=== PATIENT | male | born 1945 | race Caucasian/White ===

== ENCOUNTER → 2017-11-28 10:30 | Outpatient (CLI) | payer MEDICARE, SELFPAY ==
--- NOTE | 2017-11-28 08:43 | ECHOD_ITS ---
Reason For Study: SOB Procedure This was a 2D Doppler, Color Flow transthoracic echocardiogram. Exam performed in department. Left Ventricle Mild concentric left ventricular hypertrophy. Moderately dilated left ventricle. The estimated ejection fraction is 15 %. There is severe global hypokinesis of the left ventricle. Right Ventricle Normal RV size. Normal systolic function. Atria The left atrium is moderately enlarged. Normal right atrium. Mitral Valve Mild diffuse mitral valve thickening. Mild (1+) eccentric mitral valve insufficiency. Tricuspid Valve Normal tricuspid valve. Mild (1+) tricuspid valve insufficiency. Pulmonary artery systolic pressure is 40 mmHg. Aortic Valve Trisinus/trileaflet aortic valve. Mild focal aortic valve calcification. Pulmonic Valve Normal pulmonic valve. Great Vessels Normal aortic root. The pulmonary artery is normal size. Normal inferior vena cava. Pericardium/Pleural No pericardial effusion. MMode/2D Measurements & Calculations LVIDd: 6.2 cm IVSd: 1.4 cm LVOT diam: 2.0 cm LVIDs: 5.5 cm LVPWd: 1.4 cm LVOT area: 3.2 cm2 RVDd: 3.3 cm FS: 11.9 % Ao root diam: 3.7 cm LAV(MOD-bp): 84.0 ml LA A4 area: 24.7 cm2 LA dimension: 4.9 cm LAV(MOD-bp) Indexed: 38.2 ml/m2 LAV(MOD-sp2): 76.7 ml LAV(MOD-sp4): 83.0 ml RA A4 area: 13.5 cm2 Doppler Measurements & Calculations MV E max amos: 44.2 cm/sec Lat Peak E' Amos: 6.5 cm/sec Med Peak E' Amos: 5.0 cm/sec MV A max amos: 83.5 cm/sec E/E' lat: 6.8 E/E' med: 8.8 MV E/A: 0.53 Ao V2 max: 137.3 cm/sec AI max amos: 291.7 cm/sec LV V1 max: 70.0 cm/sec Ao max P.5 mmHg AI max P.0 mmHg LV V1 max P.0 mmHg Ao V2 mean: 100.8 cm/sec AI dec slope: 225.4 cm/sec2 LV V1 mean P.1 mmHg Ao mean P.5 mmHg AI P1/2t: 379.0 msec LV V1 mean: 50.2 cm/sec Ao V2 VTI: 25.8 cm LV V1 VTI: 13.8 cm SAMUEL(I,D): 1.7 cm2 SAMUEL(V,D): 1.6 cm2 SV(LVOT): 44.3 ml PA V2 max: 65.4 cm/sec TR max amos: 297.4 cm/sec TR max P.6 mmHg Interpretation Summary Mild concentric left ventricular hypertrophy. Moderately dilated left ventricle. The estimated ejection fraction is 15 %. There is severe global hypokinesis of the left ventricle. Mild (1+) tricuspid valve insufficiency. Pulmonary artery systolic pressure is 40 mmHg. Compared to the prveious the LV function has declined significantly Compared to prior study, changes are noted. Ordering Physician: Jose Miguel Angel/Sean Dubose Referring Physician: Norris Valenzuela Performed By: Jennifer Dai, JAZMINE, RVT
--- NOTE | 2017-11-28 10:30 | DT_ITS ---
This patient was seen during an EMR downtime November 25, 2017 - December 02, 2017. This patient may have a combination of paper and electronic documentation or all paper documentation. All documentation is viewable within the e-chart portion of [facility] for each patient visit.
== END ==
PROVIDERS: Family Provider Family Medicine; PCP Family Medicine; Visit Provider Internal Medicine Cardiovascular Disease
DX: R06.02 Shortness of breath (principal); I25.10 Atherosclerotic heart disease of native coronary artery without angina pectoris
CPT/HCPCS: 93306; Q9957; A4216

== ENCOUNTER → 2017-12-05 09:03 | Outpatient (CLI) | payer MEDICARE, SELFPAY ==
--- NOTE | 2017-12-05 09:30 | RAD_ITS ---
STUDY: X-RAY CHEST REASON FOR EXAM: Male, 72 years old. Congestive heart failure. TECHNIQUE: PA and lateral views of the chest. No focal consolidation COMPARISON: None. FINDINGS: There is no focal consolidation. There are rounded calcified density at the lung bases that likely reflect granulomas. There is no demonstrated pleural abnormality. There is borderline cardiomegaly. Normal mediastinum and nicole. Normal visualized pulmonary arteries. There is atherosclerotic calcification of the aortic arch with tortuosity. There are diffuse degenerative changes of the visualized thoracic spine. Normal visualized ribs, clavicles, and shoulders. There is no demonstrated abnormality of the visualized soft tissue structures of the upper abdomen. RAD/Chest PA and Lateral IMPRESSION: Cardiomegaly. Electronically Signed: Carlota Santiago MD at 10:08 EDT Tel , Service support ,
[2017-12-05 09:42] LABS: Absolute Lymphocyte Count 1.76 X10^3/ul (0.83-4.51); Absolute Neutrophil Count 3.6 X10^3/uL (2.0-7.7); Basophil# 0.03 X10^3/uL; Basophil% 0.5 % (0-1); Eosinophil# 0.14 X10^3/uL; Eosinophils% 2.2 % (0-5); Hematocrit 45.5 % (40-54); Hemoglobin 14.7 g/dl (13.0-16.5); Lymphocyte # 1.76 X10^3/ul (4.0); Lymphocyte % 28.2 % (19-41); Mean Corp Hgb Conc 32.3 g/gl (32-36); Mean Corpuscular Hgb 29.1 pg (27.0-32.0); Mean Corpuscular Volume 90.1 fL (80-94); Mean Platelet Vol. 10.5 fl (6.2-12.0); Monocyte% 11.2 % (0-10); Neutrophil # 3.61 X10^3/uL (2.7-7.7); Neutrophil % 57.7 % (47-70); Platelet Count 219 K/mm3 (150-450); RBC Distribution Width CV 14.4 % (11.6-14.6); RBC Distribution Width SD 46.6 fl (35.1-43.9); Red Blood Count 5.05 M/mm3 (4.6-6.2); White Blood Count 6.3 K/mm3 (4.4-11.0)
[2017-12-05 09:43] LABS: POSITIVE COUNT NO; POSITIVE DIFFERENTIAL NO; POSITIVE MORPHOLOGY NO
[2017-12-05 09:51] LABS: Anion Gap 8 (5-15); BUN 28 mg/dL (7-18); BUN/Creat Ratio 17.3 RATIO (10-20); Calcium,Total 9.7 mg/dL (8.5-10.1); Chloride 105 mmol/L (98-107); Creatinine, Serum 1.62 mg/dL (0.70-1.30); EST Glomerular Filtration Rate 45 mL/min (>60); Est Glom Filt Rate - Afr Amer 54 mL/min (>60); Glucose 149 mg/dL (74-106); Potassium 4.2 mmol/L (3.5-5.1); Sodium Level 138 mmol/L (136-145)
== END ==
PROVIDERS: Family Provider Family Medicine; PCP Family Medicine; Visit Provider Internal Medicine Cardiovascular Disease
DX: I42.0 Dilated cardiomyopathy (principal)
CPT/HCPCS: 36415; 71046; 80048; 85025

== ENCOUNTER 2017-12-09 08:43 | Day surgery (SDC) | payer MEDICARE, SELFPAY ==
[2017-12-06 13:28] VITALS: BMI 36.0
--- NOTE | 2017-12-09 10:36 | CL.D_ITS ---
Patient Name: BOBBY PUGA Study Date: 12/09/2017 Performing: Sean Dubose MD Ht: 68.11 inches 173 cm : 1945 Wt: 238.1 lbs 108 kg Age: 72 Gender: male BSA: 2.2 PROCEDURE(S) PERFORMED [id number] CLINICAL PROFILE AND INDICATIONS Indications: Cardiomyopathy Heart Failure: None Stress/Imaging Stress/Image Study Performed: No CAD Presentations: No Sxs, no angina. CONCLUSIONS Non obstructive coronary arteries Cardiomyopathy: Dilated idiopathic RECOMMENDATIONS Medical therapy DESCRIPTION OF PROCEDURE The patient arrived to the procedure lab. The risks and benefits of the procedure as well as a full d escription of our services here and current unavailability of surgical backup were fully explained to the patient and/or their significant other prior to the catheterization. The Timeout was completed, verifying the correct patient and procedure. The patient's procedural site was prepped and draped in the usual fashion. Local anesthetic was given subcutaneously to right groin region with Lidocaine 2%. Using a modified Seldinger technique, arterial access was obtained via the right femoral artery, a 5 Fr sheath was inserted. Left Coronary Artery selective angiography was performed in multiple views u sing a 5 Fr. JL4 catheter. Right Coronary Artery selective angiography was then performed in multiple views using a 5 Fr. 3DRC (Ruddy) catheter.The arterial sheath was pulled and a Mynx closure devic e was deployed for hemostasis CORONARY ANGIOGRAPHY DOMINANCE: Right Dominant LEFT HEART ASSESSMENT Left Ventricular Ejection Fraction: by Echo 15 % Global Hypokinesis - Severe Depressed Left Ventricular systolic function LEFT MAIN: Angiographically normal LEFT ANTERIOR DECENDING ARTERY: Mild luminal irregularities CIRCUMFLEX ARTERY: Mild luminal irregularities RIGHT CORONARY ARTERY: No significant disease noted COMPLICATIONS No Complications PROCEDURE MEDICATIONS Versed 1 mg IV Oxygen: 2 L/min via nasal cannula SUMMARY OF HEMODYNAMIC DATA Time AIR REST ECG 09:12:18 AO 103/65 (82) SA 10:06:45 Signed By Sean Dubose MD On 12/09/2017 10:34:55 Sean Dubose MD
== END 2017-12-09 13:30 | disposition home or self-care (01) ==
LOC: CLSP 08:45
PROVIDERS: Family Provider Family Medicine; PCP Family Medicine; Visit Provider Internal Medicine Cardiovascular Disease
DX: I42.0 Dilated cardiomyopathy (principal); I44.7 Left bundle-branch block, unspecified; I25.10 Atherosclerotic heart disease of native coronary artery without angina pectoris; I11.0 Hypertensive heart disease with heart failure; I50.23 Acute on chronic systolic (congestive) heart failure; I73.9 Peripheral vascular disease, unspecified; I27.21 Secondary pulmonary arterial hypertension; E78.5 Hyperlipidemia, unspecified; E11.9 Type 2 diabetes mellitus without complications; Z79.4 Long term (current) use of insulin; Z79.84 Long term (current) use of oral hypoglycemic drugs; Z79.82 Long term (current) use of aspirin; Z79.899 Other long term (current) drug therapy
CPT/HCPCS: 93454; 99152; 99153; C1760; J7040; C1769; Q9967

== ENCOUNTER → 2018-03-17 08:20 | Outpatient (CLI) | payer MEDICARE, SELFPAY ==
--- NOTE | 2018-03-17 08:22 | ECHOCS_ITS ---
Reason For Study: CHF Procedure This was a 2D Doppler, Color Flow transthoracic echocardiogram. Contrast injection was performed. Exam performed in department. Left Ventricle Mildly dilated left ventricle. The estimated ejection fraction is 15 %. Severe global left ventricular systolic dysfunction. Stage 1 diastolic dysfunction. There is severe global hypokinesis of the left ventricle. Right Ventricle Normal RV size. Normal systolic function. Atria The left atrium is moderately enlarged. Normal right atrium. Mitral Valve Bileaflet diffuse mitral valve thickening. Mild-Moderate (1-2+) eccentric mitral valve insufficiency. Tricuspid Valve Normal tricuspid valve. Mild to moderate (1-2+) tricuspid valve insufficiency. Pulmonary artery systolic pressure is 43 mmHg. Mild pulmonary hypertension. Aortic Valve Trisinus/trileaflet aortic valve. Mild focal aortic valve calcification. Pulmonic Valve Normal pulmonic valve. Great Vessels Normal aortic root. The pulmonary artery is normal size. Normal inferior vena cava. Pericardium/Pleural No pericardial effusion. Medication 22 gauge I.V. with prn adaptor inserted into left arm. Diluted definity 3.5ml given slow IV push to enhance endocardial definition. MMode/2D Measurements & Calculations LVIDd: 5.7 cm IVSd: 1.6 cm Ao root diam: 3.6 cm LVIDs: 5.2 cm LVPWd: 1.2 cm LA dimension: 4.4 cm RVDd: 4.1 cm FS: 8.8 % LAV(MOD-bp): 92.5 ml LVAd ap4: 60.5 cm2 SV(MOD-sp4): 48.5 ml LAV(MOD-bp) Indexed: 41.5 ml/m2 EDV(MOD-sp4): 284.5 ml LAV(MOD-sp2): 86.2 ml EDV(sp4-el): 293.0 ml LAV(MOD-sp4): 84.5 ml LVAs ap4: 54.6 cm2 ESV(MOD-sp4): 236.0 ml ESV(sp4-el): 247.3 ml EF(MOD-sp4): 17.1 % EF(sp4-el): 15.6 % SV(sp4-el): 45.8 ml LA A4 area: 25.8 cm2 RA A4 area: 17.2 cm2 Time Measurements MV dec time: 0.18 sec Doppler Measurements & Calculations MV E max traci: 55.3 cm/sec MV V2 max: 110.0 cm/sec MV P1/2t max traci: 66.0 cm/sec MV A max traci: 80.0 cm/sec MV max P.8 mmHg MV P1/2t: 70.9 msec MV E/A: 0.69 MV V2 mean: 60.0 cm/sec MV dec slope: 272.8 cm/sec2 MV mean P.7 mmHg MVA(P1/2t): 3.1 cm2 MV V2 VTI: 20.2 cm Ao V2 max: 123.6 cm/sec LV V1 max: 70.2 cm/sec PA V2 max: 84.7 cm/sec Ao max P.1 mmHg LV V1 max P.0 mmHg Ao V2 mean: 86.6 cm/sec LV V1 mean P.87 mmHg Ao mean P.3 mmHg LV V1 mean: 42.3 cm/sec Ao V2 VTI: 23.8 cm LV V1 VTI: 14.1 cm TR max traci: 316.0 cm/sec TR max P.9 mmHg Interpretation Summary Mildly dilated left ventricle. The estimated ejection fraction is 15 %. Severe global left ventricular systolic dysfunction. There is severe global hypokinesis of the left ventricle. Stage 1 diastolic dysfunction. The left atrium is moderately enlarged. Pulmonary artery systolic pressure is 43 mmHg. Mild pulmonary hypertension. Compared to prior study, there is no significant change. Contrast injection was performed. Ordering Physician: Sean Dubose Referring Physician: [facility] Performed By: Moris Owen RCS
== END ==
PROVIDERS: Family Provider Family Medicine; PCP Family Medicine; Visit Provider Internal Medicine Cardiovascular Disease
DX: I42.0 Dilated cardiomyopathy (principal); I50.9 Heart failure, unspecified
CPT/HCPCS: 93306; Q9957; A4216; C8929

== ENCOUNTER → 2018-04-23 08:59 | Outpatient (CLI) | payer MEDICARE, SELFPAY ==
[2018-04-23 09:11] LABS: Bacteria 0 SEEN /hpf (None Seen); Mucous, Urine 0 SEEN /hpf (<or=2+); Red Blood Cells-Urine 0 SEEN /hpf (0-5)
--- NOTE | 2018-04-23 09:30 | RAD_ITS ---
STUDY: X-RAY CHEST REASON FOR EXAM: Male, 73 years old. Shortness of breath TECHNIQUE: PA and lateral views of the chest. COMPARISON: 12/05/2017 FINDINGS: The lungs are clear and expanded. There is no demonstrated pleural abnormality. There is mild cardiac enlargement. Normal mediastinum and nicole. Normal visualized pulmonary arteries. Normal visualized aortic arch and descending thoracic aorta. Normal visualized thoracic spine. Normal visualized ribs, clavicles, and shoulders. There is no demonstrated abnormality of the visualized soft tissue structures of the upper abdomen. RAD/Chest PA and Lateral IMPRESSION: Normal x-ray examination of the chest. Electronically Signed: Vimal Zuniga DO at 9:27 EDT Tel , Service support ,
[2018-04-23 09:36] LABS: Absolute Lymphocyte Count 1.38 X10^3/ul (0.83-4.51); Basophil# 0.03 X10^3/uL; Basophil% 0.5 % (0-1); Eosinophil# 0.08 X10^3/uL; Eosinophils% 1.3 % (0-5); Hematocrit 40.2 % (40-54); Lymphocyte # 1.38 X10^3/ul (4.0); Lymphocyte % 22.5 % (19-41); Mean Corp Hgb Conc 32.3 g/gl (32-36); Mean Corpuscular Volume 92.6 fL (80-94); Mean Platelet Vol. 10.3 fl (6.2-12.0); Monocyte# 0.61 X10^3/uL; Neutrophil # 4.01 X10^3/uL (2.7-7.7); Neutrophil % 65.5 % (47-70); POSITIVE COUNT NO; POSITIVE DIFFERENTIAL NO; POSITIVE MORPHOLOGY NO; Platelet Count 220 K/mm3 (150-450); RBC Distribution Width CV 13.1 % (11.6-14.6); RBC Distribution Width SD 43.2 fl (35.1-43.9); Red Blood Count 4.34 M/mm3 (4.6-6.2); White Blood Count 6.1 K/mm3 (4.4-11.0)
[2018-04-23 09:39] LABS: Color, Urine Yellow (Yellow); Glucose, Dipstick Normal (Normal); Ketone-Dipstick Negative (Negative); Leukocyte Esterase-Dipstick 25 /ul (Negative); Nitrite-Dipstick Negative (Negative); Occult Blood-Urine Negative /ul (Negative); Protein-Dipstick Negative (Negative); Specific Gravity, Urine 1.015 (1.002-1.030); Urine Bilirubin Dipstick Negative (Negative); Urine Clarity Clear (Clear); Urine Urobilinogen 4 mg/dl (Normal)
[2018-04-23 09:41] LABS: International Normalized Ratio 1.1
[2018-04-23 09:42] LABS: Partial Thromboplast Time 26.9 Seconds (24.1-36.2)
[2018-04-23 09:45] LABS: Squamous Epithelial Cells - UA 0-5 SEEN /hpf (0-5); White Blood Cells 0-5 SEEN /hpf (0-5)
[2018-04-23 09:52] LABS: Anion Gap 5 (5-15); BUN 27 mg/dL (7-18); BUN/Creat Ratio 17.4 RATIO (10-20); Calcium,Total 9.8 mg/dL (8.5-10.1); Chloride 105 mmol/L (98-107); Creatinine, Serum 1.55 mg/dL (0.70-1.30); EST Glomerular Filtration Rate 47 mL/min (>60); Est Glom Filt Rate - Afr Amer 57 mL/min (>60); Glucose 189 mg/dL (74-106); Potassium 4.3 mmol/L (3.5-5.1); Sodium Level 140 mmol/L (136-145)
== END ==
PROVIDERS: Referring Provider Internal Medicine Cardiovascular Disease; Visit Provider Internal Medicine Cardiovascular Disease
DX: I25.10 Atherosclerotic heart disease of native coronary artery without angina pectoris (principal); I11.0 Hypertensive heart disease with heart failure; I50.23 Acute on chronic systolic (congestive) heart failure; I44.7 Left bundle-branch block, unspecified; I27.21 Secondary pulmonary arterial hypertension; E11.9 Type 2 diabetes mellitus without complications; E78.5 Hyperlipidemia, unspecified; E66.9 Obesity, unspecified; R06.02 Shortness of breath; Z98.890 Other specified postprocedural states
CPT/HCPCS: 36415; 71046; 80048; 81001; 85025; 85610; 85730

== ENCOUNTER → 2018-11-27 08:34 | Outpatient (CLI) | payer MEDICARE, SELFPAY ==
[2018-10-07 09:45] VITALS: BMI 36.3
--- NOTE | 2018-11-27 08:37 | ECHOCS_ITS ---
Reason For Study: CHF Procedure This was a 2D Doppler, Color Flow transthoracic echocardiogram. Contrast injection was performed. The study was technically difficult. Exam performed in department. Left Ventricle Normal LV size. Mild concentric left ventricular hypertrophy. The estimated ejection fraction is 20 %. Unable to assess diastolic dysfunction due to arrhythmia. No regional wall motion abnormalities noted. Right Ventricle Normal RV size. ICD or pacer leads identified within the right ventricle. Normal systolic function. Atria The left atrium is moderately enlarged. Normal right atrium. Mitral Valve Normal mitral valve. Mild-Moderate (1-2+) eccentric mitral valve insufficiency. Aortic Valve Trisinus/trileaflet aortic valve. Mild focal aortic valve calcification. Pulmonic Valve Normal pulmonic valve. Great Vessels Mildly dilated aortic root. The pulmonary artery is normal size. Normal inferior vena cava. Pericardium/Pleural No pericardial effusion. Medication 22 gauge I.V. with prn adaptor inserted into right arm. Diluted definity 4ml given slow IV push to enhance endocardial definition. MMode/2D Measurements & Calculations LVIDd: 5.3 cm IVSd: 1.3 cm Ao root diam: 4.0 cm LVIDs: 5.1 cm LVPWd: 1.3 cm RVDd: 4.1 cm FS: 4.4 % LAV(MOD-bp): 94.8 ml EDV(MOD-sp4): 252.3 ml EDV(MOD-sp2): 261.4 ml LAV(MOD-bp) Indexed: 42.5 ml/m2 ESV(MOD-sp4): 199.2 ml EF(MOD-sp2): 22.2 % LAV(MOD-sp2): 77.3 ml EF(MOD-sp4): 21.0 % LAV(MOD-sp4): 101.8 ml SV(MOD-sp4): 53.1 ml SV(MOD-sp2): 58.1 ml LA A4 area: 27.7 cm2 LA dimension(2D): 4.5 cm RA A4 area: 13.7 cm2 Doppler Measurements & Calculations Ao V2 max: 110.8 cm/sec LV V1 max: 60.2 cm/sec TR max traci: 260.0 cm/sec Ao max P.9 mmHg LV V1 max P.4 mmHg TR max P.4 mmHg Interpretation Summary Normal LV size. Mild concentric left ventricular hypertrophy. The estimated ejection fraction is 20 %. ICD or pacer leads identified within the right ventricle. Unable to assess diastolic dysfunction due to arrhythmia. Compared to previous study, the left ventricular systolic function is the same.. Ordering Physician: Conchis Fletcher/Sean Dubose Performed By: Jennifer Dai, JAZMINE, RVT
== END ==
PROVIDERS: Referring Provider Physician Assistant Medical; Visit Provider Physician Assistant Medical
DX: I50.22 Chronic systolic (congestive) heart failure (principal)
CPT/HCPCS: 93306; Q9957; A4216; C8929

== ENCOUNTER 2019-05-01 10:45 | Day surgery (SDC) | payer MEDICARE, SELFPAY ==
[2019-04-23 09:38] VITALS: BMI 34.9
[2019-05-01] VITALS (9 sets, daily range): BP systolic 79–114; BP diastolic 46–70; PULSE 71–82; RESP 16–18; TEMP 36.4–36.6; O2SAT 96–98; BMI 33.7
[2019-05-01 11:40] LABS: Bedside Glucose 97 mg/dL (70-110)
[2019-05-01] MEDS: Lactated Ringers 1,000 ML 100 ML IV (12:13)
--- NOTE | 2019-05-01 12:14 | HP.PCM_ITS ---
History and Physical Date of Admission: 05/01/19 Alex Gabriel 1945 ? ? REFERRING PHYSICIAN: MD Garrett ? CHIEF COMPLAINT: Consult ? HPI: The patient is a 74 year old male presents with complaint of diarrhea. Has noted up to 5-7 loose watery bowel movement per day, if he eats nothing then it goes down to 1-2 episodes. Also with fecal urgency. Denies noting blood in stools. Some crampy abdominal pain associated with this. Denies fevers. Has been on antibiotics for right index finger infections - sounds like tenosynovitis. He denies family history of colon cancer. Last colonoscopy about 10 years ago. ? ? PAST MEDICAL HISTORY ? Diabetes (HCC) ? ? Heart disease ? ? Prostate cancer (HCC) ? ? PAST SURGICAL HISTORY ? APPENDECTOMY ? ? ? PAST SURGICAL HISTORY OF Left ? ? 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 PAST SURGICAL HISTORY OF ? ? ? placement of defibrillator ? ? Current Outpatient Medications: aspirin 81 mg chewable tablet Take 81 mg by mouth once daily. lisinopril (ZESTRIL, PRINIVIL) 10 mg tablet Take 10 mg by mouth once daily. furosemide (LASIX) 40 mg tablet Take 40 mg by mouth once daily. atorvastatin (LIPITOR) 40 mg tablet Take 40 mg by mouth once daily. carvedilol (COREG) 12.5 mg tablet Take 12.5 mg by mouth twice daily with meals. TRULICITY 1.5 mg/0.5 mL pnij INJECT 0.5 ML SUBCUTANEOUS ON SATURDAY loperamide HCl (LOPERAMIDE ORAL) Take by mouth as needed. insulin glargine (LANTUS) 100 unit/mL injection Inject 65 Units subcutaneously. peg 3350-electrolytes (COLYTE) 240-22.72-6.72 -5.84 gram solution Take 4,000 m L by mouth one time only for 1 dose. ? ? ALLERGIES: Patient has no known allergies. ? PERSONAL HISTORY: Social History Socioeconomic History Marital status: Spouse name: Not on file Number of children: Not on file Years of education: Not on file Highest education level: Not on file Occupational History Not on file Social Needs Financial resource strain: Not on file Food insecurity: Worry: Not on file Inability: Not on file Transportation needs: Medical: Not on file Non-medical: Not on file Tobacco Use Smoking status: Never Smoker Smokeless tobacco: Never Used Substance and Sexual Activity Alcohol use: Yes Comment: rarely Drug use: Never Sexual activity: Not on file Lifestyle Physical activity: Days per week: Not on file Minutes per session: Not on file Stress: Not on file Relationships Social connections: Talks on phone: Not on file Gets together: Not on file Attends faith service: Not on file Active member of club or organization: Not on file Attends meetings of clubs or organizations: Not on file Relationship status: Not on file Intimate partner violence: Fear of current or ex partner: Not on file Emotionally abused: Not on file Physically abused: Not on file Forced sexual activity: Not on file Other Topics Concerns: Not on file Social History Narrative Not on file ? FAMILY HISTORY ? Diabetes Mother ? ? Diabetes Father ? ? Hypertension Father ? ? Diabetes Sister ? ? Heart disease Sister ? ? Diabetes Brother ? ? ? REVIEW OF SYSTEMS: General: The patient NOTES fatigue, denies weight loss, denies weight gain, denies feeling hot, and denies feelings of cold. Eyes: The patient denies glaucoma, denies eye injury/surgery, does not wear glasses or contacts. Ear/Nose/Throat: The patient denies allergies, denies hayfever, denies ear infections, and denies bloody noses. Cardiovascular: The patient denies chest pain, NOTES heart disease, denies high blood pressure,denies cardiac stent, denies prior heart attack, denies irregular heart beat, denies high cholesterol, denies poor circulation, denies heart failure, other cardiac issues, denies claudication, denies cold feet, denies peripheral arterial stent. Respiratory: The patient denies tuberculosis, denies pneumonia, denies frequent cough, denies pulmonary embolism, NOTES shortness of breath, and denies coughing up blood. Gastrointestinal: The patient denies difficulty swallowing, denies acid reflux, denies ulcers, denies vomiting, denies jaundice/hepatitis, denies gallbladder problems, denies black or tarry stools, denies hemorrhoids, denies bleeding from rectum, denies diverticulitis, denies constipation, NOTES diarrhea, denies loss of stool control, and denies hernias. Kidney/Bladder: The patient denies kidney stones, denies urine infections, and denies bloody urine. Skin: The patient denies a history of skin cancer, denies bleeding/changing moles, and denies a history of skin rash. Neurologic: The patient denies a history of epilepsy/convulsions, denies headaches, denies head/spinal injuries, and denies stroke/TIA. Psychiatric: The patient denies psychiatric medications, NOTES depression, and denies voices, denies substance abuse. Endocrine: The patient denies thyroid disorders, NOTES diabetes, and denies hormonal problems. Hematologic: The patient denies a history of bruising, denies bleeding, and denies anemia, denies blood clots. Infections: The patient denies a history of measles and mumps, denies rheumatic fever, and denies sexually transmitted diseases. Musculoskeletal: The patient denies back pain/injury, denies back problems, denies sciatica, NOTES knee/foot trouble, NOTES arthritis, or denies gout. ? PHYSICAL EXAMINATION: General: The patient is 74 year old male, well nourished, well hydrated in no acute distress. The patient is oriented to time, place, and person. VITALS: Blood pressure 94/60, pulse 84, temperature 36.8 ?C (98.2 ?F), temperature source Temporal Artery, height 172.7 cm (5' 8), weight 101.6 kg (224 lb), SpO2 98 %. Body mass index is 34.06 kg/m?. Head ? Normocephalic. EOM intact with sclera clear and no icterus noted. Mouth with mucus membranes moist. Neck - supple with no jugular venous distention noted. Trachea is midline. No carotid bruits noted. . Lungs ? clear to auscultation. Normal breath sounds. No rales/rhonchi/wheezing noted. No labored breathing noted, such as retractions. No cough heard. Heart ? normal S1 and S2 auscultated. No rubs/clicks/murmurs noted. Regular rate. Abdomen ? soft and benign. Normal bowel sounds. Difficult to determine if any masses or organomegaly due to body habitus. Extremities ? no calf tenderness noted. No pitting edema noted. Skin ? normal skin integrity. Neurological ? cranial nerves II-XII intact. Normal motor strength in arms and legs. No localized numbness detected. Psych ? calm and appropriate ?? IMPRESSION: diarrhea ? PLAN: I have discussed the above with the patient. No one has obtained stool cultures on patient, I will order this. The patient states that his insurance [facility] wants him to have colonoscopy. I have offered colonoscopy, possible biopsies I have explained the procedure to the patient. I have counseled the patient as to the risks of the procedure, including but not limited to: infection, bleeding, perforation of the GI tract, injury to any intraabdominal organs such as the liver/spleen, inability to complete the procedure, complications of anesthesia, etc. ? the patient understands. The patient wishes to proceed. I have answered all questions to the patient?s satisfaction and the patient has no further questions. . Diagnoses: (R19.7) Diarrhea, unspecified type (primary encounter diagnosis) Return to Clinic: The patient is instructed to follow-up with me after the procedure as per needed.
--- NOTE | 2019-05-01 13:16 | OP.COLON_ITS ---
Patient Name: Alex Gabriel Procedure Date: 05/01/2019 12:29 PM Date of : 1945 Age: 74 Procedure: Colonoscopy Indications: Infectious diarrhea Providers: Thea Chisholm MD Referring MD: Jeny Carcamo Medicines: See the Anesthesia note for documentation of the administered medications Patient Profile: Refer to note in patient chart for documentation of history and physical. Last Colonoscopy: 10 years ago. Complications: No immediate complications. Procedure: Pre-Anesthesia Assessment: - Prior to the procedure, a History and Physical was performed, and patient medications and allergies were reviewed. The patient is competent. The risks and benefits of the procedure and the sedation options and risks were discussed with the patient. All questions were answered and informed consent was obtained. Patient identification and proposed procedure were verified by the physician in the pre-procedure area. Mental Status Examination: alert and oriented. Airway Examination: normal oropharyngeal airway and neck mobility. Respiratory Examination: clear to auscultation. CV Examination: normal. Prophylactic Antibiotics: The patient does not require prophylactic antibiotics. Prior Anticoagulants: The patient has taken no previous anticoagulant or antiplatelet agents. ASA Grade Assessment: II - A patient with mild systemic disease. After reviewing the risks and benefits, the patient was deemed in satisfactory condition to undergo the procedure. The anesthesia plan was to use moderate sedation / analgesia (conscious sedation). Immediately prior to administration of medications, the patient was re-assessed for adequacy to receive sedatives. The heart rate, respiratory rate, oxygen saturations, blood pressure, adequacy of pulmonary ventilation, and response to care were monitored throughout the procedure. The physical status of the patient was re-assessed after the procedure. After I obtained informed consent, the scope was passed under direct vision. Throughout the procedure, the patient's blood pressure, pulse, and oxygen saturations were monitored continuously. The pediatric colonoscope was introduced through the anus and advanced to the cecum, identified by the appendiceal orifice, IC valve and transillumination. The colonoscopy was performed without difficulty. The patient tolerated the procedure well. The quality of the bowel preparation was adequate to identify polyps 6 mm and larger in size. Scope In: 12:39:59 PM Scope Withdrawal Time 0 hours 14 minutes 19 seconds Scope Out: 12:59:37 PM Total Procedure Duration Time 0 hours 19 minutes 38 seconds Findings: The perianal and digital rectal examinations were normal. Pertinent negatives include normal sphincter tone. Non-bleeding internal hemorrhoids were found. A diffuse pseudomembrane was found in the entire colon. Impression: - Non-bleeding internal hemorrhoids. - Pseudomembranous enterocolitis. - No specimens collected. Recommendation: - Discharge patient to home (ambulatory). - Resume previous diet. - Continue present medications. - Return to primary care physician PRN. colonoscopy within 3 years due to difficulty with adequate evaluation due to pseudomembranous colitis - prescription for antibiotics for c diff colitis is awaiting patient at patient's pharmacy. - Repeat colonoscopy within 3 years for surveillance - see above. Procedure Code(s): --- Professional --- 74417, Colonoscopy, flexible; diagnostic, including collection of specimen(s) by brushing or washing, when performed (separate procedure) Diagnosis Code(s): --- Professional --- K64.8, Other hemorrhoids A04.72, Enterocolitis due to Clostridium difficile, not specified as recurrent A09, Infectious gastroenteritis and colitis, unspecified CPT copyright 2017 [employer]. All rights reserved. The codes documented in this report are preliminary and upon bag adjuster review may be revised to meet current compliance requirements. MD Thea Kim MD 05/01/2019 1:16:10 PM This report has been signed electronically. Number of Addenda: 0 Note Initiated On: 05/01/2019 12:29 PM
== END 2019-05-01 14:15 | disposition home or self-care (01) ==
LOC: EN 10:47 → AC 10:52
PROVIDERS: Visit Provider Surgery
PROC: 0DJD8ZZ Inspection of Lower Intestinal Tract, Via Natural or Artificial Opening Endoscopic (ICD-10-PCS; CPT 45378; principal; 2019-05-01 11:55)
DX: A04.72 Enterocolitis due to Clostridium difficile, not specified as recurrent (principal); A09 Infectious gastroenteritis and colitis, unspecified; K64.8 Other hemorrhoids; I44.7 Left bundle-branch block, unspecified; I10 Essential (primary) hypertension; E78.00 Pure hypercholesterolemia, unspecified; E11.9 Type 2 diabetes mellitus without complications; C61 Malignant neoplasm of prostate; Z79.4 Long term (current) use of insulin; Z79.82 Long term (current) use of aspirin; Z79.899 Other long term (current) drug therapy
CPT/HCPCS: 45378; 82962; J7050; J7120

== ENCOUNTER → 2019-09-07 14:02 | Outpatient (CLI) | payer MEDICARE, SELFPAY ==
[2019-05-01 11:20] VITALS: BMI 33.7
[2019-08-31 10:17] VITALS: BMI 33.9
--- NOTE | 2019-09-07 14:03 | ECHOCS_ITS ---
Reason For Study: LV optimization Procedure This was a 2D Doppler, Color Flow transthoracic echocardiogram. The study was technically difficult. Exam performed in department. Left Ventricle Severely dilated left ventricle. The estimated ejection fraction is 20 %. There is severe global hypokinesis of the left ventricle. Right Ventricle Normal RV size. ICD or pacer leads identified within the right ventricle. Normal systolic function. Mitral Valve Normal mitral valve. Mild (1+) eccentric mitral valve insufficiency. Tricuspid Valve Normal tricuspid valve. Mild tricuspid valve insufficiency. Pulmonary artery systolic pressure is 25 mmHg. Aortic Valve Trisinus/trileaflet aortic valve. Mild focal aortic valve calcification. Pulmonic Valve Normal pulmonic valve. Great Vessels Normal aortic root. The pulmonary artery is normal size. Inferior vena cava collapse with respiration. Pericardium/Pleural No pericardial effusion. Medication 22 gauge I.V. with prn adaptor inserted into right arm. Diluted definity 3ml given slow IV push to enhance endocardial definition. MMode/2D Measurements & Calculations LVIDd: 6.8 cm IVSd: 1.2 cm Ao root diam: 4.0 cm LVIDs: 6.3 cm LVPWd: 1.1 cm RVDd: 3.3 cm FS: 7.4 % LAV(MOD-bp): 53.9 ml EDV(MOD-sp4): 236.8 ml EDV(MOD-sp2): 222.3 ml LAV(MOD-bp) Indexed: 25.2 ml/m2 ESV(MOD-sp4): 226.7 ml EF(MOD-sp2): 34.8 % LAV(MOD-sp2): 50.2 ml EF(MOD-sp4): 4.3 % LAV(MOD-sp4): 53.4 ml SV(MOD-sp4): 10.1 ml SV(MOD-sp2): 77.5 ml LA A4 area: 18.5 cm2 LA dimension(2D): 3.4 cm RA A4 area: 12.0 cm2 Doppler Measurements & Calculations MV E max amos: 43.9 cm/sec Lat Peak E' Amos: 2.6 cm/sec Med Peak E' Amos: 4.3 cm/sec MV A max amos: 96.3 cm/sec E/E' lat: 17.0 E/E' med: 10.3 MV E/A: 0.46 Ao V2 max: 140.3 cm/sec LV V1 max: 73.5 cm/sec PA V2 max: 74.3 cm/sec Ao max P.9 mmHg LV V1 max P.2 mmHg Ao V2 mean: 95.9 cm/sec Ao mean P.3 mmHg Ao V2 VTI: 22.7 cm TR max amos: 230.5 cm/sec TR max P.6 mmHg Interpretation Summary Severely dilated left ventricle. The estimated ejection fraction is 20 %. There is severe global hypokinesis of the left ventricle. Mild (1+) eccentric mitral valve insufficiency. Mild focal aortic valve calcification. Mild tricuspid valve insufficiency. RV and LV lead interrogations were performed and optimized with predominant LV pacing at -60 and a PA V of 130. There was definite improvement of the basal and mid septum in terms of contractility. Would recommend repeating echocardiogram in 2 to 3 months to see whether there is been any improvement. This was performed in conjunction with the [employer] rep Ordering Physician: Conchis Fletcher/Sean Dubose Referring Physician: Sean Dubose Performed By: Tessie Patton RDCS
== END ==
PROVIDERS: Referring Provider Internal Medicine Cardiovascular Disease; Visit Provider Internal Medicine Cardiovascular Disease
DX: I42.8 Other cardiomyopathies (principal); I50.22 Chronic systolic (congestive) heart failure; I27.21 Secondary pulmonary arterial hypertension; I44.7 Left bundle-branch block, unspecified; I25.10 Atherosclerotic heart disease of native coronary artery without angina pectoris; I50.814 Right heart failure due to left heart failure; I25.2 Old myocardial infarction; Z95.810 Presence of automatic (implantable) cardiac defibrillator
CPT/HCPCS: 93306; Q9957; A4216; C8929

== ENCOUNTER → 2020-03-22 08:55 | Outpatient (CLI) | payer MEDICARE, SELFPAY ==
[2019-08-31 10:17] VITALS: BMI 33.9
[2020-03-18 08:35] VITALS: BMI 37.9
== END ==
PROVIDERS: PCP Family Medicine; Referring Provider Internal Medicine Cardiovascular Disease; Visit Provider Internal Medicine Cardiovascular Disease
DX: I50.814 Right heart failure due to left heart failure (principal); I25.2 Old myocardial infarction; Z95.810 Presence of automatic (implantable) cardiac defibrillator; I42.8 Other cardiomyopathies; I11.0 Hypertensive heart disease with heart failure; I50.22 Chronic systolic (congestive) heart failure; I27.21 Secondary pulmonary arterial hypertension; I44.7 Left bundle-branch block, unspecified; I25.10 Atherosclerotic heart disease of native coronary artery without angina pectoris; E78.5 Hyperlipidemia, unspecified
CPT/HCPCS: 93308; Q9957; A4216; C8924

== ENCOUNTER → 2020-04-04 14:44 | Outpatient (CLI) | payer MEDICARE, SELFPAY ==
[2020-03-18 08:35] VITALS: BMI 37.9
[2020-04-04 17:34] LABS: Anion Gap 7 (5-15); BUN 18 mg/dL (7-18); BUN/Creat Ratio 10.5 RATIO (10-20); Calcium,Total 9.2 mg/dL (8.5-10.1); Chloride 103 mmol/L (98-107); Creatinine, Serum 1.71 mg/dL (0.70-1.30); EST Glomerular Filtration Rate 42 mL/min (>60); Est Glom Filt Rate - Afr Amer 50 mL/min (>60); Glucose 200 mg/dL (74-106); Potassium 3.4 mmol/L (3.5-5.1); Sodium Level 138 mmol/L (136-145)
== END ==
PROVIDERS: PCP Family Medicine; Referring Provider Physician Assistant Medical; Visit Provider Physician Assistant Medical
DX: I42.8 Other cardiomyopathies (principal); I11.0 Hypertensive heart disease with heart failure; I50.22 Chronic systolic (congestive) heart failure; E78.00 Pure hypercholesterolemia, unspecified; Z95.810 Presence of automatic (implantable) cardiac defibrillator
CPT/HCPCS: 36415; 80048

== ENCOUNTER → 2020-04-07 08:51 | Outpatient (CLI) | payer MEDICARE, SELFPAY ==
[2020-03-18 08:35] VITALS: BMI 37.9
[2020-04-07 10:47] LABS: BNP,B-Type NATRIURETIC PEPTIDE 262.6 pg/mL (0-100)
== END ==
PROVIDERS: Internal Medicine Cardiovascular Disease; PCP Family Medicine; Referring Provider Physician Assistant Medical; Visit Provider Physician Assistant Medical
DX: I11.0 Hypertensive heart disease with heart failure (principal); I50.22 Chronic systolic (congestive) heart failure; I50.814 Right heart failure due to left heart failure; I25.10 Atherosclerotic heart disease of native coronary artery without angina pectoris; I27.21 Secondary pulmonary arterial hypertension; I44.7 Left bundle-branch block, unspecified; I42.8 Other cardiomyopathies; I25.2 Old myocardial infarction; Z95.810 Presence of automatic (implantable) cardiac defibrillator
CPT/HCPCS: 36415; 83880; C9803

== ENCOUNTER → 2020-04-07 09:00 | Outpatient (CLI) | payer MEDICARE, SELFPAY ==
[2020-03-18 08:35] VITALS: BMI 37.9
== END ==
PROVIDERS: PCP Family Medicine; Referring Provider Internal Medicine Cardiovascular Disease; Visit Provider Internal Medicine Cardiovascular Disease
DX: I11.0 Hypertensive heart disease with heart failure (principal); I50.22 Chronic systolic (congestive) heart failure; I50.814 Right heart failure due to left heart failure; I25.10 Atherosclerotic heart disease of native coronary artery without angina pectoris; I27.21 Secondary pulmonary arterial hypertension; I42.8 Other cardiomyopathies; I44.7 Left bundle-branch block, unspecified; I25.2 Old myocardial infarction; E78.5 Hyperlipidemia, unspecified; Z95.810 Presence of automatic (implantable) cardiac defibrillator
CPT/HCPCS: 36415; 83880; 87635; C9803; U0003

== ENCOUNTER → 2020-04-20 09:18 | Outpatient (CLI) | payer MEDICARE, SELFPAY ==
[2020-04-20 08:43] VITALS: BMI 37.4
[2020-04-20 10:46] LABS: Anion Gap 5 (5-15); BUN 31 mg/dL (7-18); BUN/Creat Ratio 16.1 RATIO (10-20); Calcium,Total 9.6 mg/dL (8.5-10.1); Chloride 106 mmol/L (98-107); Creatinine, Serum 1.92 mg/dL (0.70-1.30); EST Glomerular Filtration Rate 36 mL/min (>60); Est Glom Filt Rate - Afr Amer 44 mL/min (>60); Glucose 124 mg/dL (74-106); Sodium Level 139 mmol/L (136-145)
== END ==
PROVIDERS: PCP Family Medicine; Referring Provider Physician Assistant Medical; Visit Provider Physician Assistant Medical
DX: I50.22 Chronic systolic (congestive) heart failure (principal)
CPT/HCPCS: 36415; 80048

== ENCOUNTER 2020-08-25 14:17 | Outpatient (RCR) | payer MEDICARE, SELFPAY ==
[2020-04-20 08:43] VITALS: BMI 37.4
[2020-08-25] MEDS: COVID-19 VACC, MRNA(PFIZER)/PF 30 MCG/0.3 ML SYRINGE IM (07:18)
[2020-09-15] MEDS: COVID-19 VACC, MRNA(PFIZER)/PF 30 MCG/0.3 ML SYRINGE IM (07:13)
== END 2020-08-25 23:59 ==
LOC: IMMUN 14:17
PROVIDERS: PCP Family Medicine; Visit Provider Family Medicine
DX: Z23 Encounter for immunization (principal)
CPT/HCPCS: 0001A; 0002A

== ENCOUNTER 2020-11-17 08:00 | Outpatient (RCR) | payer MEDICARE, SELFPAY ==
[2020-09-20 10:56] VITALS: BMI 37.8
[2020-11-04 08:25] VITALS: BP 102/54; PULSE 72; RESP 18; TEMP 36.1; BMI 37.8
[2020-11-04 11:14] LABS: Erythrocyte Sedimentation Rate 37 mm/hr (0-20)
[2020-11-04 11:17] LABS: Absolute Lymphocyte Count 1.55 X10^3/uL (0.83-4.51); Absolute Neutrophil Count 4.8 X10^3/uL (2.0-7.7); Basophil# 0.05 X10^3/uL; Basophil% 0.7 % (0-1); Eosinophil# 0.05 X10^3/uL; Eosinophils% 0.7 % (0-5); Hematocrit 42.4 % (40-54); Hemoglobin 12.8 g/dL (13.0-16.5); Lymphocyte # 1.55 X10^3/ul (0.83-4.51); Lymphocyte % 21.4 % (19-41); Mean Corp Hgb Conc 30.2 g/dL (32-36); Mean Corpuscular Hgb 28.6 pg (27.0-32.0); Mean Corpuscular Volume 94.6 fL (80-94); Mean Platelet Vol. 9.6 fl (6.2-12.0); Monocyte# 0.71 X10^3/uL; Monocyte% 9.8 % (0-10); NRBC Flagged by Analyzer 0 % (0-5); Neutrophil # 4.84 X10^3/uL (2.7-7.7); Neutrophil % 66.8 % (47-70); Platelet Count 235 K/mm3 (150-450); RBC Distribution Width CV 13.2 % (11.6-14.6); RBC Distribution Width SD 46.1 fl (35.1-43.9); Red Blood Count 4.48 M/mm3 (4.6-6.2); White Blood Count 7.2 K/mm3 (4.4-11.0)
[2020-11-04 11:39] LABS: Hemoglobin A1c 6.7 % (3.8-5.6)
[2020-11-04 11:40] LABS: ALB/GLOB Ratio 0.7 RATIO (0.9-2.4); AST(SGOT) 13 U/L (15-37); Alanine Aminotransfer ALT/SGPT 14 U/L (16-61); Albumin, Serum 3.3 g/dL (3.2-5.0); Alkaline Phosphatase 141 U/L (45-117); Anion Gap 4 (5-15); BUN 33 mg/dL (7-18); BUN/Creat Ratio 16.5 RATIO (10-20); Calcium,Total 9.6 mg/dL (8.5-10.1); Chloride 108 mmol/L (98-107); EST Glomerular Filtration Rate 35 mL/min (>60); Est Glom Filt Rate - Afr Amer 42 mL/min (>60); Glucose 152 mg/dL (74-106); Potassium 4.6 mmol/L (3.5-5.1); Protein, Total 8.3 g/dL (6.4-8.2); Sodium Level 142 mmol/L (136-145)
--- NOTE | 2020-11-04 14:17 | HP.PCM_ITS ---
History of Present Illness Date of Service: 11/04/20 Chief Complaint: bilateral foot brady History of Wound: The patient is a pleasant 75-year-old white male who presents to the wound healing center today (11/04/2020) for an initial evaluation of bilateral medial foot brady. He has a past medical history significant for Alzheimer's disease, dilated cardiomyopathy, congestive heart failure, implanted pacemaker, CAD, hypertension, hyperlipidemia, and insulin-dependent type 2 diabetes. He reports that his brady occurred approximately 2 weeks ago. 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 The next day, he was back on his tractor performing the same type of work. In the following days, the developed blackening of the areas. He has been using silver dressings to his feet daily, and cleansing them with a chlorhexidine?type solution. He denies any pain in his feet. He denies any fever or chills. He denies any general malaise or poor appetite. He has mild redness surrounding the wounds of his bilateral feet. They do not feel hot to touch. He has not been on any antibiotics in the last several weeks. He does not typically use compression to his lower extremities. He denies frequent swelling of the lower extremities, but does report that in the past 2 weeks his distal feet have appeared slightly swollen. 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 Erectile dysfunction Essential (primary) hypertension History of non-ST elevation myocardial infarction (NSTEMI) (05/18/19) Hyperlipidemia Left bundle branch block Nonischemic cardiomyopathy Nonobstructive atherosclerosis of coronary artery Obesity Peripheral vascular disease Secondary pulmonary arterial hypertension Type 2 diabetes mellitus Type 2 diabetes mellitus with diabetic neuropathy, with long-term current use of insulin Home Medications aspirin 81 mg tablet,delayed release 81 mg PO QDAY 11/05/17 [History Last Taken 12/09/17] insulin glargine 100 unit/mL subcutaneous solution 65 unit SC DAILY ml 11/05/17 [History Last Taken Unknown] turmeric root extract 500 mg capsule 500 mg PO DAILY 03/18/20 [History Last Taken Unknown] carvedilol 25 mg tablet 25 mg PO BID #180 tab 04/05/20 [Rx Last Taken Unknown] potassium chloride 20 mEq tablet,extended release 20 meq PO DAILY #30 tab 04/07/20 [Rx Last Taken Unknown] furosemide 40 mg tablet 40 mg PO DAILY tab 04/20/20 [History Last Taken Unknown] Lactobacillus acidophilus 100 mmu cells PO DAILY 09/20/20 [History Last Taken Unknown] donepezil 10 mg tablet 10 mg PO QHS tablet 09/20/20 [History Last Taken Unknown] lipozene 1,500 mg PO DAILY 09/20/20 [History Last Taken Unknown] sacubitril-valsartan [Entresto] 1 tab PO BID 11/04/20 [History Last Taken Unknown] Allergy/AdvReac Type Severity Reaction Status Date / Time No Known Allergies Allergy Verified 09/20/20 10:56 Family History Sister Heart disease Hyperlipidemia Sister Diabetes Heart disease Hypertension Father , Age 79 Diabetes Aortic aneurysm Mother Alzheimers disease Surgical History Amputation finger Biventricular ICD (implantable cardioverter-defibrillator) in place (04/30/18) finger surgery (01/2018) History of appendectomy History of left heart catheterization (05/19/19) History of surgical amputation of finger of left hand Hx of appendectomy Social History (Updated 09/20/20 @ 11:[address] Sean Dubose MD) Smoking Status: Never smoker alcohol intake: current alcohol intake frequency: a few times a month Alcohol type: beer substance use type: does not use caffeine: Yes Type: carbonated beverages Number of servings: 1 and coffee Number of servings: 1 what type of physical activity do you participate in: none ROS Constitutional Constitutional: Denies chills, fever(s) or night sweats Eyes Eyes: Denies change in vision or double vision ENT HEENT: Denies lip swelling or tongue swelling Cardiovascular Cardiovascular: Denies chest pain, leg edema or palpitations Respiratory/Chest Respiratory/Chest: Denies cough, shortness of breath at rest, shortness of breath with exertion or wheezing Gastrointestinal Gastrointestinal: Denies diarrhea, nausea or vomiting Genitourinary Genitourinary: Denies dysuria or hematuria Musculoskeletal Musculoskeletal: Denies abnormal gait, extremity pain, muscle weakness, numbness or tingling Integumentary Integumentary: Reports wounds; Denies rash Neurologic Neurologic: Denies abnormal gait, abnormal speech or focal weakness Endocrine Endocrinology: Denies cold intolerance, heat intolerance, polydipsia or polyuria Hematologic/Lymphatic Hematologic/Lymphatic: Denies easy bleeding or easy bruising Vital Signs Vital Signs Vital Signs: 11/04/20 08:25 Temperature 96.9 F L Temperature Source Temporal Pulse Rate 72 Respiratory Rate 18 Blood Pressure 102/54 L Blood Pressure Mean 70 Blood Pressure Source Monitor Physical Exam Const alert, no apparent distress and healthy appearing General Appearance: cooperative, comfortable and well kempt HEENT Head and Scalp: normocephalic and atraumatic Eyes EOMs intact bilaterally Neck supple and no JVD Resp normal respiratory effort, normal air movement and no use of accessory muscles Auscultation: clear to auscultation bilaterally; Negative for crackles, rales, rhonchi or wheezes Cardio regular rate and regular rhythm GI normal to inspection, nondistended, normoactive bowel sounds Extremity normal capillary refill, no joint enlargement, no clubbing, cyanosis or edema, no calf tenderness and no pedal edema Peripheral Pulses: Yes dorsalis pedis pulses present bilateral 2+ Skin Wounds: wounds noted No malodorous Wound Narrative: Ulcers of bilateral medial feet with large amounts of adherent slough and devitalized tissue present. There is no noted tunneling, undermining, or probing to bone, though slough and devitalized tissue does impair full visualization of the wound bed. There is moderate periulcer erythema of both feet. There is no warmth to the periulcer area. There is no tenderness to the periulcer area. Neuro oriented x3, moves all extremities and no focal motor deficits Psych mental status grossly normal, cooperative and affect normal Debridement Note Debridement Note Post-Debridement Measurements and Additional Note: Post-Debridement Measurements/Treatment RAZIA - Nurse 1 - General Ulcer Assessment Start: 11/04/20 08:04 Freq: Status: Active Protocol: ASHEREXT Activity Type Activity Date Activity User E-Sign Co-Sign Detail Recorded Client Recorded Date Recorded By Document 11/04/20 08:25 DL [id number] 11/04/20 08:49 DL 11/04/20 08:25 WC - Today's Visit Information Type of service Initial Visit Arrival Mode Ambulatory Transfer Assistance None Patient Identification Verified (Name & Yes ) Patient Requires Transmission-Based No Precautions Finger Stick Blood Sugar(mg/dl) (if doesnt check indicated): Blood Sugar Stated by Patient Height and Weight Body Mass Index (BMI) 37.8 BMI Classification Obese Vital Signs Temperature (97.8 F-99.1 F) 96.9 F L Temperature Source Temporal Pulse Rate (60-100) 72 Pulse Location Monitor Respiratory Rate (12-18) 18 Respiratory rate source Observation Blood Pressure (90/60-120/80) 102/54 L Blood Pressure Mean 70 Source Monitor History Since Last Visit- (Skip if this is Patient's initial visit) Left Footwear Regular Shoe Right Footwear Regular Shoe Pain Scale: 0-10 Numeric Is Patient Pain Free? Yes Lower Extremity Assessment/ Foot Assessment/ Toe Nail Assessment Left -Posterior Tibial Palpable Yes -Posterior Tibial Doppler Multiphasic -Dorsalis Pedis Palpable Yes -Dorsalis Pedis Doppler Multiphasic -Extremity Color Normal -Hair Growth on Legs Yes -Hair Growth on Toes Yes -Temperature of Extremity Warm -Capillary Refill Less than 3 Seconds -Dependent Rubor No -Blanched when Elevated No -Lipodermatosclerosis No -Other Deformity No -Prior Foot Ulcer No -Charcot Joint No -Prior Amputation No -Thick No -Discolored No -Deformed No -Improper Length & Hygeine No Right -Posterior Tibial Palpable Yes -Posterior Tibial Doppler Multiphasic -Dorsalis Pedis Palpable Yes -Dorsalis Pedis Doppler Multiphasic -Extremity Color Normal -Hair Growth on Legs Yes -Hair Growth on Toes Yes -Temperature of Extremity Warm -Capillary Refill Less than 3 Seconds -Dependent Rubor No -Blanched when Elevated No -Lipodermatosclerosis No -Other Deformity No -Prior Foot Ulcer No -Charcot Joint No -Prior Amputation No -Thick No -Discolored No -Deformed No -Improper Length & Hygeine No Neuropathy Assessment Feet - Top Side and Bottom <Entered> (a) Communication Assessment Preferred language Danish Able to Read Yes Able to Write No Communication Tools None Right Hearing Abillity Hard of Hearing Left Hearing Abillity Hard of Hearing Visual Assistive Devices Glasses Teaching Assessment Preferences Verbal,Written Barriers to Learning None Readiness To Learn Fair Willingness to Engage in Self Management Med Activies Readiness to Engage in Self Management Med Activities Perception Coherent Interest in Health Problem Asks Questions Education Importance Acknowledges Need Does Patient Smoke tobacco or other No substances Smoking Status Never smoker Is Patient Diabetic Yes Functional Assessment Recent Decline in Ability to Perform Denies Any Declines Culture/Rastafarian/Route Vending Machine Servicer Would you allow our hospital cattle dipper to No meet you for the purpose of spiritual/ emotional support? Route Vending Machine Servicer to contact place of mandaeism No Teaching: Wound Center *Neuropathy -Person Taught Patient Discharge Instructions -Person Taught Patient Diagnostic Tests Ordered -Person Taught Patient Dressing Your Wound -Person Taught Patient *Welcome to the Wound Center -Person Taught Patient (a) 1 - + WC - Nurse 1 - General Ulcer Measurement Start: 11/04/20 08:04 Freq: Status: Active Protocol: Activity Type Activity Date Activity User E-Sign Co-Sign Detail Recorded Client Recorded Date Recorded By Document 11/04/20 08:25 DL [id number] 11/04/20 08:49 DL 11/04/20 08:25 Wound Center Nurse 1 #2 L Med Heel -Current Size (cm) - Length 3.2 -Current Size (cm) - Width 3.8 -Current Size (cm) - Depth 0.1 -Total Square Cm 12.16 -Photo Taken Yes -Exudate Amt Small -Wound Margin Distinct, Outline Attached -Granulation Amt None Present (0 %) -Necrosis Amt Large (67-100%) -Necrotic Tissue Type Adherent Slough -Structure Exposed N/A -Texture (Vera-wound Skin Appearance) Localized Edema ,Scarring -Moisture (Vera-wound Skin Appearance) No Abnormality -Color (Vera-wound Skin Appearance) Erythema -Temperature (Vera-wound Skin No Abnormality Appearance) (Pt Warm) -Tenderness on Palpation (Vera-wound No Skin Appearance) -Ulcer Cleansing Wound Cleanser -Foul Odor after Cleansing Yes, Due to Product Use -Anesthetic Used 4% Lidocaine Solution #1 R Med Heel -Current Size (cm) - Length 3.3 -Current Size (cm) - Width 4 -Current Size (cm) - Depth 0.1 -Total Square Cm 13.2 -Photo Taken Yes -Classification - Thickness Unclassifiable (Eschar Covered ) -Exudate Amt Small -Exudate Type Serosanguineous -Wound Margin Distinct, Outline Attached -Granulation Amt None Present (0 %) -Necrosis Amt Large (67-100%) -Necrotic Tissue Type Adherent Slough -Structure Exposed N/A -Texture (Vera-wound Skin Appearance) Localized Edema ,Scarring -Moisture (Vera-wound Skin Appearance) Weeping -Color (Vera-wound Skin Appearance) Erythema -Temperature (Vera-wound Skin No Abnormality Appearance) (Pt Warm) -Tenderness on Palpation (Vera-wound No Skin Appearance) -Ulcer Cleansing Wound Cleanser -Foul Odor after Cleansing No -Anesthetic Used 4% Lidocaine Solution WC - Nurse 2 - General Ulcer CM Notes Start: 11/04/20 08:04 Freq: Status: Active Protocol: Activity Type Activity Date Activity User E-Sign Co-Sign Detail Recorded Client Recorded Date Recorded By Document 11/04/20 09:09 BI [id number] 11/04/20 09:39 BI 11/04/20 09:09 Wound Center Nurse 2 #2 L Med Heel -Time 09:30 -Correct Patient Yes -Correct Side, Site, Position Yes -Correct Procedure Yes -Procedure Performed Yes -Type of Procedure Debridement -Clinical Debridement Subcutaneous -Tissue Removed Subcutaneous -Post Debridement (cm) - Length 4.2 -Post Debridement (cm) - Width 3.4 -Post Debridement (cm) - Depth 0.1 -Total Square (Post) (cm) 14.28 -Area of Debridement (cm) - Length 4.2 -Area of Debridement (cm) - Width 3.4 -Total Square (Area) (cm) 14.28 -Tunneling No -Undermining/Tunneling No -Circular Undermining No -Wound/Ulcer Outcome Not Healed -Ulcer Cleansing Rinsed/ Irrigated with Saline -Foul Odor after Cleansing No -Bioengineered Tissue No -Bleeding Controlled with Pressure -Offloading No -Treatment Response Procedure Tolerated Well -Debridement - Subq, 1st 20sq cm Yes -Debridement, SubQ, ea addt'l 20sq cm 1 or part thereof #1 R Med Heel -Time 09:30 -Correct Patient Yes -Correct Side, Site, Position Yes -Correct Procedure Yes -Procedure Performed Yes -Type of Procedure Debridement -Clinical Debridement Subcutaneous -Tissue Removed Subcutaneous -Post Debridement (cm) - Length 4.2 -Post Debridement (cm) - Width 3.3 -Post Debridement (cm) - Depth 0.1 -Total Square (Post) (cm) 13.86 -Area of Debridement (cm) - Length 4.2 -Area of Debridement (cm) - Width 3.3 -Total Square (Area) (cm) 13.86 -Tunneling No -Undermining/Tunneling No -Circular Undermining No -Wound/Ulcer Outcome Not Healed -Ulcer Cleansing Wound Cleanser -Foul Odor after Cleansing No -Bioengineered Tissue No -Bleeding Controlled with Pressure -Offloading No -Treatment Response Procedure Tolerated Well -Debridement - Subq, 1st 20sq cm No Pain Scale: 0-10 Numeric Is Patient Pain Free? Yes - Nurse 3 - General Ulcer D/C NN Start: 11/04/20 08:04 Freq: Status: Active Protocol: Activity Type Activity Date Activity User E-Sign Co-Sign Detail Recorded Client Recorded Date Recorded By Document 11/04/20 09:50 ROBBI [id number] 11/04/20 09:50 ROBBI 11/04/20 09:50 Wound Care Nurse 3 #2 L Med Heel -Primary Dressing Applied C Hydrogel ($) -Primary Dressing Covered/Secured with Dry Gauze, Secured with Tape #1 R Med Heel -Primary Dressing Applied C Hydrogel ($) -Primary Dressing Covered/Secured with Dry Gauze,Dry Gauze & Roll Gauze,Secured with Tape Pain Scale: 0-10 Numeric Is Patient Pain Free? Yes WC - Visit Discharge Discharge Condition Stable Ambulatory Status Ambulatory Transportation Private Auto Accompanied by Wound debrided: Right medial heel Laterality: Right Wound Grade/Stage: Suspected Driver I Type of Debridement: Excisional debridement Anesthesia Used: 4% Lidocaine Solution Depth: in the subcutaneous layer Percentage of wound debrided: 100 Instrument Used: 7mm curette and #15 blade Tissue Removed: Slough and devitalized tissue Severity: Fat Layer Exposed Amount of bleeding with debridement: Mild Bleeding Controlled with: Pressure Patient tolerated procedure: Patient tolerated procedure well Additional Wound Wound debrided: Left medial heel ulcer Laterality: Left Wound Grade/Stage: Suspected Driver I Type of Debridement: Excisional debridement Anesthesia Used: 4% Lidocaine Solution Depth: in the subcutaneous layer Percentage of wound debrided: 100 Instrument Used: 7mm curette and #15 blade Tissue Removed: Slough and devitalized tissue Severity: Fat Layer Exposed Amount of bleeding with debridement: Mild Bleeding Controlled with: Pressure Patient tolerated procedure: Patient tolerated procedure well Lab / Micro Data Result Diagrams: 11/04/20 10:02 11/04/20 10:02 Labs: Laboratory Results - last 24 hr 11/04/20 11/04/20 11/04/20 10:02 10:02 10:02 WBC 7.2 RBC 4.48 L Hgb 12.8 L Hct 42.4 MCV 94.6 H MCH 28.6 MCHC 30.2 L RDW Std Deviation 46.1 H RDW Coeff of Bobbi 13.2 Plt Count 235 MPV 9.6 Immature Gran % (Auto) 0.600 Neut % (Auto) 66.8 Lymph % (Auto) 21.4 [place] % (Auto) 9.8 Eos % (Auto) 0.7 Baso % (Auto) 0.7 Absolute Neuts (auto) 4.8 Absolute Lymphs (auto) 1.55 Nucleated RBC % 0 ESR 37 H Sodium 142 Potassium 4.6 Chloride 108 H Carbon Dioxide 30.0 Anion Gap 4 L BUN 33 H Creatinine 2.00 H Est GFR (MDRD) Af Amer 42 L Est GFR (MDRD) Non-Af 35 L BUN/Creatinine Ratio 16.5 Glucose 152 H Hemoglobin A1c 6.7 H Calcium 9.6 Total Bilirubin 0.70 AST 13 L ALT 14 L Alkaline Phosphatase 141 H C-React Prot Ext Range 15.90 H Total Protein 8.3 H Albumin 3.3 Globulin 5.0 H Albumin/Globulin Ratio 0.7 L Prealbumin 20.0 Assessment & Plan Assessment/Plan (1) 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: QUALIFIERS: Diabetic foot ulcer location: heel Diabetes mellitus type: type 2 Qualified Code(s): E11.621 - Type 2 diabetes mellitus with foot ulcer; L97.412 - Non-pressure chronic ulcer of right heel and midfoot with fat layer exposed (2) 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: QUALIFIERS: Diabetic foot ulcer location: heel Diabetes mellitus type: type 2 Qualified Code(s): E11.621 - Type 2 diabetes mellitus with foot ulcer; L97.422 - Non-pressure chronic ulcer of left heel and midfoot with fat l zabrina exposed (3) Type 2 diabetes mellitus with diabetic neuropathy, with long-term current use of insulin: (4) Chronic systolic (congestive) heart failure: (5) Essential (primary) hypertension: PLAN: Debridement performed today in clinic as annotated above. Hydrogel and gauze applied. Santyl prescribed. Given the significant bioburden of the patient's ulcers, an order for Puraply will be submitted for insurance approval. At home wound-care instructions: Change Santyl dressing once daily or more frequently as needed due to contamination. Wash wounds daily with antibacterial soap and water, rinse and dry thoroughly before each dressing change. Compression: Double Tubigrip's were given today and patient was instructed to wear these daily. Off-loading: The patient was instructed to avoid pressure and friction on the affected areas. Reposition every 2 hours at minimum. Avoid prolonged standing and/or dangling of legs. When seated, feet should be elevated at chest level. Frequent ambulation is encouraged. Diet: Patient encouraged to increase protein intake while taking caution to avoid high carbohydrate and/or sugar intake. Labs/cultures/imaging: Cultures deferred today, as there remains a large amount of slough and devitalized tissue present over the wound bed despite significant debridement. Vascular studies deferred for the time being, but will remain a consideration as patient's progress is monitored. Routine baseline lab work ordered, results as listed below: CBCD: RBC 4.48 (L), hemoglobin 12.8 (L) ESR: 37 (H) CMP: Creatinine 2.00 (H), BUN 33 (H) estimated GFR 35 (L), glucose 152 (H) Hemoglobin A1c: 6.7% (H) CRP: 15.9 (H) Prealbumin: 20.0 Follow-up: Return to clinic in 1 week for re-evaluation. Return sooner or report to the emergency room should symptoms worsen, or new symptoms arise. Charges/Coding Visit Charges Office Visits / Consults: [id number] OV L4 Est Procedures Integumentary [id number]: [id number] Aminta subq tissue 20 sq cm/< Add On Codes: 01425 Aminta subq tissue add-on
[2020-11-11 08:19] VITALS: BP 119/75; PULSE 73; RESP 16; TEMP 36.6; BMI 37.8
--- NOTE | 2020-11-11 10:17 | PCM.WC.PN ---
History of Present Illness Date of Service: 11/11/20 Chief Complaint: bilateral foot brady History of Wound: The patient is a pleasant 75-year-old white male who presents to the wound healing center today (11/04/2020) for an initial evaluation of bilateral medial foot brady. He has a past medical history significant for Alzheimer's disease, dilated cardiomyopathy, congestive heart failure, implanted pacemaker, CAD, hypertension, hyperlipidemia, and insulin-dependent type 2 diabetes. He reports that his brady occurred approximately 2 weeks ago. 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 The next day, he was back on his tractor performing the same type of work. In the following days, the developed blackening of the areas. He has been using silver dressings to his feet daily, and cleansing them with a chlorhexidine?type solution. He denies any pain in his feet. He denies any fever or chills. He denies any general malaise or poor appetite. He has mild redness surrounding the wounds of his bilateral feet. They do not feel hot to touch. He has not been on any antibiotics in the last several weeks. He does not typically use compression to his lower extremities. He denies frequent swelling of the lower extremities, but does report that in the past 2 weeks his distal feet have appeared slightly swollen. Progress of Wound: Alex returns for a follow-up visit today. He has been compliant with instructions on wound care. He is tolerating Santyl well to the bilateral foot ulcers. He does note that Santyl has been costly for him due to poor insurance coverage. He has approximately half a tube of Santyl remaining. He is tolerating doxycycline 100 mg p.o. twice daily well. He has been compliant with the use of double Tubigrip's. His wounds have decreased in size and improved in appearance within the last week. The patient denies fever, chills, nausea, vomiting, or diarrhea. The patient has not had increased redness, swelling, or purulent/malodorous drainage from affected area. Objective Data Objective Data Vital Signs: Vital Signs Temp Pulse Resp BP 97.9 F 73 16 119/75 11/11/20 08:19 11/11/20 08:19 11/11/20 08:19 11/11/20 08:19 Oxygen Delivery Method Room Air Body Mass Index (BMI) 37.8 Lab / Micro Data Result Diagrams: 11/04/20 10:02 11/04/20 10:02 Charges/Coding Procedures Integumentary 111xxx-113xx: 04002 Aminta subq tissue 20 sq cm/< Add On Codes: 27193 Aminta subq tissue add-on (x1) Physical Exam Const alert, no apparent distress and healthy appearing General Appearance: cooperative, comfortable and well kempt Neck supple and no JVD Resp normal respiratory effort Extremity normal capillary refill, no joint enlargement, no clubbing, cyanosis or edema and no pedal edema Skin Wounds: wounds noted No malodorous Wound Narrative: Ulcers of bilateral medial feet with moderate to large amounts of adherent slough and devitalized tissue present. There is no noted tunneling, undermining, or probing to bone, though slough and devitalized tissue does impair full visualization of the wound bed. There is no periulcer erythema of either foot today. There is no warmth to the periulcer area. There is no tenderness to the periulcer area. Neuro moves all extremities and no focal motor deficits Psych mental status grossly normal, cooperative and affect normal Debridement Note Debridement Note Post-Debridement Measurements and Additional Note: Post-Debridement Measurements/Treatment WC - Nurse 1 - General Ulcer Assessment Start: 11/04/20 08:04 Freq: Status: Active Protocol: WC.LOWYARELIS Activity Type Activity Date Activity User E-Sign Co-Sign Detail Recorded Client Recorded Date Recorded By Document 11/04/20 08:25 DL [id number] 11/04/20 08:49 DL Document 11/11/20 08:19 [facility] [id number] 11/11/20 08:30 BMF 11/04/20 11/11/20 08:25 08:19 - Today's Visit Information Type of service Initial Visit Follow-up Visit (Physician/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 ) Arrival Mode Ambulatory Ambulatory Transfer Assistance None None Accompanied by daughter Patient Identification Verified (Name & Yes Yes ) Patient Requires Transmission-Based No No Precautions Finger Stick Blood Sugar(mg/dl) (if doesnt check indicated): Blood Sugar Stated by Patient Height and Weight Body Mass Index (BMI) 37.8 37.8 BMI Classification Obese Obese Vital Signs Temperature (97.8 F-99.1 F) 96.9 F L 97.9 F Temperature Source Temporal Temporal Pulse Rate (60-100) 72 73 Pulse Location Monitor Monitor Respiratory Rate (12-18) 18 16 Respiratory rate source Observation Observation Oxygen Delivery Method Room Air Blood Pressure (90/60-120/80) 102/54 L 119/75 Blood Pressure Mean (mm Hg) 70 89 Source Monitor Monitor Position Sitting Blood Pressure Location Left Forearm Have you changed medications since your No last visit? Any new allergies or adverse reactions No Had a fall/change in ADL's that may No increase risk of falls Signs or symptoms of abuse and/or No neglect since last visit Have you been in the hospital since your No last visit? Has dressing in place as prescribed Yes Has compression in place as prescribed N/A Has offloadiing in place as prescribed N/A Experienced any changes in pain level or No management History Since Last Visit- (Skip if this is Patient's initial visit) Left Footwear Regular Shoe Regular Shoe Right Footwear Regular Shoe Regular Shoe Pain Scale: 0-10 Numeric Is Patient Pain Free? Yes Yes Lower Extremity Assessment/ Foot Assessment/ Toe Nail Assessment Left -Posterior Tibial Palpable Yes -Posterior Tibial Doppler Multiphasic -Dorsalis Pedis Palpable Yes -Dorsalis Pedis Doppler Multiphasic -Extremity Color Normal -Hair Growth on Legs Yes -Hair Growth on Toes Yes -Temperature of Extremity Warm -Capillary Refill Less than 3 Seconds -Dependent Rubor No -Blanched when Elevated No -Lipodermatosclerosis No -Other Deformity No -Prior Foot Ulcer No -Charcot Joint No -Prior Amputation No -Thick No -Discolored No -Deformed No -Improper Length & Hygeine No Right -Posterior Tibial Palpable Yes -Posterior Tibial Doppler Multiphasic -Dorsalis Pedis Palpable Yes -Dorsalis Pedis Doppler Multiphasic -Extremity Color Normal -Hair Growth on Legs Yes -Hair Growth on Toes Yes -Temperature of Extremity Warm -Capillary Refill Less than 3 Seconds -Dependent Rubor No -Blanched when Elevated No -Lipodermatosclerosis No -Other Deformity No -Prior Foot Ulcer No -Charcot Joint No -Prior Amputation No -Thick No -Discolored No -Deformed No -Improper Length & Hygeine No Neuropathy Assessment Feet - Top Side and Bottom <Entered> (a) Communication Assessment Preferred language French Able to Read Yes Able to Write No Communication Tools None Right Hearing Abillity Hard of Hearing Left Hearing Abillity Hard of Hearing Visual Assistive Devices Glasses Teaching Assessment Preferences Verbal,Written Barriers to Learning None Readiness To Learn Fair Willingness to Engage in Self Management Med Activies Readiness to Engage in Self Management Med Activities Perception Coherent Interest in Health Problem Asks Questions Education Importance Acknowledges Need Does Patient Smoke tobacco or other No substances Smoking Status Never smoker Is Patient Diabetic Yes Functional Assessment Recent Decline in Ability to Perform Denies Any Declines Culture/Yazidism/Spike Machine Heater Would you allow our hospital staff trainer to No meet you for the purpose of spiritual/ emotional support? Spike Machine Heater to contact place of religion No Teaching: Wound Center *Neuropathy -Person Taught Patient Discharge Instructions -Person Taught Patient Diagnostic Tests Ordered -Person Taught Patient Dressing Your Wound -Person Taught Patient *Welcome to the Wound Center -Person Taught Patient (a) 1 - + WC - Nurse 1 - General Ulcer Measurement Start: 11/04/20 08:04 Freq: Status: Active Protocol: Activity Type Activity Date Activity User E-Sign Co-Sign Detail Recorded Client Recorded Date Recorded By Document 11/04/20 08:25 DL [id number] 11/04/20 08:49 DL Document 11/11/20 08:19 BMF [id number] 11/11/20 08:30 BMF 11/04/20 11/11/20 08:25 08:19 Wound Center Nurse 1 #2 L Med Heel -Combined with other wound No -Current Size (cm) - Length 3.2 3.5 -Current Size (cm) - Width 3.8 3.9 -Current Size (cm) - Depth 0.1 0.1 -Total Square Cm 12.16 13.65 -Photo Taken Yes No -Epithelialization None Present -Tunneling No -Undermining/Tunneling No -Circular Undermining No -Exudate Amt Small Medium -Exudate Type Serosanguineous -Wound Margin Distinct, Distinct, Outline Outline Attached Attached -Granulation Amt None Present (0 Small (1-33%) %) -Granulation Quality Red -Necrosis Amt Large (67-100%) Large (67-100%) -Necrotic Tissue Type Adherent Slough Adherent Slough -Structure Exposed N/A -Texture (Vera-wound Skin Appearance) Localized Edema Assessed, ,Scarring Scarring -Moisture (Vera-wound Skin Appearance) No Abnormality Assessed -Color (Vera-wound Skin Appearance) Erythema Assessed -Temperature (Vera-wound Skin No Abnormality No Abnormality Appearance) (Pt Warm) (Pt Warm) -Tenderness on Palpation (Vera-wound No No Skin Appearance) -Ulcer Cleansing Wound Cleanser Rinsed/ Irrigated with Saline -Foul Odor after Cleansing Yes, Due to No Product Use -Anesthetic Used 4% Lidocaine 5% Lidocaine Solution Gel #1 R Med Heel -Combined with other wound No -Current Size (cm) - Length 3.3 4.1 -Current Size (cm) - Width 4 3 -Current Size (cm) - Depth 0.1 0.1 -Total Square Cm 13.2 12.3 -Photo Taken Yes No -Epithelialization None Present -Tunneling No -Undermining/Tunneling No -Circular Undermining No -Classification - Thickness Unclassifiable (Eschar Covered ) -Exudate Amt Small Medium -Exudate Type Serosanguineous Serosanguineous -Wound Margin Distinct, Distinct, Outline Outline Attached Attached -Granulation Amt None Present (0 Small (1-33%) %) -Granulation Quality Red -Slough/Fibrin Yes -Necrosis Amt Large (67-100%) Large (67-100%) -Necrotic Tissue Type Adherent Slough Adherent Slough -Structure Exposed N/A -Texture (Vera-wound Skin Appearance) Localized Edema Assessed, ,Scarring Scarring -Moisture (Vera-wound Skin Appearance) Weeping Assessed -Color (Vera-wound Skin Appearance) Erythema Assessed -Temperature (Vera-wound Skin No Abnormality No Abnormality Appearance) (Pt Warm) (Pt Warm) -Tenderness on Palpation (Vera-wound No No Skin Appearance) -Ulcer Cleansing Wound Cleanser Rinsed/ Irrigated with Saline -Foul Odor after Cleansing No No -Anesthetic Used 4% Lidocaine 5% Lidocaine Solution Gel WC - Nurse 2 - General Ulcer CM Notes Start: 11/04/20 08:04 Freq: Status: Active Protocol: Activity Type Activity Date Activity User E-Sign Co-Sign Detail Recorded Client Recorded Date Recorded By Document 11/04/20 09:09 BI [id number] 11/04/20 09:39 BI 11/04/20 09:09 Wound Center Nurse 2 #2 L Med Heel -Time 09:30 -Correct Patient Yes -Correct Side, Site, Position Yes -Correct Procedure Yes -Procedure Performed Yes -Type of Procedure Debridement -Clinical Debridement Subcutaneous -Tissue Removed Subcutaneous -Post Debridement (cm) - Length 4.2 -Post Debridement (cm) - Width 3.4 -Post Debridement (cm) - Depth 0.1 -Total Square (Post) (cm) 14.28 -Area of Debridement (cm) - Length 4.2 -Area of Debridement (cm) - Width 3.4 -Total Square (Area) (cm) 14.28 -Tunneling No -Undermining/Tunneling No -Circular Undermining No -Wound/Ulcer Outcome Not Healed -Ulcer Cleansing Rinsed/ Irrigated with Saline -Foul Odor after Cleansing No -Bioengineered Tissue No -Bleeding Controlled with Pressure -Offloading No -Treatment Response Procedure Tolerated Well -Debridement - Subq, 1st 20sq cm Yes -Debridement, SubQ, ea addt'l 20sq cm 1 or part thereof #1 R Med Heel -Time 09:30 -Correct Patient Yes -Correct Side, Site, Position Yes -Correct Procedure Yes -Procedure Performed Yes -Type of Procedure Debridement -Clinical Debridement Subcutaneous -Tissue Removed Subcutaneous -Post Debridement (cm) - Length 4.2 -Post Debridement (cm) - Width 3.3 -Post Debridement (cm) - Depth 0.1 -Total Square (Post) (cm) 13.86 -Area of Debridement (cm) - Length 4.2 -Area of Debridement (cm) - Width 3.3 -Total Square (Area) (cm) 13.86 -Tunneling No -Undermining/Tunneling No -Circular Undermining No -Wound/Ulcer Outcome Not Healed -Ulcer Cleansing Wound Cleanser -Foul Odor after Cleansing No -Bioengineered Tissue No -Bleeding Controlled with Pressure -Offloading No -Treatment Response Procedure Tolerated Well -Debridement - Subq, 1st 20sq cm No Pain Scale: 0-10 Numeric Is Patient Pain Free? Yes WC - Nurse 3 - General Ulcer D/C NN Start: 11/04/20 08:04 Freq: Status: Active Protocol: Activity Type Activity Date Activity User E-Sign Co-Sign Detail Recorded Client Recorded Date Recorded By Document 11/04/20 09:50 KR [id number] 11/04/20 09:50 KR Document 11/11/20 09:46 DL [id number] 11/11/20 09:48 DL 11/04/20 11/11/20 09:50 09:46 Wound Care Nurse 3 #2 L Med Heel -Ulcer Cleansing Rinsed/ Irrigated with Saline -Foul Odor after Cleansing No -Primary Dressing Applied C Hydrogel ($) -Other Dressing hydrogel -Primary Dressing Covered/Secured with Dry Gauze, Dry Gauze & Secured with Roll Gauze, Tape Secured with Tape #1 R Med Heel -Ulcer Cleansing Rinsed/ Irrigated with Saline -Foul Odor after Cleansing No -Primary Dressing Applied C Hydrogel ($) -Other Dressing hydrogel -Primary Dressing Covered/Secured with Dry Gauze,Dry Dry Gauze & Gauze & Roll Roll Gauze, Gauze,Secured Secured with with Tape Tape Treatment Response Procedure Tolerated Well Pain Scale: 0-10 Numeric Is Patient Pain Free? Yes Yes WC - Visit Discharge Discharge Condition Stable Stable Ambulatory Status Ambulatory Ambulatory Transportation Private Auto Private Auto Accompanied by family Notes: Pt to resume Santyl at home Wound debrided: Right medial heel Laterality: Right Wound Grade/Stage: Driver 1 Type of Debridement: Excisional debridement Anesthesia Used: 4% Lidocaine Solution Depth: in the subcutaneous layer Percentage of wound debrided: 100 Instrument Used: 7mm curette, #15 blade and Forceps Tissue Removed: Slough and devitalized tissue Severity: Fat Layer Exposed Amount of bleeding with debridement: Mild Bleeding Controlled with: Pressure Patient tolerated procedure: Patient tolerated procedure well Additional Wound Wound debrided: Left medial heel Laterality: Left Wound Grade/Stage: Driver 1 Type of Debridement: Excisional debridement Anesthesia Used: 4% Lidocaine Solution Depth: in the subcutaneous layer Percentage of wound debrided: 100 Instrument Used: 7mm curette Tissue Removed: Slough and devitalized tissue Severity: Fat Layer Exposed Amount of bleeding with debridement: Mild Bleeding Controlled with: Pressure Patient tolerated procedure: Patient tolerated procedure well Assessment/Plan Assessment/Plan (1) 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: CODE(S): Code(s): E11.621 - Type 2 diabetes mellitus with foot ulcer; L97.512 - Non-pressure chronic ulcer of other part of right foot with fat layer exposed QUALIFIERS: Diabetic foot ulcer location: heel Diabetes mellitus type: type 2 Qualified Code(s): E11.621 - Type 2 diabetes mellitus with foot ulcer; L97.412 - Non-pressure chronic ulcer of right heel and midfoot with fat layer exposed (2) 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: CODE(S): Code(s): E11.621 - Type 2 diabetes mellitus with foot ulcer; L97.522 - Non-pressure chronic ulcer of other part of left foot with fat layer exposed QUALIFIERS: Diabetic foot ulcer location: heel Diabetes mellitus type: type 2 Qualified Code(s): E11.621 - Type 2 diabetes mellitus with foot ulcer; L97.422 - Non-pressure chronic ulcer of left heel and midfoot with fat layer exposed (3) Type 2 diabetes mellitus with diabetic neuropathy, with long-term current use of insulin: CODE(S): Code(s): E11.40 - Type 2 diabetes mellitus with diabetic neuropathy, unspecified; Z79.4 - jail (current) use of insulin (4) Chronic systolic (congestive) heart failure: CODE(S): Code(s): I50.22 - Chronic systolic (congestive) heart failure (5) Essential (primary) hypertension: CODE(S): Code(s): I10 - Essential (primary) hypertension PLAN: Debridement performed today in clinic as annotated above. Hydrogel and gauze applied. Given the significant bioburden of the patient's ulcers, an order for Puraply was submitted for insurance approval; this is currently pending. At home wound-care instructions: Continue Santyl dressing changes once daily or more frequently as needed due to contamination. Wash wounds daily with antibacterial soap and water, rinse and dry thoroughly before each dressing change. If/when Santyl runs out, begin Aquacel Ag dressing changes once daily (or more frequently as needed). Compression: Continue double Tubigrip's daily. Off-loading: The patient was instructed to avoid pressure and friction on the affected areas. Reposition every 2 hours at minimum. Avoid prolonged standing and/or dangling of legs. When seated, feet should be elevated at chest level. Frequent ambulation is encouraged. Diet: Patient encouraged to increase protein intake while taking caution to avoid high carbohydrate and/or sugar intake. Labs/cultures/imaging: Cultures deferred today, as there remains a large amount of slough and devitalized tissue present over the wound bed despite significant debridement. Patient instructed to finish his course of doxycycline 100 mg p.o. twice daily x10 days. Vascular studies deferred for the time being, but will remain a consideration as patient's progress is monitored. Routine baseline lab results as listed below: CBCD: RBC 4.48 (L), hemoglobin 12.8 (L) ESR: 37 (H) CMP: Creatinine 2.00 (H), BUN 33 (H) estimated GFR 35 (L), glucose 152 (H) Hemoglobin A1c: 6.7% (H) CRP: 15.9 (H) Prealbumin: 20.0 Follow-up: Return to clinic in 1 week for re-evaluation. Return sooner or report to the emergency room should symptoms worsen, or new symptoms arise.
[2020-11-17 08:01] VITALS: BP 129/48; PULSE 82; RESP 18; TEMP 36.8; BMI 37.8
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
== END 2020-11-21 23:59 ==
LOC: WC 08:00
PROVIDERS: PCP Family Medicine; Referring Provider Nurse Practitioner Family; Visit Provider Nurse Practitioner Family
DX: E11.621 Type 2 diabetes mellitus with foot ulcer (principal); I11.0 Hypertensive heart disease with heart failure; L97.412 Non-pressure chronic ulcer of right heel and midfoot with fat layer exposed; L97.422 Non-pressure chronic ulcer of left heel and midfoot with fat layer exposed; E78.5 Hyperlipidemia, unspecified; I42.0 Dilated cardiomyopathy; Z79.4 Long term (current) use of insulin; F02.80 Dementia in other diseases classified elsewhere, unspecified severity, without behavioral disturbance, psychotic disturbance, mood disturbance, and anxiety; G30.9 Alzheimer's disease, unspecified; I25.10 Atherosclerotic heart disease of native coronary artery without angina pectoris; N40.0 Benign prostatic hyperplasia without lower urinary tract symptoms; I25.2 Old myocardial infarction; I50.22 Chronic systolic (congestive) heart failure; E66.9 Obesity, unspecified; E11.51 Type 2 diabetes mellitus with diabetic peripheral angiopathy without gangrene; I27.21 Secondary pulmonary arterial hypertension; E11.42 Type 2 diabetes mellitus with diabetic polyneuropathy; Z79.899 Other long term (current) drug therapy; Z79.82 Long term (current) use of aspirin; Z95.810 Presence of automatic (implantable) cardiac defibrillator; T25.321D Burn of third degree of right foot, subsequent encounter; T25.322D Burn of third degree of left foot, subsequent encounter; X08.8XXD Exposure to other specified smoke, fire and flames, subsequent encounter
CPT/HCPCS: 11042; 11045; 36415; 80053; 83036; 84134; 85025; 85652; 86140; 99213; G0463

== ENCOUNTER 2020-12-16 08:30 | Outpatient (RCR) | payer MEDICARE, SELFPAY ==
[2020-11-22 00:41] VITALS: BP 129/48; PULSE 82; RESP 18; TEMP 36.8
[2020-11-25 07:58] VITALS: BP 117/69; PULSE 81; RESP 16; TEMP 36.6; BMI 37.8
--- NOTE | 2020-11-25 13:54 | PCM.WC.PN ---
History of Present Illness Date of Service: 11/25/20 Chief Complaint: Bilateral foot brady History of Wound: The patient is a pleasant 75-year-old white male who presents to the wound healing center today (11/04/2020) for an initial evaluation of bilateral medial foot brady. He has a past medical history significant for Alzheimer's disease, dilated cardiomyopathy, congestive heart failure, implanted pacemaker, CAD, hypertension, hyperlipidemia, and insulin-dependent type 2 diabetes. He reports that his brady occurred approximately 2 weeks ago. 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 The next day, he was back on his tractor performing the same type of work. In the following days, the developed blackening of the areas. He has been using silver dressings to his feet daily, and cleansing them with a chlorhexidine?type solution. He denies any pain in his feet. He denies any fever or chills. He denies any general malaise or poor appetite. He has mild redness surrounding the wounds of his bilateral feet. They do not feel hot to touch. He has not been on any antibiotics in the last several weeks. He does not typically use compression to his lower extremities. He denies frequent swelling of the lower extremities, but does report that in the past 2 weeks his distal feet have appeared slightly swollen. Progress of Wound: Alex returns for a follow-up visit today. He has been compliant with instructions on wound care. He is tolerating Santyl well to the bilateral foot ulcers, and significant improvement has been seen in his ulcer size and appearance. He notes that Santyl has been costly for him, but is willing to continue treatment with Santyl for the next week. He completed his course of doxycycline. He has been compliant with the use of double Tubigrip's. He has arterial studies scheduled for 11/30/20. The patient denies fever, chills, nausea, vomiting, or diarrhea. The patient has not had increased redness, swelling, or purulent/malodorous drainage from affected area. Objective Data Objective Data Vital Signs: Vital Signs Temp Pulse Resp BP 97.9 F 81 16 117/69 11/25/20 07:58 11/25/20 07:58 11/25/20 07:58 11/25/20 07:58 Body Mass Index (BMI) 37.8 Charges/Coding Procedures Integumentary [id number]: [id number] Aminta subq tissue 20 sq cm/< Physical Exam Const alert, no apparent distress and healthy appearing General Appearance: cooperative, comfortable and well kempt Neck supple and no JVD Resp normal respiratory effort Extremity normal capillary refill, no joint enlargement, no clubbing, cyanosis or edema and no pedal edema Skin Wounds: wounds noted No malodorous Wound Narrative: Ulcers of bilateral medial feet with moderate to large amounts of adherent slough and devitalized tissue present. There is no noted tunneling, undermining, or probing to bone, though slough and devitalized tissue does impair full visualization of the wound bed. There is no periulcer erythema of either foot today. There is no warmth to the periulcer area. There is no tenderness to the periulcer area. Neuro moves all extremities and no focal motor deficits Sensory Exam: extremities Sensory loss observed in both feet Psych mental status grossly normal, cooperative and affect normal Debridement Note Debridement Note Post-Debridement Measurements and Additional Note: Post-Debridement Measurements/Treatment WC - Nurse 1 - General Ulcer Assessment Start: 11/25/20 07:58 Freq: Status: Active Protocol: BERNIE Activity Type Activity Date Activity User E-Sign Co-Sign Detail Recorded Client Recorded Date Recorded By Document 11/25/20 07:58 MS [id number] 11/25/20 08:08 MS 11/25/20 07:58 - Today's Visit Information 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 of service 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 ) Arrival Mode Ambulatory Transfer Assistance None Patient Identification Verified (Name & Yes ) Patient Requires Transmission-Based No Precautions Safety Precautions NA Height and Weight Body Mass Index (BMI) 37.8 BMI Classification Obese Vital Signs Temperature (97.8 F-99.1 F) 97.9 F Temperature Source Temporal Pulse Rate (60-100) 81 Pulse Location Monitor Respiratory Rate (12-18) 16 Respiratory rate source Observation Blood Pressure (90/60-120/80) 117/69 Blood Pressure Mean (mm Hg) 85 Source Monitor Position Sitting Blood Pressure Location Left Arm History Since Last Visit- (Skip if this is Patient's initial visit) Have you changed medications since your No last visit? Any new allergies or adverse reactions No Had a fall/change in ADL's that may No increase risk of falls Signs or symptoms of abuse and/or No neglect since last visit Have you been in the hospital since your No last visit? Has dressing in place as prescribed Yes Has compression in place as prescribed N/A Has offloadiing in place as prescribed N/A Experienced any changes in pain level or Yes management Left Footwear Regular Shoe Right Footwear Regular Shoe Pain Scale: 0-10 Numeric Is Patient Pain Free? No WC - Nurse 1 - General Ulcer Measurement Start: 11/25/20 07:58 Freq: Status: Active Protocol: Activity Type Activity Date Activity User E-Sign Co-Sign Detail Recorded Client Recorded Date Recorded By Document 11/25/20 07:58 MS [id number] 11/25/20 08:08 MS 11/25/20 07:58 Wound Center Nurse 1 #2 L Med Heel -Current Size (cm) - Length 2 -Current Size (cm) - Width 2.5 -Current Size (cm) - Depth 0.2 -Total Square Cm 5.0 -Exudate Amt Medium -Exudate Type Serosanguineous -Wound Margin Distinct, Outline Attached -Granulation Amt Medium (34-66%) -Slough/Fibrin Yes -Necrosis Amt Medium (34-66%) -Necrotic Tissue Type Adherent Slough -Texture (Vera-wound Skin Appearance) No Abnormality -Moisture (Vera-wound Skin Appearance) No Abnormality -Color (Vera-wound Skin Appearance) No Abnormality -Ulcer Cleansing Wound Cleanser -Foul Odor after Cleansing No -Anesthetic Used 4% Lidocaine Solution #1 R Med Heel -Current Size (cm) - Length 3 -Current Size (cm) - Width 2 -Current Size (cm) - Depth 0.1 -Total Square Cm 6 -Exudate Amt Medium -Exudate Type Serosanguineous -Wound Margin Distinct, Outline Attached -Granulation Amt Medium (34-66%) -Slough/Fibrin Yes -Necrosis Amt Medium (34-66%) -Necrotic Tissue Type Adherent Slough -Texture (Vera-wound Skin Appearance) No Abnormality -Moisture (Vera-wound Skin Appearance) No Abnormality -Temperature (Vera-wound Skin No Abnormality Appearance) (Pt Warm) -Ulcer Cleansing Wound Cleanser -Foul Odor after Cleansing No -Anesthetic Used 4% Lidocaine Solution RAZIA - Nurse 2 - General Ulcer CM Notes Start: 11/25/20 07:58 Freq: Status: Active Protocol: Activity Type Activity Date Activity User E-Sign Co-Sign Detail Recorded Client Recorded Date Recorded By Document 11/25/20 09:52 PL [id number] 11/25/20 09:54 PL 11/25/20 09:52 Wound Center Nurse 2 #2 L Med Heel -Time 08:42 -Correct Patient Yes -Correct Side, Site, Position Yes -Correct Procedure Yes -Procedure Performed Yes -Type of Procedure Debridement -Clinical Debridement Subcutaneous -Tissue Removed Subcutaneous -Post Debridement (cm) - Length 2.6 -Post Debridement (cm) - Width 3.5 -Post Debridement (cm) - Depth 0.1 -Total Square (Post) (cm) 9.10 -Area of Debridement (cm) - Length 2.6 -Area of Debridement (cm) - Width 3.5 -Total Square (Area) (cm) 9.10 -Tunneling No -Undermining/Tunneling No -Circular Undermining No -Wound/Ulcer Outcome Not Healed -Ulcer Cleansing Rinsed/ Irrigated with Saline -Foul Odor after Cleansing No -Bioengineered Tissue No -Bleeding Controlled with Pressure -Treatment Response Procedure Tolerated Well -Debridement - Subq, 1st 20sq cm Yes #1 R Med Heel -Time 08:42 -Correct Patient Yes -Correct Side, Site, Position Yes -Correct Procedure Yes -Procedure Performed Yes -Type of Procedure Debridement -Clinical Debridement Subcutaneous -Tissue Removed Subcutaneous -Post Debridement (cm) - Length 2.5 -Post Debridement (cm) - Width 3.6 -Post Debridement (cm) - Depth 0.1 -Total Square (Post) (cm) 9.00 -Area of Debridement (cm) - Length 2.5 -Area of Debridement (cm) - Width 3.6 -Total Square (Area) (cm) 9.00 -Tunneling No -Undermining/Tunneling No -Circular Undermining No -Wound/Ulcer Outcome Not Healed -Ulcer Cleansing Rinsed/ Irrigated with Saline -Foul Odor after Cleansing No -Bioengineered Tissue No -Debridement - Subq, 1st 20sq cm No Pain Scale: 0-10 Numeric Is Patient Pain Free? No RAZIA - Nurse 3 - General Ulcer D/C NN Start: 11/25/20 07:58 Freq: Status: Active Protocol: Activity Type Activity Date Activity User E-Sign Co-Sign Detail Recorded Client Recorded Date Recorded By Document 11/25/20 09:07 [id number] 11/25/20 09:08 MS 11/25/20 09:07 Wound Care Nurse 3 #2 L Med Heel -Ulcer Cleansing Rinsed/ Irrigated with Saline -Other Dressing hydrogel -Primary Dressing Covered/Secured with Dry Gauze & Roll Gauze, Secured with Tape #1 R Med Heel -Ulcer Cleansing Rinsed/ Irrigated with Saline -Other Dressing hydrogel -Primary Dressing Covered/Secured with Dry Gauze & Roll Gauze, Secured with Tape WC - Visit Discharge Discharge Condition Stable Ambulatory Status Ambulatory Transportation Private Auto Medication Reconcilliation completed & No provided to patient/care provider Clinical Summary of Care Provided Yes Wound debrided: Right medial heel Laterality: Right Wound Grade/Stage: Driver 1 Type of Debridement: Excisional debridement Anesthesia Used: 4% Lidocaine Solution Depth: in the subcutaneous layer Percentage of wound debrided: 100 Instrument Used: 7mm curette and - (Tissue nippers) Tissue Removed: Slough and devitalized tissue Severity: Fat Layer Exposed Amount of bleeding with debridement: Mild Bleeding Controlled with: Pressure Patient tolerated procedure: Patient tolerated procedure well Additional Wound Wound debrided: Left medial heel Laterality: Left Wound Grade/Stage: Driver 1 Type of Debridement: Excisional debridement Anesthesia Used: 4% Lidocaine Solution Depth: in the subcutaneous layer Percentage of wound debrided: 100 Instrument Used: 7mm curette and - (Tissue nippers) Tissue Removed: Slough and devitalized tissue Severity: Fat Layer Exposed Amount of bleeding with debridement: Mild Bleeding Controlled with: Pressure Patient tolerated procedure: Patient tolerated procedure well Assessment/Plan Assessment/Plan (1) 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: CODE(S): E11.621 - Type 2 diabetes mellitus with foot ulcer; L97.512 - Non-pressure chronic ulcer of other part of right foot with fat layer exposed QUALIFIERS: Diabetic foot ulcer location: heel Diabetes mellitus type: type 2 Qualified Code(s): E11.621 - Type 2 diabetes mellitus with foot ulcer; L97.412 - Non-pressure chronic ulcer of right heel and midfoot with fat layer exposed (2) 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: CODE(S): E11.621 - Type 2 diabetes mellitus with foot ulcer; L97.522 - Non-pressure chronic ulcer of other part of left foot with fat layer exposed QUALIFIERS: Diabetic foot ulcer location: heel Diabetes mellitus type: type 2 Qualified Code(s): E11.621 - Type 2 diabetes mellitus with foot ulcer; L97.422 - Non-pressure chronic ulcer of left heel and midfoot with fat layer exposed (3) Type 2 diabetes mellitus with diabetic neuropathy, with long-term current use of insulin: CODE(S): E11.40 - Type 2 diabetes mellitus with diabetic neuropathy, unspecified; 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 Hydrogel and gauze applied. Given the significant bioburden of the patient's ulcers, an order for Puraply was submitted for insurance approval; this is currently pending. At home wound-care instructions: Continue Santyl dressing changes once daily or more frequently as needed due to contamination. Wash wounds daily with antibacterial soap and water, rinse and dry thoroughly before each dressing change. If/when Santyl runs out, begin Aquacel Ag dressing changes once daily (or more frequently as needed). Compression: Continue double Tubigrip's daily. Off-loading: The patient was instructed to avoid pressure and friction on the affected areas. Reposition every 2 hours at minimum. Avoid prolonged standing and/or dangling of legs. When seated, feet should be elevated at chest level. Frequent ambulation is encouraged. Diet: Patient encouraged to increase protein intake while taking caution to avoid high carbohydrate and/or sugar intake. Labs/cultures/imaging: Cultures deferred today; there are no clinical signs of infection. Patient has completed his course of doxycycline 100 mg p.o. twice daily x10 days. Vascular studies are scheduled for 11/30/20. Routine baseline lab results as listed below: CBCD: RBC 4.48 (L), hemoglobin 12.8 (L) ESR: 37 (H) CMP: Creatinine 2.00 (H), BUN 33 (H) estimated GFR 35 (L), glucose 152 (H) Hemoglobin A1c: 6.7% (H) CRP: 15.9 (H) Prealbumin: 20.0 Follow-up: Return to clinic in 1 week for re-evaluation. Return sooner or report to the emergency room should symptoms worsen, or new symptoms arise. Note: [employer] speech recognition washroom cleaner software was used to create portions of this document. Sound-alike and misspelled words, as well as other washroom cleaner errors may be contained in the documentation.
--- NOTE | 2020-11-30 09:55 | ART_ITS ---
Reason For Study: NON HEALING WOUND (BILATERAL HEELS) Left Segmental Pressures Left brachial= 70mmHg. Left posterior tibial artery = 77mmHg. Left dorsalis pedis artery = 75mmHg. Left digit = 69 mmHg. The left posterior tibial artery waveforms are triphasic. The left dorsalis pedis waveforms are triphasic. Right Segmental Pressures Right brachial= 70mmHg. Right posterior tibial artery = 89mmHg. Right dorsalis pedis artery = 87mmHg. Right digit = 113 mmHg. The right posterior tibial artery waveforms are triphasic. The right dorsalis pedis waveforms are triphasic. Indices The right ankle brachial index by the posterior tibial artery is 1.27. The right ankle brachial index by the dorsalis pedis is 1.24. The right digital-brachial index is 1.61. The left ankle brachial index by the posterior tibial artery is 1.1. The left ankle brachial index by the dorsalis pedis is 1.07. The left digital-brachial index is 0.99. VL/Lower Ext Art Exam w/o Exercis Interpretation Summary Triphasic Doppler waveforms are noted at ankle level bilaterally. Pulse-volume recording waveform amplitudes are diminished at digital level on the left, but satisfactory at all other levels bilaterally. Resting ankle-brachial indices are normal bilaterally. The right d igital-brachial index is supra-normal. The left digital-brachial index is normal. There is evidence of arterial calcification at digital level on the right. Ther e is no evidence of significant arterial occlusive disease in the lower extremities bilaterally. Ordering Physician: Chapis Salinas Referring Physician: Shaheed Royal Performed By: Susan Sanchez RVT, RDCS
[2020-12-02 08:12] VITALS: BP 107/61; PULSE 78; RESP 20; TEMP 35.9; BMI 37.8
--- NOTE | 2020-12-02 10:09 | PCM.WC.PN ---
History of Present Illness Date of Service: 12/02/20 Chief Complaint: Bilateral foot brady History of Wound: The patient is a pleasant 75-year-old white male who presents to the wound healing center today (11/04/2020) for an initial evaluation of bilateral medial foot brady. He has a past medical history significant for Alzheimer's disease, dilated cardiomyopathy, congestive heart failure, implanted pacemaker, CAD, hypertension, hyperlipidemia, and insulin-dependent type 2 diabetes. He reports that his brady occurred approximately 2 weeks ago. 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 The next day, he was back on his tractor performing the same type of work. In the following days, the developed blackening of the areas. He has been using silver dressings to his feet daily, and cleansing them with a chlorhexidine?type solution. He denies any pain in his feet. He denies any fever or chills. He denies any general malaise or poor appetite. He has mild redness surrounding the wounds of his bilateral feet. They do not feel hot to touch. He has not been on any antibiotics in the last several weeks. He does not typically use compression to his lower extremities. He denies frequent swelling of the lower extremities, but does report that in the past 2 weeks his distal feet have appeared slightly swollen. Progress of Wound: Alex returns for a follow-up visit today. He has been compliant with instructions on wound care. He is tolerating Santyl well to the bilateral foot ulcers, and improvement has been seen in his ulcer size and appearance. He notes that Santyl has been costly for him, but is willing to continue treatment with Santyl for the next week. He completed his course of doxycycline. He has been compliant with the use of double Tubigrip's. His arterial studies from 11/30/20 revealed no evidence of arterial occlusive disease. The patient denies fever, chills, malaise, or poor appetite. The patient has not had increased redness, swelling, or purulent drainage from affected area. He has malodor of his foot ulcers today. Objective Data Objective Data Vital Signs: Vital Signs Temp Pulse Resp BP 96.6 F L 78 20 H 107/61 06/11/21 08:12 12/02/20 08:12 12/02/20 08:12 12/02/20 08:12 Body Mass Index (BMI) 37.8 Charges/Coding Procedures Integumentary 111xxx-113xx: [id number] Aminta subq tissue 20 sq cm/< Debridement Note Debridement Note Post-Debridement Measurements and Additional Note: Post-Debridement Measurements/Treatment WC - Nurse 1 - General Ulcer Assessment Start: 11/25/20 07:58 Freq: Status: Active Protocol: [email or web address] Activity Type Activity Date Activity User E-Sign Co-Sign Detail Recorded Client Recorded Date Recorded By Document 11/25/20 07:58 MS [id number] 11/25/20 08:08 MS Document 12/02/20 08:12 DL [id number] 12/02/20 08:18 DL 11/25/20 12/02/20 07:58 08:12 WC - Today's Visit Information Type of service Follow-up Visit Follow-up Visit (Physician/BRICK PAVER (Physician/BRICK PAVER ) ) Arrival Mode Ambulatory Ambulatory Transfer Assistance None None Patient Identification Verified (Name & Yes Yes ) Patient Requires Transmission-Based No No Precautions Safety Precautions NA Height and Weight Body Mass Index (BMI) 37.8 37.8 BMI Classification Obese Obese Vital Signs Temperature (97.8 F-99.1 F) 97.9 F 96.6 F L Temperature Source Temporal Temporal Pulse Rate (60-100) 81 78 Pulse Location Monitor Monitor Respiratory Rate (12-18) 16 20 H Respiratory rate source Observation Observation Blood Pressure (90/60-120/80) 117/69 107/61 Blood Pressure Mean (mm Hg) 85 76 Source Monitor Position Sitting Blood Pressure Location Left Arm History Since Last Visit- (Skip if this is Patient's initial visit) Have you changed medications since your No No last visit? Any new allergies or adverse reactions No No Had a fall/change in ADL's that may No No increase risk of falls Signs or symptoms of abuse and/or No No neglect since last visit Have you been in the hospital since your No No last visit? Has dressing in place as prescribed Yes Yes Has compression in place as prescribed N/A Yes Has offloadiing in place as prescribed N/A Yes Experienced any changes in pain level or Yes No management Left Footwear Regular Shoe Regular Shoe Right Footwear Regular Shoe Regular Shoe Pain Scale: 0-10 Numeric Is Patient Pain Free? No WC - Nurse 1 - General Ulcer Measurement Start: 11/25/20 07:58 Freq: Status: Active Protocol: Activity Type Activity Date Activity User E-Sign Co-Sign Detail Recorded Client Recorded Date Recorded By Document 11/25/20 07:58 MS [id number] 11/25/20 08:08 MS Document 12/02/20 08:12 DL [id number] 12/02/20 08:18 DL 11/25/20 12/02/20 07:58 08:12 Wound Center Nurse 1 #2 L Med Heel -Current Size (cm) - Length 2 2.5 -Current Size (cm) - Width 2.5 3.1 -Current Size (cm) - Depth 0.2 0.1 -Total Square Cm 5.0 7.75 -Photo Taken No -Exudate Amt Medium Medium -Exudate Type Serosanguineous Serosanguineous -Wound Margin Distinct, Distinct, Outline Outline Attached Attached -Granulation Amt Medium (34-66%) Medium (34-66%) -Granulation Quality Red -Slough/Fibrin Yes -Necrosis Amt Medium (34-66%) Large (67-100%) -Necrotic Tissue Type Adherent Slough Adherent Slough -Structure Exposed N/A -Texture (Vera-wound Skin Appearance) No Abnormality Scarring -Moisture (Vera-wound Skin Appearance) No Abnormality Dry/Scaly -Color (Vera-wound Skin Appearance) No Abnormality No Abnormality -Temperature (Vera-wound Skin No Abnormality Appearance) (Pt Warm) -Tenderness on Palpation (Vera-wound No Skin Appearance) -Ulcer Cleansing Wound Cleanser Wound Cleanser -Foul Odor after Cleansing No No -Anesthetic Used 4% Lidocaine 4% Lidocaine Solution Solution #1 R Med Heel -Current Size (cm) - Length 3 2.1 -Current Size (cm) - Width 2 3.5 -Current Size (cm) - Depth 0.1 0.1 -Total Square Cm 6 7.35 -Photo Taken No -Exudate Amt Medium Medium -Exudate Type Serosanguineous Serosanguineous -Wound Margin Distinct, Distinct, Outline Outline Attached Attached -Granulation Amt Medium (34-66%) Medium (34-66%) -Granulation Quality Red -Slough/Fibrin Yes -Necrosis Amt Medium (34-66%) Medium (34-66%) -Necrotic Tissue Type Adherent Slough Adherent Slough -Structure Exposed N/A -Texture (Vera-wound Skin Appearance) No Abnormality Scarring -Moisture (Vera-wound Skin Appearance) No Abnormality No Abnormality -Color (Vera-wound Skin Appearance) No Abnormality -Temperature (Vera-wound Skin No Abnormality No Abnormality Appearance) (Pt Warm) (Pt Warm) -Tenderness on Palpation (Vera-wound No Skin Appearance) -Ulcer Cleansing Wound Cleanser Wound Cleanser -Foul Odor after Cleansing No Yes -Anesthetic Used 4% Lidocaine 4% Lidocaine Solution Solution Right Calf (cm) 35 Right Ankle (cm) 21.4 Left Calf (cm) 38 Left Ankle (cm) 22 WC - Nurse 2 - General Ulcer CM Notes Start: 11/25/20 07:58 Freq: Status: Active Protocol: Activity Type Activity Date Activity User E-Sign Co-Sign Detail Recorded Client Recorded Date Recorded By Document 11/25/20 09:52 PL [id number] 11/25/20 09:54 PL 11/25/20 09:52 Wound Center Nurse 2 #2 L Med Heel -Time 08:42 -Correct Patient Yes -Correct Side, Site, Position Yes -Correct Procedure Yes -Procedure Performed Yes -Type of Procedure Debridement -Clinical Debridement Subcutaneous -Tissue Removed Subcutaneous -Post Debridement (cm) - Length 2.6 -Post Debridement (cm) - Width 3.5 -Post Debridement (cm) - Depth 0.1 -Total Square (Post) (cm) 9.10 -Area of Debridement (cm) - Length 2.6 -Area of Debridement (cm) - Width 3.5 -Total Square (Area) (cm) 9.10 -Tunneling No -Undermining/Tunneling No -Circular Undermining No -Wound/Ulcer Outcome Not Healed -Ulcer Cleansing Rinsed/ Irrigated with Saline -Foul Odor after Cleansing No -Bioengineered Tissue No -Bleeding Controlled with Pressure -Treatment Response Procedure Tolerated Well -Debridement - Subq, 1st 20sq cm Yes #1 R Med Heel -Time 08:42 -Correct Patient Yes -Correct Side, Site, Position Yes -Correct Procedure Yes -Procedure Performed Yes -Type of Procedure Debridement -Clinical Debridement Subcutaneous -Tissue Removed Subcutaneous -Post Debridement (cm) - Length 2.5 -Post Debridement (cm) - Width 3.6 -Post Debridement (cm) - Depth 0.1 -Total Square (Post) (cm) 9.00 -Area of Debridement (cm) - Length 2.5 -Area of Debridement (cm) - Width 3.6 -Total Square (Area) (cm) 9.00 -Tunneling No -Undermining/Tunneling No -Circular Undermining No -Wound/Ulcer Outcome Not Healed -Ulcer Cleansing Rinsed/ Irrigated with Saline -Foul Odor after Cleansing No -Bioengineered Tissue No -Debridement - Subq, 1st 20sq cm No Pain Scale: 0-10 Numeric Is Patient Pain Free? No WC - Nurse 3 - General Ulcer D/C NN Start: 11/25/20 07:58 Freq: Status: Active Protocol: Activity Type Activity Date Activity User E-Sign Co-Sign Detail Recorded Client Recorded Date Recorded By Document 11/25/20 09:07 MS [id number] 11/25/20 09:08 MS Document 12/02/20 09:09 DL [id number] 12/02/20 09:10 DL 11/25/20 12/02/20 09:07 09:09 Wound Care Nurse 3 #2 L Med Heel -Ulcer Cleansing Rinsed/ Wound Cleanser Irrigated with Saline -Foul Odor after Cleansing No -Other Dressing hydrogel hydrogel -Primary Dressing Covered/Secured with Dry Gauze & Secured with Roll Gauze, Tape Secured with Tape #1 R Med Heel -Ulcer Cleansing Rinsed/ Wound Cleanser Irrigated with Saline -Foul Odor after Cleansing No -Other Dressing hydrogel hydrogel -Primary Dressing Covered/Secured with Dry Gauze & Dry Gauze & Roll Gauze, Roll Gauze, Secured with Secured with Tape Tape -Other Covering tubigrip toma LE Treatment Response Procedure Tolerated Well Pain Scale: 0-10 Numeric Is Patient Pain Free? Yes WC - Visit Discharge Discharge Condition Stable Stable Ambulatory Status Ambulatory Ambulatory Transportation Private Auto Private Auto Accompanied by family Medication Reconcilliation completed & No provided to patient/care provider Clinical Summary of Care Provided Yes Notes: Pt to resume Santyl at home Additional Wound Wound debrided: Right medial heel ulcer Laterality: Right Wound Grade/Stage: Driver 1 Type of Debridement: Excisional debridement Anesthesia Used: 4% Lidocaine Solution Depth: in the subcutaneous layer Percentage of wound debrided: 100 Instrument Used: 7mm curette and #15 blade Tissue Removed: Callus, slough, and devitalized tissue Severity: Fat Layer Exposed Amount of bleeding with debridement: Mild Bleeding Controlled with: Pressure Patient tolerated procedure: Patient tolerated procedure well Additional Wound Wound debrided: Left medial heel ulcer Laterality: Left Type of Debridement: Excisional debridement Anesthesia Used: 4% Lidocaine Solution Depth: in the subcutaneous layer Percentage of wound debrided: 100 Instrument Used: 7mm curette and #15 blade Tissue Removed: Callus, slough, and devitalized tissue Severity: Fat Layer Exposed Amount of bleeding with debridement: Mild Bleeding Controlled with: Pressure Patient tolerated procedure: Patient tolerated procedure well Assessment/Plan Assessment/Plan (1) 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: CODE(S): E11.621 - Type 2 diabetes mellitus with foot ulcer; L97.512 - Non-pressure chronic ulcer of other part of right foot with fat layer exposed QUALIFIERS: Diabetic foot ulcer location: heel Diabetes mellitus type: type 2 Qualified Code(s): E11.621 - Type 2 diabetes mellitus with foot ulcer; L97.412 - Non-pressure chronic ulcer of right heel and midfoot with fat layer exposed (2) 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: CODE(S): E11.621 - Type 2 diabetes mellitus with foot ulcer; L97.522 - Non-pressure chronic ulcer of other part of left foot with fat layer exposed QUALIFIERS: Diabetic foot ulcer location: heel Diabetes mellitus type: type 2 Qualified Code(s): E11.621 - Type 2 diabetes mellitus with foot ulcer; L97.422 - Non-pressure chronic ulcer of left heel and midfoot with fat layer exposed (3) Type 2 diabetes mellitus with diabetic neuropathy, with long-term current use of insulin: CODE(S): E11.40 - Type 2 diabetes mellitus with diabetic neuropathy, unspecified; Z79.4 - senior care (current) use of insulin (4) Chronic systolic (congestive) heart failure: CODE(S): I50.22 - Chronic systolic (congestive) heart failure (5) Essential (primary) hypertension: CODE(S): I10 - Essential (primary) hypertension PLAN: Debridement performed today in clinic as annotated above. Hydrogel and gauze applied. Given the significant bioburden of the patient's ulcers, an order for Puraply was submitted for insurance approval. Per trimming caser, the patient is only eligible for Apligraf through his insurance. At home wound-care instructions: Continue Santyl dressing changes once daily or more frequently as needed due to contamination. Wash wounds daily with antibacterial soap and water, rinse and dry thoroughly before each dressing change. Compression: Continue double Tubigrip's daily. Off-loading: The patient was instructed to avoid pressure and friction on the affected areas. Reposition every 2 hours at minimum. Avoid prolonged standing and/or dangling of legs. When seated, feet should be elevated at chest level. Frequent ambulation is encouraged. Diet: Patient encouraged to increase protein intake while taking caution to avoid high carbohydrate and/or sugar intake. Labs/cultures/imaging: Cultures collected today due to malodorous drainage from the bilateral heel ulcers. Antibiotics will be determined based upon culture results. Patient had completed a course of doxycycline 100 mg p.o. twice daily x10 days around the end of October 2020. Vascular studies on 11/30/20 revealed no evidence of arterial occlusive disease. Routine baseline lab results as listed below: CBCD: RBC 4.48 (L), hemoglobin 12.8 (L) ESR: 37 (H) CMP: Creatinine 2.00 (H), BUN 33 (H) estimated GFR 35 (L), glucose 152 (H) Hemoglobin A1c: 6.7% (H) CRP: 15.9 (H) Prealbumin: 20.0 Follow-up: Return to clinic in 1 week for re-evaluation. Return sooner or report to the emergency room should symptoms worsen, or new symptoms arise. Note: [employer] speech recognition landscape and yardwork laborer software was used to create portions of this document. Sound-alike and misspelled words, as well as other landscape and yardwork laborer errors may be contained in the documentation.
[2020-12-08 13:04] VITALS: BP 94/52; PULSE 78; RESP 16; TEMP 36.4; BMI 37.8
--- NOTE | 2020-12-12 20:46 | PN.PCM_ITS ---
History of Present Illness Date of Service: 12/08/20 Chief Complaint: Bilateral foot brady History of Wound: The patient is a pleasant 75-year-old white male who presents to the wound healing center today (11/04/2020) for an initial evaluation of bilateral medial foot brady. He has a past medical history significant for Alzheimer's disease, dilated cardiomyopathy, congestive heart failure, implanted pacemaker, CAD, hypertension, hyperlipidemia, and insulin-dependent type 2 diabetes. He reports that his brady occurred approximately 2 weeks ago. 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 The next day, he was back on his tractor performing the same type of work. In the following days, the developed blackening of the areas. He has been using silver dressings to his feet daily, and cleansing them with a chlorhexidine?type solution. He denies any pain in his feet. He denies any fever or chills. He denies any general malaise or poor appetite. He has mild redness surrounding the wounds of his bilateral feet. They do not feel hot to touch. He has not been on any antibiotics in the last several weeks. He does not typically use compression to his lower extremities. He denies frequent swelling of the lower extremities, but does report that in the past 2 weeks his distal feet have appeared slightly swollen. Progress of Wound: courtesy visit for misty Whiting returns for a follow-up visit today. He has been compliant with instructions on wound care. He is tolerating Santyl well to the bilateral foot ulcers, and improvement has been seen in his ulcer size and appearance. He notes that Santyl has been costly for him, but is willing to continue treatment with Santyl for the next week. He completed his course of doxycycline And currently is started on Flagyl and Levaquin after review of his most recent wound cultures Showing Proteus, staph aureus, and anaerobic cocci. He has been compliant with the use of double Tubigrip's. His arterial studies from 11/30/20 revealed no evidence of arterial occlusive dise ase. The patient denies fever, chills, malaise, or poor appetite. The patient has not had increased redness, swelling, or purulent drainage from affected area. He has malodor of his foot ulcers today. Objective Data Objective Data Vital Signs: Vital Signs Temp Pulse Resp BP 97.6 F L 78 16 94/52 L 12/08/20 13:04 12/08/20 13:04 12/08/20 13:04 12/08/20 13:04 Oxygen Delivery Method Room Air Body Mass Index (BMI) 37.8 Lab / Micro Data Micro: Microbiology 12/02/20 08:46 Wound Abcess - Heel Right Gram Stain - Final 12/02/20 08:46 Wound Abcess - Heel Right Wound Culture - Final Proteus mirabilis Staphylococcus aureus 12/02/20 08:46 Wound Abcess - Heel Right Anaerobic Culture - Final Anaerobic cocci Charges/Coding Procedures Integumentary [id number]: [id number] Aminta subq tissue 20 sq cm/< Physical Exam Const alert, no apparent distress and healthy appearing General Appearance: cooperative, comfortable and well kempt Neck supple and no JVD Resp normal respiratory effort Extremity normal capillary refill, no joint enlargement, no clubbing, cyanosis or edema and no pedal edema Skin Wounds: wounds noted No malodorous Wound Narrative: Ulcers of bilateral medial feet with moderate to large amounts of adherent slough and devitalized tissue present. There is no noted tunneling, undermining, or probing to bone, though slough and devitalized tissue does impair full visualization of the wound bed. There is no periulcer erythema of either foot today. There is no warmth to the periulcer area. There is no tenderness to the periulcer area. Neuro moves all extremities and no focal motor deficits Sensory Exam: extremities Sensory loss observed in both feet Psych mental status grossly normal, cooperative and affect normal Debridement Note Debridement Note Post-Debridement Measurements and Additional Note: Post-Debridement Measurements/Treatment RAZIA - Nurse 1 - General Ulcer Assessment Start: 11/25/20 07:58 Freq: Status: Active Protocol: BERNIE Activity Type Activity Date Activity User E-Sign Co-Sign Detail Recorded Client Recorded Date Recorded By Document 11/25/20 07:58 ML [id number] 11/25/20 08:08 ML Document 12/02/20 08:12 DL [id number] 12/02/20 08:18 DL Document 12/08/20 13:04 MW Desktop 12/08/20 13:10 MW 11/25/20 12/02/20 12/08/20 07:58 08:12 13:04 WC - Today's Visit Information Type of service Follow-up Visit Follow-up Visit Follow-up Visit (Physician/DISTRIBUTOR SALES CONSULTANT (Physician/DISTRIBUTOR SALES CONSULTANT (Physician/DISTRIBUTOR SALES CONSULTANT ) ) ) Arrival Mode Ambulatory Ambulatory Ambulatory Transfer Assistance None None None Accompanied by son Patient Identification Verified (Name & Yes Yes Yes ) Patient Requires Transmission-Based No No No Precautions Safety Precautions NA NA Height and Weight Body Mass Index (BMI) 37.8 37.8 37.8 BMI Classification Obese Obese Obese Vital Signs Temperature (97.8 F-99.1 F) 97.9 F 96.6 F L 97.6 F L Temperature Source Temporal Temporal Temporal Pulse Rate (60-100) 81 78 78 Pulse Location Monitor Monitor Monitor Respiratory Rate (12-18) 16 20 H 16 Respiratory rate source Observation Observation Observation Oxygen Delivery Method Room Air Blood Pressure (90/60-120/80) 117/69 107/61 94/52 L Blood Pressure Mean (mm Hg) 85 76 66 Source Monitor Monitor Position Sitting Sitting Blood Pressure Location Left Arm Left Arm History Since Last Visit- (Skip if this is Patient's initial visit) Have you changed medications since your No No No last visit? Any new allergies or adverse reactions No No No Had a fall/change in ADL's that may No No No increase risk of falls Signs or symptoms of abuse and/or No No No neglect since last visit Have you been in the hospital since your No No No last visit? Has dressing in place as prescribed Yes Yes Yes Has compression in place as prescribed N/A Yes N/A Has offloadiing in place as prescribed N/A Yes N/A Experienced any changes in pain level or Yes No No management Left Footwear Regular Shoe Regular Shoe Regular Shoe Right Footwear Regular Shoe Regular Shoe Regular Shoe Pain Scale: 0-10 Numeric Is Patient Pain Free? No Yes - Nurse 1 - General Ulcer Measurement Start: 11/25/20 07:58 Freq: Status: Active Protocol: Activity Type Activity Date Activity User E-Sign Co-Sign Detail Recorded Client Recorded Date Recorded By Document 11/25/20 07:58 ML [id number] 11/25/20 08:08 ML Document 12/02/20 08:12 DL [id number] 12/02/20 08:18 DL Document 12/08/20 13:04 MW Desktop 12/08/20 13:10 MW 11/25/20 12/02/20 12/08/20 07:58 08:12 13:04 Wound Center Nurse 1 #2 L Med Heel -Combined with other wound No -Current Size (cm) - Length 2 2.5 2.0 -Current Size (cm) - Width 2.5 3.1 1.8 -Current Size (cm) - Depth 0.2 0.1 0.2 -Total Square Cm 5.0 7.75 3.60 -Photo Taken No No -Epithelialization None Present -Tunneling No -Undermining/Tunneling No -Circular Undermining No -Exudate Amt Medium Medium Medium -Exudate Type Serosanguineous Serosanguineous Serosanguineous -Wound Margin Distinct, Distinct, Flat & Intact Outline Outline Attached Attached -Granulation Amt Medium (34-66%) Medium (34-66%) Small (1-33%) -Granulation Quality [place] -Slough/Fibrin Yes Yes -Necrosis Amt Medium (34-66%) Large (67-100%) Large (67-100%) -Necrotic Tissue Type Adherent Slough Adherent Slough Adherent Slough -Structure Exposed N/A N/A -Texture (Vera-wound Skin Appearance) No Abnormality Scarring Assessed, Scarring -Moisture (Vera-wound Skin Appearance) No Abnormality Dry/Scaly No Abnormality, Assessed -Color (Vera-wound Skin Appearance) No Abnormality No Abnormality No Abnormality, Assessed -Temperature (Vera-wound Skin No Abnormality No Abnormality Appearance) (Pt Warm) (Pt Warm) -Tenderness on Palpation (Vera-wound No No Skin Appearance) -Ulcer Cleansing Wound Cleanser Wound Cleanser soap and water -Foul Odor after Cleansing No No No -Anesthetic Used 4% Lidocaine 4% Lidocaine 4% Lidocaine Solution Solution Solution #1 R Med Heel -Combined with other wound No -Current Size (cm) - Length 3 2.1 2.0 -Current Size (cm) - Width 2 3.5 3.1 -Current Size (cm) - Depth 0.1 0.1 0.1 -Total Square Cm 6 7.35 6.20 -Photo Taken No No -Tunneling No -Undermining/Tunneling No -Circular Undermining No -Exudate Amt Medium Medium Medium -Exudate Type Serosanguineous Serosanguineous Serosanguineous -Wound Margin Distinct, Distinct, Flat & Intact Outline Outline Attached Attached -Granulation Amt Medium (34-66%) Medium (34-66%) Small (1-33%) -Granulation Quality [place] -Slough/Fibrin Yes Yes -Necrosis Amt Medium (34-66%) Medium (34-66%) Large (67-100%) -Necrotic Tissue Type Adherent Slough Adherent Slough Adherent Slough -Structure Exposed N/A N/A -Texture (Vera-wound Skin Appearance) No Abnormality Scarring Assessed, Scarring -Moisture (Vera-wound Skin Appearance) No Abnormality No Abnormality No A bnormality, Assessed -Color (Vera-wound Skin Appearance) No Abnormality No Abnormality, Assessed -Temperature (Vera-wound Skin No Abnormality No Abnormality No Abnormality Appearance) (Pt Warm) (Pt Warm) (Pt Warm) -Tenderness on Palpation (Vera-wound No No Skin Appearance) -Ulcer Cleansing Wound Cleanser Wound Cleanser soap and water -Foul Odor after Cleansing No Yes Yes, Due to Product Use -Anesthetic Used 4% Lidocaine 4% Lidocaine Solution Solution Lower Limb Edema Present No Right Calf (cm) 35 Right Ankle (cm) 21.4 Left Calf (cm) 38 Left Ankle (cm) 22 WC - Nurse 2 - General Ulcer CM Notes Start: 11/25/20 07:58 Freq: Status: Active Protocol: Activity Type Activity Date Activity User E-Sign Co-Sign Detail Recorded Client Recorded Date Recorded By Document 11/25/20 09:52 PL [id number] 11/25/20 09:54 PL Document 12/02/20 12:38 PL [id number] 12/02/20 12:40 PL Document 12/08/20 16:06 PL [id number] 12/08/20 16:08 PL 11/25/20 12/02/20 12/08/20 09:52 12:38 16:06 Wound Center Nurse 2 #2 L Med Heel -Time 08:42 08:35 13:28 -Correct Patient Yes Yes Yes -Correct Side, Site, Position Yes Yes Yes -Correct Procedure Yes Yes Yes -Procedure Performed Yes Yes Yes -Type of Procedure Debridement Debridement Debridement -Clinical Debridement Subcutaneous Subcutaneous Subcutaneous -Tissue Removed Subcutaneous Subcutaneous Subcutaneous -Post Debridement (cm) - Length 2.6 2.5 2.3 -Post Debridement (cm) - Width 3.5 3.5 3.2 -Post Debridement (cm) - Depth 0.1 0.1 0.2 -Total Square (Post) (cm) 9.10 8.75 7.36 -Area of Debridement (cm) - Length 2.6 2.5 2.3 -Area of Debridement (cm) - Width 3.5 3.5 3.2 -Total Square (Area) (cm) 9.10 8.75 7.36 -Tunneling No No No -Undermining/Tunneling No No No -Circular Undermining No No No -Wound/Ulcer Outcome Not Healed Not Healed Not Healed -Ulcer Cleansing Rinsed/ Rinsed/ Rinsed/ Irrigated with Irrigated with Irrigated with Saline Saline Saline -Foul Odor after Cleansing No No No -Bioengineered Tissue No No No -Bleeding Controlled with Pressure Pressure -Treatment Response Procedure Procedure Tolerated Well Tolerated Well -Debridement - Subq, 1st 20sq cm Yes Yes Yes #1 R Med Heel -Time 08:42 08:35 13:20 -Correct Patient Yes Yes Yes -Correct Side, Site, Position Yes Yes Yes -Correct Procedure Yes Yes Yes -Procedure Performed Yes Yes Yes -Type of Procedure Debridement Debridement Debridement -Clinical Debridement Subcutaneous Subcutaneous Subcutaneous -Tissue Removed Subcutaneous Subcutaneous Subcutaneous -Post Debridement (cm) - Length 2.5 2.3 2.0 -Post Debridement (cm) - Width 3.6 3.5 3.1 -Post Debridement (cm) - Depth 0.1 0.1 0.2 -Total Square (Post) (cm) 9.00 8.05 6.20 -Area of Debridement (cm) - Length 2.5 2.3 2.0 -Area of Debridement (cm) - Width 3.6 3.5 3.1 -Total Square (Area) (cm) 9.00 8.05 6.20 -Tunneling No No No -Undermining/Tunneling No No No -Circular Undermining No No No -Wound/Ulcer Outcome Not Healed Not Healed Not Healed -Ulcer Cleansing Rinsed/ Rinsed/ Rinsed/ Irrigated with Irrigated with Irrigated with Saline Saline Saline -Foul Odor after Cleansing No No No -Bioengineered Tissue No No No -Bleeding Controlled with Pressure -Treatment Response Procedure Tolerated Well -Debridement - Subq, 1st 20sq cm No No No Pain Scale: 0-10 Numeric Is Patient Pain Free? No Yes Yes WC - Nurse 3 - General Ulcer D/C NN Start: 11/25/20 07:58 Freq: Status: Active Protocol: Activity Type Activity Date Activity User E-Sign Co-Sign Detail Recorded Client Recorded Date Recorded By Document 11/25/20 09:07 ML [id number] 11/25/20 09:08 ML Document 12/02/20 09:09 DL [id number] 12/02/20 09:10 DL Document 12/08/20 13:39 MW [id number] 12/08/20 13:40 MW 11/25/20 12/02/20 12/08/20 09:07 09:09 13:39 Wound Care Nurse 3 #2 L Med Heel -Ulcer Cleansing Rinsed/ Wound Cleanser Rinsed/ Irrigated with Irrigated with Saline Saline -Foul Odor after Cleansing No No -Negative Pressure Wound Therapy N/A -Other Dressing hydrogel hydrogel hydrogel -Primary Dressing Covered/Secured with Dry Gauze & Secured with Dry Gauze & Roll Gauze, Tape Roll Gauze, Secured with Secured with Tape Tape #1 R Med Heel -Ulcer Cleansing Rinsed/ Wound Cleanser Irrigated with Saline -Foul Odor after Cleansing No -Other Dressing hydrogel hydrogel -Primary Dressing Covered/Secured with Dry Gauze & Dry Gauze & Roll Gauze, Roll Gauze, Secured with Secured with Tape Tape -Other Covering tubigrip toma LE Right -Lotion applied to leg before No compression wrap -Other double layer tubigrip Left -Lotion applied to leg before No compression wrap -Other double layer tubigrip Treatment Response Procedure Procedure Tolerated Well Tolerated Well Pain Scale: 0-10 Numeric Is Patient Pain Free? Yes Yes Teaching: Wound Center Dressing Your Wound -Person Taught Patient,Family -Teaching Method Discussion, Demonstration -Response to teaching Verbalize understanding WC - Visit Discharge Discharge Condition Stable Stable Stable Ambulatory Status Ambulatory Ambulatory Ambulatory Transportation Private Auto Private Auto Private Auto Accompanied by family son Medication Reconcilliation completed & No No provided to patient/care provider Clinical Summary of Care Provided Yes Yes Notes: Pt to resume Santyl at home Wound debrided: left and right medial heal ulcer Wound Grade/Stage: carreno 2 Type of Debridement: Excisional debridement Anesthesia Used: 5% Lidocaine Gel Depth: Down to and including healthy tissue and in the subcutaneous layer Percentage of wound debrided: 100 Instrument Used: 5mm curette Tissue Removed: slough and devitalized tissue Severity: Fat Layer Exposed Bleeding Controlled with: Pressure Patient tolerated procedure: Patient tolerated procedure well Assessment/Plan Assessment/Plan (1) 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: CODE(S): E11.621 - Type 2 diabetes mellitus with foot ulcer; L97.512 - Non-pressure chronic ulcer of other part of right foot with fat layer exposed QUALIFIERS: Diabetic foot ulcer location: heel Diabetes mellitus type: type 2 Qualified Code(s): E11.621 - Type 2 diabetes mellitus with foot ulcer; L97.412 - Non-pressure chronic ulcer of right heel and midfoot with fat layer exposed (2) 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: CODE(S): E11.621 - Type 2 diabetes mellitus with foot ulcer; L97.522 - Non-pressure chronic ulcer of other part of left foot with fat layer exposed QUALIFIERS: Diabetic foot ulcer location: heel Diabetes mellitus type: type 2 Qualified Code(s): E11.621 - Type 2 diabetes mellitus with foot ulcer; L97.422 - Non-pressure chronic ulcer of left heel and midfoot with fat layer exposed (3) Type 2 diabetes mellitus with diabetic neuropathy, with long-term current use of insulin: CODE(S): E11.40 - Type 2 diabetes mellitus with diabetic neuropathy, unspecified; Z79.4 - halfway (current) use of insulin (4) Chronic systolic (congestive) heart failure: CODE(S): I50.22 - Chronic systolic (congestive) heart failure (5) Essential (primary) hypertension: CODE(S): I10 - Essential (primary) hypertension PLAN: Debridement performed today in clinic as annotated above. Hydrogel and gauze applied. Given the significant bioburden of the patient's ulcers, an order for Puraply was submitted for insurance approval. Per adult protective caseworker, the patient is only eligible for Apligraf through his insurance. At home wound-care instructions: Continue Santyl dressing changes once daily or more frequently as needed due to contamination. Wash wounds daily with dakins and or antibacterial soap and water, rinse and dry thoroughly before each dressing change. Compression: Continue double Tubigrip's daily. Off-loading: The patient was instructed to avoid pressure and friction on the affected areas. Reposition every 2 hours at minimum. Avoid prolonged standing and/or dangling of legs. When seated, feet should be elevated at chest level. Frequent ambulation is encouraged. Diet: Patient encouraged to increase protein intake while taking caution to avoid high carbohydrate and/or sugar intake. Labs/cultures/imaging: Cultures collected Prior and showed Proteus, staph, and anaerobic cocci, patient currently placed on Flagyl and Levaquin based on the sensitivities. Patient had completed a course of doxycycline 100 mg p.o. twice daily x10 days around the end of October 2020. Vascular studies on 11/30/20 revealed no evidence of arterial occlusive disease. Routine baseline lab results as listed below: CBCD: RBC 4.48 (L), hemoglobin 12.8 (L) ESR: 37 (H) CMP: Creatinine 2.00 (H), BUN 33 (H) estimated GFR 35 (L), glucose 152 (H) Hemoglobin A1c: 6.7% (H) CRP: 15.9 (H) Prealbumin: 20.0 Follow-up: Return to clinic in 1 week for re-evaluation. Return sooner or report to the emergency room should symptoms worsen, or new symptoms arise. Note: [employer] speech recognition welding technician software was used to create portions of this document. Sound-alike and misspelled words, as well as other welding technician errors may be contained in the documentation.
[2020-12-16 08:44] VITALS: BP 102/66; PULSE 94; RESP 16; TEMP 36.4; BMI 37.8
--- NOTE | 2020-12-16 12:00 | PCM.WC.PN ---
History of Present Illness Date of Service: 12/16/20 Chief Complaint: Bilateral foot brady History of Wound: The patient is a pleasant 75-year-old white male who presents to the wound healing center today (11/04/2020) for an initial evaluation of bilateral medial foot brady. He has a past medical history significant for Alzheimer's disease, dilated cardiomyopathy, congestive heart failure, implanted pacemaker, CAD, hypertension, hyperlipidemia, and insulin-dependent type 2 diabetes. He reports that his brady occurred approximately 2 weeks ago. 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 The next day, he was back on his tractor performing the same type of work. In the following days, the developed blackening of the areas. He has been using silver dressings to his feet daily, and cleansing them with a chlorhexidine?type solution. He denies any pain in his feet. He denies any fever or chills. He denies any general malaise or poor appetite. He has mild redness surrounding the wounds of his bilateral feet. They do not feel hot to touch. He has not been on any antibiotics in the last several weeks. He does not typically use compression to his lower extremities. He denies frequent swelling of the lower extremities, but does report that in the past 2 weeks his distal feet have appeared slightly swollen. Progress of Wound: Alex returns for a follow-up visit today. He has been compliant with instructions on wound care. He is tolerating Santyl well to the bilateral foot ulcers, and improvement has been seen in his ulcer size and appearance. The amount of slough and bioburden present on his wounds continues to improve. He notes that Santyl has been costly for him, but is willing to continue treatment with Santyl for the upcoming weeks. He completed a course of doxycycline. He is currently finishing courses of Flagyl and Levaquin for his most recent wound cultures showing Proteus, staph aureus, and anaerobic cocci. His wound malodor has resolved. He has been compliant with the use of double Tubigrip's. His arterial studies from 11/30/20 revealed no evidence of arterial occlusive disease. The patient denies fever, chills, malaise, or poor appetite. The patient has not had increased redness, swelling, or purulent drainage from affected area. Objective Data Objective Data Vital Signs: Vital Signs Temp Pulse Resp BP 97.5 F L 94 16 102/66 12/16/20 08:44 12/16/20 08:44 12/16/20 08:44 12/16/20 08:44 Oxygen Delivery Method Room Air Body Mass Index (BMI) 37.8 Lab / Micro Data Micro: Microbiology 12/02/20 08:46 Wound Abcess - Heel Right Gram Stain - Final 12/02/20 08:46 Wound Abcess - Heel Right Wound Culture - Final Proteus mirabilis Staphylococcus aureus 12/02/20 08:46 Wound Abcess - Heel Right Anaerobic Culture - Final Anaerobic cocci Charges/Coding Procedures Integumentary [id number]: [id number] Aminta subq tissue 20 sq cm/< Physical Exam Const alert, no apparent distress and healthy appearing General Appearance: cooperative, comfortable and well kempt Neck supple Resp normal respiratory effort Extremity normal capillary refill, no joint enlargement, no clubbing, cyanosis or edema and no pedal edema Skin Wounds: wounds noted no odor Wound Narrative: Ulcers of bilateral medial feet with moderate amounts of slough and devitalized tissue present. There is no noted tunneling, undermining, or probing to bone, though slough and devitalized tissue does impair full visualization of the wound bed. There is no periulcer erythema of either foot today. There is no warmth to the periulcer area. There is no tenderness to the periulcer area. Neuro moves all extremities and no focal motor deficits Sensory Exam: extremities Sensory loss observed in both feet Psych mental status grossly normal, cooperative and affect normal Debridement Note Debridement Note Post-Debridement Measurements and Additional Note: Post-Debridement Measurements/Treatment WC - Nurse 1 - General Ulcer Assessment Start: 11/25/20 07:58 Freq: Status: Active Protocol: BERNIE Activity Type Activity Date Activity User E-Sign Co-Sign Detail Recorded Client Recorded Date Recorded By Document 11/25/20 07:58 ML [id number] 11/25/20 08:08 ML Document 12/02/20 08:12 DL [id number] 12/02/20 08:18 DL Document 12/08/20 13:04 MW Desktop 12/08/20 13:10 MW Document 12/16/20 08:44 [id number] 12/16/20 08:50 JF 11/25/20 12/02/20 12/08/20 07:58 08:12 13:04 WC - Today's Visit Information Type of service Follow-up Visit Follow-up Visit Follow-up Visit (Physician/SUPERVIS[employer] (Physician/SUPERVIS[employer] (Physician/SUPERVISOR [employer] ) ) ) Arrival Mode Ambulatory Ambulatory Ambulatory Transfer Assistance None None None Accompanied by son Patient Identification Verified (Name & Yes Yes Yes ) Patient Requires Transmission-Based No No No Precautions Safety Precautions NA NA Height and Weight Body Mass Index (BMI) 37.8 37.8 37.8 BMI Classification Obese Obese Obese Vital Signs Temperature (97.8 F-99.1 F) 97.9 F 96.6 F L 97.6 F L Temperature Source Temporal Temporal Temporal Pulse Rate (60-100) 81 78 78 Pulse Location Monitor Monitor Monitor Respiratory Rate (12-18) 16 20 H 16 Respiratory rate source Observation Observation Observation Oxygen Delivery Method Room Air Blood Pressure (90/60-120/80) 117/69 107/61 94/52 L Blood Pressure Mean (mm Hg) 85 76 66 Source Monitor Monitor Position Sitting Sitting Blood Pressure Location Left Arm Left Arm History Since Last Visit- (Skip if this is Patient's initial visit) Have you changed medications since your No No No last visit? Any new allergies or adverse reactions No No No Had a fall/change in ADL's that may No No No increase risk of falls Signs or symptoms of abuse and/or No No No neglect since last visit Have you been in the hospital since your No No No last visit? Has dressing in place as prescribed Yes Yes Yes Has compression in place as prescribed N/A Yes N/A Has offloadiing in place as prescribed N/A Yes N/A Experienced any changes in pain level or Yes No No management Left Footwear Regular Shoe Regular Shoe Regular Shoe Right Footwear Regular Shoe Regular Shoe Regular Shoe Pain Scale: 0-10 Numeric Is Patient Pain Free? No Yes 12/16/20 08:44 WC - Today's Visit Information Type of service Follow-up Visit (Physician/SUPERVIS[employer] ) Arrival Mode Ambulatory Transfer Assistance Accompanied by son Patient Identification Verified (Name & No ) Patient Requires Transmission-Based Precautions Safety Precautions Height and Weight Body Mass Index (BMI) 37.8 BMI Classification Obese Vital Signs Temperature (97.8 F-99.1 F) 97.5 F L Temperature Source Temporal Pulse Rate (60-100) 94 Pulse Location Monitor Respiratory Rate (12-18) 16 Respiratory rate source Observation Oxygen Delivery Method Blood Pressure (90/60-120/80) 102/66 Blood Pressure Mean (mm Hg) 78 Source Monitor Position Semi-Fowlers Blood Pressure Location Right Arm History Since Last Visit- (Skip if this is Patient's initial visit) Have you changed medications since your No last visit? Any new allergies or adverse reactions No Had a fall/change in ADL's that may No increase risk of falls Signs or symptoms of abuse and/or No neglect since last visit Have you been in the hospital since your No last visit? Has dressing in place as prescribed Yes Has compression in place as prescribed Yes Has offloadiing in place as prescribed No Experienced any changes in pain level or No management Left Footwear Regular Shoe Right Footwear Regular Shoe Pain Scale: 0-10 Numeric Is Patient Pain Free? Yes WC - Nurse 1 - General Ulcer Measurement Start: 11/25/20 07:58 Freq: Status: Active Protocol: Activity Type Activity Date Activity User E-Sign Co-Sign Detail Recorded Client Recorded Date Recorded By Document 11/25/20 07:58 ML [id number] 11/25/20 08:08 ML Document 12/02/20 08:12 DL [id number] 12/02/20 08:18 DL Document 12/08/20 13:04 MW Desktop 12/08/20 13:10 MW Document 12/16/20 08:44 [id number] 12/16/20 08:50 11/25/20 12/02/20 12/08/20 07:58 08:12 13:04 Wound Center Nurse 1 #2 L Med Heel -Combined with other wound No -Current Size (cm) - Length 2 2.5 2.0 -Current Size (cm) - Width 2.5 3.1 1.8 -Current Size (cm) - Depth 0.2 0.1 0.2 -Total Square Cm 5.0 7.75 3.60 -Photo Taken No No -Epithelialization None Present -Tunneling No -Undermining/Tunneling No -Circular Undermining No -Exudate Amt Medium Medium Medium -Exudate Type Serosanguineous Serosanguineous Serosanguineous -Wound Margin Distinct, Distinct, Flat & Intact Outline Outline Attached Attached -Granulation Amt Medium (34-66%) Medium (34-66%) Small (1-33%) -Granulation Quality [place] -Slough/Fibrin Yes Yes -Necrosis Amt Medium (34-66%) Large (67-100%) Large (67-100%) -Necrotic Tissue Type Adherent Slough Adherent Slough Adherent Slough -Structure Exposed N/A N/A -Texture (Vera-wound Skin Appearance) No Abnormality Scarring Assessed, Scarring -Moisture (Vera-wound Skin Appearance) No Abnormality Dry/Scaly No Abnormality, Assessed -Color (Vera-wound Skin Appearance) No Abnormality No Abnormality No Abnormality, Assessed -Temperature (Vera-wound Skin No Abnormality No Abnormality Appearance) (Pt Warm) (Pt Warm) -Tenderness on Palpation (Vera-wound No No Skin Appearance) -Ulcer Cleansing Wound Cleanser Wound Cleanser soap and water -Foul Odor after Cleansing No No No -Anesthetic Used 4% Lidocaine 4% Lidocaine 4% Lidocaine Solution Solution Solution #1 R Med Heel -Combined with other wound No -Current Size (cm) - Length 3 2.1 2.0 -Current Size (cm) - Width 2 3.5 3.1 -Current Size (cm) - Depth 0.1 0.1 0.1 -Total Square Cm 6 7.35 6.20 -Photo Taken No No -Epithelialization -Tunneling No -Undermining/Tunneling No -Circular Undermining No -Exudate Amt Medium Medium Medium -Exudate Type Serosanguineous Serosanguineous Serosanguineous -Wound Margin Distinct, Distinct, Flat & Intact Outline Outline Attached Attached -Granulation Amt Medium (34-66%) Medium (34-66%) Small (1-33%) -Granulation Quality [place] -Slough/Fibrin Yes Yes -Necrosis Amt Medium (34-66%) Medium (34-66%) Large (67-100%) -Necrotic Tissue Type Adherent Slough Adherent Slough Adherent Slough -Structure Exposed N/A N/A -Texture (Vera-wound Skin Appearance) No Abnormality Scarring Assessed, Scarring -Moisture (Vera-wound Skin Appearance) No Abnormality No Abnormality No Abnormality, Assessed -Color (Vera-wound Skin Appearance) No Abnormality No Abnormality, Assessed -Temperature (Vera-wound Skin No Abnormality No Abnormality No Abnormality Appearance) (Pt Warm) (Pt Warm) (Pt Warm) -Tenderness on Palpation (Vera-wound No No Skin Appearance) -Ulcer Cleansing Wound Cleanser Wound Cleanser soap and water -Foul Odor after Cleansing No Yes Yes, Due to Product Use -Anesthetic Used 4% Lidocaine 4% Lidocaine Solution Solution Lower Limb Edema Present No Right Calf (cm) 35 Right Ankle (cm) 21.4 Left Calf (cm) 38 Left Ankle (cm) 22 12/16/ 08:44 Wound Center Nurse 1 #2 L Med Heel -Combined with other wound No -Current Size (cm) - Length 2.0 -Current Size (cm) - Width 3.0 -Current Size (cm) - Depth 0.2 -Total Square Cm 6.00 -Photo Taken No -Epithelialization None Present -Tunneling No -Undermining/Tunneling No -Circular Undermining No -Exudate Amt Small -Exudate Type Serosanguineous -Wound Margin Flat & Intact -Granulation Amt Medium (34-66%) -Granulation Quality Red -Slough/Fibrin Yes -Necrosis Amt Medium (34-66%) -Necrotic Tissue Type Adherent Slough -Structure Exposed N/A -Texture (Vera-wound Skin Appearance) Assessed,Callus -Moisture (Vera-wound Skin Appearance) Assessed,Dry/ Scaly -Color (Vera-wound Skin Appearance) Assessed -Temperature (Vera-wound Skin No Abnormality Appearance) (Pt Warm) -Tenderness on Palpation (Vera-wound No Skin Appearance) -Ulcer Cleansing Rinsed/ Irrigated with Saline -Foul Odor after Cleansing No -Anesthetic Used 4% Lidocaine Solution #1 R Med Heel -Combined with other wound No -Current Size (cm) - Length 1.2 -Current Size (cm) - Width 2.8 -Current Size (cm) - Depth 0.2 -Total Square Cm 3.36 -Photo Taken No -Epithelialization Small 1-33% -Tunneling No -Undermining/Tunneling No -Circular Undermining No -Exudate Amt Small -Exudate Type Serosanguineous -Wound Margin Flat & Intact -Granulation Amt Medium (34-66%) -Granulation Quality Red -Slough/Fibrin Yes -Necrosis Amt Medium (34-66%) -Necrotic Tissue Type Adherent Slough -Structure Exposed N/A -Texture (Vera-wound Skin Appearance) Assessed,Callus -Moisture (Vera-wound Skin Appearance) Assessed,Dry/ Scaly -Color (Vera-wound Skin Appearance) Assessed -Temperature (Vera-wound Skin No Abnormality Appearance) (Pt Warm) -Tenderness on Palpation (Vera-wound No Skin Appearance) -Ulcer Cleansing Rinsed/ Irrigated with Saline -Foul Odor after Cleansing No -Anesthetic Used 4% Lidocaine Solution Lower Limb Edema Present No Right Calf (cm) Right Ankle (cm) Left Calf (cm) Left Ankle (cm) WC - Nurse 2 - General Ulcer CM Notes Start: 11/25/20 07:58 Freq: Status: Active Protocol: Activity Type Activity Date Activity User E-Sign Co-Sign Detail Recorded Client Recorded Date Recorded By Document 11/25/20 09:52 PL [id number] 11/25/20 09:54 PL Document 12/02/20 12:38 PL [id number] 12/02/20 12:40 PL Document 12/08/20 16:06 PL [id number] 12/08/20 16:08 PL 11/25/20 12/02/20 12/08/20 09:52 12:38 16:06 Wound Center Nurse 2 #2 L Med Heel -Time 08:42 08:35 13:28 -Correct Patient Yes Yes Yes -Correct Side, Site, Position Yes Yes Yes -Correct Procedure Yes Yes Yes -Procedure Performed Yes Yes Yes -Type of Procedure Debridement Debridement Debridement -Clinical Debridement Subcutaneous Subcutaneous Subcutaneous -Tissue Removed Subcutaneous Subcutaneous Subcutaneous -Post Debridement (cm) - Length 2.6 2.5 2.3 -Post Debridement (cm) - Width 3.5 3.5 3.2 -Post Debridement (cm) - Depth 0.1 0.1 0.2 -Total Square (Post) (cm) 9.10 8.75 7.36 -Area of Debridement (cm) - Length 2.6 2.5 2.3 -Area of Debridement (cm) - Width 3.5 3.5 3.2 -Total Square (Area) (cm) 9.10 8.75 7.36 -Tunneling No No No -Undermining/Tunneling No No No -Circular Undermining No No No -Wound/Ulcer Outcome Not Healed Not Healed Not Healed -Ulcer Cleansing Rinsed/ Rinsed/ Rinsed/ Irrigated with Irrigated with Irrigated with Saline Saline Saline -Foul Odor after Cleansing No No No -Bioengineered Tissue No No No -Bleeding Controlled with Pressure Pressure -Treatment Response Procedure Procedure Tolerated Well Tolerated Well -Debridement - Subq, 1st 20sq cm Yes Yes Yes #1 R Med Heel -Time 08:42 08:35 13:20 -Correct Patient Yes Yes Yes -Correct Side, Site, Position Yes Yes Yes -Correct Procedure Yes Yes Yes -Procedure Performed Yes Yes Yes -Type of Procedure Debridement Debridement Debridement -Clinical Debridement Subcutaneous Subcutaneous Subcutaneous -Tissue Removed Subcutaneous Subcutaneous Subcutaneous -Post Debridement (cm) - Length 2.5 2.3 2.0 -Post Debridement (cm) - Width 3.6 3.5 3.1 -Post Debridement (cm) - Depth 0.1 0.1 0.2 -Total Square (Post) (cm) 9.00 8.05 6.20 -Area of Debridement (cm) - Length 2.5 2.3 2.0 -Area of Debridement (cm) - Width 3.6 3.5 3.1 -Total Square (Area) (cm) 9.00 8.05 6.20 -Tunneling No No No -Undermining/Tunneling No No No -Circular Undermining No No No -Wound/Ulcer Outcome Not Healed Not Healed Not Healed -Ulcer Cleansing Rinsed/ Rinsed/ Rinsed/ Irrigated with Irrigated with Irrigated with Saline Saline Saline -Foul Odor after Cleansing No No No -Bioengineered Tissue No No No -Bleeding Controlled with Pressure -Treatment Response Procedure Tolerated Well -Debridement - Subq, 1st 20sq cm No No No Pain Scale: 0-10 Numeric Is Patient Pain Free? No Yes Yes - Nurse 3 - General Ulcer D/C NN Start: 11/25/20 07:58 Freq: Status: Active Protocol: Activity Type Activity Date Activity User E-Sign Co-Sign Detail Recorded Client Recorded Date Recorded By Document 11/25/20 09:07 ML [id number] 11/25/20 09:08 ML Document 12/02/20 09:09 DL [id number] 12/02/20 09:10 DL Document 12/08/20 13:39 MW [id number] 12/08/20 13:40 MW 11/25/20 12/02/20 12/08/20 09:07 09:09 13:39 Wound Care Nurse 3 #2 L Med Heel -Ulcer Cleansing Rinsed/ Wound Cleanser Rinsed/ Irrigated with Irrigated with Saline Saline -Foul Odor after Cleansing No No -Negative Pressure Wound Therapy N/A -Other Dressing hydrogel hydrogel hydrogel -Primary Dressing Covered/Secured with Dry Gauze & Secured with Dry Gauze & Roll Gauze, Tape Roll Gauze, Secured with Secured with Tape Tape #1 R Med Heel -Ulcer Cleansing Rinsed/ Wound Cleanser Irrigated with Saline -Foul Odor after Cleansing No -Other Dressing hydrogel hydrogel -Primary Dressing Covered/Secured with Dry Gauze & Dry Gauze & Roll Gauze, Roll Gauze, Secured with Secured with Tape Tape -Other Covering tubigrip toma LE Right -Lotion applied to leg before No compression wrap -Other double layer tubigrip Left -Lotion applied to leg before No compression wrap -Other double layer tubigrip Treatment Response Procedure Procedure Tolerated Well Tolerated Well Pain Scale: 0-10 Numeric Is Patient Pain Free? Yes Yes Teaching: Wound Center Dressing Your Wound -Person Taught Patient,Family -Teaching Method Discussion, Demonstration -Response to teaching Verbalize understanding WC - Visit Discharge Discharge Condition Stable Stable Stable Ambulatory Status Ambulatory Ambulatory Ambulatory Transportation Private Auto Private Auto Private Auto Accompanied by family son Medication Reconcilliation completed & No No provided to patient/care provider Clinical Summary of Care Provided Yes Yes Notes: Pt to resume Santyl at home Wound debrided: Right medial heel ulcer Laterality: Right Wound Grade/Stage: Driver 2 Type of Debridement: Excisional debridement Anesthesia Used: 4% Lidocaine Solution Depth: in the subcutaneous layer Percentage of wound debrided: 100 Instrument Used: 5mm curette and #15 blade Tissue Removed: Slough and devitalized tissue Severity: Fat Layer Exposed Amount of bleeding with debridement: Moderate Bleeding Controlled with: Compression and gauze Patient tolerated procedure: Patient tolerated procedure well Additional Wound Wound debrided: Left medial heel ulcer Laterality: Left Wound Grade/Stage: suspected Driver 2 Type of Debridement: Excisional debridement Anesthesia Used: 4% Lidocaine Solution Depth: in the subcutaneous layer Percentage of wound debrided: 100 Instrument Used: 5mm curette and #15 blade Tissue Removed: Slough and devitalized tissue Severity: Fat Layer Exposed Amount of bleeding with debridement: Moderate Bleeding Controlled with: Compression and gauze Patient tolerated procedure: Patient tolerated procedure well Assessment/Plan Assessment/Plan (1) 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: CODE(S): E11.621 - Type 2 diabetes mellitus with foot ulcer; L97.512 - Non-pressure chronic ulcer of other part of right foot with fat layer exposed QUALIFIERS: Diabetic foot ulcer location: heel Diabetes mellitus type: type 2 Qualified Code(s): E11.621 - Type 2 diabetes mellitus with foot ulcer; L97.412 - Non-pressure chronic ulcer of right heel and midfoot with fat layer exposed (2) 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: CODE(S): E11.621 - Type 2 diabetes mellitus with foot ulcer; L97.522 - Non-pressure chronic ulcer of other part of left foot with fat layer exposed QUALIFIERS: Diabetic foot ulcer location: heel Diabetes mellitus type: type 2 Qualified Code(s): E11.621 - Type 2 diabetes mellitus with foot ulcer; L97.422 - Non-pressure chronic ulcer of left heel and midfoot with fat layer exposed (3) Type 2 diabetes mellitus with diabetic neuropathy, with long-term current use of insulin: CODE(S): E11.40 - Type 2 diabetes mellitus with diabetic neuropathy, unspecified; Z79.4 - exterminator helper termite (current) use of insulin (4) Chronic systolic (congestive) heart failure: CODE(S): I50.22 - Chronic systolic (congestive) heart failure (5) Essential (primary) hypertension: CODE(S): I10 - Essential (primary) hypertension PLAN: Debridement performed today in clinic as annotated above. Hydrogel and gauze applied. Given the significant bioburden of the patient's ulcers, an order for Puraply AM was submitted for insurance approval. Per case finisher, the patient is only eligible for Apligraf through his insurance. At home wound-care instructions: Continue Santyl dressing changes once daily or more frequently as needed due to contamination. Wash wounds daily with Dakin's solution, rinse and dry thoroughly before each dressing change. Compression: Continue double Tubigrip's daily. Off-loading: The patient was instructed to avoid pressure and friction on the affected areas. Reposition every 2 hours at minimum. Avoid prolonged standing and/or dangling of legs. When seated, feet should be elevated at chest level. Frequent ambulation is encouraged. Diet: Patient encouraged to increase protein intake while taking caution to avoid high carbohydrate and/or sugar intake. Labs/cultures/imaging: Patient has completed a course of doxycycline x10 days. He was instructed to finish his courses of Levaquin and Flagyl As prescribed. Vascular studies on 11/30/20 revealed no evidence of arterial occlusive disease. Routine baseline lab results as listed below: CBCD: RBC 4.48 (L), hemoglobin 12.8 (L) ESR: 37 (H) CMP: Creatinine 2.00 (H), BUN 33 (H) estimated GFR 35 (L), glucose 152 (H) Hemoglobin A1c: 6.7% (H) CRP: 15.9 (H) Prealbumin: 20.0 Follow-up: Return to clinic in 1 week for re-evaluation with Johnathon Mcneill NP?C. Return sooner or report to the emergency room should symptoms worsen, or new symptoms arise. Note: [facility] speech recognition fig bar machine operator software was used to create portions of this document. Sound-alike and misspelled words, as well as other fig bar machine operator errors may be contained in the documentation.
== END 2020-12-21 23:59 ==
LOC: WC 08:30
PROVIDERS: PCP Family Medicine; Referring Provider Nurse Practitioner Family; Visit Provider Nurse Practitioner Family
DX: E11.621 Type 2 diabetes mellitus with foot ulcer (principal); T25.021D Burn of unspecified degree of right foot, subsequent encounter; X08.8XXD Exposure to other specified smoke, fire and flames, subsequent encounter; I11.0 Hypertensive heart disease with heart failure; L97.412 Non-pressure chronic ulcer of right heel and midfoot with fat layer exposed; L97.422 Non-pressure chronic ulcer of left heel and midfoot with fat layer exposed; E78.5 Hyperlipidemia, unspecified; I25.10 Atherosclerotic heart disease of native coronary artery without angina pectoris; I42.0 Dilated cardiomyopathy; Z79.4 Long term (current) use of insulin; F02.80 Dementia in other diseases classified elsewhere, unspecified severity, without behavioral disturbance, psychotic disturbance, mood disturbance, and anxiety; G30.9 Alzheimer's disease, unspecified; I50.22 Chronic systolic (congestive) heart failure
CPT/HCPCS: 11042; 87070; 87075; 87077; 87186; 87205; 93923

== ENCOUNTER 2021-01-19 08:45 | Outpatient (RCR) | payer MEDICARE, SELFPAY ==
[2020-12-22 00:28] VITALS: BP 102/66; PULSE 94; RESP 16; TEMP 36.4
[2020-12-22 15:15] VITALS: BP 102/61; PULSE 80; RESP 20; TEMP 36.9; BMI 37.8
--- NOTE | 2020-12-22 15:42 | PCM.WC.PN ---
History of Present Illness Date of Service: 12/22/20 Chief Complaint: Bilateral foot brady History of Wound: The patient is a pleasant 75-year-old white male who presents to the wound healing center today (11/04/2020) for an initial evaluation of bilateral medial foot brady. He has a past medical history significant for Alzheimer's disease, dilated cardiomyopathy, congestive heart failure, implanted pacemaker, CAD, hypertension, hyperlipidemia, and insulin-dependent type 2 diabetes. He reports that his brady occurred approximately 2 weeks ago. 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 The next day, he was back on his tractor performing the same type of work. In the following days, the developed blackening of the areas. He has been using silver dressings to his feet daily, and cleansing them with a chlorhexidine?type solution. He denies any pain in his feet. He denies any fever or chills. He denies any general malaise or poor appetite. He has mild redness surrounding the wounds of his bilateral feet. They do not feel hot to touch. He has not been on any antibiotics in the last several weeks. He does not typically use compression to his lower extremities. He denies frequent swelling of the lower extremities, but does report that in the past 2 weeks his distal feet have appeared slightly swollen. Progress of Wound: stable, no new concerns Objective Data Objective Data Vital Signs: Vital Signs Temp Pulse Resp BP 98.4 F 80 20 H 102/61 12/22/20 15:15 12/22/20 15:15 12/22/20 15:15 12/22/20 15:15 Body Mass Index (BMI) 37.8 Charges/Coding Procedures Integumentary [id number]: [id number] Aminta subq tissue 20 sq cm/< Physical Exam Const alert, no apparent distress and healthy appearing General Appearance: cooperative, comfortable and well kempt Neck supple Resp normal respiratory effort Extremity normal capillary refill, no joint enlargement, no clubbing, cyanosis or edema and no pedal edema Skin Wounds: wounds noted no odor Wound Narrative: Ulcers of bilateral medial feet with moderate amounts of slough and devitalized tissue present. There is no noted tunneling, undermining, or probing to bone, though slough and devitalized tissue does impair full visualization of the wound bed. There is no periulcer erythema of either foot today. There is no warmth to the periulcer area. There is no tenderness to the periulcer area. Neuro moves all extremities and no focal motor deficits Sensory Exam: extremities Sensory loss observed in both feet Psych mental status grossly normal, cooperative and affect normal Debridement Note Debridement Note Post-Debridement Measurements and Additional Note: Post-Debridement Measurements/Treatment WC - Nurse 1 - General Ulcer Assessment Start: 12/22/20 15:15 Freq: Status: Active Protocol: BERNIE Activity Type Activity Date Activity User E-Sign Co-Sign Detail Recorded Client Recorded Date Recorded By Document 12/22/20 15:15 DL [id number] 12/22/20 15:23 DL 12/22/20 15:15 WC - Today's Visit Information Type of service Follow-up Visit (Physician/PROJECT COORDINATOR ) Arrival Mode Ambulatory Transfer Assistance None Patient Identification Verified (Name & Yes ) Patient Requires Transmission-Based No Precautions Height and Weight Body Mass Index (BMI) 37.8 BMI Classification Obese Vital Signs Temperature (97.8 F-99.1 F) 98.4 F Temperature Source Temporal Pulse Rate (60-100) 80 Pulse Location Monitor Respiratory Rate (12-18) 20 H Respiratory rate source Observation Blood Pressure (90/60-120/80) 102/61 Blood Pressure Mean (mm Hg) 74 Source Monitor History Since Last Visit- (Skip if this is Patient's initial visit) Have you changed medications since your No last visit? Any new allergies or adverse reactions No Had a fall/change in ADL's that may No increase risk of falls Signs or symptoms of abuse and/or No neglect since last visit Have you been in the hospital since your No last visit? Has dressing in place as prescribed Yes Has compression in place as prescribed N/A Experienced any changes in pain level or No management Pain Scale: 0-10 Numeric Is Patient Pain Free? Yes RAZIA - Nurse 1 - General Ulcer Measurement Start: 12/22/20 15:15 Freq: Status: Active Protocol: Activity Type Activity Date Activity User E-Sign Co-Sign Detail Recorded Client Recorded Date Recorded By Document 12/22/20 15:15 DL [id number] 12/22/20 15:23 DL 12/22/20 15:15 Wound Center Nurse 1 #2 L Med Heel -Current Size (cm) - Length 1.9 -Current Size (cm) - Width 2.9 -Current Size (cm) - Depth 0.1 -Total Square Cm 5.51 -Photo Taken No -Exudate Amt Medium -Exudate Type Serosanguineous -Wound Margin Distinct, Outline Attached -Granulation Amt Large (67-100%) -Granulation Quality Red -Necrosis Amt Medium (34-66%) -Necrotic Tissue Type Adherent Slough -Structure Exposed N/A -Texture (Vera-wound Skin Appearance) Callus,Scarring -Moisture (Vera-wound Skin Appearance) No Abnormality -Color (Vera-wound Skin Appearance) No Abnormality -Temperature (Vera-wound Skin No Abnormality Appearance) (Pt Warm) -Tenderness on Palpation (Vera-wound No Skin Appearance) -Ulcer Cleansing Wound Cleanser -Foul Odor after Cleansing No -Anesthetic Used 4% Lidocaine Solution #1 R Med Heel -Current Size (cm) - Length 1.5 -Current Size (cm) - Width 2.6 -Current Size (cm) - Depth 0.1 -Total Square Cm 3.90 -Photo Taken No -Exudate Amt Medium -Exudate Type Serosanguineous -Wound Margin Distinct, Outline Attached -Granulation Amt Medium (34-66%) -Granulation Quality Red -Necrosis Amt Medium (34-66%) -Necrotic Tissue Type Eschar -Structure Exposed N/A -Texture (Vera-wound Skin Appearance) Callus,Scarring -Moisture (Vera-wound Skin Appearance) Dry/Scaly -Color (Vera-wound Skin Appearance) Assessed -Temperature (Vera-wound Skin No Abnormality Appearance) (Pt Warm) -Tenderness on Palpation (Vera-wound No Skin Appearance) -Ulcer Cleansing Rinsed/ Irrigated with Saline -Foul Odor after Cleansing No -Anesthetic Used 4% Lidocaine Solution WC - Nurse 2 - General Ulcer CM Notes Start: 12/22/20 15:15 Freq: Status: Active Protocol: Activity Type Activity Date Activity User E-Sign Co-Sign Detail Recorded Client Recorded Date Recorded By Document 12/22/20 16:42 PL [id number] 12/22/20 16:44 PL 12/22/20 16:42 Wound Center Nurse 2 #2 L Med Heel -Time 15:54 -Correct Patient Yes -Correct Side, Site, Position Yes -Correct Procedure Yes -Procedure Performed Yes -Type of Procedure Debridement -Clinical Debridement Subcutaneous -Tissue Removed Subcutaneous -Post Debridement (cm) - Length 1.7 -Post Debridement (cm) - Width 3.1 -Post Debridement (cm) - Depth 0.2 -Total Square (Post) (cm) 5.27 -Area of Debridement (cm) - Length 1.7 -Area of Debridement (cm) - Width 3.1 -Total Square (Area) (cm) 5.27 -Tunneling No -Undermining/Tunneling No -Circular Undermining No -Wound/Ulcer Outcome Not Healed -Ulcer Cleansing Rinsed/ Irrigated with Saline -Foul Odor after Cleansing No -Bioengineered Tissue No -Debridement - Subq, 1st 20sq cm Yes #1 R Med Heel -Time 15:54 -Correct Patient Yes -Correct Side, Site, Position Yes -Correct Procedure Yes -Type of Procedure Debridement -Clinical Debridement Subcutaneous -Tissue Removed Subcutaneous -Post Debridement (cm) - Length 1.5 -Post Debridement (cm) - Width 2.6 -Post Debridement (cm) - Depth 0.1 -Total Square (Post) (cm) 3.90 -Area of Debridement (cm) - Length 1.5 -Area of Debridement (cm) - Width 2.6 -Total Square (Area) (cm) 3.90 -Tunneling No -Undermining/Tunneling No -Circular Undermining No -Wound/Ulcer Outcome Not Healed -Ulcer Cleansing Rinsed/ Irrigated with Saline -Foul Odor after Cleansing No -Bioengineered Tissue No -Debridement - Subq, 1st 20sq cm No Pain Scale: 0-10 Numeric Is Patient Pain Free? Yes WC - Nurse 3 - General Ulcer D/C NN Start: 12/22/20 15:15 Freq: Status: Active Protocol: Activity Type Activity Date Activity User E-Sign Co-Sign Detail Recorded Client Recorded Date Recorded By Document 12/22/20 16:19 ML [id number] 12/22/20 16:20 ML 12/22/20 16:19 Wound Care Nurse 3 #2 L Med Heel -Ulcer Cleansing Rinsed/ Irrigated with Saline -Other Dressing santyl -Primary Dressing Covered/Secured with Dry Gauze, Secured with Tape #1 R Med Heel -Ulcer Cleansing Rinsed/ Irrigated with Saline -Other Dressing santyl -Primary Dressing Covered/Secured with Dry Gauze, Secured with Tape Right -Tubular Bandage Double Layer -Size of Tubigrip Used Size D -Size D ($) 2 Left -Tubular Bandage Double Layer -Size of Tubigrip Used Size D -Size D ($) 2 Additional Wound Wound debrided: bilateral foot ulcers Type of Debridement: Excisional debridement Anesthesia Used: 5% Lidocaine Gel Depth: Down to and including healthy tissue and in the subcutaneous layer Percentage of wound debrided: 100 Instrument Used: 5mm curette Tissue Removed: slough and devitalized tissue Severity: Fat Layer Exposed Amount of bleeding with debridement: Mild Bleeding Controlled with: Pressure Patient tolerated procedure: Patient tolerated procedure well Assessment/Plan Assessment/Plan (1) 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: CODE(S): E11.621 - Type 2 diabetes mellitus with foot ulcer; L97.512 - Non-pressure chronic ulcer of other part of right foot with fat layer exposed QUALIFIERS: Diabetic foot ulcer location: heel Diabetes mellitus type: type 2 Qualified Code(s): E11.621 - Type 2 diabetes mellitus with foot ulcer; L97.412 - Non-pressure chronic ulcer of right heel and midfoot with fat layer exposed (2) 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: CODE(S): E11.621 - Type 2 diabetes mellitus with foot ulcer; L97.522 - Non-pressure chronic ulcer of other part of left foot with fat layer exposed QUALIFIERS: Diabetic foot ulcer location: heel Diabetes mellitus type: type 2 Qualified Code(s): E11.621 - Type 2 diabetes mellitus with foot ulcer; L97.422 - Non-pressure chronic ulcer of left heel and midfoot with fat layer exposed (3) Type 2 diabetes mellitus with diabetic neuropathy, with long-term current use of insulin: CODE(S): E11.40 - Type 2 diabetes mellitus with diabetic neuropathy, unspecified; Z79.4 - small parts assembler (current) use of insulin (4) Chronic systolic (congestive) heart failure: CODE(S): I50.22 - Chronic systolic (congestive) heart failure (5) Essential (primary) hypertension: CODE(S): I10 - Essential (primary) hypertension PLAN: Debridement performed today in clinic as annotated above. Hydrogel and gauze applied. Given the significant bioburden of the patient's ulcers, an order for Puraply AM was submitted for insurance approval. Per showcase maker, the patient is only eligible for Apligraf through his insurance. At home wound-care instructions: Continue Santyl dressing changes once daily or more frequently as needed due to contamination. Wash wounds daily with Dakin's solution, rinse and dry thoroughly before each dressing change. Compression: Continue double Tubigrip's daily. Off-loading: The patient was instructed to avoid pressure and friction on the affected areas. Reposition every 2 hours at minimum. Avoid prolonged standing and/or dangling of legs. When seated, feet should be elevated at chest level. Frequent ambulation is encouraged. Diet: Patient encouraged to increase protein intake while taking caution to avoid high carbohydrate and/or sugar intake. Labs/cultures/imaging: Patient has completed a course of doxycycline x10 days. He was instructed to finish his courses of Levaquin and Flagyl As prescribed. Vascular studies on 11/30/20 revealed no evidence of arterial occlusive disease. Routine baseline lab results as listed below: CBCD: RBC 4.48 (L), hemoglobin 12.8 (L) ESR: 37 (H) CMP: Creatinine 2.00 (H), BUN 33 (H) estimated GFR 35 (L), glucose 152 (H) Hemoglobin A1c: 6.7% (H) CRP: 15.9 (H) Prealbumin: 20.0 Follow-up: Return to clinic in 1 week for re-evaluation with Johnathon Mcneill NP?C. Return sooner or report to the emergency room should symptoms worsen, or new symptoms arise. Note: [employer] speech recognition asbestos siding mechanic software was used to create portions of this document. Sound-alike and misspelled words, as well as other asbestos siding mechanic errors may be contained in the documentation.
[2020-12-29 15:01] VITALS: BP 112/73; PULSE 77; RESP 16; TEMP 36.1; BMI 37.8
--- NOTE | 2020-12-29 20:28 | PCM.WC.PN ---
History of Present Illness Date of Service: 12/29/20 Chief Complaint: Bilateral foot brady History of Wound: The patient is a pleasant 75-year-old white male who presents to the wound healing center today (11/04/2020) for an initial evaluation of bilateral medial foot brady. He has a past medical history significant for Alzheimer's disease, dilated cardiomyopathy, congestive heart failure, implanted pacemaker, CAD, hypertension, hyperlipidemia, and insulin-dependent type 2 diabetes. He reports that his brady occurred approximately 2 weeks ago. 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 The next day, he was back on his tractor performing the same type of work. In the following days, the developed blackening of the areas. He has been using silver dressings to his feet daily, and cleansing them with a chlorhexidine?type solution. He denies any pain in his feet. He denies any fever or chills. He denies any general malaise or poor appetite. He has mild redness surrounding the wounds of his bilateral feet. They do not feel hot to touch. He has not been on any antibiotics in the last several weeks. He does not typically use compression to his lower extremities. He denies frequent swelling of the lower extremities, but does report that in the past 2 weeks his distal feet have appeared slightly swollen. Progress of Wound: stable, no new concerns Objective Data Objective Data Vital Signs: Vital Signs Temp Pulse Resp BP 97 F L 77 16 112/73 12/29/20 15:01 12/29/20 15:01 12/29/20 15:01 12/29/20 15:01 Body Mass Index (BMI) 37.8 Physical Exam Const alert, no apparent distress and healthy appearing General Appearance: cooperative, comfortable and well kempt Neck supple Resp normal respiratory effort Extremity normal capillary refill, no joint enlargement, no clubbing, cyanosis or edema and no pedal edema Skin Wounds: wounds noted no odor Wound Narrative: Ulcers of bilateral medial feet with moderate amounts of slough and devitalized tissue present. There is no noted tunneling, undermining, or probing to bone, though slough and devitalized tissue does impair full visualization of the wound bed. There is no periulcer erythema of either foot today. There is no warmth to the periulcer area. There is no tenderness to the periulcer area. Neuro moves all extremities and no focal motor deficits Sensory Exam: extremities Sensory loss observed in both feet Psych mental status grossly normal, cooperative and affect normal Debridement Note Debridement Note Post-Debridement Measurements and Additional Note: Post-Debridement Measurements/Treatment WC - Nurse 1 - General Ulcer Assessment Start: 12/22/20 15:15 Freq: Status: Active Protocol: BERNIE Activity Type Activity Date Activity User E-Sign Co-Sign Detail Recorded Client Recorded Date Recorded By Document 12/22/20 15:15 DL [id number] 12/22/20 15:23 DL Document 12/29/20 15:01 ML [id number] 12/29/20 15:04 ML 12/22/20 12/29/20 15:15 15:01 - Today's Visit Information Type of service Follow-up Visit Follow-up Visit (Physician/MANAGER INSPECTION (Physician/MANAGER INSPECTION ) ) Arrival Mode Ambulatory Ambulatory Transfer Assistance None Patient Identification Verified (Name & Yes Yes ) Patient Requires Transmission-Based No No Precautions Safety Precautions NA Height and Weight Body Mass Index (BMI) 37.8 37.8 BMI Classification Obese Obese Vital Signs Temperature (97.8 F-99.1 F) 98.4 F 97 F L Temperature Source Temporal Temporal Pulse Rate (60-100) 80 77 Pulse Location Monitor Respiratory Rate (12-18) 20 H 16 Respiratory rate source Observation Observation Blood Pressure (90/60-120/80) 102/61 112/73 Blood Pressure Mean (mm Hg) 74 86 Source Monitor Monitor Position Sitting Blood Pressure Location Left Arm History Since Last Visit- (Skip if this is Patient's initial visit) Have you changed medications since your No No last visit? Any new allergies or adverse reactions No No Had a fall/change in ADL's that may No No increase risk of falls Signs or symptoms of abuse and/or No No neglect since last visit Have you been in the hospital since your No No last visit? Has dressing in place as prescribed Yes Yes Has compression in place as prescribed N/A N/A Has offloadiing in place as prescribed N/A Experienced any changes in pain level or No No management Left Footwear Regular Shoe Right Footwear Regular Shoe Pain Scale: 0-10 Numeric Is Patient Pain Free? Yes Yes WC - Nurse 1 - General Ulcer Measurement Start: 12/22/20 15:15 Freq: Status: Active Protocol: Activity Type Activity Date Activity User E-Sign Co-Sign Detail Recorded Client Recorded Date Recorded By Document 12/22/20 15:15 DL [id number] 12/22/20 15:23 DL Document 12/29/20 15:01 ML [id number] 12/29/20 15:04 ML 12/22/20 12/29/20 15:15 15:01 Wound Center Nurse 1 #2 L Med Heel -Current Size (cm) - Length 1.9 2 -Current Size (cm) - Width 2.9 2.5 -Current Size (cm) - Depth 0.1 0.1 -Total Square Cm 5.51 5.0 -Photo Taken No -Exudate Amt Medium Small -Exudate Type Serosanguineous Serosanguineous -Wound Margin Distinct, Distinct, Outline Outline Attached Attached -Granulation Amt Large (67-100%) Medium (34-66%) -Granulation Quality Red [place] -Slough/Fibrin Yes -Necrosis Amt Medium (34-66%) Medium (34-66%) -Necrotic Tissue Type Adherent Slough Adherent Slough -Structure Exposed N/A -Texture (Vera-wound Skin Appearance) Callus,Scarring Assessed -Moisture (Vera-wound Skin Appearance) No Abnormality Assessed -Color (Vera-wound Skin Appearance) No Abnormality Assessed -Temperature (Vera-wound Skin No Abnormality No Abnormality Appearance) (Pt Warm) (Pt Warm) -Tenderness on Palpation (Vera-wound No No Skin Appearance) -Ulcer Cleansing Wound Cleanser Rinsed/ Irrigated with Saline -Foul Odor after Cleansing No No -Anesthetic Used 4% Lidocaine 4% Lidocaine Solution Solution #1 R Med Heel -Current Size (cm) - Length 1.5 3 -Current Size (cm) - Width 2.6 2.8 -Current Size (cm) - Depth 0.1 0.1 -Total Square Cm 3.90 8.4 -Photo Taken No -Exudate Amt Medium Small -Exudate Type Serosanguineous Serosanguineous -Wound Margin Distinct, Distinct, Outline Outline Attached Attached -Granulation Amt Medium (34-66%) Medium (34-66%) -Granulation Quality Red Pale -Slough/Fibrin Yes -Necrosis Amt Medium (34-66%) Medium (34-66%) -Necrotic Tissue Type Eschar Adherent Slough -Structure Exposed N/A -Texture (Vera-wound Skin Appearance) Callus,Scarring Assessed -Moisture (Vera-wound Skin Appearance) Dry/Scaly Assessed -Color (Vera-wound Skin Appearance) Assessed Assessed -Temperature (Vera-wound Skin No Abnormality No Abnormality Appearance) (Pt Warm) (Pt Warm) -Tenderness on Palpation (Vera-wound No No Skin Appearance) -Ulcer Cleansing Rinsed/ Rinsed/ Irrigated with Irrigated with Saline Saline -Foul Odor after Cleansing No No -Anesthetic Used 4% Lidocaine 4% Lidocaine Solution Solution WC - Nurse 2 - General Ulcer CM Notes Start: 12/22/20 15:15 Freq: Status: Active Protocol: Activity Type Activity Date Activity User E-Sign Co-Sign Detail Recorded Client Recorded Date Recorded By Document 12/22/20 16:42 PL [id number] 12/22/20 16:44 PL Document 12/29/20 16:14 PL [id number] 12/29/20 16:16 PL 12/22/20 12/29/20 16:42 16:14 Wound Center Nurse 2 #2 L Med Heel -Time 15:54 15:18 -Correct Patient Yes Yes -Correct Side, Site, Position Yes Yes -Correct Procedure Yes Yes -Procedure Performed Yes Yes -Type of Procedure Debridement Debridement -Clinical Debridement Subcutaneous Subcutaneous -Tissue Removed Subcutaneous Subcutaneous -Post Debridement (cm) - Length 1.7 1.8 -Post Debridement (cm) - Width 3.1 3.0 -Post Debridement (cm) - Depth 0.2 0.1 -Total Square (Post) (cm) 5.27 5.40 -Area of Debridement (cm) - Length 1.7 1.8 -Area of Debridement (cm) - Width 3.1 3.0 -Total Square (Area) (cm) 5.27 5.40 -Tunneling No No -Undermining/Tunneling No No -Circular Undermining No No -Wound/Ulcer Outcome Not Healed Not Healed -Ulcer Cleansing Rinsed/ Rinsed/ Irrigated with Irrigated with Saline Saline -Foul Odor after Cleansing No No -Bioengineered Tissue No No -Bleeding Controlled with Pressure -Treatment Response Procedure Tolerated Well -Debridement - Subq, 1st 20sq cm Yes Yes #1 R Med Heel -Time 15:54 15:18 -Correct Patient Yes Yes -Correct Side, Site, Position Yes Yes -Correct Procedure Yes Yes -Procedure Performed Yes -Type of Procedure Debridement Debridement -Clinical Debridement Subcutaneous Subcutaneous -Tissue Removed Subcutaneous Subcutaneous -Post Debridement (cm) - Length 1.5 1.6 -Post Debridement (cm) - Width 2.6 3.0 -Post Debridement (cm) - Depth 0.1 0.1 -Total Square (Post) (cm) 3.90 4.80 -Area of Debridement (cm) - Length 1.5 1.6 -Area of Debridement (cm) - Width 2.6 3.0 -Total Square (Area) (cm) 3.90 4.80 -Tunneling No No -Undermining/Tunneling No No -Circular Undermining No No -Wound/Ulcer Outcome Not Healed Not Healed -Ulcer Cleansing Rinsed/ Rinsed/ Irrigated with Irrigated with Saline Saline -Foul Odor after Cleansing No No -Bioengineered Tissue No No -Debridement - Subq, 1st 20sq cm No No Pain Scale: 0-10 Numeric Is Patient Pain Free? Yes Yes - Nurse 3 - General Ulcer D/C NN Start: 12/22/20 15:15 Freq: Status: Active Protocol: Activity Type Activity Date Activity User E-Sign Co-Sign Detail Recorded Client Recorded Date Recorded By Document 12/22/20 16:19 ML [id number] 12/22/20 16:20 ML Document 12/29/20 15:41 ML [id number] 12/29/20 15:44 ML 12/22/20 12/29/20 16:19 15:41 Wound Care Nurse 3 #2 L Med Heel -Ulcer Cleansing Rinsed/ Rinsed/ Irrigated with Irrigated with Saline Saline -Foul Odor after Cleansing No -Primary Dressing Applied Promogran Tomás Matter -Other Dressing santyl -Primary Dressing Covered/Secured with Dry Gauze, Dry Gauze & Secured with Roll Gauze, Tape Secured with Tape -Promogran Tomás Matter 2 #1 R Med Heel -Ulcer Cleansing Rinsed/ Rinsed/ Irrigated with Irrigated with Saline Saline -Foul Odor after Cleansing No -Primary Dressing Applied Promogran Tomás Matter -Other Dressing santyl -Primary Dressing Covered/Secured with Dry Gauze, Dry Gauze & Secured with Roll Gauze, Tape Secured with Tape -Promogran Tomás Matter 0 Right -Lotion applied to leg before No compression wrap -Tubular Bandage Double Layer Double Layer -Size of Tubigrip Used Size D Size E -Size D ($) 2 -Size E ($) 2 Left -Lotion applied to leg before No compression wrap -Tubular Bandage Double Layer Double Layer -Size of Tubigrip Used Size D Size E -Size D ($) 2 -Size E ($) 2 Additional Wound Wound debrided: Bilateral medial foot ulcers Type of Debridement: Excisional debridement Anesthesia Used: 5% Lidocaine Gel Depth: Down to and including healthy tissue and in the subcutaneous layer Percentage of wound debrided: 100 Instrument Used: 5mm curette Tissue Removed: slough and devitalized tissue Severity: Fat Layer Exposed Amount of bleeding with debridement: Mild Bleeding Controlled with: Pressure Patient tolerated procedure: Patient tolerated procedure well Assessment/Plan Assessment/Plan (1) 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: CODE(S): E11.621 - Type 2 diabetes mellitus with foot ulcer; L97.512 - Non-pressure chronic ulcer of other part of right foot with fat layer exposed QUALIFIERS: Diabetic foot ulcer location: heel Diabetes mellitus type: type 2 Qualified Code(s): E11.621 - Type 2 diabetes mellitus with foot ulcer; L97.412 - Non-pressure chronic ulcer of right heel and midfoot with fat layer exposed (2) 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: CODE(S): E11.621 - Type 2 diabetes mellitus with foot ulcer; L97.522 - Non-pressure chronic ulcer of other part of left foot with fat layer exposed QUALIFIERS: Diabetic foot ulcer location: heel Diabetes mellitus type: type 2 Qualified Code(s): E11.621 - Type 2 diabetes mellitus with foot ulcer; L97.422 - Non-pressure chronic ulcer of left heel and midfoot with fat layer exposed (3) Type 2 diabetes mellitus with diabetic neuropathy, with long-term current use of insulin: CODE(S): E11.40 - Type 2 diabetes mellitus with diabetic neuropathy, unspecified; Z79.4 - director long term care (current) use of insulin (4) Chronic systolic (congestive) heart failure: CODE(S): I50.22 - Chronic systolic (congestive) heart failure (5) Essential (primary) hypertension: CODE(S): I10 - Essential (primary) hypertension PLAN: Debridement performed today in clinic as annotated above. Tomás applied. Given the significant bioburden of the patient's ulcers, an order for Puraply AM was submitted for insurance approval. Per lining caser, the patient is only eligible for Apligraf through his insurance, which we will consider apligraf next week. At home wound-care instructions: moistened tomás dressing changes once daily or more frequently as needed due to contamination. Wash wounds daily with Dakin's solution, rinse and dry thoroughly before each dressing change. Compression: Continue double Tubigrip's daily. Off-loading: The patient was instructed to avoid pressure and friction on the affected areas. Reposition every 2 hours at minimum. Avoid prolonged standing and/or dangling of legs. When seated, feet should be elevated at chest level. Frequent ambulation is encouraged. Diet: Patient encouraged to increase protein intake while taking caution to avoid high carbohydrate and/or sugar intake. Labs/cultures/imaging: Patient has completed a course of doxycycline x10 days. He was instructed to finish his courses of Levaquin and Flagyl As prescribed. Vascular studies on 11/30/20 revealed no evidence of arterial occlusive disease. Routine baseline lab results as listed below: CBCD: RBC 4.48 (L), hemoglobin 12.8 (L) ESR: 37 (H) CMP: Creatinine 2.00 (H), BUN 33 (H) estimated GFR 35 (L), glucose 152 (H) Hemoglobin A1c: 6.7% (H) CRP: 15.9 (H) Prealbumin: 20.0 Follow-up: Return to clinic in 1 week for re-evaluation with Johnathon Mcneill FINISHER DENTURE?C. Return sooner or report to the emergency room should symptoms worsen, or new symptoms arise. Note: [employer] speech recognition table inspector software was used to create portions of this document. Sound-alike and misspelled words, as well as other table inspector errors may be contained in the documentation.
[2021-01-06 10:01] VITALS: BP 112/67; PULSE 72; RESP 16; TEMP 36.1; BMI 37.8
--- NOTE | 2021-01-06 14:06 | PN.PCM_ITS ---
History of Present Illness Date of Service: 01/06/21 Chief Complaint: Bilateral foot brady History of Wound: The patient is a pleasant 75-year-old white male who presents to the wound healing center today (11/04/2020) for an initial evaluation of bilateral medial foot brady. He has a past medical history significant for Alzheimer's disease, dilated cardiomyopathy, congestive heart failure, implanted pacemaker, CAD, hypertension, hyperlipidemia, and insulin-dependent type 2 diabetes. He reports that his brady occurred approximately 2 weeks ago. 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 The next day, he was back on his tractor performing the same type of work. In the following days, the developed blackening of the areas. He has been using silver dressings to his feet daily, and cleansing them with a chlorhexidine?type solution. He denies any pain in his feet. He denies any fever or chills. He denies any general malaise or poor appetite. He has mild redness surrounding the wounds of his bilateral feet. They do not feel hot to touch. He has not been on any antibiotics in the last several weeks. He does not typically use compression to his lower extremities. He denies frequent swelling of the lower extremities, but does report that in the past 2 weeks his distal feet have appeared slightly swollen. Progress of Wound: The patient has been compliant with the use of Alysa dressing changes daily. He has had significant improvement in the appearance and size of his bilateral heel ulcers. No new concerns today. The patient denies fever, chills. The patient has not had increased redness, swelling, or purulent/malodorous drainage from affected area. Objective Data Objective Data Vital Signs: Vital Signs Temp Pulse Resp BP 97.0 F L 72 16 112/67 01/06/21 10:01/06/21 10:01 01/06/21 10:01 01/06/21 10:01 Body Mass Index (BMI) 37.8 Charges/Coding Procedures Integumentary 111xxx-113xx: [id number] Aminta subq tissue 20 sq cm/< Physical Exam Const alert, no apparent distress and healthy appearing General Appearance: cooperative, comfortable and well kempt Neck supple Resp normal respiratory effort Extremity normal capillary refill, no joint enlargement, no clubbing, cyanosis or edema and no pedal edema Skin Wounds: wounds noted no odor Wound Narrative: Ulcers of bilateral medial heels with small amounts of slough and devitalized tissue present. There is no noted tunneling, undermining, or probing to bone. Good granulation tissue is present. There is no periulcer erythema of either foot today. There is no warmth to the periulcer area. There is no tenderness to the periulcer area. Neuro moves all extremities and no focal motor deficits Sensory Exam: extremities Sensory loss observed in both feet Psych mental status grossly normal, cooperative and affect normal Debridement Note Debridement Note Post-Debridement Measurements and Additional Note: Post-Debridement Measurements/Treatment - Nurse 1 - General Ulcer Assessment Start: 12/22/20 15:15 Freq: Status: Active Protocol: WC.LOWEXT Activity Type Activity Date Activity User E-Sign Co-Sign Detail Recorded Client Recorded Date Recorded By Document 12/22/20 15:15 DL [id number] 12/22/20 15:23 DL Document 12/29/20 15:01 ML [id number] 12/29/20 15:04 ML Document 01/06/21 10:01 ML Desktop 01/06/21 10:15 ML 12/22/20 12/29/20 01/06/21 15:15 15:01 10:01 - Today's Visit Information Type of service Follow-up Visit Follow-up Visit Follow-up Visit (Physician/MINING TEACHER (Physician/MINING TEACHER (Physician/MINING TEACHER ) ) ) Arrival Mode Ambulatory Ambulatory Ambulatory Transfer Assistance None Patient Identification Verified (Name & Yes Yes Yes ) Patient Requires Transmission-Based No No No Precautions Safety Precautions NA NA Height and Weight Body Mass Index (BMI) 37.8 37.8 37.8 BMI Classification Obese Obese Obese Vital Signs Temperature (97.8 F-99.1 F) 98.4 F 97 F L 97.0 F L Temperature Source Temporal Temporal Temporal Pulse Rate (60-100) 80 77 72 Pulse Location Monitor Monitor Respiratory Rate (12-18) 20 H 16 16 Respiratory rate source Observation Observation Observation Blood Pressure (90/60-120/80) 102/61 112/73 112/67 Blood Pressure Mean (mm Hg) 74 86 82 Source Monitor Monitor Monitor Position Sitting Sitting Blood Pressure Location Left Arm Left Arm History Since Last Visit- (Skip if this is Patient's initial visit) Have you changed medications since your No No No last visit? Any new allergies or adverse reactions No No No Had a fall/change in ADL's that may No No No increase risk of falls Signs or symptoms of abuse and/or No No No neglect since last visit Have you been in the hospital since your No No No last visit? Has dressing in place as prescribed Yes Yes Yes Has compression in place as prescribed N/A N/A N/A Has offloadiing in place as prescribed N/A N/A Experienced any changes in pain level or No No No management Left Footwear Regular Shoe Other Footwear (Comment) Right Footwear Regular Shoe Other Footwear (Comment) Pain Scale: 0-10 Numeric Is Patient Pain Free? Yes Yes No WC - Nurse 1 - General Ulcer Measurement Start: 12/22/20 15:15 Freq: Status: Active Protocol: Activity Type Activity Date Activity User E-Sign Co-Sign Detail Recorded Client Recorded Date Recorded By Document 12/22/20 15:15 DL [id number] 12/22/20 15:23 DL Document 12/29/20 15:01 ML [id number] 12/29/20 15:04 ML Document 01/06/21 10:01 ML Desktop 01/06/21 10:15 ML 12/22/20 12/29/20 01/06/21 15:15 15:01 10:01 Wound Center Nurse 1 #2 L Med Heel -Current Size (cm) - Length 1.9 2 2.9 -Current Size (cm) - Width 2.9 2.5 1.8 -Current Size (cm) - Depth 0.1 0.1 0.1 -Total Square Cm 5.51 5.0 5.22 -Photo Taken No -Exudate Amt Medium Small Medium -Exudate Type Serosanguineous Serosanguineous Serosanguineous -Wound Margin Distinct, Distinct, Distinct, Outline Outline Outline Attached Attached Attached -Granulation Amt Large (67-100%) Medium (34-66%) Medium (34-66%) -Granulation Quality Red [place] -Slough/Fibrin Yes Yes -Necrosis Amt Medium (34-66%) Medium (34-66%) Medium (34-66%) -Necrotic Tissue Type Adherent Slough Adherent Slough Adherent Slough -Structure Exposed N/A -Texture (Vera-wound Skin Appearance) Callus,Scarring Assessed Assessed -Moisture (Vera-wound Skin Appearance) No Abnormality Assessed Assessed -Color (Vera-wound Skin Appearance) No Abnormality Assessed Assessed -Temperature (Vera-wound Skin No Abnormality No Abnormality No Abnormality Appearance) (Pt Warm) (Pt Warm) (Pt Warm) -Tenderness on Palpation (Vera-wound No No No Skin Appearance) -Ulcer Cleansing Wound Cleanser Rinsed/ Wound Cleanser Irrigated with Saline -Foul Odor after Cleansing No No No -Anesthetic Used 4% Lidocaine 4% Lidocaine 4% Lidocaine Solution Solution Solution #1 R Med Heel -Current Size (cm) - Length 1.5 3 1.5 -Current Size (cm) - Width 2.6 2.8 1.8 -Current Size (cm) - Depth 0.1 0.1 0.1 -Total Square Cm 3.90 8.4 2.70 -Photo Taken No -Exudate Amt Medium Small Medium -Exudate Type Serosanguineous Serosanguineous Serous -Wound Margin Distinct, Distinct, Distinct, Outline Outline Outline Attached Attached Attached -Granulation Amt Medium (34-66%) Medium (34-66%) Medium (34-66%) -Granulation Quality Red Pale -Slough/Fibrin Yes Yes -Necrosis Amt Medium (34-66%) Medium (34-66%) Medium (34-66%) -Necrotic Tissue Type Eschar Adherent Slough Adherent Slough -Structure Exposed N/A -Texture (Vera-wound Skin Appearance) Callus,Scarring Assessed Assessed -Moisture (Vera-wound Skin Appearance) Dry/Scaly Assessed Assessed -Color (Vera-wound Skin Appearance) Assessed Assessed Assessed -Temperature (Vera-wound Skin No Abnormality No Abnormality No Abnormality Appearance) (Pt Warm) (Pt Warm) (Pt Warm) -Tenderness on Palpation (Vera-wound No No No Skin Appearance) -Ulcer Cleansing Rinsed/ Rinsed/ Wound Cleanser Irrigated with Irrigated with Saline Saline -Foul Odor after Cleansing No No No -Anesthetic Used 4% Lidocaine 4% Lidocaine 4% Lidocaine Solution Solution Solution WC - Nurse 2 - General Ulcer CM Notes Start: 12/22/20 15:15 Freq: Status: Active Protocol: Activity Type Activity Date Activity User E-Sign Co-Sign Detail Recorded Client Recorded Date Recorded By Document 12/22/20 16:42 PL [id number] 12/22/20 16:44 PL Document 12/29/20 16:14 PL [id number] 12/29/20 16:16 PL Document 01/06/21 12:51 PL [id number] 01/06/21 12:53 PL 12/22/20 12/29/20 01/06/21 16:42 16:14 12:51 Wound Center Nurse 2 #2 L Med Heel -Time 15:54 15:18 10:35 -Correct Patient Yes Yes Yes -Correct Side, Site, Position Yes Yes Yes -Correct Procedure Yes Yes Yes -Procedure Performed Yes Yes Yes -Type of Procedure Debridement Debridement Debridement -Clinical Debridement Subcutaneous Subcutaneous Subcutaneous -Tissue Removed Subcutaneous Subcutaneous Subcutaneous -Post Debridement (cm) - Length 1.7 1.8 1.5 -Post Debridement (cm) - Width 3.1 3.0 2.7 -Post Debridement (cm) - Depth 0.2 0.1 0.1 -Total Square (Post) (cm) 5.27 5.40 4.05 -Area of Debridement (cm) - Length 1.7 1.8 1.5 -Area of Debridement (cm) - Width 3.1 3.0 2.7 -Total Square (Area) (cm) 5.27 5.40 4.05 -Tunneling No No No -Undermining/Tunneling No No No -Circular Undermining No No No -Wound/Ulcer Outcome Not Healed Not Healed Not Healed -Ulcer Cleansing Rinsed/ Rinsed/ Rinsed/ Irrigated with Irrigated with Irrigated with Saline Saline Saline -Foul Odor after Cleansing No No No -Bioengineered Tissue No No No -Bleeding Controlled with Pressure Pressure -Treatment Response Procedure Procedure Tolerated Well Tolerated Well -Debridement - Subq, 1st 20sq cm Yes Yes Yes #1 R Med Heel -Time 15:54 15:18 10:35 -Correct Patient Yes Yes Yes -Correct Side, Site, Position Yes Yes Yes -Correct Procedure Yes Yes Yes -Procedure Performed Yes Yes -Type of Procedure Debridement Debridement Debridement -Clinical Debridement Subcutaneous Subcutaneous Subcutaneous -Tissue Removed Subcutaneous Subcutaneous Subcutaneous -Post Debridement (cm) - Length 1.5 1.6 1.3 -Post Debridement (cm) - Width 2.6 3.0 2.1 -Post Debridement (cm) - Depth 0.1 0.1 0.1 -Total Square (Post) (cm) 3.90 4.80 2.73 -Area of Debridement (cm) - Length 1.5 1.6 1.3 -Area of Debridement (cm) - Width 2.6 3.0 2.1 -Total Square (Area) (cm) 3.90 4.80 2.73 -Tunneling No No No -Undermining/Tunneling No No No -Circular Undermining No No No -Wound/Ulcer Outcome Not Healed Not Healed Not Healed -Ulcer Cleansing Rinsed/ Rinsed/ Rinsed/ Irrigated with Irrigated with Irrigated with Saline Saline Saline -Foul Odor after Cleansing No No No -Bioengineered Tissue No No No -Bleeding Controlled with Pressure -Treatment Response Procedure Tolerated Well -Debridement - Subq, 1st 20sq cm No No No Pain Scale: 0-10 Numeric Is Patient Pain Free? Yes Yes Yes WC - Nurse 3 - General Ulcer D/C NN Start: 12/22/20 15:15 Freq: Status: Active Protocol: Activity Type Activity Date Activity User E-Sign Co-Sign Detail Recorded Client Recorded Date Recorded By Document 12/22/20 16:19 ML [id number] 12/22/20 16:20 ML Document 12/29/20 15:41 ML [id number] 12/29/20 15:44 ML Document 01/06/21 11:02 ML [id number] 01/06/21 11:04 ML 12/22/20 12/29/20 01/06/21 16:19 15:41 11:02 Wound Care Nurse 3 #2 L Med Heel -Ulcer Cleansing Rinsed/ Rinsed/ Rinsed/ Irrigated with Irrigated with Irrigated with Saline Saline Saline -Foul Odor after Cleansing No No -Primary Dressing Applied Promogran Promogran Alysa Matter Alysa Matter -Other Dressing santyl -Primary Dressing Covered/Secured with Dry Gauze, Dry Gauze & Dry Gauze & Secured with Roll Gauze, Roll Gauze, Tape Secured with Secured with Tape Tape -Promogran Alysa Matter 2 2 #1 R Med Heel -Ulcer Cleansing Rinsed/ Rinsed/ Rinsed/ Irrigated with Irrigated with Irrigated with Saline Saline Saline -Foul Odor after Cleansing No -Primary Dressing Applied Promogran Promogran Alysa Matter Alysa Matter -Other Dressing santyl -Primary Dressing Covered/Secured with Dry Gauze, Dry Gauze & Dry Gauze & Secured with Roll Gauze, Roll Gauze, Tape Secured with Secured with Tape Tape -Promogran Alysa Matter 0 0 Right -Lotion applied to leg before No compression wrap -Tubular Bandage Double Layer Double Layer -Size of Tubigrip Used Size D Size E -Size D ($) 2 -Size E ($) 2 Left -Lotion applied to leg before No compression wrap -Tubular Bandage Double Layer Double Layer -Size of Tubigrip Used Size D Size E -Size D ($) 2 -Size E ($) 2 Wound debrided: Right heel ulcer Laterality: Right Wound Grade/Stage: Driver 2 Type of Debridement: Excisional debridement Anesthesia Used: 5% Lidocaine Gel Depth: Down to and including healthy tissue and in the subcutaneous layer Percentage of wound debrided: 100 Instrument Used: 5mm curette Tissue Removed: Slough and devitalized tissue Severity: Fat Layer Exposed Amount of bleeding with debridement: Mild Bleeding Controlled with: Pressure Patient tolerated procedure: Patient tolerated procedure well Additional Wound Wound debrided: Left heel ulcer Laterality: Left Wound Grade/Stage: Driver 2 Type of Debridement: Excisional debridement Anesthesia Used: 5% Lidocaine Gel Depth: Down to and including healthy tissue and in the subcutaneous layer Percentage of wound debrided: 100 Instrument Used: 5mm curette Tissue Removed: Slough and devitalized tissue Severity: Fat Layer Exposed Amount of bleeding with debridement: Mild Bleeding Controlled with: Pressure Patient tolerated procedure: Patient tolerated procedure well Assessment/Plan Assessment/Plan (1) 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: CODE(S): E11.621 - Type 2 diabetes mellitus with foot ulcer; L97.512 - Non-pressure chronic ulcer of other part of right foot with fat layer exposed QUALIFIERS: Diabetic foot ulcer location: heel Diabetes mellitus type: type 2 Qualified Code(s): E11.621 - Type 2 diabetes mellitus with foot ulcer; L97.412 - Non-pressure chronic ulcer of right heel and midfoot with fat layer exposed (2) 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: CODE(S): E11.621 - Type 2 diabetes mellitus with foot ulcer; L97.522 - Non-pressure chronic ulcer of other part of left foot with fat layer exposed QUALIFIERS: Diabetic foot ulcer location: heel Diabetes mellitus type: type 2 Qualified Code(s): E11.621 - Type 2 diabetes mellitus with foot ulcer; L97.422 - Non-pressure chronic ulcer of left heel and midfoot with fat layer exposed (3) Type 2 diabetes mellitus with diabetic neuropathy, with long-term current use of insulin: CODE(S): E11.40 - Type 2 diabetes mellitus with diabetic neuropathy, unspecified; Z79.4 - snf (current) use of insulin (4) Chronic systolic (congestive) heart failure: CODE(S): I50.22 - Chronic systolic (congestive) heart failure (5) Essential (primary) hypertension: CODE(S): I10 - Essential (primary) hypertension PLAN: Debridement performed today in clinic as annotated above. Alysa applied. Given the significant bioburden of the patient's ulcers, an order for Puraply AM was submitted for insurance approval. 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 At home wound-care instructions: Moistened Alysa dressing changes once daily or more frequently as needed due to contamination. Wash wounds daily with Dakin's solution, rinse and dry thoroughly before each dressing change. Compression: Continue double Tubigrip's daily. Off-loading: The patient was instructed to avoid pressure and friction on the affected areas. Reposition every 2 hours at minimum. Avoid prolonged standing and/or dangling of legs. When seated, feet should be elevated at chest level. Frequent ambulation is encouraged. Diet: Patient encouraged to increase protein intake while taking caution to avoid high carbohydrate and/or sugar intake. Labs/cultures/imaging: Patient has completed a course of doxycycline x10 days. He finished his courses of Levaquin and Flagyl as prescribed. Vascular studies on 11/30/20 revealed no evidence of arterial occlusive disease. Routine baseline lab results as listed below: CBCD: RBC 4.48 (L), hemoglobin 12.8 (L) ESR: 37 (H) CMP: Creatinine 2.00 (H), BUN 33 (H) estimated GFR 35 (L), glucose 152 (H) Hemoglobin A1c: 6.7% (H) CRP: 15.9 (H) Prealbumin: 20.0 Follow-up: Return to clinic in 1 week for re-evaluation. Return sooner or report to the emergency room should symptoms worsen, or new symptoms arise. Note: [employer] speech recognition medical laboratory technical officer software was used to create portions of this document. Sound-alike and misspelled words, as well as other medical laboratory technical officer errors may be contained in the documentation.
[2021-01-13 09:58] VITALS: BP 123/84; PULSE 80; TEMP 36.4; BMI 37.8
--- NOTE | 2021-01-13 14:51 | PN.PCM_ITS ---
History of Present Illness Date of Service: 01/13/21 Chief Complaint: Bilateral foot brady History of Wound: The patient is a pleasant 75-year-old white male who presents to the wound healing center today (11/04/2020) for an initial evaluation of bilateral medial foot brady. He has a past medical history significant for Alzheimer's disease, dilated cardiomyopathy, congestive heart failure, implanted pacemaker, CAD, hypertension, hyperlipidemia, and insulin-dependent type 2 diabetes. He reports that his brady occurred approximately 2 weeks ago. 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 The next day, he was back on his tractor performing the same type of work. In the following days, the developed blackening of the areas. He has been using silver dressings to his feet daily, and cleansing them with a chlorhexidine?type solution. He denies any pain in his feet. He denies any fever or chills. He denies any general malaise or poor appetite. He has mild redness surrounding the wounds of his bilateral feet. They do not feel hot to touch. He has not been on any antibiotics in the last several weeks. He does not typically use compression to his lower extremities. He denies frequent swelling of the lower extremities, but does report that in the past 2 weeks his distal feet have appeared slightly swollen. Progress of Wound: The patient has been compliant with the use of Alysa dressing changes daily. He has had significant improvement in the appearance and size of his bilateral heel ulcers. No new concerns today. The patient denies fever, chills. The patient has not had increased redness, swelling, or purulent/malodorous drainage from affected area. Objective Data Objective Data Vital Signs: Vital Signs Temp Pulse Resp BP 97.6 F L 80 16 123/84 H 01/13/21 09:58 01/13/21 09:58 01/06/21 10:01 01/13/21 09:58 Body Mass Index (BMI) 37.8 Charges/Coding Procedures Integumentary [id number]: [id number] Aminta subq tissue 20 sq cm/< Physical Exam Const alert, no apparent distress and healthy appearing General Appearance: cooperative, comfortable and well kempt Neck supple Resp normal respiratory effort Extremity normal capillary refill, no joint enlargement, no clubbing, cyanosis or edema and no pedal edema Skin Wounds: wounds noted no odor Wound Narrative: Ulcers of bilateral medial heels with small amounts of slough and devitalized tissue present. There is no noted tunneling, undermining, or probing to bone. Good granulation tissue is present. There is no periulcer erythema of either foot today. There is no warmth to the periulcer area. There is no tenderness to the periulcer area. Neuro moves all extremities and no focal motor deficits Sensory Exam: extremities Sensory loss observed in both feet Psych mental status grossly normal, cooperative and affect normal Debridement Note Debridement Note Post-Debridement Measurements and Additional Note: Post-Debridement Measurements/Treatment - Nurse 1 - General Ulcer Assessment Start: 12/22/20 15:15 Freq: Status: Active Protocol: WC.LOWYARELIS Activity Type Activity Date Activity User E-Sign Co-Sign Detail Recorded Client Recorded Date Recorded By Document 12/22/20 15:15 DL [id number] 12/22/20 15:23 DL Document 12/29/20 15:01 ML [id number] 12/29/20 15:04 ML Document 01/06/21 10:01 ML Desktop 01/06/21 10:15 ML Document 01/13/21 09:58 KR [id number] 01/13/21 10:03 KR 12/22/20 12/29/20 01/06/21 15:15 15:01 10:01 - Today's Visit Information Type of service Follow-up Visit Follow-up Visit Follow-up Visit (Physician/DIAMOND CLEANER (Physician/DIAMOND CLEANER (Physician/DIAMOND CLEANER ) ) ) Arrival Mode Ambulatory Ambulatory Ambulatory Transfer Assistance None Patient Identification Verified (Name & Yes Yes Yes ) Patient Requires Transmission-Based No No No Precautions Safety Precautions NA NA Height and Weight Body Mass Index (BMI) 37.8 37.8 37.8 BMI Classification Obese Obese Obese Vital Signs Temperature (97.8 F-99.1 F) 98.4 F 97 F L 97.0 F L Temperature Source Temporal Temporal Temporal Pulse Rate (60-100) 80 77 72 Pulse Location Monitor Monitor Respiratory Rate (12-18) 20 H 16 16 Respiratory rate source Observation Observation Observation Blood Pressure (90/60-120/80) 102/61 112/73 112/67 Blood Pressure Mean (mm Hg) 74 86 82 Source Monitor Monitor Monitor Position Sitting Sitting Blood Pressure Location Left Arm Left Arm History Since Last Visit- (Skip if this is Patient's initial visit) Have you changed medications since your No No No last visit? Any new allergies or adverse reactions No No No Had a fall/change in ADL's that may No No No increase risk of falls Signs or symptoms of abuse and/or No No No neglect since last visit Have you been in the hospital since your No No No last visit? Has dressing in place as prescribed Yes Yes Yes Has compression in place as prescribed N/A N/A N/A Has offloadiing in place as prescribed N/A N/A Experienced any changes in pain level or No No No management Left Footwear Regular Shoe Other Footwear (Comment) Right Footwear Regular Shoe Other Footwear (Comment) Pain Scale: 0-10 Numeric Is Patient Pain Free? Yes Yes No 01/13/21 09:58 WC - Today's Visit Information Type of service Follow-up Visit (Physician/DIAMOND CLEANER ) Arrival Mode Ambulatory Transfer Assistance Patient Identification Verified (Name & Yes ) Patient Requires Transmission-Based Precautions Safety Precautions Height and Weight Body Mass Index (BMI) 37.8 BMI Classification Obese Vital Signs Temperature (97.8 F-99.1 F) 97.6 F L Temperature Source Temporal Pulse Rate (60-100) 80 Pulse Location Monitor Respiratory Rate (12-18) Respiratory rate source Blood Pressure (90/60-120/80) 123/84 H Blood Pressure Mean (mm Hg) 97 Source Monitor Position Semi-Fowlers Blood Pressure Location Right Arm History Since Last Visit- (Skip if this is Patient's initial visit) Have you changed medications since your No last visit? Any new allergies or adverse reactions No Had a fall/change in ADL's that may No increase risk of falls Signs or symptoms of abuse and/or No neglect since last visit Have you been in the hospital since your No last visit? Has dressing in place as prescribed Yes Has compression in place as prescribed N/A Has offloadiing in place as prescribed N/A Experienced any changes in pain level or No management Left Footwear Regular Shoe Right Footwear Regular Shoe Pain Scale: 0-10 Numeric Is Patient Pain Free? Yes - Nurse 1 - General Ulcer Measurement Start: 12/22/20 15:15 Freq: Status: Active Protocol: Activity Type Activity Date Activity User E-Sign Co-Sign Detail Recorded Client Recorded Date Recorded By Document 12/22/20 15:15 DL [id number] 12/22/20 15:23 DL Document 12/29/20 15:01 ML [id number] 12/29/20 15:04 ML Document 01/06/21 10:01 ML Desktop 01/06/21 10:15 ML Document 01/13/21 09:58 KR [id number] 01/13/21 10:03 KR 12/22/20 12/29/20 01/06/21 15:15 15:01 10:01 Wound Center Nurse 1 #2 L Med Heel -Current Size (cm) - Length 1.9 2 2.9 -Current Size (cm) - Width 2.9 2.5 1.8 -Current Size (cm) - Depth 0.1 0.1 0.1 -Total Square Cm 5.51 5.0 5.22 -Photo Taken No -Exudate Amt Medium Small Medium -Exudate Type Serosanguineous Serosanguineous Serosanguineous -Wound Margin Distinct, Distinct, Distinct, Outline Outline Outline Attached Attached Attached -Granulation Amt Large (67-100%) Medium (34-66%) Medium (34-66%) -Granulation Quality Red [place] -Slough/Fibrin Yes Yes -Necrosis Amt Medium (34-66%) Medium (34-66%) Medium (34-66%) -Necrotic Tissue Type Adherent Slough Adherent Slough Adherent Slough -Structure Exposed N/A -Texture (Vera-wound Skin Appearance) Callus,Scarring Assessed Assessed -Moisture (Vera-wound Skin Appearance) No Abnormality Assessed Assessed -Color (Vera-wound Skin Appearance) No Abnormality Assessed Assessed -Temperature (Vera-wound Skin No Abnormality No Abnormality No Abnormality Appearance) (Pt Warm) (Pt Warm) (Pt Warm) -Tenderness on Palpation (Vera-wound No No No Skin Appearance) -Ulcer Cleansing Wound Cleanser Rinsed/ Wound Cleanser Irrigated with Saline -Foul Odor after Cleansing No No No -Anesthetic Used 4% Lidocaine 4% Lidocaine 4% Lidocaine Solution Solution Solution #1 R Med Heel -Current Size (cm) - Length 1.5 3 1.5 -Current Size (cm) - Width 2.6 2.8 1.8 -Current Size (cm) - Depth 0.1 0.1 0.1 -Total Square Cm 3.90 8.4 2.70 -Photo Taken No -Exudate Amt Medium Small Medium -Exudate Type Serosanguineous Serosanguineous Serous -Wound Margin Distinct, Distinct, Distinct, Outline Outline Outline Attached Attached Attached -Granulation Amt Medium (34-66%) Medium (34-66%) Medium (34-66%) -Granulation Quality Red Pale -Slough/Fibrin Yes Yes -Necrosis Amt Medium (34-66%) Medium (34-66%) Medium (34-66%) -Necrotic Tissue Type Eschar Adherent Slough Adherent Slough -Structure Exposed N/A -Texture (Vera-wound Skin Appearance) Callus,Scarring Assessed Assessed -Moisture (Vera-wound Skin Appearance) Dry/Scaly Assessed Assessed -Color (Vera-wound Skin Appearance) Assessed Assessed Assessed -Temperature (Vera-wound Skin No Abnormality No Abnormality No Abnormality Appearance) (Pt Warm) (Pt Warm) (Pt Warm) -Tenderness on Palpation (Vera-wound No No No Skin Appearance) -Ulcer Cleansing Rinsed/ Rinsed/ Wound Cleanser Irrigated with Irrigated with Saline Saline -Foul Odor after Cleansing No No No -Anesthetic Used 4% Lidocaine 4% Lidocaine 4% Lidocaine Solution Solution Solution 01/13/21 09:58 Wound Center Nurse 1 #2 L Med Heel -Current Size (cm) - Length 2.5 -Current Size (cm) - Width 1.3 -Current Size (cm) - Depth 0.2 -Total Square Cm 3.25 -Photo Taken -Exudate Amt Small -Exudate Type Serosanguineous -Wound Margin Distinct, Outline Attached -Granulation Amt Medium (34-66%) -Granulation Quality Red -Slough/Fibrin -Necrosis Amt Medium (34-66%) -Necrotic Tissue Type Adherent Slough -Structure Exposed -Texture (Vera-wound Skin Appearance) Assessed, Scarring -Moisture (Vera-wound Skin Appearance) No Abnormality, Assessed -Color (Vera-wound Skin Appearance) No Abnormality, Assessed -Temperature (Vera-wound Skin No Abnormality Appearance) (Pt Warm) -Tenderness on Palpation (Vera-wound No Skin Appearance) -Ulcer Cleansing Rinsed/ Irrigated with Saline -Foul Odor after Cleansing No -Anesthetic Used 5% Lidocaine Gel #1 R Med Heel -Current Size (cm) - Length 1.4 -Current Size (cm) - Width 1.4 -Current Size (cm) - Depth 0.2 -Total Square Cm 1.96 -Photo Taken -Exudate Amt Small -Exudate Type Serosanguineous -Wound Margin Distinct, Outline Attached -Granulation Amt Medium (34-66%) -Granulation Quality Red -Slough/Fibrin -Necrosis Amt Medium (34-66%) -Necrotic Tissue Type Adherent Slough -Structure Exposed -Texture (Vera-wound Skin Appearance) Assessed, Scarring -Moisture (Vera-wound Skin Appearance) No Abnormality, Assessed -Color (Vera-wound Skin Appearance) No Abnormality, Assessed -Temperature (Vera-wound Skin No Abnormality Appearance) (Pt Warm) -Tenderness on Palpation (Vera-wound No Skin Appearance) -Ulcer Cleansing Rinsed/ Irrigated with Saline -Foul Odor after Cleansing No -Anesthetic Used 5% Lidocaine Gel WC - Nurse 2 - General Ulcer CM Notes Start: 12/22/20 15:15 Freq: Status: Active Protocol: Activity Type Activity Date Activity User E-Sign Co-Sign Detail Recorded Client Recorded Date Recorded By Document 12/22/20 16:42 PL [id number] 12/22/20 16:44 PL Document 12/29/20 16:14 PL [id number] 12/29/20 16:16 PL Document 01/06/21 12:51 PL [id number] 01/06/21 12:53 PL Document 01/13/21 13:31 PL [id number] 01/13/21 13:45 PL 12/22/20 12/29/20 01/06/21 16:42 16:14 12:51 Wound Center Nurse 2 #2 L Med Heel -Time 15:54 15:18 10:35 -Correct Patient Yes Yes Yes -Correct Side, Site, Position Yes Yes Yes -Correct Procedure Yes Yes Yes -Procedure Performed Yes Yes Yes -Type of Procedure Debridement Debridement Debridement -Clinical Debridement Subcutaneous Subcutaneous Subcutaneous -Tissue Removed Subcutaneous Subcutaneous Subcutaneous -Post Debridement (cm) - Length 1.7 1.8 1.5 -Post Debridement (cm) - Width 3.1 3.0 2.7 -Post Debridement (cm) - Depth 0.2 0.1 0.1 -Total Square (Post) (cm) 5.27 5.40 4.05 -Area of Debridement (cm) - Length 1.7 1.8 1.5 -Area of Debridement (cm) - Width 3.1 3.0 2.7 -Total Square (Area) (cm) 5.27 5.40 4.05 -Tunneling No No No -Undermining/Tunneling No No No -Circular Undermining No No No -Wound/Ulcer Outcome Not Healed Not Healed Not Healed -Ulcer Cleansing Rinsed/ Rinsed/ Rinsed/ Irrigated with Irrigated with Irrigated with Saline Saline Saline -Foul Odor after Cleansing No No No -Bioengineered Tissue No No No -Bleeding Controlled with Pressure Pressure -Treatment Response Procedure Procedure Tolerated Well Tolerated Well -Debridement - Subq, 1st 20sq cm Yes Yes Yes #1 R Med Heel -Time 15:54 15:18 10:35 -Correct Patient Yes Yes Yes -Correct Side, Site, Position Yes Yes Yes -Correct Procedure Yes Yes Yes -Procedure Performed Yes Yes -Type of Procedure Debridement Debridement Debridement -Clinical Debridement Subcutaneous Subcutaneous Subcutaneous -Tissue Removed Subcutaneous Subcutaneous Subcutaneous -Post Debridement (cm) - Length 1.5 1.6 1.3 -Post Debridement (cm) - Width 2.6 3.0 2.1 -Post Debridement (cm) - Depth 0.1 0.1 0.1 -Total Square (Post) (cm) 3.90 4.80 2.73 -Area of Debridement (cm) - Length 1.5 1.6 1.3 -Area of Debridement (cm) - Width 2.6 3.0 2.1 -Total Square (Area) (cm) 3.90 4.80 2.73 -Tunneling No No No -Undermining/Tunneling No No No -Circular Undermining No No No -Wound/Ulcer Outcome Not Healed Not Healed Not Healed -Ulcer Cleansing Rinsed/ Rinsed/ Rinsed/ Irrigated with Irrigated with Irrigated with Saline Saline Saline -Foul Odor after Cleansing No No No -Bioengineered Tissue No No No -Bleeding Controlled with Pressure -Treatment Response Procedure Tolerated Well -Debridement - Subq, 1st 20sq cm No No No Pain Scale: 0-10 Numeric Is Patient Pain Free? Yes Yes Yes 01/13/21 13:31 Wound Center Nurse 2 #2 L Med Heel -Time 10:18 -Correct Patient Yes -Correct Side, Site, Position Yes -Correct Procedure Yes -Procedure Performed Yes -Type of Procedure Debridement -Clinical Debridement Subcutaneous -Tissue Removed Subcutaneous -Post Debridement (cm) - Length 1.5 -Post Debridement (cm) - Width 2.6 -Post Debridement (cm) - Depth 0.1 -Total Square (Post) (cm) 3.90 -Area of Debridement (cm) - Length 1.5 -Area of Debridement (cm) - Width 2.6 -Total Square (Area) (cm) 3.90 -Tunneling No -Undermining/Tunneling No -Circular Undermining No -Wound/Ulcer Outcome Not Healed -Ulcer Cleansing Rinsed/ Irrigated with Saline -Foul Odor after Cleansing No -Bioengineered Tissue No -Bleeding Controlled with Pressure -Treatment Response Procedure Tolerated Well -Debridement - Subq, 1st 20sq cm Yes #1 R Med Heel -Time 10:18 -Correct Patient Yes -Correct Side, Site, Position Yes -Correct Procedure Yes -Procedure Performed Yes -Type of Procedure Debridement -Clinical Debridement Subcutaneous -Tissue Removed Subcutaneous -Post Debridement (cm) - Length 1.2 -Post Debridement (cm) - Width 1.9 -Post Debridement (cm) - Depth 0.1 -Total Square (Post) (cm) 2.28 -Area of Debridement (cm) - Length 1.2 -Area of Debridement (cm) - Width 1.9 -Total Square (Area) (cm) 2.28 -Tunneling No -Undermining/Tunneling No -Circular Undermining No -Wound/Ulcer Outcome Not Healed -Ulcer Cleansing Rinsed/ Irrigated with Saline -Foul Odor after Cleansing No -Bioengineered Tissue No -Bleeding Controlled with Pressure -Treatment Response Procedure Tolerated Well -Debridement - Subq, 1st 20sq cm No Pain Scale: 0-10 Numeric Is Patient Pain Free? Yes WC - Nurse 3 - General Ulcer D/C NN Start: 12/22/20 15:15 Freq: Status: Active Protocol: Activity Type Activity Date Activity User E-Sign Co-Sign Detail Recorded Client Recorded Date Recorded By Document 12/22/20 16:19 ML [id number] 12/22/20 16:20 ML Document 12/29/20 15:41 ML [id number] 12/29/20 15:44 ML Document 01/06/21 11:02 ML [id number] 01/06/21 11:04 ML Document 01/13/21 10:47 JF [id number] 01/13/21 10:48 JF Document 01/13/21 11:03 KR [id number] 01/13/21 11:04 KR 12/22/20 12/29/20 01/06/21 16:19 15:41 11:02 Wound Care Nurse 3 #2 L Med Heel -Ulcer Cleansing Rinsed/ Rinsed/ Rinsed/ Irrigated with Irrigated with Irrigated with Saline Saline Saline -Foul Odor after Cleansing No No -Primary Dressing Applied Promogran Promogran Alysa Matter Alysa Matter -Other Dressing santyl -Primary Dressing Covered/Secured with Dry Gauze, Dry Gauze & Dry Gauze & Secured with Roll Gauze, Roll Gauze, Tape Secured with Secured with Tape Tape -Promogran Alysa Matter 2 2 #1 R Med Heel -Ulcer Cleansing Rinsed/ Rinsed/ Rinsed/ Irrigated with Irrigated with Irrigated with Saline Saline Saline -Foul Odor after Cleansing No -Primary Dressing Applied Promogran Promogran Alysa Matter Alysa Matter -Other Dressing santyl -Primary Dressing Covered/Secured with Dry Gauze, Dry Gauze & Dry Gauze & Secured with Roll Gauze, Roll Gauze, Tape Secured with Secured with Tape Tape -Promogran Alysa Matter 0 0 Right -Lotion applied to leg before No compression wrap -Tubular Bandage Double Layer Double Layer -Size of Tubigrip Used Size D Size E -Size D ($) 2 -Size E ($) 2 Left -Lotion applied to leg before No compression wrap -Tubular Bandage Double Layer Double Layer -Size of Tubigrip Used Size D Size E -Size D ($) 2 -Size E ($) 2 Pain Scale: 0-10 Numeric Is Patient Pain Free? WC - Visit Discharge Discharge Condition Ambulatory Status Transportation Accompanied by Medication Reconcilliation completed & provided to patient/care provider Clinical Summary of Care Provided 01/13/21 01/13/21 10:47 11:03 Wound Care Nurse 3 #2 L Med Heel -Ulcer Cleansing Rinsed/ Rinsed/ Irrigated with Irrigated with Saline Saline -Foul Odor after Cleansing No -Primary Dressing Applied Promogran Promogran Alysa Matter Alysa Matter -Other Dressing -Primary Dressing Covered/Secured with Dry Gauze, Dry Gauze, Secured with Secured with Tape Tape -Promogran Alysa Matter 1 1 #1 R Med Heel -Ulcer Cleansing Rinsed/ Irrigated with Saline -Foul Odor after Cleansing No -Primary Dressing Applied Promogran Alysa Matter -Other Dressing -Primary Dressing Covered/Secured with Dry Gauze, Dry Gauze, Secured with Secured with Tape Tape -Promogran Alysa Matter 0 Right -Lotion applied to leg before compression wrap -Tubular Bandage Single Layer -Size of Tubigrip Used Size D Size D -Size D ($) 1 -Size E ($) Left -Lotion applied to leg before compression wrap -Tubular Bandage Single Layer -Size of Tubigrip Used Size D Size D -Size D ($) 1 -Size E ($) Pain Scale: 0-10 Numeric Is Patient Pain Free? Yes Yes WC - Visit Discharge Discharge Condition Stable Stable Ambulatory Status Ambulatory Ambulatory Transportation Private Auto Private Auto Accompanied by son son Medication Reconcilliation completed & Yes provided to patient/care provider Clinical Summary of Care Provided Yes Wound debrided: Right heel ulcer Laterality: Right Wound Grade/Stage: Driver 2 Type of Debridement: Excisional debridement Anesthesia Used: 5% Lidocaine Gel Depth: in the subcutaneous layer Percentage of wound debrided: 100 Instrument Used: 7mm curette Tissue Removed: Slough and devitalized tissue Severity: Fat Layer Exposed Amount of bleeding with debridement: Moderate Bleeding Controlled with: Pressure Patient tolerated procedure: Patient tolerated procedure well Additional Wound Wound debrided: Left heel ulcer Laterality: Left Wound Grade/Stage: Driver 2 Type of Debridement: Excisional debridement Anesthesia Used: 5% Lidocaine Gel Depth: in the subcutaneous layer Percentage of wound debrided: 100 Instrument Used: 7mm curette Tissue Removed: Slough and devitalized tissue Severity: Fat Layer Exposed Amount of bleeding with debridement: Moderate Bleeding Controlled with: Pressure Patient tolerated procedure: Patient tolerated procedure well Assessment/Plan Assessment/Plan (1) 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: CODE(S): E11.621 - Type 2 diabetes mellitus with foot ulcer; L97.512 - Non-pressure chronic ulcer of other part of right foot with fat layer exposed QUALIFIERS: Diabetic foot ulcer location: heel Diabetes mellitus type: type 2 Qualified Code(s): E11.621 - Type 2 diabetes mellitus with foot ulcer; L97.412 - Non-pressure chronic ulcer of right heel and midfoot with fat layer exposed (2) 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: CODE(S): E11.621 - Type 2 diabetes mellitus with foot ulcer; L97.522 - Non-pressure chronic ulcer of other part of left foot with fat layer exposed QUALIFIERS: Diabetic foot ulcer location: heel Diabetes mellitus type: type 2 Qualified Code(s): E11.621 - Type 2 diabetes mellitus with foot ulcer; L97.422 - Non-pressure chronic ulcer of left heel and midfoot with fat layer exposed (3) Type 2 diabetes mellitus with diabetic neuropathy, with long-term current use of insulin: CODE(S): E11.40 - Type 2 diabetes mellitus with diabetic neuropathy, u nspecified; Z79.4 - computer terminal operator (current) use of insulin (4) Chronic systolic (congestive) heart failure: CODE(S): I50.22 - Chronic systolic (congestive) heart failure (5) Essential (primary) hypertension: CODE(S): I10 - Essential (primary) hypertension PLAN: Debridement performed today in clinic as annotated above. Alysa applied. Given the significant bioburden of the patient's ulcers, an order for Puraply AM was submitted for insurance approval. Per case fitter, the patient is only eligible for Apligraf through his insurance. Discussed with patient and son the option of implementing Apligraf to promote wound healing. They will discuss this option and let us know their decision. At home wound-care instructions: Moistened Alysa dressing changes once daily or more frequently as needed due to contamination. Wash wounds daily with Dakin's solution, rinse and dry thoroughly before each dressing change. Compression: Continue double Tubigrip's daily. Off-loading: The patient was instructed to avoid pressure and friction on the affected areas. Reposition every 2 hours at minimum. Avoid prolonged standing and/or dangling of legs. When seated, feet should be elevated at chest level. Frequent ambulation is encouraged. Diet: Patient encouraged to increase protein intake while taking caution to avoid high carbohydrate and/or sugar intake. Labs/cultures/imaging: Patient has completed a course of doxycycline x10 days. He finished his courses of Levaquin and Flagyl as prescribed. Vascular studies on 11/30/20 revealed no evidence of arterial occlusive disease. Routine baseline lab results as listed below: CBCD: RBC 4.48 (L), hemoglobin 12.8 (L) ESR: 37 (H) CMP: Creatinine 2.00 (H), BUN 33 (H) estimated GFR 35 (L), glucose 152 (H) Hemoglobin A1c: 6.7% (H) CRP: 15.9 (H) Prealbumin: 20.0 Follow-up: Return to clinic in 1 week for re-evaluation with Dr. Connell. Return sooner or report to the emergency room should symptoms worsen, or new symptoms arise. Note: [employer] speech recognition business solution analyst software was used to create portions of this document. Sound-alike and misspelled words, as well as other business solution analyst errors may be contained in the documentation.
[2021-01-19 08:37] VITALS: BP 98/57; PULSE 80; RESP 20; TEMP 36.9; BMI 37.8
--- NOTE | 2021-01-19 10:58 | PN.PCM_ITS ---
History of Present Illness Date of Service: 01/19/21 Chief Complaint: Bilateral foot brady History of Wound: The patient is a pleasant 75-year-old white male who presents to the wound healing center today (11/04/2020) for an initial evaluation of bilateral medial foot brady. He has a past medical history significant for Alzheimer's disease, dilated cardiomyopathy, congestive heart failure, implanted pacemaker, CAD, hypertension, hyperlipidemia, and insulin-dependent type 2 diabetes. He reports that his brady occurred approximately 2 weeks ago. 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 The next day, he was back on his tractor performing the same type of work. In the following days, the developed blackening of the areas. He has been using silver dressings to his feet daily, and cleansing them with a chlorhexidine?type solution. He denies any pain in his feet. He denies any fever or chills. He denies any general malaise or poor appetite. He has mild redness surrounding the wounds of his bilateral feet. They do not feel hot to touch. He has not been on any antibiotics in the last several weeks. He does not typically use compression to his lower extremities. He denies frequent swelling of the lower extremities, but does report that in the past 2 weeks his distal feet have appeared slightly swollen. Progress of Wound: Courtesy Visit for Janet Salinas NP. Has been applying dressings as recommended. He denies any new concerns at this time. He believes it is improving. Objective Data Objective Data Vital Signs: Vital Signs Temp Pulse Resp BP 98.4 F 80 20 H 98/57 L 01/19/21 08:37 01/19/21 08:37 01/19/21 08:37 01/19/21 08:37 Body Mass Index (BMI) 37.8 Charges/Coding Procedures Integumentary [id number]: [id number] Aminta subq tissue 20 sq cm/< Physical Exam Const Negative for alert, oriented x3 or no apparent distress Orientation / Consciousness: Negative for awake or oriented to person HEENT Face and Sinus: Negative for normal facial exam Nose: Negative for external nose normal Neck No full ROM General: Negative for normal visual inspection Resp normal respiratory effort Effort and Inspection: able to speak in complete sentences Skin Wounds: wounds noted Neuro oriented x3, CN's II-XII intact bilaterally, moves all extremities and no focal motor deficits Psych mental status grossly normal Appearance: grossly normal Attitude: calm Activity / Motor Behavior: appropriate eye contact Speech: normal speech Debridement Note Debridement Note Post-Debridement Measurements and Additional Note: Post-Debridement Measurements/Treatment - Nurse 1 - General Ulcer Assessment Start: 12/22/20 15:15 Freq: Status: Active Protocol: BERNIE Activity Type Activity Date Activity User E-Sign Co-Sign Detail Recorded Client Recorded Date Recorded By Document 12/22/20 15:15 DL [id number] 12/22/20 15:23 DL Document 12/29/20 15:01 ML [id number] 12/29/20 15:04 ML Document 01/06/21 10:01 ML Desktop 01/06/21 10:15 ML Document 01/13/21 09:58 KR [id number] 01/13/21 10:03 KR Document 01/19/21 08:37 DL [id number] 01/19/21 08:46 DL 12/22/20 12/29/20 01/06/21 15:15 15:01 10:01 - Today's Visit Information Type of service Follow-up Visit Follow-up Visit Follow-up Visit (Physician/AIR DEFENSE CONTROL OFFICER (Physician/AIR DEFENSE CONTROL OFFICER (Physician/AIR DEFENSE CONTROL OFFICER ) ) ) Arrival Mode Ambulatory Ambulatory Ambulatory Transfer Assistance None Patient Identification Verified (Name & Yes Yes Yes ) Patient Requires Transmission-Based No No No Precautions Safety Precautions NA NA Height and Weight Body Mass Index (BMI) 37.8 37.8 37.8 BMI Classification Obese Obese Obese Vital Signs Temperature (97.8 F-99.1 F) 98.4 F 97 F L 97.0 F L Temperature Source Temporal Temporal Temporal Pulse Rate (60-100) 80 77 72 Pulse Location Monitor Monitor Respiratory Rate (12-18) 20 H 16 16 Respiratory rate source Observation Observation Observation Blood Pressure (90/60-120/80) 102/61 112/73 112/67 Blood Pressure Mean (mm Hg) 74 86 82 Source Monitor Monitor Monitor Position Sitting Sitting Blood Pressure Location Left Arm Left Arm History Since Last Visit- (Skip if this is Patient's initial visit) Have you changed medications since your No No No last visit? Any new allergies or adverse reactions No No No Had a fall/change in ADL's that may No No No increase risk of falls Signs or symptoms of abuse and/or No No No neglect since last visit Have you been in the hospital since your No No No last visit? Has dressing in place as prescribed Yes Yes Yes Has compression in place as prescribed N/A N/A N/A Has offloadiing in place as prescribed N/A N/A Experienced any changes in pain level or No No No management Left Footwear Regular Shoe Other Footwear (Comment) Right Footwear Regular Shoe Other Footwear (Comment) Pain Scale: 0-10 Numeric Is Patient Pain Free? Yes Yes No 01/13/21 01/19/21 09:58 08:37 WC - Today's Visit Information Type of service Follow-up Visit Follow-up Visit (Physician/AIR DEFENSE CONTROL OFFICER (Physician/AIR DEFENSE CONTROL OFFICER ) ) Arrival Mode Ambulatory Ambulatory Transfer Assistance None Patient Identification Verified (Name & Yes Yes ) Patient Requires Transmission-Based No Precautions Safety Precautions Height and Weight Body Mass Index (BMI) 37.8 37.8 BMI Classification Obese Obese Vital Signs Temperature (97.8 F-99.1 F) 97.6 F L 98.4 F Temperature Source Temporal Temporal Pulse Rate (60-100) 80 80 Pulse Location Monitor Monitor Respiratory Rate (12-18) 20 H Respiratory rate source Blood Pressure (90/60-120/80) 123/84 H 98/57 L Blood Pressure Mean (mm Hg) 97 70 Source Monitor Monitor Position Semi-Fowlers Blood Pressure Location Right Arm History Since Last Visit- (Skip if this is Patient's initial visit) Have you changed medications since your No No last visit? Any new allergies or adverse reactions No No Had a fall/change in ADL's that may No No increase risk of falls Signs or symptoms of abuse and/or No No neglect since last visit Have you been in the hospital since your No No last visit? Has dressing in place as prescribed Yes Yes Has compression in place as prescribed N/A Yes Has offloadiing in place as prescribed N/A N/A Experienced any changes in pain level or No No management Left Footwear Regular Shoe Right Footwear Regular Shoe Pain Scale: 0-10 Numeric Is Patient Pain Free? Yes Yes - Nurse 1 - General Ulcer Measurement Start: 12/22/20 15:15 Freq: Status: Active Protocol: Activity Type Activity Date Activity User E-Sign Co-Sign Detail Recorded Client Recorded Date Recorded By Document 12/22/20 15:15 DL [id number] 12/22/20 15:23 DL Document 12/29/20 15:01 ML [id number] 12/29/20 15:04 ML Document 01/06/21 10:01 ML Desktop 01/06/21 10:15 ML Document 01/13/21 09:58 KR [id number] 01/13/21 10:03 KR Document 01/19/21 08:37 DL [id number] 01/19/21 08:46 DL 12/22/20 12/29/20 01/06/21 15:15 15:01 10:01 Wound Center Nurse 1 #2 L Med Heel -Current Size (cm) - Length 1.9 2 2.9 -Current Size (cm) - Width 2.9 2.5 1.8 -Current Size (cm) - Depth 0.1 0.1 0.1 -Total Square Cm 5.51 5.0 5.22 -Photo Taken No -Exudate Amt Medium Small Medium -Exudate Type Serosanguineous Serosanguineous Serosanguineous -Wound Margin Distinct, Distinct, Distinct, Outline Outline Outline Attached Attached Attached -Granulation Amt Large (67-100%) Medium (34-66%) Medium (34-66%) -Granulation Quality [place] -Slough/Fibrin Yes Yes -Necrosis Amt Medium (34-66%) Medium (34-66%) Medium (34-66%) -Necrotic Tissue Type Adherent Slough Adherent Slough Adherent Slough -Structure Exposed N/A -Texture (Vera-wound Skin Appearance) Callus,Scarring Assessed Assessed -Moisture (Vera-wound Skin Appearance) No Abnormality Assessed Assessed -Color (Vera-wound Skin Appearance) No Abnormality Assessed Assessed -Temperature (Vera-wound Skin No Abnormality No Abnormality No Abnormality Appearance) (Pt Warm) (Pt Warm) (Pt Warm) -Tenderness on Palpation (Vera-wound No No No Skin Appearance) -Ulcer Cleansing Wound Cleanser Rinsed/ Wound Cleanser Irrigated with Saline -Foul Odor after Cleansing No No No -Anesthetic Used 4% Lidocaine 4% Lidocaine 4% Lidocaine Solution Solution Solution #1 R Med Heel -Current Size (cm) - Length 1.5 3 1.5 -Current Size (cm) - Width 2.6 2.8 1.8 -Current Size (cm) - Depth 0.1 0.1 0.1 -Total Square Cm 3.90 8.4 2.70 -Photo Taken No -Exudate Amt Medium Small Medium -Exudate Type Serosanguineous Serosanguineous Serous -Wound Margin Distinct, Distinct, Distinct, Outline Outline Outline Attached Attached Attached -Granulation Amt Medium (34-66%) Medium (34-66%) Medium (34-66%) -Granulation Quality Red Pale -Slough/Fibrin Yes Yes -Necrosis Amt Medium (34-66%) Medium (34-66%) Medium (34-66%) -Necrotic Tissue Type Eschar Adherent Slough Adherent Slough -Structure Exposed N/A -Texture (Vera-wound Skin Appearance) Callus,Scarring Assessed Assessed -Moisture (Vera-wound Skin Appearance) Dry/Scaly Assessed Assessed -Color (Vera-wound Skin Appearance) Assessed Assessed Assessed -Temperature (Vera-wound Skin No Abnormality No Abnormality No Abnormality Appearance) (Pt Warm) (Pt Warm) (Pt Warm) -Tenderness on Palpation (Vera-wound No No No Skin Appearance) -Ulcer Cleansing Rinsed/ Rinsed/ Wound Cleanser Irrigated with Irrigated with Saline Saline -Foul Odor after Cleansing No No No -Anesthetic Used 4% Lidocaine 4% Lidocaine 4% Lidocaine Solution Solution Solution Right Calf (cm) Right Ankle (cm) Left Calf (cm) Left Ankle (cm) 01/13/21 01/19/21 09:58 08:37 Wound Center Nurse 1 #2 L Med Heel -Current Size (cm) - Length 2.5 1.4 -Current Size (cm) - Width 1.3 2.5 -Current Size (cm) - Depth 0.2 0.2 -Total Square Cm 3.25 3.50 -Photo Taken No -Exudate Amt Small Medium -Exudate Type Serosanguineous -Wound Margin Distinct, Distinct, Outline Outline Attached Attached -Granulation Amt Medium (34-66%) Large (67-100%) -Granulation Quality Red Red -Slough/Fibrin -Necrosis Amt Medium (34-66%) Medium (34-66%) -Necrotic Tissue Type Adherent Slough Adherent Slough -Structure Exposed N/A -Texture (Vera-wound Skin Appearance) Assessed, Callus,Scarring Scarring -Moisture (Vera-wound Skin Appearance) No Abnormality, No Abnormality Assessed -Color (Vera-wound Skin Appearance) No Abnormality, No Abnormality Assessed -Temperature (Vera-wound Skin No Abnormality No Abnormality Appearance) (Pt Warm) (Pt Warm) -Tenderness on Palpation (Vera-wound No No Skin Appearance) -Ulcer Cleansing Rinsed/ Wound Cleanser Irrigated with Saline -Foul Odor after Cleansing No No -Anesthetic Used 5% Lidocaine 5% Lidocaine Gel Gel #1 R Med Heel -Current Size (cm) - Length 1.4 1.1 -Current Size (cm) - Width 1.4 1.7 -Current Size (cm) - Depth 0.2 2 -Total Square Cm 1.96 1.87 -Photo Taken No -Exudate Amt Small Medium -Exudate Type Serosanguineous Serosanguineous -Wound Margin Distinct, Distinct, Outline Outline Attached Attached -Granulation Amt Medium (34-66%) Large (67-100%) -Granulation Quality Red Red -Slough/Fibrin -Necrosis Amt Medium (34-66%) Small (1-33%) -Necrotic Tissue Type Adherent Slough Adherent Slough -Structure Exposed N/A -Texture (Vera-wound Skin Appearance) Assessed, Callus,Scarring Scarring -Moisture (Vera-wound Skin Appearance) No Abnormality, No Abnormality Assessed -Color (Vera-wound Skin Appearance) No Abnormality, No Abnormality Assessed -Temperature (Vera-wound Skin No Abnormality No Abnormality Appearance) (Pt Warm) (Pt Warm) -Tenderness on Palpation (Vera-wound No Skin Appearance) -Ulcer Cleansing Rinsed/ Wound Cleanser Irrigated with Saline -Foul Odor after Cleansing No -Anesthetic Used 5% Lidocaine 5% Lidocaine Gel Gel,Cetacaine Right Calf (cm) 38.5 Right Ankle (cm) 22.2 Left Calf (cm) 36 Left Ankle (cm) 21.6 WC - Nurse 2 - General Ulcer CM Notes Start: 12/22/20 15:15 Freq: Status: Active Protocol: Activity Type Activity Date Activity User E-Sign Co-Sign Detail Recorded Client Recorded Date Recorded By Document 12/22/20 16:42 PL [id number] 12/22/20 16:44 PL Document 12/29/20 16:14 PL [id number] 12/29/20 16:16 PL Document 01/06/21 12:51 PL [id number] 01/06/21 12:53 PL Document 01/13/21 13:31 PL [id number] 01/13/21 13:45 PL Document 01/19/21 09:12 MW [id number] 01/19/21 09:17 MW 12/22/20 12/29/20 01/06/21 16:42 16:14 12:51 Wound Center Nurse 2 #2 L Med Heel -Time 15:54 15:18 10:35 -Correct Patient Yes Yes Yes -Correct Side, Site, Position Yes Yes Yes -Correct Procedure Yes Yes Yes -Procedure Performed Yes Yes Yes -Type of Procedure Debridement Debridement Debridement -Clinical Debridement Subcutaneous Subcutaneous Subcutaneous -Tissue Removed Subcutaneous Subcutaneous Subcutaneous -Post Debridement (cm) - Length 1.7 1.8 1.5 -Post Debridement (cm) - Width 3.1 3.0 2.7 -Post Debridement (cm) - Depth 0.2 0.1 0.1 -Total Square (Post) (cm) 5.27 5.40 4.05 -Area of Debridement (cm) - Length 1.7 1.8 1.5 -Area of Debridement (cm) - Width 3.1 3.0 2.7 -Total Square (Area) (cm) 5.27 5.40 4.05 -Tunneling No No No -Undermining/Tunneling No No No -Circular Undermining No No No -Wound/Ulcer Outcome Not Healed Not Healed Not Healed -Ulcer Cleansing Rinsed/ Rinsed/ Rinsed/ Irrigated with Irrigated with Irrigated with Saline Saline Saline -Foul Odor after Cleansing No No No -Bioengineered Tissue No No No -Bleeding Controlled with Pressure Pressure -Offloading -Treatment Response Procedure Procedure Tolerated Well Tolerated Well -Debridement - Subq, 1st 20sq cm Yes Yes Yes #1 R Med Heel -Time 15:54 15:18 10:35 -Correct Patient Yes Yes Yes -Correct Side, Site, Position Yes Yes Yes -Correct Procedure Yes Yes Yes -Procedure Performed Yes Yes -Type of Procedure Debridement Debridement Debridement -Clinical Debridement Subcutaneous Subcutaneous Subcutaneous -Tissue Removed Subcutaneous Subcutaneous Subcutaneous -Post Debridement (cm) - Length 1.5 1.6 1.3 -Post Debridement (cm) - Width 2.6 3.0 2.1 -Post Debridement (cm) - Depth 0.1 0.1 0.1 -Total Square (Post) (cm) 3.90 4.80 2.73 -Area of Debridement (cm) - Length 1.5 1.6 1.3 -Area of Debridement (cm) - Width 2.6 3.0 2.1 -Total Square (Area) (cm) 3.90 4.80 2.73 -Tunneling No No No -Undermining/Tunneling No No No -Circular Undermining No No No -Wound/Ulcer Outcome Not Healed Not Healed Not Healed -Ulcer Cleansing Rinsed/ Rinsed/ Rinsed/ Irrigated with Irrigated with Irrigated with Saline Saline Saline -Foul Odor after Cleansing No No No -Bioengineered Tissue No No No -Bleeding Controlled with Pressure -Offloading -Treatment Response Procedure Tolerated Well -Debridement - Subq, 1st 20sq cm No No No Pain Scale: 0-10 Numeric Is Patient Pain Free? Yes Yes Yes 01/13/21 01/19/21 13:31 09:12 Wound Center Nurse 2 #2 L Med Heel -Time 10:18 09:12 -Correct Patient Yes Yes -Correct Side, Site, Position Yes Yes -Correct Procedure Yes Yes -Procedure Performed Yes Yes -Type of Procedure Debridement Debridement -Clinical Debridement Subcutaneous Subcutaneous -Tissue Removed Subcutaneous Subcutaneous -Post Debridement (cm) - Length 1.5 1.5 -Post Debridement (cm) - Width 2.6 2.5 -Post Debridement (cm) - Depth 0.1 0.1 -Total Square (Post) (cm) 3.90 3.75 -Area of Debridement (cm) - Length 1.5 1.5 -Area of Debridement (cm) - Width 2.6 2.5 -Total Square (Area) (cm) 3.90 3.75 -Tunneling No No -Undermining/Tunneling No No -Circular Undermining No No -Wound/Ulcer Outcome Not Healed Not Healed -Ulcer Cleansing Rinsed/ Rinsed/ Irrigated with Irrigated with Saline Saline -Foul Odor after Cleansing No No -Bioengineered Tissue No No -Bleeding Controlled with Pressure Pressure -Offloading No -Treatment Response Procedure Procedure Tolerated Well Tolerated Well -Debridement - Subq, 1st 20sq cm Yes Yes #1 R Med Heel -Time 10:18 09:12 -Correct Patient Yes Yes -Correct Side, Site, Position Yes Yes -Correct Procedure Yes Yes -Procedure Performed Yes Yes -Type of Procedure Debridement Debridement -Clinical Debridement Subcutaneous Subcutaneous -Tissue Removed Subcutaneous Subcutaneous -Post Debridement (cm) - Length 1.2 1.2 -Post Debridement (cm) - Width 1.9 1.8 -Post Debridement (cm) - Depth 0.1 0.1 -Total Square (Post) (cm) 2.28 2.16 -Area of Debridement (cm) - Length 1.2 1.2 -Area of Debridement (cm) - Width 1.9 1.8 -Total Square (Area) (cm) 2.28 2.16 -Tunneling No No -Undermining/Tunneling No No -Circular Undermining No No -Wound/Ulcer Outcome Not Healed Not Healed -Ulcer Cleansing Rinsed/ Rinsed/ Irrigated with Irrigated with Saline Saline -Foul Odor after Cleansing No No -Bioengineered Tissue No No -Bleeding Controlled with Pressure Pressure -Offloading No -Treatment Response Procedure Procedure Tolerated Well Tolerated Well -Debridement - Subq, 1st 20sq cm No No Pain Scale: 0-10 Numeric Is Patient Pain Free? Yes Yes - Nurse 3 - General Ulcer D/C NN Start: 12/22/20 15:15 Freq: Status: Active Protocol: Activity Type Activity Date Activity User E-Sign Co-Sign Detail Recorded Client Recorded Date Recorded By Document 12/22/20 16:19 ML [id number] 12/22/20 16:20 ML Document 12/29/20 15:41 ML [id number] 12/29/20 15:44 ML Document 01/06/21 11:02 ML [id number] 01/06/21 11:04 ML Document 01/13/21 10:47 [id number] 01/13/21 10:48 Document 01/13/21 11:03 KR [id number] 01/13/21 11:04 KR Document 01/19/21 09:44 AK [id number] 01/19/21 09:48 AK 12/22/20 12/29/20 01/06/21 16:19 15:41 11:02 Wound Care Nurse 3 #2 L Med Heel -Ulcer Cleansing Rinsed/ Rinsed/ Rinsed/ Irrigated with Irrigated with Irrigated with Saline Saline Saline -Foul Odor after Cleansing No No -Primary Dressing Applied Promogran Promogran Alysa Matter Alysa Matter -Other Dressing santyl -Primary Dressing Covered/Secured with Dry Gauze, Dry Gauze & Dry Gauze & Secured with Roll Gauze, Roll Gauze, Tape Secured with Secured with Tape Tape -Promogran -Promogran Alysa Matter 2 2 #1 R Med Heel -Ulcer Cleansing Rinsed/ Rinsed/ Rinsed/ Irrigated with Irrigated with Irrigated with Saline Saline Saline -Foul Odor after Cleansing No -Primary Dressing Applied Promogran Promogran Alysa Matter Alysa Matter -Other Dressing santyl -Primary Dressing Covered/Secured with Dry Gauze, Dry Gauze & Dry Gauze & Secured with Roll Gauze, Roll Gauze, Tape Secured with Secured with Tape Tape -Promogran Alysa Matter 0 0 Right -Lotion applied to leg before No compression wrap -Tubular Bandage Double Layer Double Layer -Size of Tubigrip Used Size D Size E -Size D ($) 2 -Size E ($) 2 -Stockings Left -Lotion applied to leg before No compression wrap -Tubular Bandage Double Layer Double Layer -Size of Tubigrip Used Size D Size E -Size D ($) 2 -Size E ($) 2 -Stockings Pain Scale: 0-10 Numeric Is Patient Pain Free? WC - Visit Discharge Discharge Condition Ambulatory Status Transportation Accompanied by Medication Reconcilliation completed & provided to patient/care provider Clinical Summary of Care Provided 01/13/21 01/13/21 01/19/21 10:47 11:03 09:44 Wound Care Nurse 3 #2 L Med Heel -Ulcer Cleansing Rinsed/ Rinsed/ Rinsed/ Irrigated with Irrigated with Irrigated with Saline Saline Saline -Foul Odor after Cleansing No No -Primary Dressing Applied Promogran Promogran Promogran Alysa Matter Alysa Matter -Other Dressing -Primary Dressing Covered/Secured with Dry Gauze, Dry Gauze, Dry Gauze & Secured with Secured with Roll Gauze, Tape Tape Secured with Tape -Promogran 1 -Promogran Alysa Matter 1 1 #1 R Med Heel -Ulcer Cleansing Rinsed/ Rinsed/ Irrigated with Irrigated with Saline Saline -Foul Odor after Cleansing No No -Primary Dressing Applied Promogran Alysa Matter -Other Dressing -Primary Dressing Covered/Secured with Dry Gauze, Dry Gauze, Dry Gauze & Secured with Secured with Roll Gauze, Tape Tape Secured with Tape -Promogran Alysa Matter 0 Right -Lotion applied to leg before No compression wrap -Tubular Bandage Single Layer Double Layer -Size of Tubigrip Used Size D Size D Size D -Size D ($) 1 1 -Size E ($) -Stockings No Left -Lotion applied to leg before No compression wrap -Tubular Bandage Single Layer Double Layer -Size of Tubigrip Used Size D Size D Size D -Size D ($) 1 1 -Size E ($) -Stockings No Pain Scale: 0-10 Numeric Is Patient Pain Free? Yes Yes WC - Visit Discharge Discharge Condition Stable Stable Stable Ambulatory Status Ambulatory Ambulatory Ambulatory Transportation Private Auto Private Auto Private Auto Accompanied by son son [id number] Medication Reconcilliation completed & Yes provided to patient/care provider Clinical Summary of Care Provided Yes Yes Wound debrided: Right Medial Foot Type of Debridement: Excisional debridement Anesthesia Used: 5% Lidocaine Gel Depth: Down to and including healthy tissue and in the subcutaneous layer Percentage of wound debrided: 100 Instrument Used: 5mm curette Tissue Removed: Slough and devitalized tissue Severity: Fat Layer Exposed Amount of bleeding with debridement: Mild Bleeding Controlled with: Pressure Patient tolerated procedure: Patient tolerated procedure well Additional Wound Wound debrided: Left Medial Foot Type of Debridement: Excisional debridement Anesthesia Used: 5% Lidocaine Gel Depth: Down to and including healthy tissue and in the subcutaneous layer Percentage of wound debrided: 100 Instrument Used: 5mm curette Tissue Removed: Slough and devitalized tissue Severity: Fat Layer Exposed Amount of bleeding with debridement: Mild Bleeding Controlled with: Pressure Patient tolerated procedure: Patient tolerated procedure well Assessment/Plan Assessment/Plan (1) Burn of foot, deep third degree: CODE(S): T25.329A - Burn of third degree of unspecified foot, initial encounter QUALIFIERS: Encounter type: initial encounter Laterality: right Qualified Code(s): T25.321A - Burn of third degree of right foot, initial encounter (2) Burn of foot, deep third degree: CODE(S): T25.329A - Burn of third degree of unspecified foot, initial encounter QUALIFIERS: Encounter type: initial encounter Laterality: left Qualified Code(s): T25.322A - Burn of third degree of left foot, initial encounter (3) Type 2 diabetes mellitus with diabetic neuropathy, with long-term current use of insulin: CODE(S): E11.40 - Type 2 diabetes mellitus with diabetic neuropathy, unspecified; Z79.4 - FDC (current) use of insulin (4) 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: CODE(S): E11.621 - Type 2 diabetes mellitus with foot ulcer; L97.522 - Non-pressure chronic ulcer of other part of left foot with fat layer exposed QUALIFIERS: Diabetes mellitus type: type 2 Diabetic foot ulcer location: heel Qualified Code(s): E11.621 - Type 2 diabetes mellitus with foot ulcer; L97.422 - Non-pressure chronic ulcer of left heel and midfoot with fat layer exposed (5) 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: CODE(S): E11.621 - Type 2 diabetes mellitus with foot ulcer; L97.512 - Non-pressure chronic ulcer of other part of right foot with fat layer exposed QUALIFIERS: Diabetes mellitus type: type 2 Diabetic foot ulcer location: heel Qualified Code(s): E11.621 - Type 2 diabetes mellitus with foot ulcer; L97.412 - Non-pressure chronic ulcer of right heel and midfoot with fat layer exposed PLAN: Debridement done as documented above, procedure was well-tolerated. Continue Alysa to both ulcers. Change daily. Elevate lower extremities when seated and in bed. Continue compression. Increase protein intake and optimal diabetes control. Their questions were answered and they were advised to call with any further questions or concerns. Follow-up in a week with Janet Salinas NP. This note was generated with [employer] software. It may contain incorrect words, spelling, and punctuation that were not noted in checking the note before signing.
== END 2021-01-21 23:59 ==
LOC: WC 08:45
PROVIDERS: PCP Family Medicine; Referring Provider Nurse Practitioner Family; Visit Provider Nurse Practitioner Family
DX: E11.621 Type 2 diabetes mellitus with foot ulcer (principal); T25.021D Burn of unspecified degree of right foot, subsequent encounter; X08.8XXD Exposure to other specified smoke, fire and flames, subsequent encounter; E78.5 Hyperlipidemia, unspecified; L97.412 Non-pressure chronic ulcer of right heel and midfoot with fat layer exposed; L97.422 Non-pressure chronic ulcer of left heel and midfoot with fat layer exposed; I25.10 Atherosclerotic heart disease of native coronary artery without angina pectoris; I42.0 Dilated cardiomyopathy; Z79.4 Long term (current) use of insulin; F02.80 Dementia in other diseases classified elsewhere, unspecified severity, without behavioral disturbance, psychotic disturbance, mood disturbance, and anxiety; G30.9 Alzheimer's disease, unspecified; Z95.0 Presence of cardiac pacemaker; I13.0 Hypertensive heart and chronic kidney disease with heart failure and stage 1 through stage 4 chronic kidney disease, or unspecified chronic kidney disease; I50.22 Chronic systolic (congestive) heart failure
CPT/HCPCS: 11042

== ENCOUNTER 2021-02-17 11:00 | Outpatient (RCR) | payer MEDICARE, SELFPAY ==
[2021-01-22 00:30] VITALS: BP 98/57; PULSE 80; RESP 20; TEMP 36.9
[2021-01-27 10:33] VITALS: BP 95/48; PULSE 69; RESP 20; TEMP 36.3; BMI 37.8
--- NOTE | 2021-01-27 14:51 | PCM.WC.PN ---
History of Present Illness Date of Service: 01/27/21 Chief Complaint: Bilateral foot brady History of Wound: The patient is a pleasant 75-year-old white male who presents to the wound healing center today (11/04/2020) for an initial evaluation of bilateral medial foot brady. He has a past medical history significant for Alzheimer's disease, dilated cardiomyopathy, congestive heart failure, implanted pacemaker, CAD, hypertension, hyperlipidemia, and insulin-dependent type 2 diabetes. He reports that his brady occurred approximately 2 weeks ago. 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 The next day, he was back on his tractor performing the same type of work. In the following days, the developed blackening of the areas. He has been using silver dressings to his feet daily, and cleansing them with a chlorhexidine?type solution. He denies any pain in his feet. He denies any fever or chills. He denies any general malaise or poor appetite. He has mild redness surrounding the wounds of his bilateral feet. They do not feel hot to touch. He has not been on any antibiotics in the last several weeks. He does not typically use compression to his lower extremities. He denies frequent swelling of the lower extremities, but does report that in the past 2 weeks his distal feet have appeared slightly swollen. Progress of Wound: Patient has been compliant with Alysa dressing changes daily. His wounds have improved in size and appearance again this week. The patient denies fever, chills, general malaise, or poor appetite. The patient has not had increased redness, swelling, or purulent/malodorous drainage from affected area. Objective Data Objective Data Vital Signs: Vital Signs Temp Pulse Resp BP 97.3 F L 69 20 H 95/48 L 01/27/21 10:33 01/27/21 10:33 01/27/21 10:33 01/27/21 10:33 Body Mass Index (BMI) 37.8 Charges/Coding Procedures Integumentary [id number]: [id number] Aminta subq tissue 20 sq cm/< Physical Exam Const alert, no apparent distress and healthy appearing General Appearance: cooperative, comfortable and well kempt Neck supple Resp normal respiratory effort Extremity normal capillary refill, no joint enlargement, no clubbing, cyanosis or edema and no pedal edema Skin Wounds: wounds noted no odor Wound Narrative: Ulcers of bilateral medial heels with small amounts of slough and devitalized tissue present. There is no noted tunneling, undermining, or probing to bone. Good granulation tissue is present. There is no periulcer erythema of either foot today. There is no warmth to the periulcer area. There is no tenderness to the periulcer area. Neuro moves all extremities and no focal motor deficits Sensory Exam: extremities Sensory loss observed in both feet Psych mental status grossly normal, cooperative and affect normal Debridement Note Debridement Note Post-Debridement Measurements and Additional Note: Post-Debridement Measurements/Treatment WC - Nurse 1 - General Ulcer Assessment Start: 01/27/21 10:31 Freq: Status: Active Protocol: WC.LOWEXT Activity Type Activity Date Activity User E-Sign Co-Sign Detail Recorded Client Recorded Date Recorded By Document 01/27/21 10:33 DL [id number] 01/27/21 10:40 DL 01/27/21 10:33 WC - Today's Visit Information Type of service Follow-up Visit (Physician/ELECTRICAL SUPERINTENDENT ) Arrival Mode Ambulatory Transfer Assistance None Patient Identification Verified (Name & Yes ) Patient Requires Transmission-Based No Precautions Height and Weight Body Mass Index (BMI) 37.8 BMI Classification Obese Vital Signs Temperature (97.8 F-99.1 F) 97.3 F L Temperature Source Temporal Pulse Rate (60-100) 69 Pulse Location Monitor Respiratory Rate (12-18) 20 H Respiratory rate source Observation Blood Pressure (90/60-120/80) 95/48 L Blood Pressure Mean (mm Hg) 63 Source Monitor History Since Last Visit- (Skip if this is Patient's initial visit) Have you changed medications since your No last visit? Any new allergies or adverse reactions No Had a fall/change in ADL's that may No increase risk of falls Signs or symptoms of abuse and/or No neglect since last visit Have you been in the hospital since your No last visit? Has dressing in place as prescribed No Has compression in place as prescribed No Has offloadiing in place as prescribed Yes Experienced any changes in pain level or No management Left Footwear Regular Shoe Right Footwear Regular Shoe WC - Nurse 1 - General Ulcer Measurement Start: 01/27/21 10:31 Freq: Status: Active Protocol: Activity Type Activity Date Activity User E-Sign Co-Sign Detail Recorded Client Recorded Date Recorded By Document 01/27/21 10:33 DL [id number] 01/27/21 10:40 DL 01/27/21 10:33 Wound Center Nurse 1 #2 L Med Heel -Current Size (cm) - Length 0.9 -Current Size (cm) - Width 2.3 -Current Size (cm) - Depth 0.2 -Total Square Cm 2.07 -Photo Taken No -Exudate Amt Small -Wound Margin Distinct, Outline Attached -Granulation Amt Large (67-100%) -Granulation Quality Red -Necrosis Amt Small (1-33%) -Necrotic Tissue Type Adherent Slough -Structure Exposed None/Limited to Skin Breakdown -Texture (Vera-wound Skin Appearance) Scarring -Moisture (Vera-wound Skin Appearance) Dry/Scaly -Color (Vera-wound Skin Appearance) Assessed -Temperature (Vera-wound Skin No Abnormality Appearance) (Pt Warm) -Tenderness on Palpation (Vera-wound No Skin Appearance) -Ulcer Cleansing Rinsed/ Irrigated with Saline -Foul Odor after Cleansing No -Anesthetic Used 4% Lidocaine Solution #1 R Med Heel -Current Size (cm) - Length 0.8 -Current Size (cm) - Width 1.3 -Current Size (cm) - Depth 2 -Total Square Cm 1.04 -Photo Taken No -Exudate Amt Small -Wound Margin Distinct, Outline Attached -Granulation Quality Pale -Necrosis Amt Small (1-33%) -Necrotic Tissue Type Eschar -Structure Exposed N/A -Texture (Vera-wound Skin Appearance) Scarring -Moisture (Vera-wound Skin Appearance) Dry/Scaly -Color (Vera-wound Skin Appearance) No Abnormality -Temperature (Vera-wound Skin No Abnormality Appearance) (Pt Warm) -Tenderness on Palpation (Vera-wound No Skin Appearance) -Ulcer Cleansing Wound Cleanser -Foul Odor after Cleansing No -Anesthetic Used 4% Lidocaine Solution WC - Nurse 2 - General Ulcer CM Notes Start: 01/27/21 10:31 Freq: Status: Active Protocol: Activity Type Activity Date Activity User E-Sign Co-Sign Detail Recorded Client Recorded Date Recorded By Document 01/27/21 13:54 PL [id number] 01/27/21 13:58 PL 01/27/21 13:54 Wound Center Nurse 2 #2 L Med Heel -Time 10:45 -Correct Patient Yes -Correct Side, Site, Position Yes -Correct Procedure Yes -Procedure Performed Yes -Type of Procedure Debridement -Clinical Debridement Subcutaneous -Tissue Removed Subcutaneous -Post Debridement (cm) - Length 1.1 -Post Debridement (cm) - Width 2.4 -Post Debridement (cm) - Depth 0.1 -Total Square (Post) (cm) 2.64 -Area of Debridement (cm) - Length 1.1 -Area of Debridement (cm) - Width 2.4 -Total Square (Area) (cm) 2.64 -Tunneling No -Undermining/Tunneling No -Circular Undermining No -Wound/Ulcer Outcome Not Healed -Ulcer Cleansing Rinsed/ Irrigated with Saline -Foul Odor after Cleansing No -Bioengineered Tissue No -Bleeding Controlled with Pressure -Treatment Response Procedure Tolerated Well -Debridement - Subq, 1st 20sq cm Yes #1 R Med Heel -Time 10:45 -Correct Patient Yes -Correct Side, Site, Position Yes -Correct Procedure Yes -Procedure Performed Yes -Type of Procedure Debridement -Clinical Debridement Subcutaneous -Tissue Removed Subcutaneous -Post Debridement (cm) - Length 1.0 -Post Debridement (cm) - Width 1.3 -Post Debridement (cm) - Depth 0.1 -Total Square (Post) (cm) 1.30 -Area of Debridement (cm) - Length 1.0 -Area of Debridement (cm) - Width 1.3 -Total Square (Area) (cm) 1.30 -Tunneling No -Undermining/Tunneling No -Circular Undermining No -Wound/Ulcer Outcome Not Healed -Ulcer Cleansing Rinsed/ Irrigated with Saline -Foul Odor after Cleansing No -Bioengineered Tissue No -Bleeding Controlled with Pressure -Treatment Response Procedure Tolerated Well -Debridement - Subq, 1st 20sq cm No WC - Nurse 3 - General Ulcer D/C NN Start: 01/27/21 10:31 Freq: Status: Active Protocol: Activity Type Activity Date Activity User E-Sign Co-Sign Detail Recorded Client Recorded Date Recorded By Document 01/27/21 13:54 PL [id number] 01/27/21 13:58 PL 01/27/21 13:54 Wound Care Nurse 3 #2 L Med Heel -Ulcer Cleansing Rinsed/ Irrigated with Saline -Foul Odor after Cleansing No -Primary Dressing Applied Promogran Alysa Matter -Primary Dressing Covered/Secured with Dry Gauze & Roll Gauze, Secured with Tape -Promogran Alysa Matter 1 #1 R Med Heel -Ulcer Cleansing Rinsed/ Irrigated with Saline -Foul Odor after Cleansing No -Other Dressing Alysa -Primary Dressing Covered/Secured with Dry Gauze & Roll Gauze, Secured with Tape WC - Visit Discharge Discharge Condition Stable Ambulatory Status Ambulatory Transportation Private Auto Clinical Summary of Care Provided Yes Wound debrided: Right medial foot ulcer Laterality: Right Type of Debridement: Excisional debridement Anesthesia Used: 4% Lidocaine Solution Depth: in the subcutaneous layer Percentage of wound debrided: 100 Instrument Used: 7mm curette Tissue Removed: Slough and devitalized tissue Severity: Fat Layer Exposed Amount of bleeding with debridement: Mild Bleeding Controlled with: Pressure Patient tolerated procedure: Patient tolerated procedure well Additional Wound Wound debrided: Left medial foot ulcer Laterality: Left Type of Debridement: Excisional debridement Anesthesia Used: 5% Lidocaine Gel Depth: in the subcutaneous layer Percentage of wound debrided: 100 Instrument Used: 5mm curette Tissue Removed: Slough and devitalized tissue Severity: Fat Layer Exposed Amount of bleeding with debridement: Mild Bleeding Controlled with: Pressure Patient tolerated procedure: Patient tolerated procedure well Assessment/Plan Assessment/Plan (1) 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: CODE(S): E11.621 - Type 2 diabetes mellitus with foot ulcer; L97.512 - Non-pressure chronic ulcer of other part of right foot with fat layer exposed QUALIFIERS: Diabetic foot ulcer location: heel Diabetes mellitus type: type 2 Qualified Code(s): E11.621 - Type 2 diabetes mellitus with foot ulcer; L97.412 - Non-pressure chronic ulcer of right heel and midfoot with fat layer exposed (2) 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: CODE(S): E11.621 - Type 2 diabetes mellitus with foot ulcer; L97.522 - Non-pressure chronic ulcer of other part of left foot with fat layer exposed QUALIFIERS: Diabetic foot ulcer location: heel Diabetes mellitus type: type 2 Qualified Code(s): E11.621 - Type 2 diabetes mellitus with foot ulcer; L97.422 - Non-pressure chronic ulcer of left heel and midfoot with fat layer exposed (3) Type 2 diabetes mellitus with diabetic neuropathy, with long-term current use of insulin: CODE(S): E11.40 - Type 2 diabetes mellitus with diabetic neuropathy, unspecified; Z79.4 - watermaster (current) use of insulin (4) Chronic systolic (congestive) heart failure: CODE(S): I50.22 - Chronic systolic (congestive) heart failure (5) Essential (primary) hypertension: CODE(S): I10 - Essential (primary) hypertension PLAN: Debridement performed today in clinic as annotated above. Alysa applied. Given the significant bioburden of the patient's ulcers, an order for Puraply AM was submitted for insurance approval. Per lining caser, the patient is only eligible for Apligraf through his insurance. Discussed with patient and son the option of implementing Apligraf to promote wound healing; he does not wish to proceed with Apligraf at this time. At home wound-care instructions: Perform moistened Alysa dressing changes once daily or more frequently as needed due to contamination. Wash wounds daily with Dakin's solution, rinse and dry thoroughly before each dressing change. Compression: Continue double Tubigrip's daily. Off-loading: The patient was instructed to avoid pressure and friction on the affected areas. Reposition every 2 hours at minimum. Avoid prolonged standing and/or dangling of legs. When seated, feet should be elevated at chest level. Frequent ambulation is encouraged. Diet: Patient encouraged to increase protein intake while taking caution to avoid high carbohydrate and/or sugar intake. Labs/cultures/imaging: Patient has completed a course of doxycycline x10 days. He finished his courses of Levaquin and Flagyl as prescribed. Vascular studies on 11/30/20 revealed no evidence of arterial occlusive disease. Routine baseline lab results as listed below: CBCD: RBC 4.48 (L), hemoglobin 12.8 (L) ESR: 37 (H) CMP: Creatinine 2.00 (H), BUN 33 (H) estimated GFR 35 (L), glucose 152 (H) Hemoglobin A1c: 6.7% (H) CRP: 15.9 (H) Prealbumin: 20.0 Follow-up: Return to clinic in 1 week for re-evaluation. Return sooner or report to the emergency room should symptoms worsen, or new symptoms arise. Note: [employer] speech recognition general freight agent software was used to create portions of this document. Sound-alike and misspelled words, as well as other general freight agent errors may be contained in the documentation.
[2021-02-03 11:09] VITALS: BP 109/68; PULSE 70; TEMP 36.7; BMI 37.8
--- NOTE | 2021-02-03 11:26 | PN.PCM_ITS ---
History of Present Illness Date of Service: 02/03/21 Chief Complaint: Bilateral foot brady History of Wound: The patient is a pleasant 75-year-old white male who presents to the wound healing center today (11/04/2020) for an initial evaluation of bilateral medial foot brady. He has a past medical history significant for Alzheimer's disease, dilated cardiomyopathy, congestive heart failure, implanted pacemaker, CAD, hypertension, hyperlipidemia, and insulin-dependent type 2 diabetes. He reports that his brady occurred approximately 2 weeks ago. 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 The next day, he was back on his tractor performing the same type of work. In the following days, the developed blackening of the areas. He has been using silver dressings to his feet daily, and cleansing them with a chlorhexidine?type solution. He denies any pain in his feet. He denies any fever or chills. He denies any general malaise or poor appetite. He has mild redness surrounding the wounds of his bilateral feet. They do not feel hot to touch. He has not been on any antibiotics in the last several weeks. He does not typically use compression to his lower extremities. He denies frequent swelling of the lower extremities, but does report that in the past 2 weeks his distal feet have appeared slightly swollen. Progress of Wound: Patient has been compliant with Alysa dressing changes daily. His wounds have improved in size and appearance again this week. The patient denies fever, chills, general malaise, or poor appetite. The patient has not had increased redness, swelling, or purulent/malodorous drainage from affected area. Objective Data Objective Data Vital Signs: Vital Signs Temp Pulse Resp BP 98.1 F 70 20 H 109/68 02/03/21 11:09 02/03/21 11:09 01/27/21 10:33 02/03/21 11:09 Body Mass Index (BMI) 37.8 Charges/Coding Procedures Integumentary [id number]: [id number] Aminta subq tissue 20 sq cm/< Physical Exam Const alert, no apparent distress and healthy appearing General Appearance: cooperative, comfortable and well kempt Neck supple Resp normal respiratory effort Extremity normal capillary refill, no joint enlargement, no clubbing, cyanosis or edema and no pedal edema Skin Wounds: wounds noted no odor Wound Narrative: Ulcers of bilateral medial heels with small amounts of slough and devitalized tissue present. There is no noted tunneling, undermining, or probing to bone. Good granulation tissue is present. There is no periulcer erythema of either foot today. There is no warmth to the periulcer area. There is no tenderness to the periulcer area. Neuro moves all extremities Sensory Exam: extremities Sensory loss observed in both feet Psych mental status grossly normal, cooperative and affect normal Debridement Note Debridement Note Post-Debridement Measurements and Additional Note: Post-Debridement Measurements/Treatment WC - Nurse 1 - General Ulcer Assessment Start: 01/27/21 10:31 Freq: Status: Active Protocol: BERNIE Activity Type Activity Date Activity User E-Sign Co-Sign Detail Recorded Client Recorded Date Recorded By Document 01/27/21 10:33 DL [id number] 01/27/21 10:40 DL Document 02/03/21 11:09 AK Desktop 02/03/21 11:23 AK 01/27/21 02/03/21 10:33 11:09 - Today's Visit Information Type of service Follow-up Visit Follow-up Visit (Physician/MAINFRAME SOFTWARE DEVELOPER (Physician/MAINFRAME SOFTWARE DEVELOPER ) ) Arrival Mode Ambulatory Ambulatory Transfer Assistance None Patient Identification Verified (Name & Yes ) Patient Requires Transmission-Based No Precautions Height and Weight Body Mass Index (BMI) 37.8 37.8 BMI Classification Obese Obese Vital Signs Temperature (97.8 F-99.1 F) 97.3 F L 98.1 F Temperature Source Temporal Temporal Pulse Rate (60-100) 69 70 Pulse Location Monitor Monitor Respiratory Rate (12-18) 20 H Respiratory rate source Observation Blood Pressure (90/60-120/80) 95/48 L 109/68 Blood Pressure Mean (mm Hg) 63 81 Source Monitor History Since Last Visit- (Skip if this is Patient's initial visit) Have you changed medications since your No No last visit? Any new allergies or adverse reactions No No Had a fall/change in ADL's that may No No increase risk of falls Signs or symptoms of abuse and/or No No neglect since last visit Have you been in the hospital since your No No last visit? Has dressing in place as prescribed No Yes Has compression in place as prescribed No Yes Has offloadiing in place as prescribed Yes Yes Experienced any changes in pain level or No management Left Footwear Regular Shoe Regular Shoe Right Footwear Regular Shoe Regular Shoe WC - Nurse 1 - General Ulcer Measurement Start: 01/27/21 10:31 Freq: Status: Active Protocol: Activity Type Activity Date Activity User E-Sign Co-Sign Detail Recorded Client Recorded Date Recorded By Document 01/27/21 10:33 DL [id number] 01/27/21 10:40 DL Document 02/03/21 11:09 AK Desktop 02/03/21 11:23 AK 01/27/21 02/03/21 10:33 11:09 Wound Center Nurse 1 #2 L Med Heel -Combined with other wound No -Current Size (cm) - Length 0.9 1 -Current Size (cm) - Width 2.3 2.3 -Current Size (cm) - Depth 0.2 0.1 -Total Square Cm 2.07 2.3 -Photo Taken No -Undermining/Tunneling No -Circular Undermining No -Exudate Amt Small Medium -Exudate Type Serosanguineous -Wound Margin Distinct, Distinct, Outline Outline Attached Attached -Granulation Amt Large (67-100%) -Granulation Quality Red Red -Slough/Fibrin Yes -Necrosis Amt Small (1-33%) Large (67-100%) -Necrotic Tissue Type Adherent Slough Adherent Slough -Structure Exposed None/Limited to N/A Skin Breakdown -Texture (Vera-wound Skin Appearance) Scarring Assessed -Moisture (Vera-wound Skin Appearance) Dry/Scaly Assessed, Maceration -Color (Vera-wound Skin Appearance) Assessed No Abnormality, Assessed -Temperature (Vera-wound Skin No Abnormality No Abnormality Appearance) (Pt Warm) (Pt Warm) -Tenderness on Palpation (Vera-wound No No Skin Appearance) -Ulcer Cleansing Rinsed/ Rinsed/ Irrigated with Irrigated with Saline Saline -Foul Odor after Cleansing No -Anesthetic Used 4% Lidocaine 4% Lidocaine Solution Solution #1 R Med Heel -Current Size (cm) - Length 0.8 1 -Current Size (cm) - Width 1.3 1.2 -Current Size (cm) - Depth 2 0.1 -Total Square Cm 1.04 1.2 -Photo Taken No No -Tunneling No -Undermining/Tunneling No -Circular Undermining No -Exudate Amt Small Medium -Exudate Type Serosanguineous -Wound Margin Distinct, Distinct, Outline Outline Attached Attached -Granulation Quality Pale -Slough/Fibrin Yes -Necrosis Amt Small (1-33%) Large (67-100%) -Necrotic Tissue Type Eschar Adherent Slough -Structure Exposed N/A N/A -Texture (Vera-wound Skin Appearance) Scarring Assessed -Moisture (Vera-wound Skin Appearance) Dry/Scaly Assessed, Maceration -Color (Vera-wound Skin Appearance) No Abnormality Assessed -Temperature (Vera-wound Skin No Abnormality No Abnormality Appearance) (Pt Warm) (Pt Warm) -Tenderness on Palpation (Vera-wound No Yes Skin Appearance) -Ulcer Cleansing Wound Cleanser Rinsed/ Irrigated with Saline -Foul Odor after Cleansing No -Anesthetic Used 4% Lidocaine 4% Lidocaine Solution Solution Right Calf (cm) 37 Right Ankle (cm) 23 Left Calf (cm) 35 Left Ankle (cm) 22 WC - Nurse 2 - General Ulcer CM Notes Start: 01/27/21 10:31 Freq: Status: Active Protocol: Activity Type Activity Date Activity User E-Sign Co-Sign Detail Recorded Client Recorded Date Recorded By Document 01/27/21 13:54 PL [id number] 01/27/21 13:58 PL 01/27/21 13:54 Wound Center Nurse 2 #2 L Med Heel -Time 10:45 -Correct Patient Yes -Correct Side, Site, Position Yes -Correct Procedure Yes -Procedure Performed Yes -Type of Procedure Debridement -Clinical Debridement Subcutaneous -Tissue Removed Subcutaneous -Post Debridement (cm) - Length 1.1 -Post Debridement (cm) - Width 2.4 -Post Debridement (cm) - Depth 0.1 -Total Square (Post) (cm) 2.64 -Area of Debridement (cm) - Length 1.1 -Area of Debridement (cm) - Width 2.4 -Total Square (Area) (cm) 2.64 -Tunneling No -Undermining/Tunneling No -Circular Undermining No -Wound/Ulcer Outcome Not Healed -Ulcer Cleansing Rinsed/ Irrigated with Saline -Foul Odor after Cleansing No -Bioengineered Tissue No -Bleeding Controlled with Pressure -Treatment Response Procedure Tolerated Well -Debridement - Subq, 1st 20sq cm Yes #1 R Med Heel -Time 10:45 -Correct Patient Yes -Correct Side, Site, Position Yes -Correct Procedure Yes -Procedure Performed Yes -Type of Procedure Debridement -Clinical Debridement Subcutaneous -Tissue Removed Subcutaneous -Post Debridement (cm) - Length 1.0 -Post Debridement (cm) - Width 1.3 -Post Debridement (cm) - Depth 0.1 -Total Square (Post) (cm) 1.30 -Area of Debridement (cm) - Length 1.0 -Area of Debridement (cm) - Width 1.3 -Total Square (Area) (cm) 1.30 -Tunneling No -Undermining/Tunneling No -Circular Undermining No -Wound/Ulcer Outcome Not Healed -Ulcer Cleansing Rinsed/ Irrigated with Saline -Foul Odor after Cleansing No -Bioengineered Tissue No -Bleeding Controlled with Pressure -Treatment Response Procedure Tolerated Well -Debridement - Subq, 1st 20sq cm No WC - Nurse 3 - General Ulcer D/C NN Start: 01/27/21 10:31 Freq: Status: Active Protocol: Activity Type Activity Date Activity User E-Sign Co-Sign Detail Recorded Client Recorded Date Recorded By Document 01/27/21 13:54 PL [id number] 01/27/21 13:58 PL 01/27/21 13:54 Wound Care Nurse 3 #2 L Med Heel -Ulcer Cleansing Rinsed/ Irrigated with Saline -Foul Odor after Cleansing No -Primary Dressing Applied Promogran Alysa Matter -Primary Dressing Covered/Secured with Dry Gauze & Roll Gauze, Secured with Tape -Promogran Alysa Matter 1 #1 R Med Heel -Ulcer Cleansing Rinsed/ Irrigated with Saline -Foul Odor after Cleansing No -Other Dressing Alysa -Primary Dressing Covered/Secured with Dry Gauze & Roll Gauze, Secured with Tape WC - Visit Discharge Discharge Condition Stable Ambulatory Status Ambulatory Transportation Private Auto Clinical Summary of Care Provided Yes Wound debrided: right heel ulcer Laterality: Right Wound Grade/Stage: Driver 1 Type of Debridement: Excisional debridement Anesthesia Used: 5% Lidocaine Gel Depth: in the subcutaneous layer Percentage of wound debrided: 100 Instrument Used: 3mm curette Tissue Removed: Slough and devitalized tissue Severity: Fat Layer Exposed Amount of bleeding with debridement: Moderate Bleeding Controlled with: Pressure Patient tolerated procedure: Patient tolerated procedure well Additional Wound Wound debrided: Left heel ulcer Laterality: Left Wound Grade/Stage: Driver 1 Type of Debridement: Excisional debridement Anesthesia Used: 5% Lidocaine Gel Depth: in the subcutaneous layer Percentage of wound debrided: 100 Instrument Used: 5mm curette Tissue Removed: Slough and devitalized tissue Severity: Fat Layer Exposed Amount of bleeding with debridement: Moderate Bleeding Controlled with: Pressure Patient tolerated procedure: Patient tolerated procedure well Assessment/Plan Assessment/Plan (1) 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: CODE(S): E11.621 - Type 2 diabetes mellitus with foot ulcer; L97.512 - Non-pressure chronic ulcer of other part of right foot with fat layer exposed QUALIFIERS: Diabetic foot ulcer location: heel Diabetes mellitus type: type 2 Qualified Code(s): E11.621 - Type 2 diabetes mellitus with foot ulcer; L97.412 - Non-pressure chronic ulcer of right heel and midfoot with fat layer exposed (2) 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: CODE(S): E11.621 - Type 2 diabetes mellitus with foot ulcer; L97.522 - Non-pressure chronic ulcer of other part of left foot with fat layer exposed QUALIFIERS: Diabetic foot ulcer location: heel Diabetes mellitus type: type 2 Qualified Code(s): E11.621 - Type 2 diabetes mellitus with foot ulcer; L97.422 - Non-pressure chronic ulcer of left heel and midfoot with fat layer exposed (3) Type 2 diabetes mellitus with diabetic neuropathy, with long-term current use of insulin: CODE(S): E11.40 - Type 2 diabetes mellitus with diabetic neuropathy, unspecified; Z79.4 - long term acute care registered nurse (current) use of insulin (4) Chronic systolic (congestive) heart failure: CODE(S): I50.22 - Chronic systolic (congestive) heart failure (5) Essential (primary) hypertension: CODE(S): I10 - Essential (primary) hypertension PLAN: Debridement performed today in clinic as annotated above. Alysa applied. Given the significant bioburden of the patient's ulcers, an order for Puraply AM was submitted for insurance approval. Per case specialist, the patient is only eligible for Apligraf through his insurance. Discussed with patient and son the option of implementing Apligraf to promote wound healing; he does not wish to proceed with Apligraf at this time. At home wound-care instructions: Perform moistened Alysa dressing changes once daily or more frequently as needed due to contamination. Wash wounds daily with Dakin's solution, rinse and dry thoroughly before each dressing change. Compression: Continue double Tubigrip's daily. Off-loading: The patient was instructed to avoid pressure and friction on the affected areas. Reposition every 2 hours at minimum. Avoid prolonged standing and/or dangling of legs. When seated, feet should be elevated at chest level. Frequent ambulation is encouraged. Diet: Patient encouraged to increase protein intake while taking caution to avoid high carbohydrate and/or sugar intake. Labs/cultures/imaging: Patient has completed a course of doxycycline x10 days. He finished his courses of Levaquin and Flagyl as prescribed. Vascular studies on 11/30/20 revealed no evidence of arterial occlusive disease. Routine baseline lab results as listed below: CBCD: RBC 4.48 (L), hemoglobin 12.8 (L) ESR: 37 (H) CMP: Creatinine 2.00 (H), BUN 33 (H) estimated GFR 35 (L), glucose 152 (H) Hemoglobin A1c: 6.7% (H) CRP: 15.9 (H) Prealbumin: 20.0 Follow-up: Return to clinic in 1 week for re-evaluation. Return sooner or report to the emergency room should symptoms worsen, or new symptoms arise. Note: [employer] speech recognition stretching machine operator software was used to create po rtions of this document. Sound-alike and misspelled words, as well as other stretching machine operator errors may be contained in the documentation.
[2021-02-10 11:10] VITALS: BP 95/58; PULSE 73; RESP 18; TEMP 36.7; BMI 37.8
--- NOTE | 2021-02-10 13:40 | PN.PCM_ITS ---
History of Present Illness Date of Service: 02/10/21 Chief Complaint: Bilateral foot brady History of Wound: The patient is a pleasant 75-year-old white male who presents to the wound healing center today (11/04/2020) for an initial evaluation of bilateral medial foot brady. He has a past medical history significant for Alzheimer's disease, dilated cardiomyopathy, congestive heart failure, implanted pacemaker, CAD, hypertension, hyperlipidemia, and insulin-dependent type 2 diabetes. He reports that his brady occurred approximately 2 weeks ago. 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 The next day, he was back on his tractor performing the same type of work. In the following days, the developed blackening of the areas. He has been using silver dressings to his feet daily, and cleansing them with a chlorhexidine?type solution. He denies any pain in his feet. He denies any fever or chills. He denies any general malaise or poor appetite. He has mild redness surrounding the wounds of his bilateral feet. They do not feel hot to touch. He has not been on any antibiotics in the last several weeks. He does not typically use compression to his lower extremities. He denies frequent swelling of the lower extremities, but does report that in the past 2 weeks his distal feet have appeared slightly swollen. Progress of Wound: Patient has been compliant with Alysa dressing changes daily. His wounds have improved in size and appearance again this week. The patient denies fever, chills, general malaise, or poor appetite. The patient has not had increased redness, swelling, or purulent/malodorous drainage from affected area. Objective Data Objective Data Vital Signs: Vital Signs Temp Pulse Resp BP 98.1 F 73 18 95/58 L 02/10/21 11:10 02/10/21 11:10 02/10/21 11:10 02/10/21 11:10 Body Mass Index (BMI) 37.8 Charges/Coding Procedures Integumentary [id number]: [id number] Aminta subq tissue 20 sq cm/< Physical Exam Const alert, no apparent distress and healthy appearing General Appearance: cooperative, comfortable and well kempt Neck supple Resp normal respiratory effort Extremity normal capillary refill, no joint enlargement, no clubbing, cyanosis or edema and no pedal edema Skin Wounds: wounds noted no odor Wound Narrative: Ulcers of bilateral medial heels with small amounts of slough and devitalized tissue present. There is no noted tunneling, undermining, or probing to bone. Good granulation tissue is present. There is no periulcer erythema of either foot today. There is no warmth to the periulcer area. There is no tenderness to the periulcer area. Neuro moves all extremities Sensory Exam: extremities Sensory loss observed in both feet Psych mental status grossly normal, cooperative and affect normal Debridement Note Debridement Note Post-Debridement Measurements and Additional Note: Post-Debridement Measurements/Treatment - Nurse 1 - General Ulcer Assessment Start: 01/27/21 10:31 Freq: Status: Active Protocol: BERNIE Activity Type Activity Date Activity User E-Sign Co-Sign Detail Recorded Client Recorded Date Recorded By Document 01/27/21 10:33 DL [id number] 01/27/21 10:40 DL Document 02/03/21 11:09 AK Desktop 02/03/21 11:23 AK Document 02/10/21 11:10 DL [id number] 02/10/21 11:20 DL 01/27/21 02/03/21 02/10/21 10:33 11:09 11:10 - Today's Visit Information Type of service Follow-up Visit Follow-up Visit Follow-up Visit (Physician/SOFTWARE ADMINISTRATOR (Physician/SOFTWARE ADMINISTRATOR (Physician/SOFTWARE ADMINISTRATOR ) ) ) Arrival Mode Ambulatory Ambulatory Ambulatory Transfer Assistance None None Patient Identification Verified (Name & Yes Yes ) Patient Requires Transmission-Based No No Precautions Height and Weight Body Mass Index (BMI) 37.8 37.8 37.8 BMI Classification Obese Obese Obese Vital Signs Temperature (97.8 F-99.1 F) 97.3 F L 98.1 F 98.1 F Temperature Source Temporal Temporal Temporal Pulse Rate (60-100) 69 70 73 Pulse Location Monitor Monitor Monitor Respiratory Rate (12-18) 20 H 18 Respiratory rate source Observation Observation Blood Pressure (90/60-120/80) 95/48 L 109/68 95/58 L Blood Pressure Mean (mm Hg) 63 81 70 Source Monitor Monitor History Since Last Visit- (Skip if this is Patient's initial visit) Have you changed medications since your No No No last visit? Any new allergies or adverse reactions No No No Had a fall/change in ADL's that may No No No increase risk of falls Signs or symptoms of abuse and/or No No No neglect since last visit Have you been in the hospital since your No No last visit? Has dressing in place as prescribed No Yes Yes Has compression in place as prescribed No Yes Yes Has offloadiing in place as prescribed Yes Yes Yes Experienced any changes in pain level or No No management Left Footwear Regular Shoe Regular Shoe Right Footwear Regular Shoe Regular Shoe Pain Scale: 0-10 Numeric Is Patient Pain Free? Yes WC - Nurse 1 - General Ulcer Measurement Start: 01/27/21 10:31 Freq: Status: Active Protocol: Activity Type Activity Date Activity User E-Sign Co-Sign Detail Recorded Client Recorded Date Recorded By Document 01/27/21 10:33 DL [id number] 01/27/21 10:40 DL Document 02/03/21 11:09 AK Desktop 02/03/21 11:23 AK Document 02/10/21 11:10 DL [id number] 02/10/21 11:20 DL 01/27/21 02/03/21 02/10/21 10:33 11:09 11:10 Wound Center Nurse 1 #2 L Med Heel -Combined with other wound No -Current Size (cm) - Length 0.9 1 0.8 -Current Size (cm) - Width 2.3 2.3 1.8 -Current Size (cm) - Depth 0.2 0.1 0.2 -Total Square Cm 2.07 2.3 1.44 -Photo Taken No No -Undermining/Tunneling No -Circular Undermining No -Exudate Amt Small Medium Small -Exudate Type Serosanguineous Serosanguineous -Wound Margin Distinct, Distinct, Thickened Outline Outline Attached Attached -Granulation Amt Large (67-100%) Large (67-100%) -Granulation Quality Red Red Red -Slough/Fibrin Yes -Necrosis Amt Small (1-33%) Large (67-100%) Small (1-33%) -Necrotic Tissue Type Adherent Slough Adherent Slough Adherent Slough -Structure Exposed None/Limited to N/A N/A Skin Breakdown -Texture (Vera-wound Skin Appearance) Scarring Assessed Scarring -Moisture (Vera-wound Skin Appearance) Dry/Scaly Assessed, Maceration Maceration -Color (Vera-wound Skin Appearance) Assessed No Abnormality, No Abnormality Assessed -Temperature (Vera-wound Skin No Abnormality No Abnormality No Abnormality Appearance) (Pt Warm) (Pt Warm) (Pt Warm) -Tenderness on Palpation (Vera-wound No No No Skin Appearance) -Ulcer Cleansing Rinsed/ Rinsed/ Wound Cleanser Irrigated with Irrigated with Saline Saline -Foul Odor after Cleansing No No -Anesthetic Used 4% Lidocaine 4% Lidocaine 5% Lidocaine Solution Solution Gel #1 R Med Heel -Current Size (cm) - Length 0.8 1 0.4 -Current Size (cm) - Width 1.3 1.2 0.7 -Current Size (cm) - Depth 2 0.1 0.2 -Total Square Cm 1.04 1.2 0.28 -Photo Taken No No No -Tunneling No -Undermining/Tunneling No -Circular Undermining No -Exudate Amt Small Medium Small -Exudate Type Serosanguineous Serosanguineous -Wound Margin Distinct, Distinct, Thickened Outline Outline Attached Attached -Granulation Amt Small (1-33%) -Granulation Quality Pale [place] -Slough/Fibrin Yes -Necrosis Amt Small (1-33%) Large (67-100%) Small (1-33%) -Necrotic Tissue Type Eschar Adherent Slough Adherent Slough -Structure Exposed N/A N/A N/A -Texture (Vera-wound Skin Appearance) Scarring Assessed Scarring -Moisture (Vera-wound Skin Appearance) Dry/Scaly Assessed, No Abnormality Maceration -Color (Vera-wound Skin Appearance) No Abnormality Assessed No Abnormality -Temperature (Vera-wound Skin No Abnormality No Abnormality No Abnormality Appearance) (Pt Warm) (Pt Warm) (Pt Warm) -Tenderness on Palpation (Vera-wound No Yes No Skin Appearance) -Ulcer Cleansing Wound Cleanser Rinsed/ Rinsed/ Irrigated with Irrigated with Saline Saline -Foul Odor after Cleansing No No -Anesthetic Used 4% Lidocaine 4% Lidocaine 5% Lidocaine Solution Solution Gel Right Calf (cm) 37 38.5 Right Ankle (cm) 23 22.5 Left Calf (cm) 35 36 Left Ankle (cm) 22 21.2 WC - Nurse 2 - General Ulcer CM Notes Start: 01/27/21 10:31 Freq: Status: Active Protocol: Activity Type Activity Date Activity User E-Sign Co-Sign Detail Recorded Client Recorded Date Recorded By Document 01/27/21 13:54 PL [id number] 01/27/21 13:58 PL Document 02/03/21 12:18 PL [id number] 02/03/21 12:20 PL Document 02/10/21 13:33 PL [id number] 02/10/21 13:35 PL 01/27/21 02/03/21 02/10/21 13:54 12:18 13:33 Wound Center Nurse 2 #2 L Med Heel -Time 10:45 11:15 11:45 -Correct Patient Yes Yes Yes -Correct Side, Site, Position Yes Yes Yes -Correct Procedure Yes Yes Yes -Procedure Performed Yes Yes Yes -Type of Procedure Debridement Debridement Debridement -Clinical Debridement Subcutaneous Subcutaneous Subcutaneous -Tissue Removed Subcutaneous Subcutaneous Subcutaneous -Post Debridement (cm) - Length 1.1 1.0 0.8 -Post Debridement (cm) - Width 2.4 2.3 2.1 -Post Debridement (cm) - Depth 0.1 0.1 0.1 -Total Square (Post) (cm) 2.64 2.30 1.68 -Area of Debridement (cm) - Length 1.1 1.0 0.8 -Area of Debridement (cm) - Width 2.4 2.3 2.1 -Total Square (Area) (cm) 2.64 2.30 1.68 -Tunneling No No No -Undermining/Tunneling No No No -Circular Undermining No No No -Wound/Ulcer Outcome Not Healed Not Healed Not Healed -Ulcer Cleansing Rinsed/ Rinsed/ Rinsed/ Irrigated with Irrigated with Irrigated with Saline Saline Saline -Foul Odor after Cleansing No No No -Bioengineered Tissue No No No -Bleeding Controlled with Pressure Pressure -Treatment Response Procedure Procedure Tolerated Well Tolerated Well -Debridement - Subq, 1st 20sq cm Yes Yes Yes #1 R Med Heel -Time 10:45 11:15 11:45 -Correct Patient Yes Yes Yes -Correct Side, Site, Position Yes Yes Yes -Correct Procedure Yes Yes Yes -Procedure Performed Yes Yes Yes -Type of Procedure Debridement Debridement Debridement -Clinical Debridement Subcutaneous Subcutaneous Subcutaneous -Tissue Removed Subcutaneous Subcutaneous Subcutaneous -Post Debridement (cm) - Length 1.0 0.9 0.9 -Post Debridement (cm) - Width 1.3 1.3 0.7 -Post Debridement (cm) - Depth 0.1 0.1 0.1 -Total Square (Post) (cm) 1.30 1.17 0.63 -Area of Debridement (cm) - Length 1.0 0.9 0.9 -Area of Debridement (cm) - Width 1.3 1.3 0.7 -Total Square (Area) (cm) 1.30 1.17 0.63 -Tunneling No No No -Undermining/Tunneling No No No -Circular Undermining No No No -Wound/Ulcer Outcome Not Healed Not Healed Not Healed -Ulcer Cleansing Rinsed/ Rinsed/ Rinsed/ Irrigated with Irrigated with Irrigated with Saline Saline Saline -Foul Odor after Cleansing No No No -Bioengineered Tissue No No No -Bleeding Controlled with Pressure Pressure Pressure -Treatment Response Procedure Procedure Procedure Tolerated Well Tolerated Well Tolerated Well -Debridement - Subq, 1st 20sq cm No No No WC - Nurse 3 - General Ulcer D/C NN Start: 01/27/21 10:31 Freq: Status: Active Protocol: Activity Type Activity Date Activity User E-Sign Co-Sign Detail Recorded Client Recorded Date Recorded By Document 01/27/21 13:54 PL [id number] 01/27/21 13:58 PL Document 02/03/21 12:04 AK [id number] 02/03/21 12:06 AK Document 02/10/21 12:48 KR [id number] 02/10/21 12:49 KR 01/27/21 02/03/21 02/10/21 13:54 12:04 12:48 Pain Scale: 0-10 Numeric Is Patient Pain Free? Yes Wound Care Nurse 3 #2 L Med Heel -Ulcer Cleansing Rinsed/ Rinsed/ Irrigated with Irrigated with Saline Saline -Foul Odor after Cleansing No No -Primary Dressing Applied Promogran Promogran Promogran Alysa Matter Alysa Matter -Primary Dressing Covered/Secured with Dry Gauze & Dry Gauze & Dry Gauze,Dry Roll Gauze, Roll Gauze, Gauze & Roll Secured with Secured with Gauze,Secured Tape Tape with Tape -Promogran 0 -Promogran Alysa Matter 1 1 #1 R Med Heel -Ulcer Cleansing Rinsed/ Rinsed/ Irrigated with Irrigated with Saline Saline -Foul Odor after Cleansing No No -Negative Pressure Wound Therapy N/A -Primary Dressing Applied Promogran -Other Dressing Alysa -Primary Dressing Covered/Secured with Dry Gauze & Dry Gauze & Dry Gauze,Dry Roll Gauze, Roll Gauze, Gauze & Roll Secured with Secured with Gauze,Secured Tape Tape with Tape -Promogran 0 Right -Lotion applied to leg before No compression wrap -Size of Tubigrip Used Size D -Size D ($) 0 Left -Lotion applied to leg before No compression wrap -Size of Tubigrip Used Size D -Size D ($) 0 WC - Visit Discharge Discharge Condition Stable Stable Stable Ambulatory Status Ambulatory Ambulatory Ambulatory Transportation Private Auto Private Auto Private Auto Accompanied by self Medication Reconcilliation completed & No provided to patient/care provider Clinical Summary of Care Provided Yes Yes Wound debrided: Right heel ulcer Laterality: Right Type of Debridement: Excisional debridement Anesthesia Used: 5% Lidocaine Gel Depth: in the subcutaneous layer Percentage of wound debrided: 100 Instrument Used: 3mm curette Tissue Removed: Slough and devitalized tissue Severity: Fat Layer Exposed Amount of bleeding with debridement: Mild Bleeding Controlled with: Pressure Patient tolerated procedure: Patient tolerated procedure well Additional Wound Wound debrided: Left heel ulcer Laterality: Left Type of Debridement: Excisional debridement Anesthesia Used: 5% Lidocaine Gel Depth: in the subcutaneous layer Percentage of wound debrided: 100 Instrument Used: 5mm curette Tissue Removed: Slough and devitalized tissue Severity: Fat Layer Exposed Amount of bleeding with debridement: Mild Bleeding Controlled with: Pressure Patient tolerated procedure: Patient tolerated procedure well Assessment/Plan Assessment/Plan (1) 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: CODE(S): E11.621 - Type 2 diabetes mellitus with foot ulcer; L97.512 - Non-pressure chronic ulcer of other part of right foot with fat layer exposed QUALIFIERS: Diabetic foot ulcer location: heel Diabetes mellitus type: type 2 Qualified Code(s): E11.621 - Type 2 diabetes mellitus with foot ulcer; L97.412 - Non-pressure chronic ulcer of right heel and midfoot with fat layer exposed (2) 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: CODE(S): E11.621 - Type 2 diabetes mellitus with foot ulcer; L97.522 - Non-pressure chronic ulcer of other part of left foot with fat layer exposed QUALIFIERS: Diabetic foot ulcer location: heel Diabetes mellitus type: type 2 Qualified Code(s): E11.621 - Type 2 diabetes mellitus with foot ulcer; L97.422 - Non-pressure chronic ulcer of left heel and midfoot with fat layer exposed (3) Type 2 diabetes mellitus with diabetic neuropathy, with long-term current use of insulin: CODE(S): E11.40 - Type 2 diabetes mellitus with diabetic neuropathy, unspecified; Z79.4 - roasterman (current) use of insulin (4) Chronic systolic (congestive) heart failure: CODE(S): I50.22 - Chronic systolic (congestive) heart failure (5) Essential (primary) hypertension: CODE(S): I10 - Essential (primary) hypertension PLAN: Debridement performed today in clinic as annotated above. Alysa applied. Given the significant bioburden of the patient's ulcers, an order for Puraply AM was submitted for insurance approval. Per returned case inspector, the patient is only eligible for Apligraf through his insurance. Discussed with patient and son the option of implementing Apligraf to promote wound healing; he does not wish to proceed with Apligraf at this time. At home wound-care instructions: Perform moistened Alysa dressing changes once daily or more frequently as needed due to contamination. Wash wounds daily with Dakin's solution, rinse and dry thoroughly before each dressing change. Compression: Continue double Tubigrip's daily. Off-loading: The patient was instructed to avoid pressure and friction on the affected areas. Reposition every 2 hours at minimum. Avoid prolonged standing and/or dangling of legs. When seated, feet should be elevated at chest level. Frequent ambulation is encouraged. Diet: Patient encouraged to increase protein intake while taking caution to avoid high carbohydrate and/or sugar intake. Labs/cultures/imaging: Patient has completed a course of doxycycline x10 days. He finished his courses of Levaquin and Flagyl as prescribed. Vascular studies on 11/30/20 revealed no evidence of arterial occlusive disease. Routine baseline lab results as listed below: CBCD: RBC 4.48 (L), hemoglobin 12.8 (L) ESR: 37 (H) CMP: Creatinine 2.00 (H), BUN 33 (H) estimated GFR 35 (L), glucose 152 (H) Hemoglobin A1c: 6.7% (H) CRP: 15.9 (H) Prealbumin: 20.0 Follow-up: Return to clinic in 1 week for re-evaluation. Return sooner or report to the emergency room should symptoms worsen, or new symptoms arise. Note: [employer] speech recognition research recruiter software was used to create portions of this document. Sound-alike and misspelled words, as well as other research recruiter errors may be contained in the documentation.
[2021-02-17 11:15] VITALS: BP 113/72; PULSE 76; TEMP 36.1; BMI 37.8
--- NOTE | 2021-02-17 13:32 | PCM.WC.PN ---
History of Present Illness Date of Service: 02/17/21 Chief Complaint: Bilateral foot brady History of Wound: The patient is a pleasant 75-year-old white male who presents to the wound healing center today (11/04/2020) for an initial evaluation of bilateral medial foot brady. He has a past medical history significant for Alzheimer's disease, dilated cardiomyopathy, congestive heart failure, implanted pacemaker, CAD, hypertension, hyperlipidemia, and insulin-dependent type 2 diabetes. He reports that his brady occurred approximately 2 weeks ago. 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 The next day, he was back on his tractor performing the same type of work. In the following days, the developed blackening of the areas. He has been using silver dressings to his feet daily, and cleansing them with a chlorhexidine?type solution. He denies any pain in his feet. He denies any fever or chills. He denies any general malaise or poor appetite. He has mild redness surrounding the wounds of his bilateral feet. They do not feel hot to touch. He has not been on any antibiotics in the last several weeks. He does not typically use compression to his lower extremities. He denies frequent swelling of the lower extremities, but does report that in the past 2 weeks his distal feet have appeared slightly swollen. Progress of Wound: Patient has been compliant with Alysa dressing changes daily. His wounds have improved in size and appearance again this week. The patient denies fever, chills, general malaise, or poor appetite. The patient has not had increased redness, swelling, or purulent/malodorous drainage from affected area. Objective Data Objective Data Vital Signs: Vital Signs Temp Pulse Resp BP 97.0 F L 76 18 113/72 02/17/21 11:15 02/17/21 11:15 02/10/21 11:10 02/17/21 11:15 Body Mass Index (BMI) 37.8 Charges/Coding Procedures Integumentary [id number]: [id number] Aminta subq tissue 20 sq cm/< Physical Exam Const alert, no apparent distress and healthy appearing General Appearance: cooperative, comfortable and well kempt Neck supple Resp normal respiratory effort Extremity normal capillary refill, no joint enlargement, no clubbing, cyanosis or edema and no pedal edema Skin Wounds: wounds noted no odor Wound Narrative: Ulcers of bilateral medial heels with small to moderate amounts of slough and devitalized tissue present. There is no noted tunneling, undermining, or probing to bone. Good granulation tissue is present. There is no periulcer erythema of either foot today. There is no warmth to the periulcer area. There is no tenderness to the periulcer area. Neuro moves all extremities Sensory Exam: extremities Sensory loss observed in both feet Psych mental status grossly normal, cooperative and affect normal Debridement Note Debridement Note Post-Debridement Measurements and Additional Note: Post-Debridement Measurements/Treatment - Nurse 1 - General Ulcer Assessment Start: 01/27/21 10:31 Freq: Status: Active Protocol: BERNIE Activity Type Activity Date Activity User E-Sign Co-Sign Detail Recorded Client Recorded Date Recorded By Document 01/27/21 10:33 DL [id number] 01/27/21 10:40 DL Document 02/03/21 11:09 AK Desktop 02/03/21 11:23 AK Document 02/10/21 11:10 DL [id number] 02/10/21 11:20 DL Document 02/17/21 11:15 KR [id number] 02/17/21 11:18 KR 01/27/21 02/03/21 02/10/21 10:33 11:09 11:10 - Today's Visit Information Type of service Follow-up Visit Follow-up Visit Follow-up Visit (Physician/[employer] (Physician/[employer] (Physician/[employer] ) ) ) Arrival Mode Ambulatory Ambulatory Ambulatory Transfer Assistance None None Patient Identification Verified (Name & Yes Yes ) Patient Requires Transmission-Based No No Precautions Height and Weight Body Mass Index (BMI) 37.8 37.8 37.8 BMI Classification Obese Obese Obese Vital Signs Temperature (97.8 F-99.1 F) 97.3 F L 98.1 F 98.1 F Temperature Source Temporal Temporal Temporal Pulse Rate (60-100) 69 70 73 Pulse Location Monitor Monitor Monitor Respiratory Rate (12-18) 20 H 18 Respiratory rate source Observation Observation Blood Pressure (90/60-120/80) 95/48 L 109/68 95/58 L Blood Pressure Mean (mm Hg) 63 81 70 Source Monitor Monitor Position Blood Pressure Location History Since Last Visit- (Skip if this is Patient's initial visit) Have you changed medications since your No No No last visit? Any new allergies or adverse reactions No No No Had a fall/change in ADL's that may No No No increase risk of falls Signs or symptoms of abuse and/or No No No neglect since last visit Have you been in the hospital since your No No last visit? Has dressing in place as prescribed No Yes Yes Has compression in place as prescribed No Yes Yes Has offloadiing in place as prescribed Yes Yes Yes Experienced any changes in pain level or No No management Left Footwear Regular Shoe Regular Shoe Right Footwear Regular Shoe Regular Shoe Pain Scale: 0-10 Numeric Is Patient Pain Free? Yes 02/17/21 11:15 WC - Today's Visit Information Type of service Follow-up Visit (Physician/[employer] ) Arrival Mode Ambulatory Transfer Assistance Patient Identification Verified (Name & Yes ) Patient Requires Transmission-Based Precautions Height and Weight Body Mass Index (BMI) 37.8 BMI Classification Obese Vital Signs Temperature (97.8 F-99.1 F) 97.0 F L Temperature Source Temporal Pulse Rate (60-100) 76 Pulse Location Monitor Respiratory Rate (12-18) Respiratory rate source Blood Pressure (90/60-120/80) 113/72 Blood Pressure Mean (mm Hg) 85 Source Monitor Position Sitting Blood Pressure Location Left Arm History Since Last Visit- (Skip if this is Patient's initial visit) Have you changed medications since your No last visit? Any new allergies or adverse reactions No Had a fall/change in ADL's that may No increase risk of falls Signs or symptoms of abuse and/or No neglect since last visit Have you been in the hospital since your No last visit? Has dressing in place as prescribed Yes Has compression in place as prescribed Yes Has offloadiing in place as prescribed Experienced any changes in pain level or No management Left Footwear Regular Shoe Right Footwear Regular Shoe Pain Scale: 0-10 Numeric Is Patient Pain Free? Yes - Nurse 1 - General Ulcer Measurement Start: 01/27/21 10:31 Freq: Status: Active Protocol: Activity Type Activity Date Activity User E-Sign Co-Sign Detail Recorded Client Recorded Date Recorded By Document 01/27/21 10:33 DL [id number] 01/27/21 10:40 DL Document 02/03/21 11:09 AK Desktop 02/03/21 11:23 AK Document 02/10/21 11:10 DL [id number] 02/10/21 11:20 DL Document 02/17/21 11:15 KR [id number] 02/17/21 11:18 KR 01/27/21 02/03/21 02/10/21 10:33 11:09 11:10 Wound Center Nurse 1 #2 L Med Heel -Combined with other wound No -Current Size (cm) - Length 0.9 1 0.8 -Current Size (cm) - Width 2.3 2.3 1.8 -Current Size (cm) - Depth 0.2 0.1 0.2 -Total Square Cm 2.07 2.3 1.44 -Photo Taken No No -Undermining/Tunneling No -Circular Undermining No -Exudate Amt Small Medium Small -Exudate Type Serosanguineous Serosanguineous -Wound Margin Distinct, Distinct, Thickened Outline Outline Attached Attached -Granulation Amt Large (67-100%) Large (67-100%) -Granulation Quality Red Red Red -Slough/Fibrin Yes -Necrosis Amt Small (1-33%) Large (67-100%) Small (1-33%) -Necrotic Tissue Type Adherent Slough Adherent Slough Adherent Slough -Structure Exposed None/Limited to N/A N/A Skin Breakdown -Texture (Vera-wound Skin Appearance) Scarring Assessed Scarring -Moisture (Vera-wound Skin Appearance) Dry/Scaly Assessed, Maceration Maceration -Color (Vera-wound Skin Appearance) Assessed No Abnormality, No Abnormality Assessed -Temperature (Vera-wound Skin No Abnormality No Abnormality No Abnormality Appearance) (Pt Warm) (Pt Warm) (Pt Warm) -Tenderness on Palpation (Vera-wound No No No Skin Appearance) -Ulcer Cleansing Rinsed/ Rinsed/ Wound Cleanser Irrigated with Irrigated with Saline Saline -Foul Odor after Cleansing No No -Anesthetic Used 4% Lidocaine 4% Lidocaine 5% Lidocaine Solution Solution Gel #1 R Med Heel -Current Size (cm) - Length 0.8 1 0.4 -Current Size (cm) - Width 1.3 1.2 0.7 -Current Size (cm) - Depth 2 0.1 0.2 -Total Square Cm 1.04 1.2 0.28 -Photo Taken No No No -Tunneling No -Undermining/Tunneling No -Circular Undermining No -Exudate Amt Small Medium Small -Exudate Type Serosanguineous Serosanguineous -Wound Margin Distinct, Distinct, Thickened Outline Outline Attached Attached -Granulation Amt Small (1-33%) -Granulation Quality Pale [place] -Slough/Fibrin Yes -Necrosis Amt Small (1-33%) Large (67-100%) Small (1-33%) -Necrotic Tissue Type Eschar Adherent Slough Adherent Slough -Structure Exposed N/A N/A N/A -Texture (Vera-wound Skin Appearance) Scarring Assessed Scarring -Moisture (Vera-wound Skin Appearance) Dry/Scaly Assessed, No Abnormality Maceration -Color (Vera-wound Skin Appearance) No Abnormality Assessed No Abnormality -Temperature (Vera-wound Skin No Abnormality No Abnormality No Abnormality Appearance) (Pt Warm) (Pt Warm) (Pt Warm) -Tenderness on Palpation (Vera-wound No Yes No Skin Appearance) -Ulcer Cleansing Wound Cleanser Rinsed/ Rinsed/ Irrigated with Irrigated with Saline Saline -Foul Odor after Cleansing No No -Anesthetic Used 4% Lidocaine 4% Lidocaine 5% Lidocaine Solution Solution Gel Right Calf (cm) 37 38.5 Right Ankle (cm) 23 22.5 Left Calf (cm) 35 36 Left Ankle (cm) 22 21.2 02/17/21 11:15 Wound Center Nurse 1 #2 L Med Heel -Combined with other wound -Current Size (cm) - Length 0.5 -Current Size (cm) - Width 1.5 -Current Size (cm) - Depth 0.2 -Total Square Cm 0.75 -Photo Taken -Undermining/Tunneling -Circular Undermining -Exudate Amt Small -Exudate Type Serosanguineous -Wound Margin Distinct, Outline Attached -Granulation Amt Small (1-33%) -Granulation Quality Red -Slough/Fibrin -Necrosis Amt -Necrotic Tissue Type -Structure Exposed -Texture (Vera-wound Skin Appearance) Assessed, Scarring -Moisture (Vera-wound Skin Appearance) No Abnormality, Dry/Scaly -Color (Vera-wound Skin Appearance) No Abnormality, Assessed -Temperature (Vera-wound Skin No Abnormality Appearance) (Pt Warm) -Tenderness on Palpation (Vera-wound No Skin Appearance) -Ulcer Cleansing Rinsed/ Irrigated with Saline -Foul Odor after Cleansing No -Anesthetic Used 5% Lidocaine Gel #1 R Med Heel -Current Size (cm) - Length 0.5 -Current Size (cm) - Width 1.2 -Current Size (cm) - Depth 0.2 -Total Square Cm 0.60 -Photo Taken -Tunneling -Undermining/Tunneling -Circular Undermining -Exudate Amt Small -Exudate Type Serosanguineous -Wound Margin Distinct, Outline Attached -Granulation Amt Small (1-33%) -Granulation Quality [place] -Slough/Fibrin -Necrosis Amt Small (1-33%) -Necrotic Tissue Type Adherent Slough -Structure Exposed -Texture (Vera-wound Skin Appearance) Assessed, Scarring -Moisture (Vera-wound Skin Appearance) Assessed,Dry/ Scaly -Color (Vera-wound Skin Appearance) No Abnormality, Assessed -Temperature (Vera-wound Skin No Abnormality Appearance) (Pt Warm) -Tenderness on Palpation (Vera-wound No Skin Appearance) -Ulcer Cleansing Rinsed/ Irrigated with Saline -Foul Odor after Cleansing No -Anesthetic Used 5% Lidocaine Gel Right Calf (cm) 38.5 Right Ankle (cm) 23 Left Calf (cm) 35 Left Ankle (cm) 22 WC - Nurse 2 - General Ulcer CM Notes Start: 01/27/21 10:31 Freq: Status: Active Protocol: Activity Type Activity Date Activity User E-Sign Co-Sign Detail Recorded Client Recorded Date Recorded By Document 01/27/21 13:54 PL [id number] 01/27/21 13:58 PL Document 02/03/21 12:18 PL [id number] 02/03/21 12:20 PL Document 02/10/21 13:33 PL [id number] 02/10/21 13:35 PL Document 02/17/21 12:30 PL [id number] 02/17/21 12:41 PL 01/27/21 02/03/21 02/10/21 13:54 12:18 13:33 Wound Center Nurse 2 #2 L Med Heel -Time 10:45 11:15 11:45 -Correct Patient Yes Yes Yes -Correct Side, Site, Position Yes Yes Yes -Correct Procedure Yes Yes Yes -Procedure Performed Yes Yes Yes -Type of Procedure Debridement Debridement Debridement -Clinical Debridement Subcutaneous Subcutaneous Subcutaneous -Tissue Removed Subcutaneous Subcutaneous Subcutaneous -Post Debridement (cm) - Length 1.1 1.0 0.8 -Post Debridement (cm) - Width 2.4 2.3 2.1 -Post Debridement (cm) - Depth 0.1 0.1 0.1 -Total Square (Post) (cm) 2.64 2.30 1.68 -Area of Debridement (cm) - Length 1.1 1.0 0.8 -Area of Debridement (cm) - Width 2.4 2.3 2.1 -Total Square (Area) (cm) 2.64 2.30 1.68 -Tunneling No No No -Undermining/Tunneling No No No -Circular Undermining No No No -Wound/Ulcer Outcome Not Healed Not Healed Not Healed -Ulcer Cleansing Rinsed/ Rinsed/ Rinsed/ Irrigated with Irrigated with Irrigated with Saline Saline Saline -Foul Odor after Cleansing No No No -Bioengineered Tissue No No No -Bleeding Controlled with Pressure Pressure -Treatment Response Procedure Procedure Tolerated Well Tolerated Well -Debridement - Subq, 1st 20sq cm Yes Yes Yes #1 R Med Heel -Time 10:45 11:15 11:45 -Correct Patient Yes Yes Yes -Correct Side, Site, Position Yes Yes Yes -Correct Procedure Yes Yes Yes -Procedure Performed Yes Yes Yes -Type of Procedure Debridement Debridement Debridement -Clinical Debridement Subcutaneous Subcutaneous Subcutaneous -Tissue Removed Subcutaneous Subcutaneous Subcutaneous -Post Debridement (cm) - Length 1.0 0.9 0.9 -Post Debridement (cm) - Width 1.3 1.3 0.7 -Post Debridement (cm) - Depth 0.1 0.1 0.1 -Total Square (Post) (cm) 1.30 1.17 0.63 -Area of Debridement (cm) - Length 1.0 0.9 0.9 -Area of Debridement (cm) - Width 1.3 1.3 0.7 -Total Square (Area) (cm) 1.30 1.17 0.63 -Tunneling No No No -Undermining/Tunneling No No No -Circular Undermining No No No -Wound/Ulcer Outcome Not Healed Not Healed Not Healed -Ulcer Cleansing Rinsed/ Rinsed/ Rinsed/ Irrigated with Irrigated with Irrigated with Saline Saline Saline -Foul Odor after Cleansing No No No -Bioengineered Tissue No No No -Bleeding Controlled with Pressure Pressure Pressure -Treatment Response Procedure Procedure Procedure Tolerated Well Tolerated Well Tolerated Well -Debridement - Subq, 1st 20sq cm No No No 02/17/21 12:30 Wound Center Nurse 2 #2 L Med Heel -Time 11:23 -Correct Patient Yes -Correct Side, Site, Position Yes -Correct Procedure Yes -Procedure Performed Yes -Type of Procedure Debridement -Clinical Debridement Subcutaneous -Tissue Removed Subcutaneous -Post Debridement (cm) - Length 0.8 -Post Debridement (cm) - Width 1.9 -Post Debridement (cm) - Depth 0.1 -Total Square (Post) (cm) 1.52 -Area of Debridement (cm) - Length 0.8 -Area of Debridement (cm) - Width 1.9 -Total Square (Area) (cm) 1.52 -Tunneling No -Undermining/Tunneling No -Circular Undermining No -Wound/Ulcer Outcome Not Healed -Ulcer Cleansing Rinsed/ Irrigated with Saline -Foul Odor after Cleansing No -Bioengineered Tissue No -Bleeding Controlled with Pressure -Treatment Response Procedure Tolerated Well -Debridement - Subq, 20sq cm Yes #1 R Med Heel -Time 11:23 -Correct Patient Yes -Correct Side, Site, Position Yes -Correct Procedure Yes -Procedure Performed Yes -Type of Procedure Debridement -Clinical Debridement Subcutaneous -Tissue Removed Subcutaneous -Post Debridement (cm) - Length 0.6 -Post Debridement (cm) - Width 0.3 -Post Debridement (cm) - Depth 0.1 -Total Square (Post) (cm) 0.18 -Area of Debridement (cm) - Length 0.6 -Area of Debridement (cm) - Width 0.3 -Total Square (Area) (cm) 0.18 -Tunneling No -Undermining/Tunneling No -Circular Undermining No -Wound/Ulcer Outcome Not Healed -Ulcer Cleansing Rinsed/ Irrigated with Saline -Foul Odor after Cleansing No -Bioengineered Tissue No -Bleeding Controlled with -Treatment Response -Debridement - Subq, 20sq cm No WC - Nurse 3 - General Ulcer D/C NN Start: 01/27/21 10:31 Freq: Status: Active Protocol: Activity Type Activity Date Activity User E-Sign Co-Sign Detail Recorded Client Recorded Date Recorded By Document 01/27/21 13:54 PL [id number] 01/27/21 13:58 PL Document 02/03/21 12:04 AK [id number] 02/03/21 12:06 AK Document 02/10/21 12:48 KR [id number] 02/10/21 12:49 KR Document 02/17/21 11:37 KR [id number] 02/17/21 11:39 KR 01/27/21 02/03/21 02/10/21 13:54 12:04 12:48 Pain Scale: 0-10 Numeric Is Patient Pain Free? Yes Wound Care Nurse 3 #2 L Med Heel -Ulcer Cleansing Rinsed/ Rinsed/ Irrigated with Irrigated with Saline Saline -Foul Odor after Cleansing No No -Primary Dressing Applied Promogran Promogran Promogran Alysa Matter Alysa Matter -Primary Dressing Covered/Secured with Dry Gauze & Dry Gauze & Dry Gauze,Dry Roll Gauze, Roll Gauze, Gauze & Roll Secured with Secured with Gauze,Secured Tape Tape with Tape -Promogran 0 -Promogran Alysa Matter 1 1 #1 R Med Heel -Ulcer Cleansing Rinsed/ Rinsed/ Irrigated with Irrigated with Saline Saline -Foul Odor after Cleansing No No -Negative Pressure Wound Therapy N/A -Primary Dressing Applied Promogran -Other Dressing Alysa -Primary Dressing Covered/Secured with Dry Gauze & Dry Gauze & Dry Gauze,Dry Roll Gauze, Roll Gauze, Gauze & Roll Secured with Secured with Gauze,Secured Tape Tape with Tape -Promogran 0 Right -Lotion applied to leg before No compression wrap -Size of Tubigrip Used Size D -Size D ($) 0 Left -Lotion applied to leg before No compression wrap -Size of Tubigrip Used Size D -Size D ($) 0 WC - Visit Discharge Discharge Condition Stable Stable Stable Ambulatory Status Ambulatory Ambulatory Ambulatory Transportation Private Auto Private Auto Private Auto Accompanied by self Medication Reconcilliation completed & No provided to patient/care provider Clinical Summary of Care Provided Yes Yes 02/17/21 11:37 Pain Scale: 0-10 Numeric Is Patient Pain Free? Yes Wound Care Nurse 3 #2 L Med Heel -Ulcer Cleansing -Foul Odor after Cleansing -Primary Dressing Applied Promogran Alysa Matter -Primary Dressing Covered/Secured with Dry Gauze, Secured with Tape -Promogran -Promogran Alysa Matter 1 #1 R Med Heel -Ulcer Cleansing -Foul Odor after Cleansing -Negative Pressure Wound Therapy -Primary Dressing Applied -Other Dressing -Primary Dressing Covered/Secured with -Promogran Right -Lotion applied to leg before compression wrap -Size of Tubigrip Used -Size D ($) Left -Lotion applied to leg before compression wrap -Size of Tubigrip Used -Size D ($) WC - Visit Discharge Discharge Condition Stable Ambulatory Status Ambulatory Transportation Private Auto Accompanied by Medication Reconcilliation completed & provided to patient/care provider Clinical Summary of Care Provided Wound debrided: Left heel ulcer Laterality: Left Wound Grade/Stage: 2 Type of Debridement: Excisional debridement Anesthesia Used: 5% Lidocaine Gel Depth: in the subcutaneous layer Percentage of wound debrided: 100 Instrument Used: 3mm curette Tissue Removed: Slough and devitalized tissue Severity: Fat Layer Exposed Amount of bleeding with debridement: Mild Bleeding Controlled with: Pressure Patient tolerated procedure: Patient tolerated procedure well Additional Wound Wound debrided: Right heel ulcer Laterality: Right Wound Grade/Stage: Driver 2 Type of Debridement: Excisional debridement Anesthesia Used: 5% Lidocaine Gel Depth: in the subcutaneous layer Percentage of wound debrided: 100 Instrument Used: 3mm curette Tissue Removed: Slough and devitalized tissue Severity: Fat Layer Exposed Amount of bleeding with debridement: Moderate Bleeding Controlled with: Pressure Patient tolerated procedure: Patient tolerated procedure well Assessment/Plan Assessment/Plan (1) 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: CODE(S): E11.621 - Type 2 diabetes mellitus with foot ulcer; L97.512 - Non-pressure chronic ulcer of other part of right foot with fat layer exposed QUALIFIERS: Diabetic foot ulcer location: heel Diabetes mellitus type: type 2 Qualified Code(s): E11.621 - Type 2 diabetes mellitus with foot ulcer; L97.412 - Non-pressure chronic ulcer of right heel and midfoot with fat layer exposed (2) 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: CODE(S): E11.621 - Type 2 diabetes mellitus with foot ulcer; L97.522 - Non-pressure chronic ulcer of other part of left foot with fat layer exposed QUALIFIERS: Diabetic foot ulcer location: heel Diabetes mellitus type: type 2 Qualified Code(s): E11.621 - Type 2 diabetes mellitus with foot ulcer; L97.422 - Non-pressure chronic ulcer of left heel and midfoot with fat layer exposed (3) Type 2 diabetes mellitus with diabetic neuropathy, with long-term current use of insulin: CODE(S): E11.40 - Type 2 diabetes mellitus with diabetic neuropathy, unspecified; Z79.4 - predatory animal exterminator (current) use of insulin (4) Chronic systolic (congestive) heart failure: CODE(S): I50.22 - Chronic systolic (congestive) heart failure (5) Essential (primary) hypertension: CODE(S): I10 - Essential (primary) hypertension PLAN: Debridement performed today in clinic as annotated above. Alysa applied. Given the significant bioburden of the patient's ulcers, an order for Puraply AM was submitted for insurance approval. Per caser up, the patient is only eligible for Apligraf through his insurance. Discussed with patient and son the option of implementing Apligraf to promote wound healing; he does not wish to proceed with Apligraf at this time. At home wound-care instructions: Perform moistened Alysa dressing changes once daily or more frequently as needed due to contamination. Wash wounds daily with Dakin's solution, rinse and dry thoroughly before each dressing change. Compression: Continue double Tubigrip's daily. Off-loading: The patient was instructed to avoid pressure and friction on the affected areas. Reposition every 2 hours at minimum. Avoid prolonged standing and/or dangling of legs. When seated, feet should be elevated at chest level. Frequent ambulation is encouraged. Diet: Patient encouraged to increase protein intake while taking caution to avoid high carbohydrate and/or sugar intake. Labs/cultures/imaging: Patient has completed a course of doxycycline x10 days. He finished his courses of Levaquin and Flagyl as prescribed. Vascular studies on 11/30/20 revealed no evidence of arterial occlusive disease. Routine baseline lab results as listed below: CBCD: RBC 4.48 (L), hemoglobin 12.8 (L) ESR: 37 (H) CMP: Creatinine 2.00 (H), BUN 33 (H) estimated GFR 35 (L), glucose 152 (H) Hemoglobin A1c: 6.7% (H) CRP: 15.9 (H) Prealbumin: 20.0 Follow-up: Return to clinic in 1 week for re-evaluation. Return sooner or report to the emergency room should symptoms worsen, or new symptoms arise. Note: Spontaneously speech recognition software release engineer software was used to create portions of this document. Sound-alike and misspelled words, as well as other software release engineer errors may be contained in the documentation.
== END 2021-02-21 23:59 ==
LOC: WC 11:00
PROVIDERS: PCP Family Medicine; Referring Provider Nurse Practitioner Family; Visit Provider Nurse Practitioner Family
DX: E11.621 Type 2 diabetes mellitus with foot ulcer (principal); I11.0 Hypertensive heart disease with heart failure; E78.5 Hyperlipidemia, unspecified; L97.422 Non-pressure chronic ulcer of left heel and midfoot with fat layer exposed; L97.412 Non-pressure chronic ulcer of right heel and midfoot with fat layer exposed; I25.10 Atherosclerotic heart disease of native coronary artery without angina pectoris; I42.0 Dilated cardiomyopathy; Z79.4 Long term (current) use of insulin; F02.80 Dementia in other diseases classified elsewhere, unspecified severity, without behavioral disturbance, psychotic disturbance, mood disturbance, and anxiety; G30.9 Alzheimer's disease, unspecified; T25.021D Burn of unspecified degree of right foot, subsequent encounter; X08.8XXD Exposure to other specified smoke, fire and flames, subsequent encounter; I50.22 Chronic systolic (congestive) heart failure
CPT/HCPCS: 11042

== ENCOUNTER 2021-03-17 10:00 | Outpatient (RCR) | payer MEDICARE, SELFPAY ==
[2021-02-22 00:34] VITALS: BP 113/72; PULSE 76; RESP 18; TEMP 36.1; BMI 37.8
[2021-03-03 12:03] VITALS: BP 147/93; PULSE 75; TEMP 36.4; BMI 37.8
--- NOTE | 2021-03-03 15:03 | PCM.WC.PN ---
History of Present Illness Date of Service: 03/03/21 Chief Complaint: Bilateral foot brady History of Wound: The patient is a pleasant 75-year-old white male who presents to the wound healing center today (11/04/2020) for an initial evaluation of bilateral medial foot brady. He has a past medical history significant for Alzheimer's disease, dilated cardiomyopathy, congestive heart failure, implanted pacemaker, CAD, hypertension, hyperlipidemia, and insulin-dependent type 2 diabetes. He reports that his brady occurred approximately 2 weeks ago. 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 The next day, he was back on his tractor performing the same type of work. In the following days, the developed blackening of the areas. He has been using silver dressings to his feet daily, and cleansing them with a chlorhexidine?type solution. He denies any pain in his feet. He denies any fever or chills. He denies any general malaise or poor appetite. He has mild redness surrounding the wounds of his bilateral feet. They do not feel hot to touch. He has not been on any antibiotics in the last several weeks. He does not typically use compression to his lower extremities. He denies frequent swelling of the lower extremities, but does report that in the past 2 weeks his distal feet have appeared slightly swollen. Progress of Wound: The patient's right heel ulcer is healed today! The patient's left heel ulcer has increased in size in the past 2 weeks. He has some seropurulent drainage from the left heel ulcer. He has been compliant with the use of Alysa dressing changes. The patient denies fever, chills, general malaise, or poor appetite. The patient has not had increased redness, swelling, or purulent/malodorous drainage from affected area. Objective Data Objective Data Vital Signs: Vital Signs Temp Pulse Resp BP 97.6 F L 75 18 147/93 H 03/03/21 12:03 03/03/21 12:03 02/22/21 00:34 03/03/21 12:03 Body Mass Index (BMI) 37.8 Charges/Coding Procedures Integumentary 111xxx-113xx: 13671 Aminta subq tissue 20 sq cm/< Physical Exam Const alert, no apparent distress and healthy appearing General Appearance: cooperative, comfortable and well kempt Neck supple Resp normal respiratory effort Extremity normal capillary refill, no joint enlargement, no clubbing, cyanosis or edema and no pedal edema Skin Wounds: wounds noted no odor Wound Narrative: Right medial heel ulcer is healed today. Ulcer of left medial heel with moderate to large amounts of slough and devitalized tissue present. There is no noted tunneling, undermining, or probing to bone. Some good granulation tissue is present. There is no periulcer erythema. There is no warmth to the periulcer area. There is no tenderness to the periulcer area. There is a moderate amount of seropurulent drainage present from the left medial heel ulcer today. No malodor noted. Neuro moves all extremities Sensory Exam: extremities Sensory loss observed in both feet Psych mental status grossly normal, cooperative and affect normal Debridement Note Debridement Note Wound debrided: Left heel ulcer Laterality: Left Wound Grade/Stage: 3 Anesthesia Used: 4% Lidocaine Solution Depth: in the subcutaneous layer Percentage of wound debrided: 100 Instrument Used: 5mm curette and #15 blade Tissue Removed: Slough and devitalized tissue, callus Severity: Fat Layer Exposed Amount of bleeding with debridement: Moderate Bleeding Controlled with: Compression and gauze Patient tolerated procedure: Patient tolerated procedure well Post-Debridement Measurements and Additional Note: Post-Debridement Measurements/Treatment - Nurse 1 - General Ulcer Assessment Start: 03/03/21 11:52 Freq: Status: Active Protocol: [email or web address] Activity Type Activity Date Activity User E-Sign Co-Sign Detail Recorded Client Recorded Date Recorded By Document 03/03/21 12:03 GRANT [id number] 03/03/21 12:05 GRANT 03/03/21 12:03 - Today's Visit Information Type of service Follow-up Visit (Physician/OUTPATIENT SURGERY RN ) Arrival Mode Ambulatory Transfer Assistance None Patient Identification Verified (Name & Yes ) Patient Requires Transmission-Based No Precautions Safety Precautions NA Height and Weight Body Mass Index (BMI) 37.8 BMI Classification Obese Vital Signs Temperature (97.8 F-99.1 F) 97.6 F L Temperature Source Temporal Pulse Rate (60-100) 75 Pulse Location Monitor Blood Pressure (90/60-120/80) 147/93 H Blood Pressure Mean (mm Hg) 111 Source Monitor History Since Last Visit- (Skip if this is Patient's initial visit) Have you changed medications since your No last visit? Any new allergies or adverse reactions No Had a fall/change in ADL's that may No increase risk of falls Signs or symptoms of abuse and/or No neglect since last visit Have you been in the hospital since your No last visit? Has dressing in place as prescribed Yes Has compression in place as prescribed Yes Has offloadiing in place as prescribed N/A Experienced any changes in pain level or No management Left Footwear Regular Shoe Right Footwear Regular Shoe WC - Nurse 1 - General Ulcer Measurement Start: 03/03/21 11:52 Freq: Status: Active Protocol: Activity Type Activity Date Activity User E-Sign Co-Sign Detail Recorded Client Recorded Date Recorded By Document 03/03/21 12:03 GRANT [id number] 03/03/21 12:05 GRANT 03/03/21 12:03 Wound Center Nurse 1 #2 L Med Heel -Current Size (cm) - Length 2 -Current Size (cm) - Width 1 -Current Size (cm) - Depth 0.1 -Total Square Cm 2 -Photo Taken No -Tunneling No -Undermining/Tunneling No -Circular Undermining No -Exudate Amt Medium -Exudate Type Serosanguineous -Wound Margin Distinct, Outline Attached -Slough/Fibrin Yes -Necrosis Amt Medium (34-66%) -Necrotic Tissue Type Adherent Slough -Structure Exposed N/A -Texture (Vera-wound Skin Appearance) Assessed,Callus -Moisture (Vera-wound Skin Appearance) Assessed, Maceration -Color (Vera-wound Skin Appearance) No Abnormality, Assessed -Temperature (Vera-wound Skin No Abnormality Appearance) (Pt Warm) -Tenderness on Palpation (Vera-wound No Skin Appearance) -Ulcer Cleansing Rinsed/ Irrigated with Saline -Foul Odor after Cleansing No -Anesthetic Used 5% Lidocaine Gel #1 R Med Heel -Combined with other wound No -Current Size (cm) - Length 0.1 -Current Size (cm) - Width 0.1 -Current Size (cm) - Depth 0.1 -Total Square Cm 0.01 -Photo Taken No -Tunneling No -Undermining/Tunneling No -Circular Undermining No -Exudate Amt None Present -Granulation Amt None Present (0 %) -Granulation Quality N/A -Slough/Fibrin No -Necrosis Amt None Present (0 %) -Structure Exposed N/A -Texture (Vera-wound Skin Appearance) No Abnormality, Assessed -Moisture (Vera-wound Skin Appearance) No Abnormality, Assessed -Color (Vera-wound Skin Appearance) No Abnormality, Assessed -Temperature (Vera-wound Skin No Abnormality Appearance) (Pt Warm) -Ulcer Cleansing Rinsed/ Irrigated with Saline Right Calf (cm) 38 Right Ankle (cm) 23 Left Calf (cm) 37 Left Ankle (cm) 23 WC - Nurse 2 - General Ulcer CM Notes Start: 03/03/21 11:52 Freq: Status: Active Protocol: Activity Type Activity Date Activity User E-Sign Co-Sign Detail Recorded Client Recorded Date Recorded By Document 03/03/21 13:32 PL [id number] 03/03/21 13:34 PL 03/03/21 13:32 Wound Center Nurse 2 #2 L Med Heel -Time 11:29 -Correct Patient Yes -Correct Side, Site, Position Yes -Correct Procedure Yes -Procedure Performed Yes -Type of Procedure Debridement -Clinical Debridement Subcutaneous -Tissue Removed Subcutaneous -Post Debridement (cm) - Length 2.8 -Post Debridement (cm) - Width 1.1 -Post Debridement (cm) - Depth 0.1 -Total Square (Post) (cm) 3.08 -Area of Debridement (cm) - Length 2.8 -Area of Debridement (cm) - Width 1.1 -Total Square (Area) (cm) 3.08 -Tunneling No -Undermining/Tunneling No -Circular Undermining No -Wound/Ulcer Outcome Not Healed -Ulcer Cleansing Rinsed/ Irrigated with Saline -Foul Odor after Cleansing No -Bioengineered Tissue No -Debridement - Subq, 1st 20sq cm Yes #1 R Med Heel -Wound/Ulcer Outcome Healed- Epithelialized WC - Nurse 3 - General Ulcer D/C NN Start: 03/03/21 11:52 Freq: Status: Active Protocol: Activity Type Activity Date Activity User E-Sign Co-Sign Detail Recorded Client Recorded Date Recorded By Document 03/03/21 11:52 KR [id number] 03/03/21 11:52 KR 03/03/21 11:52 Wound Care Nurse 3 #2 L Med Heel -Primary Dressing Applied Promogran -Primary Dressing Covered/Secured with Dry Gauze, Secured with Tape -Promogran 1 Pain Scale: 0-10 Numeric Is Patient Pain Free? 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: CODE(S): E11.621 - Type 2 diabetes mellitus with foot ulcer; L97.512 - Non-pressure chronic ulcer of other part of right foot with fat layer exposed QUALIFIERS: Diabetic foot ulcer location: heel Diabetes mellitus type: type 2 Qualified Code(s): E11.621 - Type 2 diabetes mellitus with foot ulcer; L97.412 - Non-pressure chronic ulcer of right heel and midfoot with fat layer exposed (2) 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: CODE(S): E11.621 - Type 2 diabetes mellitus with foot ulcer; L97.522 - Non-pressure chronic ulcer of other part of left foot with fat layer exposed QUALIFIERS: Diabetic foot ulcer location: heel Diabetes mellitus type: type 2 Qualified Code(s): E11.621 - Type 2 diabetes mellitus with foot ulcer; L97.422 - Non-pressure chronic ulcer of left heel and midfoot with fat layer exposed (3) Type 2 diabetes mellitus with diabetic neuropathy, with long-term current use of insulin: CODE(S): E11.40 - Type 2 diabetes mellitus with diabetic neuropathy, unspecified; Z79.4 - exterminator helper termite (current) use of insulin (4) Chronic systolic (congestive) heart failure: CODE(S): I50.22 - Chronic systolic (congestive) heart failure (5) Essential (primary) hypertension: CODE(S): I10 - Essential (primary) hypertension PLAN: Right heel ulcer is healed today. Debridement performed today in clinic as annotated above. Alysa applied to the left heel ulcer. Given the significant bioburden of the patient's ulcers, an order for Puraply AM was submitted for insurance approval. Per rn case mgr, the patient is only eligible for Apligraf through his insurance. Discussed with patient and son the option of implementing Apligraf to promote wound healing; he does not wish to proceed with Apligraf at this time. At home wound-care instructions: Perform moistened Alysa dressing changes once daily or more frequently as needed due to contamination. Wash wounds daily with Dakin's solution, rinse and dry thoroughly before each dressing change. Compression: Continue double Tubigrip's daily. Pad and protect the right heel and continue to avoid friction. No other wound care is necessary for the right heel at this time as wound is healed. Off-loading: The patient was instructed to avoid pressure and friction on the affected areas. Reposition every 2 hours at minimum. Avoid prolonged standing and/or dangling of legs. When seated, feet should be elevated at chest level. Frequent ambulation is encouraged. Diet: Patient encouraged to increase protein intake while taking caution to avoid high carbohydrate and/or sugar intake. Labs/cultures/imaging: Due to presence of seropurulent drainage today, and an increase in the size of the patient's left heel ulcer, a repeat culture was ordered today. Antibiotics will be considered based on culture findings. Patient has completed a course of doxycycline x10 days. He finished his courses of Levaquin and Flagyl as prescribed. Vascular studies on 11/30/20 revealed no evidence of arterial occlusive disease. Routine baseline lab results as listed below: CBCD: RBC 4.48 (L), hemoglobin 12.8 (L) ESR: 37 (H) CMP: Creatinine 2.00 (H), BUN 33 (H) estimated GFR 35 (L), glucose 152 (H) Hemoglobin A1c: 6.7% (H) CRP: 15.9 (H) Prealbumin: 20.0 Follow-up: Return to clinic in 1 week for re-evaluation. Return sooner or report to the emergency room should symptoms worsen, or new symptoms arise. Note: [employer] speech recognition radio communications mechanician software was used to create portions of this document. Sound-alike and misspelled words, as well as other radio communications mechanician errors may be contained in the documentation.
[2021-03-10 10:17] VITALS: BP 112/67; PULSE 83; TEMP 36.3; BMI 37.8
--- NOTE | 2021-03-10 11:24 | PN.PCM_ITS ---
History of Present Illness Date of Service: 03/10/21 Chief Complaint: Bilateral foot brady History of Wound: The patient is a pleasant 75-year-old white male who presents to the wound healing center today (11/04/2020) for an initial evaluation of bilateral medial foot brady. He has a past medical history significant for Alzheimer's disease, dilated cardiomyopathy, congestive heart failure, implanted pacemaker, CAD, hypertension, hyperlipidemia, and insulin-dependent type 2 diabetes. He reports that his brady occurred approximately 2 weeks ago. 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 The next day, he was back on his tractor performing the same type of work. In the following days, the developed blackening of the areas. He has been using silver dressings to his feet daily, and cleansing them with a chlorhexidine?type solution. He denies any pain in his feet. He denies any fever or chills. He denies any general malaise or poor appetite. He has mild redness surrounding the wounds of his bilateral feet. They do not feel hot to touch. He has not been on any antibiotics in the last several weeks. He does not typically use compression to his lower extremities. He denies frequent swelling of the lower extremities, but does report that in the past 2 weeks his distal feet have appeared slightly swollen. Progress of Wound: The patient's left heel ulcer has decreased significantly in size and improved in appearance. No purulent drainage or malodor noted today. Culture from 03/03/21 showed very rare Streptococcus agalactiae (B). Antibiotics were not initiated. The patient denies fever, chills, general malaise, or poor appetite. The patient has not had increased redness, swelling, or purulent/malodorous drainage from affected area. Objective Data Objective Data Vital Signs: Vital Signs Temp Pulse Resp BP 97.3 F L 83 18 112/67 03/10/21 10:17 03/10/21 10:17 02/22/21 00:34 03/10/21 10:17 Body Mass Index (BMI) 37.8 Lab / Micro Data Micro: Microbiology 03/03/21 11:35 Wound Abcess - Heel, Left Gram Stain - Final 03/03/21 11:35 Wound Abcess - Heel, Left Wound Culture - Final Streptococcus agalactiae (B) Charges/Coding Procedures Integumentary [id number]: [id number] Aminta subq tissue 20 sq cm/< Physical Exam Const alert, no apparent distress and healthy appearing General Appearance: cooperative, comfortable and well kempt Neck supple Resp normal respiratory effort Extremity normal capillary refill, no joint enlargement, no clubbing, cyanosis or edema and no pedal edema Skin Wounds: wounds noted no odor Wound Narrative: Ulcer of left medial heel with small amounts of slough and devitalized tissue present. There is no noted tunneling, undermining, or probing to bone. Good granulation tissue is present. No periulcer erythema. There is no warmth to the periulcer area. There is no tenderness to the periulcer area. There is no drainage present from the left medial heel ulcer today. No malodor noted. Neuro moves all extremities Sensory Exam: extremities Sensory loss observed in both feet Psych mental status grossly normal, cooperative and affect normal Debridement Note Debridement Note Wound debrided: left heel Laterality: Left Type of Debridement: Excisional debridement Anesthesia Used: 5% Lidocaine Gel Depth: in the subcutaneous layer Percentage of wound debrided: 100 Instrument Used: 3mm curette Tissue Removed: Slough and devitalized tissue Severity: Fat Layer Exposed Amount of bleeding with debridement: Mild Bleeding Controlled with: Pressure Patient tolerated procedure: Patient tolerated procedure well Post-Debridement Measurements and Additional Note: Post-Debridement Measurements/Treatment WC - Nurse 1 - General Ulcer Assessment Start: 03/03/21 11:52 Freq: Status: Active Protocol: BERNIE Activity Type Activity Date Activity User E-Sign Co-Sign Detail Recorded Client Recorded Date Recorded By Document 03/03/21 12:03 AK [id number] 03/03/21 12:05 AK Document 03/10/21 10:17 KR [id number] 03/10/21 10:21 ROBBI 03/03/21 03/10/21 12:03 10:17 - Today's Visit Information Type of service Follow-up Visit Follow-up Visit (Physician/MONOGRAM MAKER (Physician/MONOGRAM MAKER ) ) Arrival Mode Ambulatory Ambulatory Transfer Assistance None Patient Identification Verified (Name & Yes Yes ) Patient Requires Transmission-Based No Precautions Safety Precautions NA Height and Weight Body Mass Index (BMI) 37.8 37.8 BMI Classification Obese Obese Vital Signs Temperature (97.8 F-99.1 F) 97.6 F L 97.3 F L Temperature Source Temporal Temporal Pulse Rate (60-100) 75 83 Pulse Location Monitor Monitor Blood Pressure (90/60-120/80) 147/93 H 112/67 Blood Pressure Mean (mm Hg) 111 82 Source Monitor Monitor Position Sitting Blood Pressure Location Right Arm History Since Last Visit- (Skip if this is Patient's initial visit) Have you changed medications since your No No last visit? Any new allergies or adverse reactions No No Had a fall/change in ADL's that may No No increase risk of falls Signs or symptoms of abuse and/or No No neglect since last visit Have you been in the hospital since your No No last visit? Has dressing in place as prescribed Yes Yes Has compression in place as prescribed Yes N/A Has offloadiing in place as prescribed N/A N/A Experienced any changes in pain level or No No management Left Footwear Regular Shoe Regular Shoe Right Footwear Regular Shoe Regular Shoe Pain Scale: 0-10 Numeric Is Patient Pain Free? Yes WC - Nurse 1 - General Ulcer Measurement Start: 03/03/21 11:52 Freq: Status: Active Protocol: Activity Type Activity Date Activity User E-Sign Co-Sign Detail Recorded Client Recorded Date Recorded By Document 03/03/21 12:03 GRANT [id number] 03/03/21 12:05 AK Document 03/10/21 10:17 KR [id number] 03/10/21 10:21 KR 03/03/21 03/10/21 12:03 10:17 Wound Center Nurse 1 #2 L Med Heel -Current Size (cm) - Length 2 5.5 -Current Size (cm) - Width 1 2.1 -Current Size (cm) - Depth 0.1 0.2 -Total Square Cm 2 11.55 -Photo Taken No -Tunneling No -Undermining/Tunneling No -Circular Undermining No -Exudate Amt Medium -Exudate Type Serosanguineous -Wound Margin Distinct, Distinct, Outline Outline Attached Attached -Slough/Fibrin Yes -Necrosis Amt Medium (34-66%) -Necrotic Tissue Type Adherent Slough -Structure Exposed N/A -Texture (Vera-wound Skin Appearance) Assessed,Callus Assessed, Scarring -Moisture (Vera-wound Skin Appearance) Assessed, No Abnormality, Maceration Assessed -Color (Vera-wound Skin Appearance) No Abnormality, No Abnormality, Assessed Assessed -Temperature (Vera-wound Skin No Abnormality No Abnormality Appearance) (Pt Warm) (Pt Warm) -Tenderness on Palpation (Vera-wound No No Skin Appearance) -Ulcer Cleansing Rinsed/ Rinsed/ Irrigated with Irrigated with Saline Saline -Foul Odor after Cleansing No No -Anesthetic Used 5% Lidocaine 5% Lidocaine Gel Gel #1 R Med Heel -Combined with other wound No -Current Size (cm) - Length 0.1 -Current Size (cm) - Width 0.1 -Current Size (cm) - Depth 0.1 -Total Square Cm 0.01 -Photo Taken No -Tunneling No -Undermining/Tunneling No -Circular Undermining No -Exudate Amt None Present -Granulation Amt None Present (0 %) -Granulation Quality N/A -Slough/Fibrin No -Necrosis Amt None Present (0 %) -Structure Exposed N/A -Texture (Vera-wound Skin Appearance) No Abnormality, Assessed -Moisture (Vera-wound Skin Appearance) No Abnormality, Assessed -Color (Vera-wound Skin Appearance) No Abnormality, Assessed -Temperature (Vera-wound Skin No Abnormality Appearance) (Pt Warm) -Ulcer Cleansing Rinsed/ Irrigated with Saline Right Calf (cm) 38 Right Ankle (cm) 23 Left Calf (cm) 37 Left Ankle (cm) 23 WC - Nurse 2 - General Ulcer CM Notes Start: 03/03/21 11:52 Freq: Status: Active Protocol: Activity Type Activity Date Activity User E-Sign Co-Sign Detail Recorded Client Recorded Date Recorded By Document 03/03/21 13:32 PL [id number] 03/03/21 13:34 PL Document 03/10/21 11:12 PL [id number] 03/10/21 11:13 PL 03/03/21 03/10/21 13:32 11:12 Wound Center Nurse 2 #2 L Med Heel -Time 11:29 10:49 -Correct Patient Yes Yes -Correct Side, Site, Position Yes Yes -Correct Procedure Yes Yes -Procedure Performed Yes Yes -Type of Procedure Debridement Debridement -Clinical Debridement Subcutaneous Subcutaneous -Tissue Removed Subcutaneous Subcutaneous -Post Debridement (cm) - Length 2.8 2.0 -Post Debridement (cm) - Width 1.1 0.6 -Post Debridement (cm) - Depth 0.1 0.1 -Total Square (Post) (cm) 3.08 1.20 -Area of Debridement (cm) - Length 2.8 2.0 -Area of Debridement (cm) - Width 1.1 0.6 -Total Square (Area) (cm) 3.08 1.20 -Tunneling No No -Undermining/Tunneling No No -Circular Undermining No No -Wound/Ulcer Outcome Not Healed Not Healed -Ulcer Cleansing Rinsed/ Rinsed/ Irrigated with Irrigated with Saline Saline -Foul Odor after Cleansing No No -Bioengineered Tissue No No -Debridement - Subq, 1st 20sq cm Yes Yes #1 R Med Heel -Wound/Ulcer Outcome Healed- Epithelialized - Nurse 3 - General Ulcer D/C NN Start: 03/03/21 11:52 Freq: Status: Active Protocol: Activity Type Activity Date Activity User E-Sign Co-Sign Detail Recorded Client Recorded Date Recorded By Document 03/03/21 11:52 ROBBI [id number] 03/03/21 11:52 ROBBI 03/03/21 11:52 Wound Care Nurse 3 -Primary Dressing Applied Promogran -Primary Dressing Covered/Secured with Dry Gauze, Secured with Tape -Promogran 1 Pain Scale: 0-10 Numeric Is Patient Pain Free? 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: CODE(S): E11.621 - Type 2 diabetes mellitus with foot ulcer; L97.512 - Non-pressure chronic ulcer of other part of right foot with fat layer exposed QUALIFIERS: Diabetic foot ulcer location: heel Diabetes mellitus type: type 2 Qualified Code(s): E11.621 - Type 2 diabetes mellitus with foot ulcer; L97.412 - Non-pressure chronic ulcer of right heel and midfoot with fat layer exposed (2) 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: CODE(S): E11.621 - Type 2 diabetes mellitus with foot ulcer; L97.522 - Non-pressure chronic ulcer of other part of left foot with fat layer exposed QUALIFIERS: Diabetic foot ulcer location: heel Diabetes mellitus type: type 2 Qualified Code(s): E11.621 - Type 2 diabetes mellitus with foot ulcer; L97.422 - Non-pressure chronic ulcer of left heel and midfoot with fat layer exposed (3) Type 2 diabetes mellitus with diabetic neuropathy, with long-term current use of insulin: CODE(S): E11.40 - Type 2 diabetes mellitus with diabetic neuropathy, unspecified; Z79.4 - residential (current) use of insulin (4) Chronic systolic (congestive) heart failure: CODE(S): I50.22 - Chronic systolic (congestive) heart failure (5) Essential (primary) hypertension: CODE(S): I10 - Essential (primary) hypertension PLAN: Right heel ulcer is healed today. Debridement performed today in clinic as annotated above. Alysa applied to the left heel ulcer. Given the significant bioburden of the patient's ulcers, an order for Puraply AM was submitted for insurance approval. Per rifle case repairer, the patient is only eligible for Apligraf through his insurance. Discussed with patient and son the option of implementing Apligraf to promote wound healing; he does not wish to proceed with Apligraf at this time. At home wound-care instructions: Perform moistened Alysa dressing changes once daily or more frequently as needed due to contamination. Wash wounds daily with Dakin's solution, rinse and dry thoroughly before each dressing change. Compression: Continue double Tubigrip's daily. Pad and protect the right heel and continue to avoid friction. No other wound care is necessary for the right heel at this time as wound is healed. Off-loading: The patient was instructed to avoid pressure and friction on the affected areas. Reposition every 2 hours at minimum. Avoid prolonged standing and/or dangling of legs. When seated, feet should be elevated at chest level. Frequent ambulation is encouraged. Diet: Patient encouraged to increase protein intake while taking caution to avoid high carbohydrate and/or sugar intake. Labs/cultures/imaging: Culture from 03/03/2021 showed very rare Streptococcus agalactiae (B). Due to absence of clinical signs of infection today, and significant improvement in wound size and appearance in the past week no antibiotics will be initiated at this time. Patient has completed a course of doxycycline x10 days. He finished his courses of Levaquin and Flagyl as prescribed. Vascular studies on 11/30/20 revealed no evidence of arterial occlusive disease. Routine baseline lab results as listed below: CBCD: RBC 4.48 (L), hemoglobin 12.8 (L) ESR: 37 (H) CMP: Creatinine 2.00 (H), BUN 33 (H) estimated GFR 35 (L), glucose 152 (H) Hemoglobin A1c: 6.7% (H) CRP: 15.9 (H) Prealbumin: 20.0 Follow-up: Return to clinic in 1 week for re-evaluation. Return sooner or report to the emergency room should symptoms worsen, or new symptoms arise. Note: Sellar[employer] speech recognition palliative medicine physician software was used to create portions of this document. Sound-alike and misspelled words, as well as other palliative medicine physician errors may be contained in the documentation.
[2021-03-17 10:22] VITALS: BP 129/81; PULSE 65; TEMP 36.3; BMI 37.8
--- NOTE | 2021-03-17 11:13 | PN.PCM_ITS ---
History of Present Illness Date of Service: 03/17/21 Chief Complaint: Bilateral foot brady History of Wound: The patient is a pleasant 75-year-old white male who presents to the wound healing center today (11/04/2020) for an initial evaluation of bilateral medial foot brady. He has a past medical history significant for Alzheimer's disease, dilated cardiomyopathy, congestive heart failure, implanted pacemaker, CAD, hypertension, hyperlipidemia, and insulin-dependent type 2 diabetes. He reports that his brady occurred approximately 2 weeks ago. 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 The next day, he was back on his tractor performing the same type of work. In the following days, the developed blackening of the areas. He has been using silver dressings to his feet daily, and cleansing them with a chlorhexidine?type solution. He denies any pain in his feet. He denies any fever or chills. He denies any general malaise or poor appetite. He has mild redness surrounding the wounds of his bilateral feet. They do not feel hot to touch. He has not been on any antibiotics in the last several weeks. He does not typically use compression to his lower extremities. He denies frequent swelling of the lower extremities, but does report that in the past 2 weeks his distal feet have appeared slightly swollen. Progress of Wound: The patient's left heel ulcer has decreased in size and improved in appearance. No purulent drainage or malodor noted today. Culture from 03/03/21 showed very rare Streptococcus agalactiae (B). Antibiotics were not initiated. The patient denies fever, chills, general malaise, or poor appetite. The patient has not had increased redness, swelling, or purulent/malodorous drainage from affected area. Objective Data Objective Data Vital Signs: Vital Signs Temp Pulse Resp BP 97.3 F L 65 18 129/81 H 03/17/21 10:22 03/17/21 10:22 02/22/21 00:34 03/17/21 10:22 Body Mass Index (BMI) 37.8 Lab / Micro Data Micro: Microbiology 03/03/21 11:35 Wound Abcess - Heel, Left Gram Stain - Final 03/03/21 11:35 Wound Abcess - Heel, Left Wound Culture - Final Streptococcus agalactiae (B) Charges/Coding Procedures Integumentary [id number]: [id number] Aminta subq tissue 20 sq cm/< Physical Exam Const alert, no apparent distress and healthy appearing General Appearance: cooperative, comfortable and well kempt Neck supple Resp normal respiratory effort Extremity normal capillary refill, no joint enlargement, no clubbing, cyanosis or edema and no pedal edema Skin Wounds: wounds noted no odor Wound Narrative: Ulcer of left medial heel with small amounts of slough and devitalized tissue present. There is no noted tunneling, undermining, or probing to bone. Good granulation tissue is present. No periulcer erythema. There is no warmth to the periulcer area. There is no tenderness to the periulcer area. There is no drainage present from the left medial heel ulcer today. No malodor noted. Neuro moves all extremities Sensory Exam: extremities Sensory loss observed in both feet Psych mental status grossly normal, cooperative and affect normal Debridement Note Debridement Note Wound debrided: left heel Laterality: Left Type of Debridement: Excisional debridement Anesthesia Used: 5% Lidocaine Gel Depth: in the subcutaneous layer Percentage of wound debrided: 100 Instrument Used: 3mm curette and #15 blade Tissue Removed: slough and devitalized tissue Severity: Fat Layer Exposed Amount of bleeding with debridement: Mild Bleeding Controlled with: Pressure Patient tolerated procedure: Patient tolerated procedure well Post-Debridement Measurements and Additional Note: Post-Debridement Measurements/Treatment - Nurse 1 - General Ulcer Assessment Start: 03/03/21 11:52 Freq: Status: Active Protocol: BERNIE Activity Type Activity Date Activity User E-Sign Co-Sign Detail Recorded Client Recorded Date Recorded By Document 03/03/21 12:03 AK [id number] 03/03/21 12:05 AK Document 03/10/21 10:17 KR [id number] 03/10/21 10:21 KR Document 03/17/21 10:22 KR [id number] 03/17/21 10:23 KR 03/03/21 03/10/21 03/17/21 12:03 10:17 10:22 - Today's Visit Information Type of service Follow-up Visit Follow-up Visit Follow-up Visit (Physician/PRIOR AUTHORIZATION NURSE (Physician/PRIOR AUTHORIZATION NURSE (Physician/PRIOR AUTHORIZATION NURSE ) ) ) Arrival Mode Ambulatory Ambulatory Ambulatory Transfer Assistance None Patient Identification Verified (Name & Yes Yes Yes ) Patient Requires Transmission-Based No Precautions Safety Precautions NA Height and Weight Body Mass Index (BMI) 37.8 37.8 37.8 BMI Classification Obese Obese Obese Vital Signs Temperature (97.8 F-99.1 F) 97.6 F L 97.3 F L 97.3 F L Temperature Source Temporal Temporal Temporal Pulse Rate (60-100) 75 83 65 Pulse Location Monitor Monitor Monitor Blood Pressure (90/60-120/80) 147/93 H 112/67 129/81 H Blood Pressure Mean (mm Hg) 111 82 97 Source Monitor Monitor Monitor Position Sitting Sitting Blood Pressure Location Right Arm Right Arm History Since Last Visit- (Skip if this is Patient's initial visit) Have you changed medications since your No No No last visit? Any new allergies or adverse reactions No No No Had a fall/change in ADL's that may No No No increase risk of falls Signs or symptoms of abuse and/or No No No neglect since last visit Have you been in the hospital since your No No No last visit? Has dressing in place as prescribed Yes Yes Yes Has compression in place as prescribed Yes N/A N/A Has offloadiing in place as prescribed N/A N/A N/A Experienced any changes in pain level or No No No management Left Footwear Regular Shoe Regular Shoe Regular Shoe Right Footwear Regular Shoe Regular Shoe Regular Shoe Pain Scale: 0-10 Numeric Is Patient Pain Free? Yes Yes WC - Nurse 1 - General Ulcer Measurement Start: 03/03/21 11:52 Freq: Status: Active Protocol: Activity Type Activity Date Activity User E-Sign Co-Sign Detail Recorded Client Recorded Date Recorded By Document 03/03/21 12:03 AK [id number] 03/03/21 12:05 AK Document 03/10/21 10:17 KR [id number] 03/10/21 10:21 KR Document 03/17/21 10:22 KR [id number] 03/17/21 10:23 KR 03/03/21 03/10/21 03/17/21 12:03 10:17 10:22 Wound Center Nurse 1 #2 L Med Heel -Current Size (cm) - Length 2 5.5 1.3 -Current Size (cm) - Width 1 2.1 0.3 -Current Size (cm) - Depth 0.1 0.2 0.1 -Total Square Cm 2 11.55 0.39 -Photo Taken No -Tunneling No -Undermining/Tunneling No -Circular Undermining No -Exudate Amt Medium Small -Exudate Type Serosanguineous Serosanguineous -Wound Margin Distinct, Distinct, Distinct, Outline Outline Outline Attached Attached Attached -Granulation Amt Small (1-33%) -Granulation Quality [place] -Slough/Fibrin Yes -Necrosis Amt Medium (34-66%) Small (1-33%) -Necrotic Tissue Type Adherent Slough Adherent Slough -Structure Exposed N/A -Texture (Vera-wound Skin Appearance) Assessed,Callus Assessed, Assessed, Scarring Scarring -Moisture (Vera-wound Skin Appearance) Assessed, No Abnormality, No Abnormality, Maceration Assessed Assessed -Color (Vera-wound Skin Appearance) No Abnormality, No Abnormality, No Abnormality, Assessed Assessed Assessed -Temperature (Vera-wound Skin No Abnormality No Abnormality No Abnormality Appearance) (Pt Warm) (Pt Warm) (Pt Warm) -Tenderness on Palpation (Vera-wound No No No Skin Appearance) -Ulcer Cleansing Rinsed/ Rinsed/ Rinsed/ Irrigated with Irrigated with Irrigated with Saline Saline Saline -Foul Odor after Cleansing No No No -Anesthetic Used 5% Lidocaine 5% Lidocaine 5% Lidocaine Gel Gel Gel #1 R Med Heel -Combined with other wound No -Current Size (cm) - Length 0.1 -Current Size (cm) - Width 0.1 -Current Size (cm) - Depth 0.1 -Total Square Cm 0.01 -Photo Taken No -Tunneling No -Undermining/Tunneling No -Circular Undermining No -Exudate Amt None Present -Granulation Amt None Present (0 %) -Granulation Quality N/A -Slough/Fibrin No -Necrosis Amt None Present (0 %) -Structure Exposed N/A -Texture (Vera-wound Skin Appearance) No Abnormality, Assessed -Moisture (Vera-wound Skin Appearance) No Abnormality, Assessed -Color (Vera-wound Skin Appearance) No Abnormality, Assessed -Temperature (Vera-wound Skin No Abnormality Appearance) (Pt Warm) -Ulcer Cleansing Rinsed/ Irrigated with Saline Right Calf (cm) 38 Right Ankle (cm) 23 Left Calf (cm) 37 Left Ankle (cm) 23 WC - Nurse 2 - General Ulcer CM Notes Start: 03/03/21 11:52 Freq: Status: Active Protocol: Activity Type Activity Date Activity User E-Sign Co-Sign Detail Recorded Client Recorded Date Recorded By Document 03/03/21 13:32 PL [id number] 03/03/21 13:34 PL Document 03/10/21 11:12 PL [id number] 03/10/21 11:13 PL 03/03/21 03/10/21 13:32 11:12 Wound Center Nurse 2 #2 L Med Heel -Time 11:29 10:49 -Correct Patient Yes Yes -Correct Side, Site, Position Yes Yes -Correct Procedure Yes Yes -Procedure Performed Yes Yes -Type of Procedure Debridement Debridement -Clinical Debridement Subcutaneous Subcutaneous -Tissue Removed Subcutaneous Subcutaneous -Post Debridement (cm) - Length 2.8 2.0 -Post Debridement (cm) - Width 1.1 0.6 -Post Debridement (cm) - Depth 0.1 0.1 -Total Square (Post) (cm) 3.08 1.20 -Area of Debridement (cm) - Length 2.8 2.0 -Area of Debridement (cm) - Width 1.1 0.6 -Total Square (Area) (cm) 3.08 1.20 -Tunneling No No -Undermining/Tunneling No No -Circular Undermining No No -Wound/Ulcer Outcome Not Healed Not Healed -Ulcer Cleansing Rinsed/ Rinsed/ Irrigated with Irrigated with Saline Saline -Foul Odor after Cleansing No No -Bioengineered Tissue No No -Debridement - Subq, 1st 20sq cm Yes Yes #1 R Med Heel -Wound/Ulcer Outcome Healed- Epithelialized WC - Nurse 3 - General Ulcer D/C NN Start: 03/03/21 11:52 Freq: Status: Active Protocol: Activity Type Activity Date Activity User E-Sign Co-Sign Detail Recorded Client Recorded Date Recorded By Document 03/03/21 11:52 KR [id number] 03/03/21 11:52 KR Document 03/17/21 10:41 AK Desktop 03/17/21 10:42 AK 03/03/21 03/17/21 11:52 10:41 Wound Care Nurse 3 #2 L Med Heel -Ulcer Cleansing Rinsed/ Irrigated with Saline -Foul Odor after Cleansing No -Negative Pressure Wound Therapy N/A -Primary Dressing Applied Promogran Promogran Alysa Matter -Primary Dressing Covered/Secured with Dry Gauze, Dry Gauze & Secured with Roll Gauze Tape -Promogran 1 -Promogran Alysa Matter 0 Pain Scale: 0-10 Numeric Is Patient Pain Free? 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: CODE(S): E11.621 - Type 2 diabetes mellitus with foot ulcer; L97.522 - Non-pressure chronic ulcer of other part of left foot with fat layer exposed QUALIFIERS: Diabetic foot ulcer location: heel Diabetes mellitus type: type 2 Qualified Code(s): E11.621 - Type 2 diabetes mellitus with foot ulcer; L97.422 - Non-pressure chronic ulcer of left heel and midfoot with fat layer exposed (2) Type 2 diabetes mellitus with diabetic neuropathy, with long-term current use of insulin: CODE(S): E11.40 - Type 2 diabetes mellitus with diabetic neuropathy, unspecified; Z79.4 - moth exterminator (current) use of insulin PLAN: Debridement of left heel ulcer performed today in clinic as annotated above. Alysa applied to the left heel ulcer. Given the significant bioburden of the patient's ulcers, an order for Puraply AM was submitted for insurance approval. Per complex case manager, the patient was only eligible for Apligraf through his insurance. The option of implementing Apligraf to promote wound healing was discussed with the patient and his son; the patient does not wish to proceed with Apligraf at this time. At home wound-care instructions: Perform moistened Alysa dressing changes once daily or more frequently as needed due to contamination. Wash wounds daily with Dakin's solution, rinse and dry thoroughly before each dressing change. Compression: Continue double Tubigrip's daily. Pad and protect the right heel and continue to avoid friction. No other wound care is necessary for the right heel at this time as wound is healed. Off-loading: The patient was instructed to avoid pressure and friction on the affected areas. Reposition every 2 hours at minimum. Avoid prolonged standing and/or dangling of legs. When seated, feet should be elevated at chest level. Frequent ambulation is encouraged. Diet: Patient encouraged to increase protein intake while taking caution to avoid high carbohydrate and/or sugar intake. Labs/cultures/imaging: Culture from 03/03/2021 showed very rare Streptococcus agalactiae (B). Due to absence of clinical signs of infection today, and significant improvement in wound size and appearance in the past week no antibiotics will be initiated at this time. Patient has completed a course of doxycycline x10 days. He finished his courses of Levaquin and Flagyl as prescribed. Vascular studies on 11/30/20 revealed no evidence of arterial occlusive disease. Routine baseline lab results as listed below: CBCD: RBC 4.48 (L), hemoglobin 12.8 (L) ESR: 37 (H) CMP: Creatinine 2.00 (H), BUN 33 (H) estimated GFR 35 (L), glucose 152 (H) Hemoglobin A1c: 6.7% (H) CRP: 15.9 (H) Prealbumin: 20.0 Follow-up: Return to clinic in 1 week for re-evaluation. Return sooner or report to the emergency room should symptoms worsen, or new symptoms arise. Note: [employer] speech recognition voice network engineer software was used to create portions of this document. Sound-alike and misspelled words, as well as other voice network engineer errors may be contained in the documentation.
== END 2021-03-23 23:59 ==
LOC: WC 10:00
PROVIDERS: PCP Family Medicine; Referring Provider Nurse Practitioner Family; Visit Provider Nurse Practitioner Family
DX: E11.621 Type 2 diabetes mellitus with foot ulcer (principal); I25.10 Atherosclerotic heart disease of native coronary artery without angina pectoris; L97.422 Non-pressure chronic ulcer of left heel and midfoot with fat layer exposed; I42.0 Dilated cardiomyopathy; Z79.4 Long term (current) use of insulin; F02.80 Dementia in other diseases classified elsewhere, unspecified severity, without behavioral disturbance, psychotic disturbance, mood disturbance, and anxiety; G30.9 Alzheimer's disease, unspecified; T25.022D Burn of unspecified degree of left foot, subsequent encounter; T25.021D Burn of unspecified degree of right foot, subsequent encounter; X08.8XXD Exposure to other specified smoke, fire and flames, subsequent encounter; E78.5 Hyperlipidemia, unspecified; I11.0 Hypertensive heart disease with heart failure; I50.22 Chronic systolic (congestive) heart failure
CPT/HCPCS: 11042; 87070; 87077; 87186; 87205

== ENCOUNTER → 2021-04-03 12:39 | Outpatient (CLI) | payer MEDICARE, SELFPAY ==
--- NOTE | 2021-04-03 12:53 | ECHOCS_ITS ---
Reason For Study: DEJESUS Procedure This was a 2D Doppler, Color Flow transthoracic echocardiogram. The study was technically difficult. Contrast injection was performed. Exam performed in department. Left Ventricle Mildly dilated left ventricle. The estimated ejection fraction is 25 %. Stage 1 diastolic dysfunction. There is severe global hypokinesis of the left ventricle. Right Ventricle Normal RV size. ICD or pacer leads identified within the right ventricle. Normal systolic function. Atria The left atrium is mildly enlarged. Normal right atrium. Mitral Valve Normal mitral valve. Tricuspid Valve Normal tricuspid valve. Mild tricuspid valve insufficiency. Aortic Valve Trisinus/trileaflet aortic valve. Mild focal aortic valve calcification. Pulmonic Valve Normal pulmonic valve. Great Vessels Normal aortic root. The pulmonary artery is normal size. Normal inferior vena cava. Pericardium/Pleural No pericardial effusion. Medication Diluted definity 2ml given slow IV push to enhance endocardial definition. MMode/2D Measurements & Calculations LVIDd: 6.5 cm IVSd: 1.2 cm LA dimension: 4.4 cm LVIDs: 5.7 cm LVPWd: 1.2 cm RVDd: 3.8 cm FS: 12.1 % LAV(MOD-bp): 62.3 ml LVAd ap4: 53.9 cm2 SV(MOD-sp4): 57.9 ml LAV(MOD-bp) Indexed: 28.9 ml/m2 LVLd ap4: 10.8 cm LAV(MOD-sp2): 51.9 ml EDV(MOD-sp4): 227.0 ml LAV(MOD-sp4): 66.2 ml EDV(sp4-el): 229.2 ml LVAs ap4: 44.5 cm2 LVLs ap4: 9.5 cm ESV(MOD-sp4): 169.1 ml ESV(sp4-el): 176.4 ml EF(MOD-sp4): 25.5 % EF(sp4-el): 23.0 % SV(sp4-el): 52.8 ml LA A4 area: 21.4 cm2 RA A4 area: 16.5 cm2 Time Measurements MV dec time: 0.24 sec Doppler Measurements & Calculations MV E max amos: 25.1 cm/sec Lat Peak E' Amos: 3.5 cm/sec Med Peak E' Amos: 4.0 cm/sec MV A max amos: 64.4 cm/sec E/E' lat: 7.2 E/E' med: 6.3 MV E/A: 0.39 Ao V2 max: 118.4 cm/sec LV V1 max: 74.7 cm/sec MR max amos: 526.3 cm/sec Ao max P.6 mmHg LV V1 max P.2 mmHg MR max P.8 mmHg MR mean amos: 369.6 cm/sec MR mean P.1 mmHg MR VTI: 170.7 cm PA V2 max: 67.9 cm/sec TR max amos: 233.4 cm/sec TR max P.8 mmHg ECHO/Echo Complete W/ Contrast Interpretation Summary Mildly dilated left ventricle. The estimated ejection fraction is 25 %. There is severe global hypokinesis of the left ventricle. Stage 1 diastolic dysfunction. Compared to previous study, the left ventricular systolic function has improved .. Contrast injection was performed. Ordering Physician: Amy Becerril Referring Physician: Shaheed Royal Performed By: Moris Owen RCS
== END ==
PROVIDERS: PCP Family Medicine; Referring Provider Nurse Practitioner Gerontology; Visit Provider Nurse Practitioner Gerontology
DX: I42.8 Other cardiomyopathies (principal); R06.09 Other forms of dyspnea
CPT/HCPCS: 93306; Q9957; A4216; C8929; J3490

== ENCOUNTER 2021-04-21 09:15 | Outpatient (RCR) | payer MEDICARE, SELFPAY ==
[2021-03-24 00:27] VITALS: BP 129/81; PULSE 65; RESP 18; TEMP 36.3; BMI 37.8
[2021-03-24 09:57] VITALS: BP 113/57; PULSE 70; TEMP 35.6; BMI 37.8
--- NOTE | 2021-03-24 14:21 | PCM.WC.PN ---
History of Present Illness Date of Service: 03/24/21 Chief Complaint: Bilateral foot brady History of Wound: The patient is a pleasant 75-year-old white male who presents to the wound healing center today (11/04/2020) for an initial evaluation of bilateral medial foot brady. He has a past medical history significant for Alzheimer's disease, dilated cardiomyopathy, congestive heart failure, implanted pacemaker, CAD, hypertension, hyperlipidemia, and insulin-dependent type 2 diabetes. He reports that his brady occurred approximately 2 weeks ago. 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 The next day, he was back on his tractor performing the same type of work. In the following days, the developed blackening of the areas. He has been using silver dressings to his feet daily, and cleansing them with a chlorhexidine?type solution. He denies any pain in his feet. He denies any fever or chills. He denies any general malaise or poor appetite. He has mild redness surrounding the wounds of his bilateral feet. They do not feel hot to touch. He has not been on any antibiotics in the last several weeks. He does not typically use compression to his lower extremities. He denies frequent swelling of the lower extremities, but does report that in the past 2 weeks his distal feet have appeared slightly swollen. Progress of Wound: Left heel ulcer is improved in size and appearance again this week. The patient denies fever, chills, general malaise, or poor appetite. The patient has not had increased redness, swelling, or purulent/malodorous drainage from affected area. Objective Data Objective Data Vital Signs: Vital Signs Temp Pulse Resp BP 96.1 F L 70 18 113/57 L 03/24/21 09:57 03/24/21 09:57 03/24/21 00:27 03/24/21 09:57 Body Mass Index (BMI) 37.8 Charges/Coding Procedures Integumentary 111xxx-113xx: 65815 Aminta subq tissue 20 sq cm/< Physical Exam Const alert, no apparent distress and healthy appearing General Appearance: cooperative, comfortable and well kempt Neck supple Resp normal respiratory effort Extremity normal capillary refill, no joint enlargement, no clubbing, cyanosis or edema and no pedal edema Skin Wounds: wounds noted no odor Wound Narrative: Ulcer of left medial heel with small amounts of slough and devitalized tissue present. There is no noted tunneling, undermining, or probing to bone. Good granulation tissue is present. No periulcer erythema. There is no warmth to the periulcer area. There is no tenderness to the periulcer area. There is no drainage present from the left medial heel ulcer today. No malodor noted. Some purple discoloration of the right medial heel is noted at the previous wound site. No open wounds or other concerning findings at this time. Neuro moves all extremities Sensory Exam: extremities Sensory loss observed in both feet Psych mental status grossly normal, cooperative and affect normal Debridement Note Debridement Note Wound debrided: Left heel ulcer Laterality: Left Type of Debridement: Excisional debridement Anesthesia Used: 5% Lidocaine Gel Depth: in the subcutaneous layer Percentage of wound debrided: 100 Instrument Used: 3mm curette Tissue Removed: Slough and devitalized tissue Severity: Fat Layer Exposed Amount of bleeding with debridement: Mild Bleeding Controlled with: Pressure Patient tolerated procedure: Patient tolerated procedure well Post-Debridement Measurements and Additional Note: Post-Debridement Measurements/Treatment - Nurse 1 - General Ulcer Assessment Start: 03/24/21 09:56 Freq: Status: Active Protocol: BERNIE Activity Type Activity Date Activity User E-Sign Co-Sign Detail Recorded Client Recorded Date Recorded By Document 03/24/21 09:57 ROBBI [id number] 03/24/21 09:58 ROBBI 03/24/21 09:57 - Today's Visit Information Type of service Follow-up Visit (Physician/LEAD PRINCIPAL TECHNICAL ARCHITECT ) Arrival Mode Ambulatory Patient Identification Verified (Name & Yes ) Height and Weight Body Mass Index (BMI) 37.8 BMI Classification Obese Vital Signs Temperature (97.8 F-99.1 F) 96.1 F L Temperature Source Temporal Pulse Rate (60-100) 70 Pulse Location Monitor Blood Pressure (90/60-120/80) 113/57 L Blood Pressure Mean (mm Hg) 75 Source Monitor Position Sitting Blood Pressure Location Left Arm History Since Last Visit- (Skip if this is Patient's initial visit) Have you changed medications since your No last visit? Any new allergies or adverse reactions No Had a fall/change in ADL's that may No increase risk of falls Signs or symptoms of abuse and/or No neglect since last visit Have you been in the hospital since your No last visit? Has dressing in place as prescribed Yes Has compression in place as prescribed N/A Has offloadiing in place as prescribed N/A Experienced any changes in pain level or No management Left Footwear Regular Shoe Right Footwear Regular Shoe Pain Scale: 0-10 Numeric Is Patient Pain Free? Yes - Nurse 1 - General Ulcer Measurement Start: 03/24/21 09:56 Freq: Status: Active Protocol: Activity Type Activity Date Activity User E-Sign Co-Sign Detail Recorded Client Recorded Date Recorded By Document 03/24/21 09:57 KR [id number] 03/24/21 09:58 KR 03/24/21 09:57 Wound Center Nurse 1 #2 L Med Heel -Current Size (cm) - Length 0.4 -Current Size (cm) - Width 1.6 -Current Size (cm) - Depth 0.1 -Total Square Cm 0.64 -Exudate Amt Small -Exudate Type Serosanguineous -Wound Margin Distinct, Outline Attached -Granulation Amt Small (1-33%) -Granulation Quality Red -Texture (Vera-wound Skin Appearance) Assessed, Scarring -Moisture (Vera-wound Skin Appearance) Assessed,Dry/ Scaly -Color (Vera-wound Skin Appearance) No Abnormality, Assessed -Temperature (Vera-wound Skin No Abnormality Appearance) (Pt Warm) -Ulcer Cleansing Rinsed/ Irrigated with Saline -Foul Odor after Cleansing No -Anesthetic Used 5% Lidocaine Gel - Nurse 2 - General Ulcer CM Notes Start: 03/24/21 09:56 Freq: Status: Active Protocol: Activity Type Activity Date Activity User E-Sign Co-Sign Detail Recorded Client Recorded Date Recorded By Document 03/24/21 13:28 PL [id number] 03/24/21 13:29 PL 03/24/21 13:28 Wound Center Nurse 2 -Time 10:38 -Correct Patient Yes -Correct Side, Site, Position Yes -Correct Procedure Yes -Procedure Performed Yes -Type of Procedure Debridement -Clinical Debridement Subcutaneous -Tissue Removed Subcutaneous -Post Debridement (cm) - Length 1.2 -Post Debridement (cm) - Width 0.5 -Post Debridement (cm) - Depth 0.1 -Total Square (Post) (cm) 0.60 -Area of Debridement (cm) - Length 1.2 -Area of Debridement (cm) - Width 0.5 -Total Square (Area) (cm) 0.60 -Tunneling No -Undermining/Tunneling No -Circular Undermining No -Wound/Ulcer Outcome Not Healed -Ulcer Cleansing Rinsed/ Irrigated with Saline -Foul Odor after Cleansing No -Bioengineered Tissue No -Debridement - Subq, 1st 20sq cm Yes WC - Nurse 3 - General Ulcer D/C NN Start: 03/24/21 09:56 Freq: Status: Active Protocol: Activity Type Activity Date Activity User E-Sign Co-Sign Detail Recorded Client Recorded Date Recorded By Document 03/24/21 12:30 GRANT [id number] 03/24/21 12:31 GRANT 03/24/21 12:30 Wound Care Nurse 3 -Primary Dressing Applied Promogran Alysa Matter -Primary Dressing Covered/Secured with Dry Gauze, Secured with Tape -Promogran Alysa Matter 1 Pain Scale: 0-10 Numeric Is Patient Pain Free? 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: CODE(S): E11.621 - Type 2 diabetes mellitus with foot ulcer; L97.522 - Non-pressure chronic ulcer of other part of left foot with fat layer exposed QUALIFIERS: Diabetic foot ulcer location: heel Diabetes mellitus type: type 2 Qualified Code(s): E11.621 - Type 2 diabetes mellitus with foot ulcer; L97.422 - Non-pressure chronic ulcer of left heel and midfoot with fat layer exposed (2) Type 2 diabetes mellitus with diabetic neuropathy, with long-term current use of insulin: CODE(S): E11.40 - Type 2 diabetes mellitus with diabetic neuropathy, unspecified; 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 Alysa applied to the left heel ulcer. Given the significant bioburden of the patient's ulcers, an order for Puraply AM was submitted for insurance approval. Per nurse case management, the patient was only eligible for Apligraf through his insurance. The option of implementing Apligraf to promote wound healing was discussed with the patient and his son; the patient does not wish to proceed with Apligraf at this time. At home wound-care instructions: Perform moistened Alysa dressing changes once daily or more frequently as needed due to contamination. Wash wounds daily with Dakin's solution, rinse and dry thoroughly before each dressing change. Compression: Continue double Tubigrip's daily. Pad and protect the right heel and continue to avoid friction. No other wound care is necessary for the right heel at this time as wound is healed. Off-loading: The patient was instructed to avoid pressure and friction on the affected areas. Reposition every 2 hours at minimum. Avoid prolonged standing and/or dangling of legs. When seated, feet should be elevated at chest level. Frequent ambulation is encouraged. Diet: Patient encouraged to increase protein intake while taking caution to avoid high carbohydrate and/or sugar intake. Labs/cultures/imaging: Culture from 03/03/2021 showed very rare Streptococcus agalactiae (B). Due to absence of clinical signs of infection today, and significant improvement in wound size and appearance in the past week no antibiotics will be initiated at this time. Patient has completed a course of doxycycline x10 days. He finished his courses of Levaquin and Flagyl as prescribed. Vascular studies on 11/30/20 revealed no evidence of arterial occlusive disease. Routine baseline lab results as listed below: CBCD: RBC 4.48 (L), hemoglobin 12.8 (L) ESR: 37 (H) CMP: Creatinine 2.00 (H), BUN 33 (H) estimated GFR 35 (L), glucose 152 (H) Hemoglobin A1c: 6.7% (H) CRP: 15.9 (H) Prealbumin: 20.0 Follow-up: Return to clinic in 1 week for re-evaluation. Return sooner or report to the emergency room should symptoms worsen, or new symptoms arise. Note: [employer] speech recognition teachers' aide software was used to create portions of this document. Sound-alike and misspelled words, as well as other teachers' aide errors may be contained in the documentation.
[2021-03-31 09:31] VITALS: BP 140/74; PULSE 80; TEMP 36.3; BMI 37.8
--- NOTE | 2021-03-31 09:57 | PCM.WC.PN ---
History of Present Illness Date of Service: 03/31/21 Chief Complaint: Bilateral foot brady History of Wound: The patient is a pleasant 75-year-old white male who presents to the wound healing center today (11/04/2020) for an initial evaluation of bilateral medial foot brady. He has a past medical history significant for Alzheimer's disease, dilated cardiomyopathy, congestive heart failure, implanted pacemaker, CAD, hypertension, hyperlipidemia, and insulin-dependent type 2 diabetes. He reports that his brady occurred approximately 2 weeks ago. 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 The next day, he was back on his tractor performing the same type of work. In the following days, the developed blackening of the areas. He has been using silver dressings to his feet daily, and cleansing them with a chlorhexidine?type solution. He denies any pain in his feet. He denies any fever or chills. He denies any general malaise or poor appetite. He has mild redness surrounding the wounds of his bilateral feet. They do not feel hot to touch. He has not been on any antibiotics in the last several weeks. He does not typically use compression to his lower extremities. He denies frequent swelling of the lower extremities, but does report that in the past 2 weeks his distal feet have appeared slightly swollen. Progress of Wound: Left heel ulcer is improved in size and appearance again this week. The patient denies fever, chills, general malaise, or poor appetite. The patient has not had increased redness, swelling, or purulent/malodorous drainage from affected area. Objective Data Objective Data Vital Signs: Vital Signs Temp Pulse Resp BP 97.4 F L 80 18 140/74 H 03/31/21 09:31 03/31/21 09:31 03/24/21 00:27 03/31/21 09:31 Body Mass Index (BMI) 37.8 Charges/Coding Procedures Integumentary 111xxx-113xx: 75485 Aminta subq tissue 20 sq cm/< Physical Exam Const alert, no apparent distress and healthy appearing General Appearance: cooperative, comfortable and well kempt Neck supple Resp normal respiratory effort Extremity normal capillary refill, no joint enlargement, no clubbing, cyanosis or edema and no pedal edema Skin Wounds: wounds noted no odor Wound Narrative: Ulcer of left medial heel with small amounts of slough and devitalized tissue present in wound bed. Large amounts of surrounding callous. Good granulation of wound bed. There is no noted tunneling, undermining, or probing to bone. No periulcer erythema. There is no warmth to the periulcer area. There is no tenderness to the periulcer area. There is a small amount of serous drainage present from the left medial heel ulcer today. No malodor noted. Neuro moves all extremities Sensory Exam: extremities Sensory loss observed in both feet Psych mental status grossly normal, cooperative and affect normal Debridement Note Debridement Note Wound debrided: left heel ulcer Laterality: Left Type of Debridement: Excisional debridement Anesthesia Used: 4% Lidocaine Solution Depth: in the subcutaneous layer Percentage of wound debrided: 100 Instrument Used: 3mm curette Tissue Removed: Slough and devitalized tissue Severity: Fat Layer Exposed Amount of bleeding with debridement: Mild Bleeding Controlled with: Pressure Patient tolerated procedure: Patient tolerated procedure well Post-Debridement Measurements and Additional Note: Post-Debridement Measurements/Treatment - Nurse 1 - General Ulcer Assessment Start: 03/24/21 09:56 Freq: Status: Active Protocol: BERNIE Activity Type Activity Date Activity User E-Sign Co-Sign Detail Recorded Client Recorded Date Recorded By Document 03/24/21 09:57 KR [id number] 03/24/21 09:58 KR Document 03/31/21 09:31 AK Desktop 03/31/21 09:33 AK 03/24/21 03/31/21 09:57 09:31 - Today's Visit Information Type of service Follow-up Visit Follow-up Visit (Physician/PNEUMATIC TOOL OPERATOR (Physician/PNEUMATIC TOOL OPERATOR ) ) Arrival Mode Ambulatory Ambulatory Patient Identification Verified (Name & Yes Yes ) Patient Requires Transmission-Based No Precautions Safety Precautions NA Height and Weight Body Mass Index (BMI) 37.8 37.8 BMI Classification Obese Obese Vital Signs Temperature (97.8 F-99.1 F) 96.1 F L 97.4 F L Temperature Source Temporal Temporal Pulse Rate (60-100) 70 80 Pulse Location Monitor Monitor Blood Pressure (90/60-120/80) 113/57 L 140/74 H Blood Pressure Mean (mm Hg) 75 96 Source Monitor Monitor Position Sitting Blood Pressure Location Left Arm History Since Last Visit- (Skip if this is Patient's initial visit) Have you changed medications since your No No last visit? Any new allergies or adverse reactions No No Had a fall/change in ADL's that may No No increase risk of falls Signs or symptoms of abuse and/or No No neglect since last visit Have you been in the hospital since your No No last visit? Has dressing in place as prescribed Yes Yes Has compression in place as prescribed N/A Yes Has offloadiing in place as prescribed N/A N/A Experienced any changes in pain level or No No management Left Footwear Regular Shoe Regular Shoe Right Footwear Regular Shoe Regular Shoe Pain Scale: 0-10 Numeric Is Patient Pain Free? Yes WC - Nurse 1 - General Ulcer Measurement Start: 03/24/21 09:56 Freq: Status: Active Protocol: Activity Type Activity Date Activity User E-Sign Co-Sign Detail Recorded Client Recorded Date Recorded By Document 03/24/21 09:57 KR [id number] 03/24/21 09:58 KR Document 03/31/21 09:31 AK Desktop 03/31/21 09:33 AK 03/24/21 03/31/21 09:57 09:31 Wound Center Nurse 1 #2 L Med Heel -Combined with other wound No -Current Size (cm) - Length 0.4 0.3 -Current Size (cm) - Width 1.6 1 -Current Size (cm) - Depth 0.1 0.1 -Total Square Cm 0.64 0.3 -Photo Taken No -Epithelialization None Present -Tunneling No -Undermining/Tunneling No -Circular Undermining No -Exudate Amt Small Medium -Exudate Type Serosanguineous Serosanguineous -Wound Margin Distinct, Distinct, Outline Outline Attached Attached -Granulation Amt Small (1-33%) None Present (0 %) -Granulation Quality Red N/A -Slough/Fibrin Yes -Necrosis Amt Medium (34-66%) -Necrotic Tissue Type Adherent Slough -Structure Exposed N/A -Texture (Vera-wound Skin Appearance) Assessed, Assessed,Callus Scarring -Moisture (Vera-wound Skin Appearance) Assessed,Dry/ No Abnormality, Scaly Assessed -Color (Vera-wound Skin Appearance) No Abnormality, No Abnormality, Assessed Assessed -Temperature (Vera-wound Skin No Abnormality No Abnormality Appearance) (Pt Warm) (Pt Warm) -Tenderness on Palpation (Vera-wound No Skin Appearance) -Ulcer Cleansing Rinsed/ Rinsed/ Irrigated with Irrigated with Saline Saline -Foul Odor after Cleansing No No -Anesthetic Used 5% Lidocaine 4% Lidocaine Gel Solution WC - Nurse 2 - General Ulcer CM Notes Start: 03/24/21 09:56 Freq: Status: Active Protocol: Activity Type Activity Date Activity User E-Sign Co-Sign Detail Recorded Client Recorded Date Recorded By Document 03/24/21 13:28 PL [id number] 03/24/21 13:29 PL 03/24/21 13:28 Wound Center Nurse 2 -Time 10:38 -Correct Patient Yes -Correct Side, Site, Position Yes -Correct Procedure Yes -Procedure Performed Yes -Type of Procedure Debridement -Clinical Debridement Subcutaneous -Tissue Removed Subcutaneous -Post Debridement (cm) - Length 1.2 -Post Debridement (cm) - Width 0.5 -Post Debridement (cm) - Depth 0.1 -Total Square (Post) (cm) 0.60 -Area of Debridement (cm) - Length 1.2 -Area of Debridement (cm) - Width 0.5 -Total Square (Area) (cm) 0.60 -Tunneling No -Undermining/Tunneling No -Circular Undermining No -Wound/Ulcer Outcome Not Healed -Ulcer Cleansing Rinsed/ Irrigated with Saline -Foul Odor after Cleansing No -Bioengineered Tissue No -Debridement - Subq, 1st 20sq cm Yes WC - Nurse 3 - General Ulcer D/C NN Start: 03/24/21 09:56 Freq: Status: Active Protocol: Activity Type Activity Date Activity User E-Sign Co-Sign Detail Recorded Client Recorded Date Recorded By Document 03/24/21 12:30 AK [id number] 03/24/21 12:31 AK Document 03/31/21 09:55 AK Desktop 03/31/21 09:56 AK 03/24/21 03/31/21 12:30 09:55 Wound Care Nurse 3 #2 L Med Heel -Ulcer Cleansing Rinsed/ Irrigated with Saline -Foul Odor after Cleansing No -Negative Pressure Wound Therapy N/A -Primary Dressing Applied Promogran Promogran Alysa Matter Alysa Matter -Primary Dressing Covered/Secured with Dry Gauze, Dry Gauze & Secured with Roll Gauze, Tape Secured with Tape -Promogran Alysa Matter 1 0 Pain Scale: 0-10 Numeric Is Patient Pain Free? 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: CODE(S): E11.621 - Type 2 diabetes mellitus with foot ulcer; L97.522 - Non-pressure chronic ulcer of other part of left foot with fat layer exposed QUALIFIERS: Diabetic foot ulcer location: heel Diabetes mellitus type: type 2 Qualified Code(s): E11.621 - Type 2 diabetes mellitus with foot ulcer; L97.422 - Non-pressure chronic ulcer of left heel and midfoot with fat layer exposed (2) Type 2 diabetes mellitus with diabetic neuropathy, with long-term current use of insulin: CODE(S): E11.40 - Type 2 diabetes mellitus with diabetic neuropathy, unspecified; Z79.4 - senior living (current) use of insulin PLAN: Debridement of left heel ulcer performed today in clinic as annotated above. Alysa applied to the left heel ulcer. Given the significant bioburden of the patient's ulcers, an order for Puraply AM was submitted for insurance approval. Per rn case manager, the patient was only eligible for Apligraf through his insurance. The option of implementing Apligraf to promote wound healing was discussed with the patient and his son; the patient does not wish to proceed with Apligraf at this time. At home wound-care instructions: Perform moistened Alysa dressing changes once daily or more frequently as needed due to contamination. Wash wounds daily with Dakin's solution, rinse and dry thoroughly before each dressing change. Compression: Continue double Tubigrip's daily. Pad and protect the right heel and continue to avoid friction. No other wound care is necessary for the right heel at this time as wound is healed. Off-loading: The patient was instructed to avoid pressure and friction on the affected areas. Reposition every 2 hours at minimum. Avoid prolonged standing and/or dangling of legs. When seated, feet should be elevated at chest level. Frequent ambulation is encouraged. Diet: Patient encouraged to increase protein intake while taking caution to avoid high carbohydrate and/or sugar intake. Labs/cultures/imaging: Culture from 03/03/2021 showed very rare Streptococcus agalactiae (B). Due to absence of clinical signs of infection today, and significant improvement in wound size and appearance in the past week no antibiotics will be initiated at this time. Patient has completed a course of doxycycline x10 days. He finished his courses of Levaquin and Flagyl as prescribed. Vascular studies on 11/30/20 revealed no evidence of arterial occlusive disease. Routine baseline lab results as listed below: CBCD: RBC 4.48 (L), hemoglobin 12.8 (L) ESR: 37 (H) CMP: Creatinine 2.00 (H), BUN 33 (H) estimated GFR 35 (L), glucose 152 (H) Hemoglobin A1c: 6.7% (H) CRP: 15.9 (H) Prealbumin: 20.0 Follow-up: Return to clinic in 1 week for re-evaluation. Return sooner or report to the emergency room should symptoms worsen, or new symptoms arise. Note: [employer] speech recognition integration software developer software was used to create portions of this document. Sound-alike and misspelled words, as well as other integration software developer errors may be contained in the documentation.
[2021-04-07 09:07] VITALS: BMI 37.8
[2021-04-07 09:17] VITALS: BP 95/57; PULSE 74; TEMP 36.2; BMI 37.8
--- NOTE | 2021-04-07 11:19 | PN.PCM_ITS ---
History of Present Illness Date of Service: 04/07/21 Chief Complaint: Bilateral foot brady History of Wound: The patient is a pleasant 75-year-old white male who presents to the wound healing center today (11/04/2020) for an initial evaluation of bilateral medial foot brady. He has a past medical history significant for Alzheimer's disease, dilated cardiomyopathy, congestive heart failure, implanted pacemaker, CAD, hypertension, hyperlipidemia, and insulin-dependent type 2 diabetes. He reports that his brady occurred approximately 2 weeks ago. 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 The next day, he was back on his tractor performing the same type of work. In the following days, the developed blackening of the areas. He has been using silver dressings to his feet daily, and cleansing them with a chlorhexidine?type solution. He denies any pain in his feet. He denies any fever or chills. He denies any general malaise or poor appetite. He has mild redness surrounding the wounds of his bilateral feet. They do not feel hot to touch. He has not been on any antibiotics in the last several weeks. He does not typically use compression to his lower extremities. He denies frequent swelling of the lower extremities, but does report that in the past 2 weeks his distal feet have appeared slightly swollen. Progress of Wound: Left heel ulcer is improved in size and appearance again this week. The patient denies fever, chills, general malaise, or poor appetite. The patient has not had increased redness, swelling, or purulent/malodorous drainage from affected area. Objective Data Objective Data Vital Signs: Vital Signs Temp Pulse Resp BP 97.1 F L 74 18 95/57 L 04/07/21 09:17 04/07/21 09:17 03/24/21 00:27 04/07/21 09:17 Body Mass Index (BMI) 37.8 Charges/Coding Procedures Integumentary [id number]: 24002 Aminta subq tissue 20 sq cm/< Physical Exam Const alert, no apparent distress and healthy appearing General Appearance: cooperative, comfortable and well kempt Neck supple Resp normal respiratory effort Extremity normal capillary refill, no joint enlargement, no clubbing, cyanosis or edema a nd no pedal edema Skin Wounds: wounds noted no odor Wound Narrative: Ulcer of left medial heel with small amounts of slough and devitalized tissue present in wound bed. Large amounts of surrounding callous. Good granulation of wound bed. There is no noted tunneling, undermining, or probing to bone. No periulcer erythema. There is no warmth to the periulcer area. There is no tenderness to the periulcer area. There is a small amount of serous drainage present from the left medial heel ulcer today. No malodor noted. Neuro moves all extremities Sensory Exam: extremities Sensory loss observed in both feet Psych mental status grossly normal, cooperative and affect normal Debridement Note Debridement Note Wound debrided: Left heel Laterality: Left Type of Debridement: Excisional debridement Anesthesia Used: 5% Lidocaine Gel Depth: in the subcutaneous layer Percentage of wound debrided: 100 Instrument Used: 3mm curette and - (Tissue nippers) Tissue Removed: Slough and devitalized tissue Severity: Fat Layer Exposed Amount of bleeding with debridement: Mild Bleeding Controlled with: Pressure Patient tolerated procedure: Patient tolerated procedure well Post-Debridement Measurements and Additional Note: Post-Debridement Measurements/Treatment - Nurse 1 - General Ulcer Assessment Start: 03/24/21 09:56 Freq: Status: Active Protocol: BERNIE Activity Type Activity Date Activity User E-Sign Co-Sign Detail Recorded Client Recorded Date Recorded By Document 03/24/21 09:57 KR [id number] 03/24/21 09:58 KR Document 03/31/21 09:31 AK Desktop 03/31/21 09:33 AK Document 04/07/21 09:07 PL [id number] 04/07/21 09:11 PL Document 04/07/21 09:17 AK [id number] 04/07/21 09:19 AK 03/24/21 03/31/21 04/07/21 09:57 09:31 09:07 - Today's Visit Information Type of service Follow-up Visit Follow-up Visit (Physician/INGOT CAR OPERATOR (Physician/INGOT CAR OPERATOR ) ) Arrival Mode Ambulatory Ambulatory Patient Identification Verified (Name & Yes Yes ) Patient Requires Transmission-Based No Precautions Safety Precautions NA Height and Weight Body Mass Index (BMI) 37.8 37.8 37.8 BMI Classification Obese Obese Obese Vital Signs Temperature (97.8 F-99.1 F) 96.1 F L 97.4 F L Temperature Source Temporal Temporal Pulse Rate (60-100) 70 80 Pulse Location Monitor Monitor Blood Pressure (90/60-120/80) 113/57 L 140/74 H Blood Pressure Mean (mm Hg) 75 96 Source Monitor Monitor Position Sitting Blood Pressure Location Left Arm History Since Last Visit- (Skip if this is Patient's initial visit) Have you changed medications since your No No last visit? Any new allergies or adverse reactions No No Had a fall/change in ADL's that may No No increase risk of falls Signs or symptoms of abuse and/or No No neglect since last visit Have you been in the hospital since your No No last visit? Has dressing in place as prescribed Yes Yes Has compression in place as prescribed N/A Yes Has offloadiing in place as prescribed N/A N/A Experienced any changes in pain level or No No management Left Footwear Regular Shoe Regular Shoe Right Footwear Regular Shoe Regular Shoe Pain Scale: 0-10 Numeric Is Patient Pain Free? Yes 04/07/21 09:17 WC - Today's Visit Information Type of service Follow-up Visit (Physician/INGOT CAR OPERATOR ) Arrival Mode Ambulatory Patient Identification Verified (Name & Yes ) Patient Requires Transmission-Based No Precautions Safety Precautions NA Height and Weight Body Mass Index (BMI) 37.8 BMI Classification Obese Vital Signs Temperature (97.8 F-99.1 F) 97.1 F L Temperature Source Temporal Pulse Rate (60-100) 74 Pulse Location Monitor Blood Pressure (90/60-120/80) 95/57 L Blood Pressure Mean (mm Hg) 69 Source Monitor Position Blood Pressure Location History Since Last Visit- (Skip if this is Patient's initial visit) Have you changed medications since your No last visit? Any new allergies or adverse reactions No Had a fall/change in ADL's that may No increase risk of falls Signs or symptoms of abuse and/or No neglect since last visit Have you been in the hospital since your No last visit? Has dressing in place as prescribed Yes Has compression in place as prescribed Yes Has offloadiing in place as prescribed N/A Experienced any changes in pain level or No management Left Footwear Regular Shoe Right Footwear Regular Shoe Pain Scale: 0-10 Numeric Is Patient Pain Free? WC - Nurse 1 - General Ulcer Measurement Start: 03/24/21 09:56 Freq: Status: Active Protocol: Activity Type Activity Date Activity User E-Sign Co-Sign Detail Recorded Client Recorded Date Recorded By Document 03/24/21 09:57 KR [id number] 03/24/21 09:58 KR Document 03/31/21 09:31 AK Desktop 03/31/21 09:33 AK Document 04/07/21 09:17 AK [id number] 04/07/21 09:19 AK 03/24/21 03/31/21 04/07/21 09:57 09:31 09:17 Wound Center Nurse 1 #2 L Med Heel -Combined with other wound No No -Current Size (cm) - Length 0.4 0.3 0.1 -Current Size (cm) - Width 1.6 1 0.1 -Current Size (cm) - Depth 0.1 0.1 0.1 -Total Square Cm 0.64 0.3 0.01 -Photo Taken No No -Epithelialization None Present None Present -Tunneling No No -Undermining/Tunneling No No -Circular Undermining No No -Change in Wound Grade/Stage No -Exudate Amt Small Medium None Present -Exudate Type Serosanguineous Serosanguineous -Wound Margin Distinct, Distinct, Distinct, Outline Outline Outline Attached Attached Attached -Granulation Amt Small (1-33%) None Present (0 None Present (0 %) %) -Granulation Quality Red N/A N/A -Slough/Fibrin Yes No -Necrosis Amt Medium (34-66%) None Present (0 %) -Necrotic Tissue Type Adherent Slough -Structure Exposed N/A N/A -Texture (Vera-wound Skin Appearance) Assessed, Assessed,Callus No Abnormality, Scarring Scarring -Moisture (Vera-wound Skin Appearance) Assessed,Dry/ No Abnormality, Assessed Scaly Assessed -Color (Vera-wound Skin Appearance) No Abnormality, No Abnormality, Assessed, Assessed Assessed Hemosiderin Staining -Temperature (Vera-wound Skin No Abnormality No Abnormality No Abnormality Appearance) (Pt Warm) (Pt Warm) (Pt Warm) -Tenderness on Palpation (Vera-wound No No Skin Appearance) -Ulcer Cleansing Rinsed/ Rinsed/ Rinsed/ Irrigated with Irrigated with Irrigated with Saline Saline Saline -Foul Odor after Cleansing No No No -Anesthetic Used 5% Lidocaine 4% Lidocaine 5% Lidocaine Gel Solution Gel WC - Nurse 2 - General Ulcer CM Notes Start: 03/24/21 09:56 Freq: Status: Active Protocol: Activity Type Activity Date Activity User E-Sign Co-Sign Detail Recorded Client Recorded Date Recorded By Document 03/24/21 13:28 PL [id number] 03/24/21 13:29 PL Document 03/31/21 09:57 PL [id number] 03/31/21 09:58 PL 03/24/21 03/31/21 13:28 09:57 Wound Center Nurse 2 -Time 10:38 09:45 -Correct Patient Yes Yes -Correct Side, Site, Position Yes Yes -Correct Procedure Yes Yes -Procedure Performed Yes Yes -Type of Procedure Debridement Debridement -Clinical Debridement Subcutaneous Subcutaneous -Tissue Removed Subcutaneous Subcutaneous -Post Debridement (cm) - Length 1.2 0.9 -Post Debridement (cm) - Width 0.5 0.2 -Post Debridement (cm) - Depth 0.1 0.1 -Total Square (Post) (cm) 0.60 0.18 -Area of Debridement (cm) - Length 1.2 0.9 -Area of Debridement (cm) - Width 0.5 0.2 -Total Square (Area) (cm) 0.60 0.18 -Tunneling No No -Undermining/Tunneling No No -Circular Undermining No No -Wound/Ulcer Outcome Not Healed Not Healed -Ulcer Cleansing Rinsed/ Rinsed/ Irrigated with Irrigated with Saline Saline -Foul Odor after Cleansing No No -Bioengineered Tissue No No -Bleeding Controlled with Pressure -Treatment Response Procedure Tolerated Well -Debridement - Subq, 1st 20sq cm Yes Yes WC - Nurse 3 - General Ulcer D/C NN Start: 03/24/21 09:56 Freq: Status: Active Protocol: Activity Type Activity Date Activity User E-Sign Co-Sign Detail Recorded Client Recorded Date Recorded By Document 03/24/21 12:30 AK [id number] 03/24/21 12:31 AK Document 03/31/21 09:55 AK Desktop 03/31/21 09:56 AK Document 04/07/21 09:48 KR [id number] 04/07/21 09:48 KR 03/24/21 03/31/21 04/07/21 12:30 09:55 09:48 Wound Care Nurse 3 #2 L Med Heel -Ulcer Cleansing Rinsed/ Irrigated with Saline -Foul Odor after Cleansing No -Negative Pressure Wound Therapy N/A -Primary Dressing Applied Promogran Promogran NonAdherent Alysa Matter Alysa Matter Contact Layer -Primary Dressing Covered/Secured with Dry Gauze, Dry Gauze & Dry Gauze, Secured with Roll Gauze, Secured with Tape Secured with Tape Tape -Promogran Alysa Matter 1 0 Pain Scale: 0-10 Numeric Is Patient Pain Free? 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: CODE(S): E11.621 - Type 2 diabetes mellitus with foot ulcer; L97.522 - Non-pressure chronic ulcer of other part of left foot with fat layer exposed QUALIFIERS: Diabetic foot ulcer location: heel Diabetes mellitus type: type 2 Qualified Code(s): E11.621 - Type 2 diabetes mellitus with foot ulcer; L97.422 - Non-pressure chronic ulcer of left heel and midfoot with fat layer exposed (2) Type 2 diabetes mellitus with diabetic neuropathy, with long-term current use of insulin: CODE(S): E11.40 - Type 2 diabetes mellitus with diabetic neuropathy, uns pecified; Z79.4 - FDC (current) use of insulin PLAN: Debridement of left heel ulcer performed today in clinic as annotated above. Alysa applied to the left heel ulcer. Covered with Adaptic due to dryness. Given the significant bioburden of the patient's ulcers, an order for Puraply AM was submitted for insurance approval. Per case management associate, the patient was only eligible for Apligraf through his insurance. The option of implementing Apligraf to promote wound healing was discussed with the patient and his son; the patient does not wish to proceed with Apligraf at this time. At home wound-care instructions: Perform moistened Alysa dressing changes once daily or more frequently as needed due to contamination. Cover with Adaptic for moisture balance. Wash wounds daily with Dakin's solution, rinse and dry thoroughly before each dressing change. Compression: Continue double Tubigrip's daily. Pad and protect the right heel and continue to avoid friction. No other wound care is necessary for the right heel at this time as wound is healed. Off-loading: The patient was instructed to avoid pressure and friction on the affected areas. Reposition every 2 hours at minimum. Avoid prolonged standing and/or dangling of legs. When seated, feet should be elevated at chest level. Frequent ambulation is encouraged. Diet: Patient encouraged to increase protein intake while taking caution to avoid high carbohydrate and/or sugar intake. Labs/cultures/imaging: Culture from 03/03/2021 showed very rare Streptococcus agalactiae (B). Due to absence of clinical signs of infection today, and significant improvement in wound size and appearance in the past week no antibiotics will be initiated at this time. Patient has completed a course of doxycycline x10 days. He finished his courses of Levaquin and Flagyl as prescribed. Vascular studies on 11/30/20 revealed no evidence of arterial occlusive disease. Routine baseline lab results as listed below: CBCD: RBC 4.48 (L), hemoglobin 12.8 (L) ESR: 37 (H) CMP: Creatinine 2.00 (H), BUN 33 (H) estimated GFR 35 (L), glucose 152 (H) Hemoglobin A1c: 6.7% (H) CRP: 15.9 (H) Prealbumin: 20.0 Follow-up: Return to clinic in 2 weeks for re-evaluation. Return sooner or report to the emergency room should symptoms worsen, or new symptoms arise. Note: [employer] speech recognition enrollment management manager software was used to create portions of this document. Sound-alike and misspelled words, as well as other enrollment management manager errors may be contained in the documentation.
[2021-04-21 09:00] VITALS: BP 148/91; PULSE 94; RESP 16; TEMP 36.2; BMI 37.8
--- NOTE | 2021-04-21 12:23 | PN.PCM_ITS ---
History of Present Illness Date of Service: 04/21/21 Chief Complaint: Bilateral foot brady History of Wound: The patient is a pleasant 75-year-old white male who presents to the wound healing center today (11/04/2020) for an initial evaluation of bilateral medial foot brady. He has a past medical history significant for Alzheimer's disease, dilated cardiomyopathy, congestive heart failure, implanted pacemaker, CAD, hypertension, hyperlipidemia, and insulin-dependent type 2 diabetes. He reports that his brady occurred approximately 2 weeks ago. 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 The next day, he was back on his tractor performing the same type of work. In the following days, the developed blackening of the areas. He has been using silver dressings to his feet daily, and cleansing them with a chlorhexidine?type solution. He denies any pain in his feet. He denies any fever or chills. He denies any general malaise or poor appetite. He has mild redness surrounding the wounds of his bilateral feet. They do not feel hot to touch. He has not been on any antibiotics in the last several weeks. He does not typically use compression to his lower extremities. He denies frequent swelling of the lower extremities, but does report that in the past 2 weeks his distal feet have appeared slightly swollen. Progress of Wound: Left heel ulcer is healed today. Objective Data Objective Data Vital Signs: Vital Signs Temp Pulse Resp BP 97.1 F L 94 16 148/91 H 04/21/21 09:00 04/21/21 09:00 04/21/21 09:00 04/21/21 09:00 Oxygen Delivery Method Room Air Body Mass Index (BMI) 37.8 Charges/Coding Visit Charges Office Visits / Consults: 64718 OV L3 Est Physical Exam Const alert, no apparent distress and healthy appearing General Appearance: cooperative, comfortable and well kempt Neck supple Resp normal respiratory effort Extremity normal capillary refill, no joint enlargement, no clubbing, cyanosis or edema and no pedal edema Skin Wounds: Negative for wounds noted Wound Narrative: Ulcer of left medial heel is healed. 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: CODE(S): E11.621 - Type 2 diabetes mellitus with foot ulcer; L97.522 - Non-pressure chronic ulcer of other part of left foot with fat layer exposed QUALIFIERS: Diabetic foot ulcer location: heel Diabetes mellitus type: type 2 Qualified Code(s): E11.621 - Type 2 diabetes mellitus with foot ulcer; L97.422 - Non-pressure chronic ulcer of left heel and midfoot with fat layer exposed (2) Type 2 diabetes mellitus with diabetic neuropathy, with long-term current use of insulin: CODE(S): E11.40 - Type 2 diabetes mellitus with diabetic neuropathy, unspecified; Z79.4 - emt intermediate (current) use of insulin PLAN: The patient's left heel ulcer is healed today. He will be discharged from the wound healing center. As preventive measures: Pad and protect the heels and continue to avoid friction. The daily use of compression stockings is recommended. Avoid prolonged standing and/or dangling of legs. When seated, feet should be elevated at chest level. Frequent ambulation is encouraged. Follow-up: Return to the wound healing center on an as-needed basis should wounds recur or new wounds develop. Note: [employer] speech recognition senior engineering technician software was used to create portions of this document. Sound-alike and misspelled words, as well as other senior engineering technician errors may be contained in the documentation.
== END 2021-04-21 09:49 | disposition home or self-care (01) ==
LOC: WC 09:15
PROVIDERS: PCP Family Medicine; Referring Provider Nurse Practitioner Family; Visit Provider Nurse Practitioner Family
DX: E11.621 Type 2 diabetes mellitus with foot ulcer (principal); L97.422 Non-pressure chronic ulcer of left heel and midfoot with fat layer exposed; I11.0 Hypertensive heart disease with heart failure; I50.9 Heart failure, unspecified; E78.5 Hyperlipidemia, unspecified; I25.10 Atherosclerotic heart disease of native coronary artery without angina pectoris; Z79.4 Long term (current) use of insulin; F02.80 Dementia in other diseases classified elsewhere, unspecified severity, without behavioral disturbance, psychotic disturbance, mood disturbance, and anxiety; G30.9 Alzheimer's disease, unspecified; E11.40 Type 2 diabetes mellitus with diabetic neuropathy, unspecified
CPT/HCPCS: 11042; 99213; G0463

== ENCOUNTER → 2022-03-27 | Outpatient (CLI) | payer MEDICARE, SELFPAY ==
[2022-03-27 10:43] LABS: AST(SGOT) 16 U/L (15-37); Alanine Aminotransfer ALT/SGPT 18 U/L (16-61); Albumin, Serum 3.3 g/dL (3.2-5.0); Alkaline Phosphatase 134 U/L (45-117); Bilirubin, Direct 0.28 mg/dL (0.00-0.30); Cholesterol 59 mg/dL (200); Globulin 5.2 g/dL (2.2-4.2); High Density Lipoprotein 26 mg/dL; Protein, Total 8.5 g/dL (6.4-8.2); Triglycerides 87 mg/dL; Very Low Density Lipoprotein 17 mg/dL (5-40)
== END | disposition home or self-care (01) ==
LOC: LAB 09:22
PROVIDERS: PCP Family Medicine; Visit Provider Internal Medicine Cardiovascular Disease
DX: E78.00 Pure hypercholesterolemia, unspecified (principal); I10 Essential (primary) hypertension
CPT/HCPCS: 36415; 80061; 80076

== ENCOUNTER → 2022-04-01 | Outpatient (CLI) | payer MEDICARE, SELFPAY ==
[2022-04-01 16:17] LABS: AST(SGOT) 21 U/L (15-37); Alanine Aminotransfer ALT/SGPT 20 U/L (16-61); Albumin, Serum 3.6 g/dL (3.2-5.0); Alkaline Phosphatase 144 U/L (45-117); Bilirubin, Direct 0.47 mg/dL (0.00-0.30); Cholesterol 66 mg/dL (200); High Density Lipoprotein 28 mg/dL; Protein, Total 8.6 g/dL (6.4-8.2); Triglycerides 80 mg/dL; Very Low Density Lipoprotein 16 mg/dL (5-40)
== END | disposition home or self-care (01) ==
PROVIDERS: PCP Family Medicine; Visit Provider Internal Medicine Cardiovascular Disease
DX: E78.00 Pure hypercholesterolemia, unspecified (principal)
CPT/HCPCS: 36415; 80061; 80076

== ENCOUNTER → 2022-08-01 | Outpatient (CLI) | payer MEDICARE, SELFPAY ==
--- NOTE | 2022-08-01 13:29 | CT_ITS ---
STUDY: CT BRAIN WITHOUT CONTRAST REASON FOR EXAM: Male, 77 years old. VISUAL DISTURBANCE RADIATION DOSAGE (If Supplied By Facility): CTDIvol = ( 44.99 ) mGy, DLP = ( 796.11 ) mGycm TECHNIQUE: Transaxial CT imaging of the brain was performed without administration of intravenous contrast material. Individualized dose optimization techniques were used for this CT. COMPARISON: No relevant priors. FINDINGS: Normal soft tissue structures. Normal calvarium. There is mild cerebral atrophy with widening of the extra-axial spaces and ventricular dilatation. There are areas of decreased attenuation within the white matter tracts of the supratentorial brain, consistent with microvascular disease changes. Normal basal ganglia and thalami. Normal brainstem. Normal cerebellum. There is no intracranial hemorrhage. There are no findings of an acute ischemic infarction. Atherosclerotic calcification of the cavernous portions of the internal carotid arteries bilaterally. Partial opacification of the left maxillary sinus. CT/Brain/Head without Contrast IMPRESSION: Chronic involutional changes of the brain. Partial opacification of the left maxillary sinus. Electronically Signed: Sheldon Bruno MD at 14:07 EST ,
== END | disposition home or self-care (01) ==
LOC: CT 13:28
PROVIDERS: PCP Family Medicine; Referring Provider Family Medicine; Visit Provider Family Medicine
DX: H53.9 Unspecified visual disturbance (principal)
CPT/HCPCS: 70450

== ENCOUNTER → 2023-07-23 | Outpatient (CLI) | payer MEDICARE, SELFPAY ==
--- NOTE | 2023-07-23 12:43 | CT_ITS ---
STUDY: CT BRAIN WITHOUT CONTRAST REASON FOR EXAM: Male, 78 years old. DISORENTATION RADIATION DOSAGE (If Supplied By Facility): CTDIvol = ( 44.99 ) mGy, DLP = ( 815.79 ) mGycm TECHNIQUE: Transaxial CT imaging of the brain was performed without administration of intravenous contrast material. Individualized dose optimization techniques were used for this CT. COMPARISON: 08/01/2022 FINDINGS: Normal soft tissue structures. Normal calvarium. There is mild cerebral atrophy with widening of the extra-axial spaces and ventricular dilatation. There are areas of decreased attenuation within the white matter tracts of the supratentorial brain, consistent with microvascular disease changes. Normal basal ganglia and thalami. Normal brainstem. Normal cerebellum. There is no intracranial hemorrhage. There are no findings of an acute ischemic infarction. Mucous retention cysts/polyps in the maxillary sinuses CT/Brain/Head without Contrast IMPRESSION: Chronic involutional changes of the brain. No acute hemorrhage or significant interval change Electronically Signed: Moe Barriga MD at 13:19 EST ,
== END | disposition home or self-care (01) ==
LOC: CT 12:38
PROVIDERS: PCP Family Medicine; Referring Provider Family Medicine; Visit Provider Family Medicine
DX: R51.0 Headache with orthostatic component, not elsewhere classified (principal); G31.9 Degenerative disease of nervous system, unspecified
CPT/HCPCS: 70450

== ENCOUNTER → 2023-07-25 | Outpatient (CLI) | payer MEDICARE, SELFPAY ==
--- NOTE | 2023-07-25 11:28 | ECHOD_ITS ---
Reason For Study: Cardiomyopathy Procedure This was a 2D Doppler, Color Flow transthoracic echocardiogram. Exam performed in department. Left Ventricle Severely dilated left ventricle. Mild concentric left ventricular hypertrophy. Severe global left ventricular systolic dysfunction. The left ventricular ejection fraction is 20 %. Stage 3 diastolic dysfunction. Right Ventricle ICD or pacer leads identified within the right ventricle. Severe global right ventricular systolic dysfunction. Atria The left atrium is severely enlarged. The right atrium is moderately enlarged. ICD or pacer leads identified within the right atrium. Mitral Valve Moderately severe (3+) mitral valve insufficiency. Tricuspid Valve Right ventricular systolic pressure estimated to be 55 mmHg. Moderate (2+) tricuspid valve insufficiency. Moderate pulmonary hypertension. Aortic Valve Aortic sclerosis, no stenosis. Pulmonic Valve The pulmonic valve is not well visualized. Great Vessels Normal sized aortic root. Pericardium/Pleural Trivial pericardial effusion. Moderate size left pleural effusion. MMode/2D Measurements & Calculations LVIDd: 7.0 cm IVSd: 1.3 cm Ao root diam: 3.6 cm LVIDs: 6.3 cm LVPWd: 1.2 cm LA dimension: 4.7 cm RVDd: 4.5 cm FS: 10.3 % LAV(MOD-bp): 109.0 ml LVAd ap4: 50.8 cm2 SV(MOD-sp4): 50.8 ml LAV(MOD-bp) Indexed: 51.5 ml/m2 LVLd ap4: 9.3 cm LAV(MOD-sp2): 100.4 ml EDV(MOD-sp4): 227.9 ml LAV(MOD-sp4): 106.9 ml EDV(sp4-el): 234.4 ml LVAs ap4: 42.4 cm2 LVLs ap4: 8.4 cm ESV(MOD-sp4): 177.1 ml ESV(sp4-el): 181.2 ml EF(MOD-sp4): 22.3 % EF(sp4-el): 22.7 % SV(sp4-el): 53.2 ml LA A4 area: 29.6 cm2 RA A4 area: 21.0 cm2 TAPSE: 1.5 cm Time Measurements MV dec time: 0.22 sec Doppler Measurements & Calculations MV E max amos: 81.9 cm/sec Lat Peak E' Amos: 4.6 cm/sec Med Peak E' Amos: 3.4 cm/sec MV A max amos: 40.5 cm/sec E/E' lat: 17.9 E/E' med: 23.8 MV E/A: 2.0 MV V2 max: 94.9 cm/sec MV P1/2t max amos: 95.1 cm/sec Ao V2 max: 120.0 cm/sec MV max P.6 mmHg MV P1/2t: 70.1 msec Ao max P.8 mmHg MV V2 mean: 46.6 cm/sec MV dec slope: 397.4 cm/sec2 Ao V2 mean: 84.2 cm/sec MV mean P.1 mmHg Ao mean P.3 mmHg MV V2 VTI: 22.0 cm MVA(P1/2t): 3.1 cm2 Ao V2 VTI: 25.7 cm AV (velocity ratio): 0.47 LV V1 max: 59.9 cm/sec MR max amos: 421.6 cm/sec PA V2 max: 43.2 cm/sec LV V1 max P.4 mmHg MR max P.1 mmHg LV V1 mean P.79 mmHg MR mean amos: 307.1 cm/sec LV V1 mean: 41.0 cm/sec MR mean P.4 mmHg LV V1 VTI: 12.2 cm MR VTI: 152.2 cm TR max amos: 318.5 cm/sec TR max P.6 mmHg ECHO/Echo Complete Interpretation Summary Severely dilated left ventricle. Mild concentric left ventricular hypertrophy. The left ventricular ejection fraction is 20 %. Stage 3 diastolic dysfunction. Severe global right ventricular systolic dysfunction. The left atrium is severely enlarged. The right atrium is moderately enlarged. Moderately severe (3+) mitral valve insufficiency. Moderate (2+) tricuspid valve insufficiency. Moderate pulmonary hypertension. Moderate size left pleural effusion. Ordering Physician: Amy Becerril Referring Physician: Aym Becerril Performed By: Moris Owen RCS
== END | disposition home or self-care (01) ==
PROVIDERS: PCP Family Medicine; Referring Provider Nurse Practitioner Gerontology; Visit Provider Nurse Practitioner Gerontology
DX: I42.8 Other cardiomyopathies (principal); I50.22 Chronic systolic (congestive) heart failure
CPT/HCPCS: 93306

== ENCOUNTER → 2023-07-29 | Outpatient (CLI) | payer MEDICARE, SELFPAY ==
--- NOTE | 2023-07-29 09:00 | RAD_ITS ---
INDICATION: Pleural effusion EXAMINATION/TECHNIQUE: X-RAY - XR Chest 2 Views COMPARISON: 04/23/2018 FINDINGS: LINES/DEVICES: Interval placement of transvenous pacemaker. LUNGS: No vascular congestion or consolidation. Lateral view shows blunting of the posterior sulcus, not visible on the frontal view. MEDIASTINUM AND CARDIOVASCULAR STRUCTURES: Cardiac silhouette stable within upper normal limits. BONES AND SOFT TISSUES: No acute changes. RAD/Chest PA and Lateral IMPRESSION: Small pleural effusion versus chronic pleural thickening seen only on the lateral view. No acute consolidative process. Electronically Signed: Joe Bernal MD at 18:42 EST ,
[2023-07-29 09:39] LABS: Absolute Lymphocyte Count 0.67 X10^3/uL (0.83-4.51); Absolute Neutrophil Count 2.9 X10^3/uL (2.0-7.7); Basophil# 0.01 X10^3/uL; Basophil% 0.3 % (0-1); Eosinophil# 0.02 X10^3/uL; Eosinophils% 0.5 % (0-5); Hematocrit 45.8 % (40-54); Hemoglobin 13.4 g/dL (13.0-16.5); Lymphocyte # 0.67 X10^3/ul (0.83-4.51); Lymphocyte % 17.2 % (19-41); Mean Corp Hgb Conc 29.3 g/dL (32-36); Mean Corpuscular Hgb 27.5 pg (27.0-32.0); Mean Platelet Vol. 10.4 fl (6.2-12.0); Monocyte# 0.32 X10^3/uL; Monocyte% 8.2 % (0-10); NRBC Flagged by Analyzer 0 % (0-5); Neutrophil # 2.86 X10^3/uL (2.7-7.7); Neutrophil % 73.5 % (47-70); Platelet Count 137 K/mm3 (150-450); RBC Distribution Width CV 17.6 % (11.6-14.6); RBC Distribution Width SD 60.1 fl (35.1-43.9); Red Blood Count 4.87 M/mm3 (4.6-6.2); White Blood Count 3.9 K/mm3 (4.4-11.0)
[2023-07-29 10:17] LABS: BNP,B-Type NATRIURETIC PEPTIDE 269.6 pg/mL (0-100)
[2023-07-29 10:18] LABS: Anion Gap 5 (5-15); BUN 32 mg/dL (7-18); BUN/Creat Ratio 16.2 RATIO (10-20); Calcium,Total 9.6 mg/dL (8.5-10.1); Chloride 106 mmol/L (98-107); Creatinine, Serum 1.98 mg/dL (0.70-1.30); EST Glomerular Filtration Rate 35 mL/min (>60); Est Glom Filt Rate - Afr Amer 42 mL/min (>60); Glucose 179 mg/dL (74-106); Potassium 4.3 mmol/L (3.5-5.1); Sodium Level 140 mmol/L (136-145)
== END | disposition home or self-care (01) ==
PROVIDERS: PCP Family Medicine; Referring Provider Nurse Practitioner Gerontology; Visit Provider Nurse Practitioner Gerontology
DX: J90 Pleural effusion, not elsewhere classified (principal); I50.22 Chronic systolic (congestive) heart failure
CPT/HCPCS: 36415; 71046; 80048; 83880; 85025